=== PATIENT | female | born 1950 | race African-American/Black ===

== ENCOUNTER 2017-01-16 12:34 | Emergency (ER) | payer OTHER, MEDICARE ==
--- NOTE | 2017-01-16 13:08 | ER Document Report ---
ED Cardiac - General Time seen by provider: 12:56 Mode of Arrival: Medic Information source: Patient, Emergency Med Personnel TRAVEL OUTSIDE OF THE [place] IN LAST 30 DAYS: No - HPI Quality of pain: Heaviness, Pressure Chest pain radiation location: Left jaw, Right jaw Associated symptoms: Jaw pain. denies: Dizziness, Weakness Similar symptoms previously: No Recently seen / treated by doctor: No <PASCUAL MCGRATH - Last Filed: 01/16/17 18:06> <IMELDA ENRIQUEZ - Last Filed: 01/16/17 18:16> - General Stated Complaint: CHEST PAIN Notes: Patient is a 66 year old female presenting to the emergency department for chest pain and tachycardia. Patient states her symptoms were onset between 12:30 -13:00 today. Patient was brought in via EMS who states that she was tachycardic at 166 at her house and 150s in the ambulance until she converted from A-fib. Patient has a history of A-fib and takes aspirin daily. Patient states she was having heaviness in her chest and pain in her jaw along with the fast heart rate. Patient denies any shortness of breath, nausea, or dizziness during the episode. Patient states she is seen at a [place] [facility] on [address]. Patient also has a history of CHF and her last exacerbation was in September. Patient is allergic to lisinopril and ibuprofen. Patient has a history of renal failure and had a kidney transplant in 2014; patient was on dialysis until her transplant took place. (PASCUAL MCGRATH) - Related Data Allergies/Adverse Reactions: ibuprofen [From Advil] Allergy (Verified 10/10/16 06:18) lisinopril [Lisinopril] Allergy (Verified 10/10/16 06:18) Past Medical History - General Information source: Patient - Social History Smoking Status: Unknown if Ever Smoked Family History: None - Past Medical History Cardiac Medical History: Reports: Hx Atrial Fibrillation, Hx Congestive Heart Failure, Hx Coronary Artery Disease, Hx Hypercholesterolemia, Hx Hypertension Pulmonary Medical History: Reports: Hx COPD Neurological Medical History: Reports: Hx Cerebrovascular Accident Renal/ Medical History: Reports: Hx End Stage Renal Disease, Hx Hemodialysis - Last dialysis was May 2015 just prior to her kidney transplant., Hx Peritoneal Dialysis - peritonitis, Hx Renal Insufficiency GI Medical History: Reports: Hx Gastroesophageal Reflux Disease Psychiatric Medical History: Reports: Hx Anxiety, Hx Depression Past Surgical History: Reports: Hx Cardiac Catheterization, Hx Cardiac Surgery - stent in 2003, Hx Coronary Stent - 2003, Hx Kidney (Renal Surgery) - Kidney transplant 05/22/2015 placed in right lower quadrant, Hx Tubal Ligation - Immunizations Hx Diphtheria, Pertussis, Tetanus Vaccination: Yes Hx Pneumococcal Vaccination: 10/12/10 <PASCUAL MCGRATH - Last Filed: 01/16/17 18:06> Review of Systems - Review of Systems Constitutional: No symptoms reported EENT: No symptoms reported Cardiovascular: See HPI, Chest pain, Heart racing. denies: Dizziness Respiratory: No symptoms reported. denies: Short of breath Gastrointestinal: No symptoms reported. denies: Nausea Genitourinary: No symptoms reported Female Genitourinary: No symptoms reported Musculoskeletal: No symptoms reported Skin: No symptoms reported Hematologic/Lymphatic: No symptoms reported Neurological/Psychological: No symptoms reported -: Yes All other systems reviewed and negative <PASCUAL MCGRATH - Last Filed: 01/16/17 18:06> Physical Exam <PASCUAL MCGRATH - Last Filed: 01/16/17 18:06> <IMELDA ENRIQUEZ - Last Filed: 01/16/17 18:16> - Vital signs Vitals: Pulse Ox 99 01/16/17 12:36 - Notes Notes: GENERAL: Well-appearing, well-nourished and in no acute distress. HEAD: Atraumatic, normocephalic. EYES: Pupils equal round and reactive to light, extraocular movements intact, sclera anicteric, conjunctiva are normal. ENT: Nares patent. Moist mucous membranes. Patent airway. NECK: Normal range of motion, supple without lymphadenopathy. LUNGS: Breath sounds clear to auscultation bilaterally and equal. No wheezes, rales, or rhonchi. HEART: Regular rate and rhythm without murmurs. ABDOMEN: Soft, non-tender. No guarding, no rebound. No masses appreciated. EXTREMITIES: Normal range of motion, no pitting or edema. NEUROLOGICAL: No focal neurological deficits. Moves all extremities spontaneously and on command. PSYCH: Normal affect. Normal mood. SKIN: Warm, Dry, normal turgor, no rashes or lesions noted. (PASCUAL MCGRATH) Course - Laboratory Result Diagrams: 01/16/17 12:55 04/07/17 14:58 - Consults [facility] Time consulted: 17:14 Dr. Goode Time consulted: 17:38 <PASCUAL MCGRATH - Last Filed: 01/16/17 18:06> - Laboratory Result Diagrams: 01/16/17 12:55 01/16/17 14:58 - Diagnostic Test Radiology reviewed: Image reviewed, Reports reviewed - NAD - EKG Interpretation by Me EKG shows normal: Sinus rhythm Rate: Normal Rhythm: NSR Voltage: Consistant with LVH <IMELDA ENRIQUEZ Ginna - Last Filed: 01/16/17 18:16> - Re-evaluation Re-evalutation: 01/16/17 13:15 Evaluation of the telemetry strip showed SVT with a rate of approximately 150 at the time the patient was placed on the monitor, then she spontaneously converted to a normal sinus rhythm with complete resolution of her symptoms 01/16/17 17:20 Patient has remained without chest discomfort or further tachycardia here. Her creatinine is gone from 1.78 to 3.29 in a 4 month span. GFR is now 17. With concern for rejection and increasing evidence of acute renal failure, we discussed transfer and the patient is agreeable to this. I have contacted Sheela in [facility] as she has an upcoming appointment there with a transplant physician and her original transplant was in [facility] June 2015. 01/16/17 17:[address] Goode regarding the patient. With the concern for cardiac ischemia as basically a failed stress test with her SVT and her service secretary being in [facility], he felt particularly in light of her possible rejection that she should see transplant as well. We will transfer her to this higher level of care. (IMELDA ENRIQUEZ) - Vital Signs Vital signs: Temp Pulse Resp BP Pulse Ox 98.2 F 65 16 106/66 99 01/16/17 12:45 01/16/17 12:45 01/16/17 12:45 01/16/17 12:45 01/16/17 12:45 - Laboratory Laboratory results interpreted by me: 01/16/17 01/16/17 12:55 14:58 RDW 15.5 H Carbon Dioxide 21 L BUN 35 H Creatinine 3.29 H Est GFR ( Amer) 17 L Est GFR (Non-Af Amer) 14 L Total Protein 6.0 L - Diagnostic Test Radiology results interpreted by me: 01/16/17 15:13 Cardiomegaly (IMELDA ENRIQUEZ Ginna) - EKG Interpretation by Me Additional EKG results interpreted by me: 01/16/17 13:15 Trigeminy (COCOIMELDA Chacko) - [facility] Reason for consultation: 01/16/17 17:14 Contacted [facility] for possible patient transfer, they will contact nephrology and call back. 01/16/17 17:40 [facility] called back and I spoke to Dr. Collins who will admit the patient and requests an ED to ED transfer. (PASCUAL MCGRATH) Dr. Goode Reason for consultation: 01/16/17 17:[address] Goode to determine if this patient should be transferred or admitted. He recommends the patient be transferred. (PASCUAL MCGRATH) Discharge - Discharge Admitting Provider: Dr. Collins <PASCUAL MCGRATH - Last Filed: 01/16/17 18:06> <IMELDA ENRIQUEZ - Last Filed: 01/16/17 18:16> - Discharge Clinical Impression: Acute renal failure, Chest pain, Supraventricular tachycardia Condition: Stable Referrals: MOI JUAREZ MD [Primary Care Provider] - Follow up as needed Scribe Documentation - Scribe Written by Scrjordan:: Pascual Mcgrath 01/16/17 13:30 acting as scribe for :: Coco <PASCUAL MCGRATH - Last Filed: 01/16/17 18:06>
[2017-01-16 13:39] LABS: ABSOLUTE LYMPHOCYTES (AUTO) 0.8 10^3/uL (0.5-4.7); ABSOLUTE MONOCYTES (AUTO) 0.3 10^3/uL (0.1-1.4); ABSOLUTE NEUT (AUTO) 3.8 10^3/uL (1.7-8.2); BASOPHILS % (AUTO) 0.5 % (0-2); EOSINOPHILS % (AUTO) 0.3 % (0-6); HEMOGLOBIN 14.6 g/dL (12.0-15.5); HGB HCT DIFFERENCE 0.8; LYMPHOCYTES % (AUTO) 15.4 % (13-45); MEAN CORPUSCULAR HEMOGLOBIN 31.4 pg (27.0-33.4); MEAN CORPUSCULAR VOLUME 92 fl (80-97); MONOCYTES % (AUTO) 6.6 % (3-13); RED BLOOD COUNT 4.65 10^6/uL (3.72-5.28); RED CELL DISTRIBUTION WIDTH 15.5 % (11.5-14.0); SEGMENTED NEUTROPHILS % (AUTO) 77.2 % (42-78); WHITE BLOOD COUNT 4.9 10^3/uL (4.0-10.5)
[2017-01-16 15:52] LABS: ALANINE AMINOTRANSFERASE 34 U/L (9-52); ALBUMIN 3.8 g/dL (3.5-5.0); ALKALINE PHOSPHATASE 114 U/L (38-126); ANION GAP 12 (5-19); ASPARTATE AMINO TRANSFERASE 23 U/L (14-36); BILIRUBIN,DIRECT 0.4 mg/dL (0.0-0.4); BILIRUBIN,TOTAL 0.7 mg/dL (0.2-1.3); BLOOD UREA NITROGEN 35 mg/dL (7-20); CARBON DIOXIDE 21 mmol/L (22-30); CHLORIDE 105 mmol/L (98-107); CREATININE RESULT 3.29 mg/dL (0.52-1.25); GLUCOSE 92 mg/dL (75-110); MAGNESIUM 1.8 mg/dL (1.6-2.3); POTASSIUM 4.8 mmol/L (3.6-5.0); SODIUM 138.2 mmol/L (137-145)
[2017-01-16 19:48] VITALS: BP 123/92
--- NOTE | 2017-01-16 22:27 | EKG REPORT ---
SEVERITY:- ABNORMAL ECG - SINUS RHYTHM VENTRICULAR TRIGEMINY PROBABLE LEFT ATRIAL ABNORMALITY LEFT VENTRICULAR HYPERTROPHY : Confirmed by: Jamilah Gomez MD 16-Jan-2017 22:26:01
== END 2017-01-16 19:43 | disposition short-term general hospital (02) ==
LOC: ER 12:34
DX: I47.1 Supraventricular tachycardia (principal); N17.9 Acute kidney failure, unspecified; I13.2 Hypertensive heart and chronic kidney disease with heart failure and with stage 5 chronic kidney disease, or end stage renal disease; I50.9 Heart failure, unspecified; R07.9 Chest pain, unspecified; R68.84 Jaw pain; I48.91 Unspecified atrial fibrillation; I11.0 Hypertensive heart disease with heart failure; E78.00 Pure hypercholesterolemia, unspecified; J44.9 Chronic obstructive pulmonary disease, unspecified; Z88.6 Allergy status to analgesic agent; Z79.82 Long term (current) use of aspirin; Z99.2 Dependence on renal dialysis; Z86.73 Personal history of transient ischemic attack (TIA), and cerebral infarction without residual deficits; Z94.0 Kidney transplant status
CPT/HCPCS: 36415; 71010; 80053; 83735; 84484; 85025; 93005; 93010; 99285

== ENCOUNTER 2017-03-12 01:24 | Emergency (ER) | payer OTHER, MEDICARE ==
[2017-03-12] MEDS ORDERED: ADENOSINE INJ/PF 6 MG/2 ML SDV IV ONE ×3 (01:32→01:42)
--- NOTE | 2017-03-12 01:51 | ER Document Report ---
ED General - General Stated Complaint: CHEST PAIN Time Seen by Provider: 03/12/17 01:30 Notes: Patient is a 66-year-old female with past medical history of kidney transplant, frequent episodes of SVT who presents with palpitations, nausea, and chest heaviness. States this feels identical to prior episodes of supraventricular tachycardia. She was seen in January 2017 for similar presentation at that time was transferred to [facility] for further assessment. She is not certain of what triggers today's episode. She has tried bearing down for a vagal maneuver without success. She denies any associated shortness of breath but has had nausea without vomiting. TRAVEL OUTSIDE OF THE [place] IN LAST 30 DAYS: No - Related Data Allergies/Adverse Reactions: ibuprofen [From Advil] Allergy (Verified 10/10/16 06:18) lisinopril [Lisinopril] Allergy (Verified 10/10/16 06:18) Past Medical History - General Information source: Patient - Social History Smoking Status: Never Smoker Frequency of alcohol use: None Drug Abuse: None Lives with: Family Family History: Reviewed & Not Pertinent - Past Medical History Cardiac Medical History: Reports: Hx Atrial Fibrillation, Hx Congestive Heart Failure, Hx Coronary Artery Disease, Hx Hypercholesterolemia, Hx Hypertension Denies: Hx Heart Attack, Hx Heart Murmur Pulmonary Medical History: Reports: Hx COPD Denies: Hx Tuberculosis Neurological Medical History: Reports: Hx Cerebrovascular Accident. Denies: Hx Seizures Renal/ Medical History: Reports: Hx End Stage Renal Disease, Hx Hemodialysis - Last dialysis was May 2015 just prior to her kidney transplant., Hx Peritoneal Dialysis - peritonitis, Hx Renal Insufficiency. Denies: Hx Kidney Stones GI Medical History: Reports: Hx Gastroesophageal Reflux Disease. Denies: Hx Hiatal Hernia, Hx Ulcer Psychiatric Medical History: Reports: Hx Anxiety, Hx Depression Denies: Hx Bipolar Disorder, Hx Schizophrenia Past Surgical History: Reports: Hx Cardiac Catheterization, Hx Cardiac Surgery - stent in 2003, Hx Coronary Stent - 2003, Hx Kidney (Renal Surgery) - Kidney transplant 05/22/2015 placed in right lower quadrant, Hx Tubal Ligation. Denies : Hx Appendectomy, Hx Bowel Surgery, Hx Section, Hx Cholecystectomy, Hx Hysterectomy, Hx Mastectomy, Hx Tonsillectomy - Immunizations Hx Diphtheria, Pertussis, Tetanus Vaccination: Yes Hx Pneumococcal Vaccination: 10/12/10 Review of Systems - Review of Systems Notes: Constitutional: Negative for fever. HENT: Negative for sore throat. Eyes: Negative for visual changes. Cardiovascular: Positive for palpitations Respiratory: Negative for shortness of breath. Gastrointestinal: Negative for abdominal pain, vomiting or diarrhea. Genitourinary: Negative for dysuria. Musculoskeletal: Negative for back pain. Skin: Negative for rash. Neurological: Negative for headaches, weakness or numbness. 10 point ROS negative except as marked above and in HPI. Physical Exam - Vital signs Vitals: Pulse 155 H 03/12/17 01:30 Interpretation: Tachycardic Notes: PHYSICAL EXAMINATION: GENERAL: Appears uncomfortable HEAD: Atraumatic, normocephalic. EYES: Pupils equal round and reactive to light, extraocular movements intact, sclera anicteric, conjunctiva are normal. ENT: nares patent, oropharynx clear without exudates. Moderately dry mucous membranes. NECK: Normal range of motion, supple without lymphadenopathy LUNGS: Breath sounds clear to auscultation bilaterally and equal. No wheezes rales or rhonchi. HEART: Regular tachycardia ABDOMEN: Soft, nontender, normoactive bowel sounds. No guarding, no rebound. No masses appreciated. EXTREMITIES: Normal range of motion, no pitting or edema. No cyanosis. NEUROLOGICAL: No focal neurological deficits. Moves all extremities spontaneously and on command. PSYCH: Normal mood, normal affect. SKIN: Warm, Dry, normal turgor, no rashes or lesions noted. Course - Re-evaluation Re-evalutation: 03/12/17 01:40 Patient presents in apparent distress, supraventricular tachycardia with initial rate in the 150s no P waves present. I immediately went to see this patient. She was noted to be diaphoretic, vomiting and uncomfortable. IV access established and adenosine 6 mg and 12 mg are both tried without success from a peripheral IV access point in the wrist. I felt that failure was likely secondary to the distal nature of the IV site. I therefore placed a right external jugular peripheral access. An additional 12 mg dose of adenosine was trial using this point of access with successful conversion of supraventricular tachycardia. Patient immediately had complete resolution of all symptoms. 03/12/17 01:55 Contacted [facility] for information regarding patient's hospitalization in January for similar presentation. Review of records with the staff via telephone indicates the patient had a normal cardiac catheterization without any significant lesions and no interventions. She was also documented to have a normal ejection fraction at that time. This is very reassuring that her presentation today is not likely secondary to an ischemic etiology and this is also supported by the resolution of her symptoms after SVT had terminated. She will be continued to monitor on telemetry. 03/12/17 02:28 Patient's laboratories are unremarkable. Her creatinine is below baseline. She remains asymptomatic. I do not believe that her symptoms are related to an ischemic etiology and therefore serial troponins will not be obtained. At this time will discharge with return precautions and follow-up recommendations. Verbal discharge instructions given a the bedside and opportunity for questions given. Medication warnings reviewed. Patient is in agreement with this plan and has verbalized understanding of return precautions and the need for primary care follow-up in the next 24-72 hours. - Vital Signs Vital signs: Temp Pulse Resp BP Pulse Ox 155 H 03/12/17 01:30 - Laboratory Result Diagrams: 03/12/17 01:37 03/12/17 01:37 Laboratory results interpreted by me: 03/12/17 03/12/17 01:37 01:37 RDW 16.2 H Chloride 110 H Carbon Dioxide 17 L BUN 46 H Creatinine 2.92 H Est GFR ( Amer) 19 L Est GFR (Non-Af Amer) 16 L Calcium 10.9 H Direct Bilirubin 0.5 H - Diagnostic Test Radiology reviewed: Image reviewed, Reports reviewed Radiology results interpreted by me: 03/12/17 02:35 Chest x-ray: No acute infiltrate or pneumothorax - EKG Interpretation by Me Additional EKG results interpreted by me: 03/12/17 02:35 EKG 1: Supraventricular tachycardia. Rate 155. No ST elevations or depressions. EKG 2: Sinus rhythm. Rate 77. No ST elevations or depressions. QTC is 426. Critical Care Note - Critical Care Note Total time excluding time spent on procedures (mins): 35 Comments: Critical care time spent obtaining history from patient or surrogate, discussions with consultants, development of treatment plan with patient or surrogate, evaluation of patient's response to treatment, examination of patient , ordering and performing treatments and interventions, ordering and review of laboratory studies, re-evaluation of patient's condition, ordering and review of radiographic studies and review of old charts Discharge - Discharge Clinical Impression: SVT (supraventricular tachycardia) Condition: Good Disposition: HOME, SELF-CARE Additional Instructions: Please return if you develop chest pain, shortness of breath, persistent vomiting, recurrence of your symptoms, or any other symptoms that are worrisome to you.
[2017-03-12 02:00] LABS: ABSOLUTE LYMPHOCYTES (AUTO) 1.1 10^3/uL (0.5-4.7); ABSOLUTE MONOCYTES (AUTO) 0.6 10^3/uL (0.1-1.4); ABSOLUTE NEUT (AUTO) 3.2 10^3/uL (1.7-8.2); BASOPHILS % (AUTO) 0.9 % (0-2); EOSINOPHILS % (AUTO) 0.6 % (0-6); HEMOGLOBIN 13.5 g/dL (12.0-15.5); HGB HCT DIFFERENCE -0.5; LYMPHOCYTES % (AUTO) 22.4 % (13-45); MEAN CORPUSCULAR HEMOGLOBIN 31.3 pg (27.0-33.4); MEAN CORPUSCULAR HGB CONC 32.9 g/dL (32.0-36.0); MEAN CORPUSCULAR VOLUME 95 fl (80-97); MONOCYTES % (AUTO) 12.4 % (3-13); RED CELL DISTRIBUTION WIDTH 16.2 % (11.5-14.0); SEGMENTED NEUTROPHILS % (AUTO) 63.7 % (42-78)
[2017-03-12 02:03] LABS: ALANINE AMINOTRANSFERASE 21 U/L (9-52); ALBUMIN 4.2 g/dL (3.5-5.0); ALKALINE PHOSPHATASE 110 U/L (38-126); ANION GAP 13 (5-19); ASPARTATE AMINO TRANSFERASE 33 U/L (14-36); BILIRUBIN,DIRECT 0.5 mg/dL (0.0-0.4); BILIRUBIN,TOTAL 0.6 mg/dL (0.2-1.3); BLOOD UREA NITROGEN 46 mg/dL (7-20); CALCIUM 10.9 mg/dL (8.4-10.2); CARBON DIOXIDE 17 mmol/L (22-30); CHLORIDE 110 mmol/L (98-107); CREATINE KINASE 48 U/L (30-135); CREATININE RESULT 2.92 mg/dL (0.52-1.25); GLUCOSE 102 mg/dL (75-110); POTASSIUM 4.4 mmol/L (3.6-5.0); SODIUM 140.4 mmol/L (137-145); TOTAL PROTEIN 7.1 g/dL (6.3-8.2)
[2017-03-12 02:15] LABS: CREATINE KINASE MB 0.56 ng/mL (<4.55); TROPONIN I 0.022 ng/mL
--- NOTE | 2017-03-12 02:28 | RADIOLOGY REPORT (SQ) ---
EXAM DESCRIPTION: CHEST SINGLE VIEW COMPLETED DATE/TIME: 03/12/2017 2:05 am REASON FOR STUDY: palpitations COMPARISON: Chest x-ray 01/16/2017, 05/16/2016. CT chest 05/16/2016 EXAM PARAMETERS: NUMBER OF VIEWS: One view. TECHNIQUE: Single frontal radiographic view of the chest acquired. RADIATION DOSE: NA LIMITATIONS: None. FINDINGS: LUNGS AND PLEURA: No consolidation, pneumothorax or pleural effusion. MEDIASTINUM AND HILAR STRUCTURES: No masses. Contour normal. HEART AND VASCULAR STRUCTURES: The heart is upper normal limit in size. No overt vascular congestion . BONES: No acute findings. HARDWARE: None in the chest. IMPRESSION: No acute radiographic finding in the chest. TECHNICAL DOCUMENTATION: JOB ID: [id number]
[2017-03-12 03:30] VITALS: BP 121/85
--- NOTE | 2017-03-12 09:54 | EKG REPORT ---
SEVERITY:- ABNORMAL ECG - SINUS RHYTHM VENTRICULAR PREMATURE COMPLEX PROBABLE LEFT ATRIAL ABNORMALITY LEFT VENTRICULAR HYPERTROPHY : Confirmed by: Jessi Saha 12-Mar-2017 09:53:46
--- NOTE | 2017-03-12 09:54 | EKG REPORT ---
SEVERITY:- ABNORMAL ECG - SUPRAVENTRICULAR TACHYCARDIA ST DEPRESSION, PROBABLY RATE RELATED : Confirmed by: Jessi Saha 12-Mar-2017 09:53:52
== END 2017-03-12 03:30 | disposition home or self-care (01) ==
LOC: ER 01:24
DX: I47.1 Supraventricular tachycardia (principal); R07.9 Chest pain, unspecified; I13.2 Hypertensive heart and chronic kidney disease with heart failure and with stage 5 chronic kidney disease, or end stage renal disease; I50.9 Heart failure, unspecified; N18.6 End stage renal disease; E78.00 Pure hypercholesterolemia, unspecified; I48.91 Unspecified atrial fibrillation; I25.10 Atherosclerotic heart disease of native coronary artery without angina pectoris; Z99.2 Dependence on renal dialysis; Z94.0 Kidney transplant status; Z86.73 Personal history of transient ischemic attack (TIA), and cerebral infarction without residual deficits; Z88.6 Allergy status to analgesic agent; Z98.51 Tubal ligation status
CPT/HCPCS: 36415; 71010; 80053; 82550; 82553; 84484; 85025; 93005; 93010; 96374; 99291; J0153

== ENCOUNTER 2017-04-01 04:26 | Emergency (ER) | payer OTHER, MEDICARE ==
--- NOTE | 2017-04-01 05:24 | ER Document Report ---
Doctor's Note Notes: 04/01/17 05:22 I did perform a quick triage evaluation of the patient. Patient had what sounds to be SVT. The charge nurse informed of the paramedics think she may have also had some runs of V. tach. We do not have a rhythm strip that shows evidence of that. Patient was able to break out SVT on her own. She says she does have a history of SVT. She currently says she feels great and has no chest pain and feels well. Her EKG does show some T-wave inversion in the lateral precordial leads which is new. I have ordered cardiac enzymes. Her bridge instructor and chest x-ray. Patient continues to say she looks and feels well. Her lung osorio are clear. Her heart signs are normal. She used to be on dialysis in the past but had a renal transplant. She is no longer on dialysis. She does have a previous history of cardiac stenting Dictation of this chart was performed using voice recognition software; therefore, there may be some unintended grammatical errors.
[2017-04-01 05:48] LABS: ABSOLUTE LYMPHOCYTES (AUTO) 0.7 10^3/uL (0.5-4.7); ABSOLUTE MONOCYTES (AUTO) 0.5 10^3/uL (0.1-1.4); ABSOLUTE NEUT (AUTO) 2.2 10^3/uL (1.7-8.2); BASOPHILS % (AUTO) 0.8 % (0-2); EOSINOPHILS % (AUTO) 1.1 % (0-6); HEMATOCRIT 41.8 % (36.0-47.0); HEMOGLOBIN 13.7 g/dL (12.0-15.5); HGB HCT DIFFERENCE -0.7; LYMPHOCYTES % (AUTO) 19.5 % (13-45); MEAN CORPUSCULAR HEMOGLOBIN 31.2 pg (27.0-33.4); MEAN CORPUSCULAR HGB CONC 32.8 g/dL (32.0-36.0); MEAN CORPUSCULAR VOLUME 95 fl (80-97); MONOCYTES % (AUTO) 14.2 % (3-13); RED BLOOD COUNT 4.39 10^6/uL (3.72-5.28); RED CELL DISTRIBUTION WIDTH 15.5 % (11.5-14.0); SEGMENTED NEUTROPHILS % (AUTO) 64.4 % (42-78); WHITE BLOOD COUNT 3.4 10^3/uL (4.0-10.5)
--- NOTE | 2017-04-01 06:02 | RADIOLOGY REPORT (SQ) ---
EXAM DESCRIPTION: CHEST SINGLE VIEW COMPLETED DATE/TIME: 04/01/2017 5:40 am REASON FOR STUDY: arrythmia COMPARISON: 03/12/2017. EXAM PARAMETERS: NUMBER OF VIEWS: One view. TECHNIQUE: Single frontal radiographic view of the chest acquired. RADIATION DOSE: NA LIMITATIONS: None. FINDINGS: LUNGS AND PLEURA: No opacities, masses or pneumothorax. No pleural effusion. Prominent in terstitium. MEDIASTINUM AND HILAR STRUCTURES: No masses. Contour normal. HEART AND VASCULAR STRUCTURES: Heart normal in size. Atherosclerosis. BONES: No acute findings. HARDWARE: None in the chest. OTHER: No other significant finding. IMPRESSION: NO ACUTE RADIOGRAPHIC FINDING IN THE CHEST. TECHNICAL DOCUMENTATION: JOB ID: [id number]
[2017-04-01 06:05] LABS: ALANINE AMINOTRANSFERASE 30 U/L (9-52); ALBUMIN 3.8 g/dL (3.5-5.0); ALKALINE PHOSPHATASE 75 U/L (38-126); ANION GAP 15 (5-19); ASPARTATE AMINO TRANSFERASE 18 U/L (14-36); BILIRUBIN,DIRECT 0.4 mg/dL (0.0-0.4); BILIRUBIN,TOTAL 0.7 mg/dL (0.2-1.3); BLOOD UREA NITROGEN 53 mg/dL (7-20); CALCIUM 10.1 mg/dL (8.4-10.2); CARBON DIOXIDE 18 mmol/L (22-30); CHLORIDE 106 mmol/L (98-107); CREATINE KINASE 45 U/L (30-135); CREATININE RESULT 2.51 mg/dL (0.52-1.25); GLUCOSE 82 mg/dL (75-110); MAGNESIUM 1.8 mg/dL (1.6-2.3); POTASSIUM 3.6 mmol/L (3.6-5.0); SODIUM 139.1 mmol/L (137-145); TOTAL PROTEIN 6.5 g/dL (6.3-8.2)
[2017-04-01 06:16] LABS: CREATINE KINASE MB 0.64 ng/mL (<4.55); TROPONIN I 0.03 ng/mL
[2017-04-01] MEDS ORDERED: NORMAL SALINE 500 ML IV ONE (07:47)
--- NOTE | 2017-04-01 08:40 | EKG REPORT ---
SEVERITY:- ABNORMAL ECG - SINUS RHYTHM VENTRICULAR PREMATURE COMPLEX PROBABLE LEFT ATRIAL ABNORMALITY NONSPECIFIC INTRAVENTRICULAR CONDUCTION DELAY LEFT VENTRICULAR HYPERTROPHY : Confirmed by: Jamilah Gomez MD 01-Apr-2017 08:39:23
[2017-04-01 09:01] LABS: APPEARANCE,URINE CLEAR; BILIRUBIN,URINE NEGATIVE (NEGATIVE); GLUCOSE, URINE NEGATIVE (NEGATIVE); KETONES,URINE NEGATIVE (NEGATIVE); LEUKOCYTE ESTERASE,URINE NEGATIVE (NEGATIVE); NITRITE,URINE NEGATIVE (NEGATIVE); PROTEIN,URINE NEGATIVE (NEGATIVE); URINE SPECIFIC GRAVITY 1.006; UROBILINOGEN,URINE NEGATIVE mg/dL (<2.0)
[2017-04-01 09:21] LABS: URINE BARBITURATES SCREEN NEGATIVE; URINE METHADONE SCREEN NEGATIVE; URINE OPIATES LOW NEGATIVE; URINE PHENCYCLIDINE SCREEN NEGATIVE
--- NOTE | 2017-04-01 10:41 | ER Document Report ---
ED General - General Chief Complaint: Breathing Difficulty Stated Complaint: DIFFICULTY BREATHING Time Seen by Provider: 04/01/17 05:22 TRAVEL OUTSIDE OF THE U.S. IN LAST 30 DAYS: No - HPI Patient complains to provider of: Difficulty breathing chest pain Notes: Patient coming in today states she woke up around 3:00 this patient chest pain shortness of breath. Patient states chest pain rating up to herjaw. Upon EMS arrival patient was found to be in SVT upon transport patient spontaneously converted to normal sinus rhythm. Patient has been asymptomatic during her stay here in the ER. Patient was initially seen by my physician with lab work ordered. Patient does have new T-wave inversions and V5 V6. Otherwise per my evaluation patient sleeping denies any chest pain at this time denies any shortness of breath denies fever chills nausea vomiting - Related Data Allergies/Adverse Reactions: ibuprofen [From Advil] Allergy (Verified 10/10/16 06:18) lisinopril [Lisinopril] Allergy (Verified 10/10/16 06:18) Past Medical History - Social History Smoking Status: Unknown if Ever Smoked Family History: Reviewed & Not Pertinent Patient has suicidal ideation: No Patient has homicidal ideation: No - Past Medical History Cardiac Medical History: Reports: Hx Atrial Fibrillation, Hx Congestive Heart Failure, Hx Coronary Artery Disease, Hx Hypercholesterolemia, Hx Hypertension Denies: Hx Heart Attack, Hx Heart Murmur Pulmonary Medical History: Reports: Hx COPD Denies: Hx Tuberculosis Neurological Medical History: Reports: Hx Cerebrovascular Accident. Denies: Hx Seizures Renal/ Medical History: Reports: Hx End Stage Renal Disease, Hx Hemodialysis - Last dialysis was May 2015 just prior to her kidney transplant., Hx Renal Insufficiency. Denies: Hx Kidney Stones, Hx Peritoneal Dialysis GI Medical History: Reports: Hx Gastroesophageal Reflux Disease. Denies: Hx Hiatal Hernia, Hx Ulcer Psychiatric Medical History: Reports: Hx Anxiety, Hx Depression Denies: Hx Bipolar Disorder, Hx Schizophrenia Past Surgical History: Reports: Hx Cardiac Catheterization, Hx Cardiac Surgery - stent in 2003, Hx Coronary Stent - 2003, Hx Kidney (Renal Surgery) - Kidney transplant 05/22/2015 placed in right lower quadrant, Hx Tubal Ligation. Denies : Hx Appendectomy, Hx Bowel Surgery, Hx Section, Hx Cholecystectomy, Hx Hysterectomy, Hx Mastectomy, Hx Tonsillectomy - Immunizations Hx Diphtheria, Pertussis, Tetanus Vaccination: Yes Hx Pneumococcal Vaccination: 10/12/10 Review of Systems - Review of Systems Constitutional: No symptoms reported EENT: No symptoms reported Cardiovascular: Chest pain Respiratory: No symptoms reported Gastrointestinal: No symptoms reported Genitourinary: No symptoms reported Female Genitourinary: No symptoms reported Musculoskeletal: No symptoms reported Skin: No symptoms reported Hematologic/Lymphatic: No symptoms reported Neurological/Psychological: No symptoms reported -: Yes All other systems reviewed and negative Physical Exam - Vital signs Vitals: Temp Pulse Resp BP Pulse Ox 97.9 F 67 27 H 136/73 H 94 04/01/17 04:30 04/01/17 04:30 04/01/17 04:30 04/01/17 04:30 04/01/17 04:30 Interpretation: Normal - General General appearance: Appears well, Alert - HEENT Head: Normocephalic, Atraumatic Eyes: Normal Pupils: PERRL - Respiratory Respiratory status: No respiratory distress Chest status: Nontender Breath sounds: Normal Chest palpation: Normal - Cardiovascular Rhythm: Regular Heart sounds: Normal auscultation Murmur: No - Abdominal Inspection: Normal Distension: No distension Bowel sounds: Normal Tenderness: Nontender Organomegaly: No organomegaly - Back Back: Normal, Nontender - Extremities General upper extremity: Normal inspection, Nontender, Normal color, Normal ROM , Normal temperature General lower extremity: Normal inspection, Nontender, Normal color, Normal ROM , Normal temperature, Normal weight bearing. No: Bridget's sign - Neurological Neuro grossly intact: Yes Cognition: Normal Orientation: AAOx4 Dong Coma Scale Eye Opening: Spontaneous Dong Coma Scale Verbal: Oriented Dong Coma Scale Motor: Obeys Commands [place] Coma Scale Total: 15 Speech: Normal Motor strength normal: LUE, RUE, LLE, RLE Sensory: Normal - Psychological Associated symptoms: Normal affect, Normal mood - Skin Skin Temperature: Warm Skin Moisture: Dry Skin Color: Normal Course - Re-evaluation Re-evalutation: 04/01/17 10:57 Patient was evaluated for chest pain. Patient had negative troponins 2. EKGs 2 still showed T-wave inversions in V5 V6. Patient recently had a negative catheterization at [facility] in February this was confirmed when I discussed her case with her assembler dry cell and battery Dr. Barnett. Recommend that this time patient can be discharged home follow-up with her closely. Please with this assessment. The patient has atypical chest pain as the patient's chest pain is not suggestive of pulmonary embolus, cardiac ischemia, aortic dissection, or other serious etiology. Given the extremely low risk of these diagnoses further testing and evaluation for these possibilities does not appear to be indicated at this time. The patient has been instructed to return if the symptoms worsen or change in any way. - Vital Signs Vital signs: Temp Pulse Resp BP Pulse Ox 98.6 F 62 22 H 165/75 H 98 04/01/17 06:39 04/01/17 06:39 04/01/17 10:30 04/01/17 10:30 04/01/17 10:30 - Laboratory Result Diagrams: 04/01/17 05:18 04/01/17 05:18 Laboratory results interpreted by me: 04/01/17 04/01/17 05:18 05:18 WBC 3.4 L RDW 15.5 H Monocytes % 14.2 H Carbon Dioxide 18 L BUN 53 H Creatinine 2.51 H Est GFR ( Amer) 23 L Est GFR (Non-Af Amer) 19 L Discharge - Discharge Clinical Impression: Chest pain of uncertain etiology, SVT (supraventricular tachycardia), Renal transplant recipient Condition: Good Disposition: HOME, SELF-CARE Instructions: Chest Wall Pain ([facility]), Chest Pain of Unclear Cause ([facility]) Additional Instructions: I discussed your case with your assembler dry cell and battery at [facility] at this time no further management is required. The assembler dry cell and battery will contact you for possible ablation due to SVT. Please continue her home medications as prescribed. Return to the ER symptoms worsen.
--- NOTE | 2017-04-01 10:49 | ER Document Report ---
ED General - General Chief Complaint: Breathing Difficulty Stated Complaint: DIFFICULTY BREATHING Time Seen by Provider: 04/01/17 05:22 TRAVEL OUTSIDE OF THE U.S. IN LAST 30 DAYS: No - Related Data Allergies/Adverse Reactions: ibuprofen [From Advil] Allergy (Verified 10/10/16 06:18) lisinopril [Lisinopril] Allergy (Verified 10/10/16 06:18) Past Medical History - Social History Family History: Reviewed & Not Pertinent Patient has suicidal ideation: No Patient has homicidal ideation: No - Past Medical History Cardiac Medical History: Reports: Hx Atrial Fibrillation, Hx Congestive Heart Failure, Hx Coronary Artery Disease, Hx Hypercholesterolemia, Hx Hypertension Denies: Hx Heart Attack, Hx Heart Murmur Pulmonary Medical History: Reports: Hx COPD Denies: Hx Tuberculosis Neurological Medical History: Reports: Hx Cerebrovascular Accident. Denies: Hx Seizures Renal/ Medical History: Reports: Hx End Stage Renal Disease, Hx Hemodialysis - Last dialysis was May 2015 just prior to her kidney transplant., Hx Renal Insufficiency. Denies: Hx Kidney Stones, Hx Peritoneal Dialysis GI Medical History: Reports: Hx Gastroesophageal Reflux Disease. Denies: Hx Hiatal Hernia, Hx Ulcer Psychiatric Medical History: Reports: Hx Anxiety, Hx Depression Denies: Hx Bipolar Disorder, Hx Schizophrenia Past Surgical History: Reports: Hx Cardiac Catheterization, Hx Cardiac Surgery - stent in 2003, Hx Coronary Stent - 2003, Hx Kidney (Renal Surgery) - Kidney transplant 05/22/2015 placed in right lower quadrant, Hx Tubal Ligation. Denies : Hx Appendectomy, Hx Bowel Surgery, Hx Section, Hx Cholecystectomy, Hx Hysterectomy, Hx Mastectomy, Hx Tonsillectomy - Immunizations Hx Diphtheria, Pertussis, Tetanus Vaccination: Yes Hx Pneumococcal Vaccination: 10/12/10 Physical Exam - Vital signs Vitals: Temp Pulse Resp BP Pulse Ox 97.9 F 67 27 H 136/73 H 94 04/01/17 04:30 04/01/17 04:30 04/01/17 04:30 04/01/17 04:30 04/01/17 04:30 Course - Vital Signs Vital signs: Temp Pulse Resp BP Pulse Ox 98.6 F 62 24 H 176/68 H 96 04/01/17 06:39 04/01/17 06:39 04/01/17 08:02 04/01/17 08:02 04/01/17 08:02 - Laboratory Result Diagrams: 04/01/17 05:18 04/01/17 05:18 Laboratory results interpreted by me: 04/01/17 04/01/17 05:18 05:18 WBC 3.4 L RDW 15.5 H Monocytes % 14.2 H Carbon Dioxide 18 L BUN 53 H Creatinine 2.51 H Est GFR ( Amer) 23 L Est GFR (Non-Af Amer) 19 L Discharge - Discharge Clinical Impression: Chest pain of uncertain etiology, SVT (supraventricular tachycardia), Renal transplant recipient Condition: Good Disposition: HOME, SELF-CARE Instructions: Chest Pain of Unclear Cause ([facility]), Chest Wall Pain ([facility]) Additional Instructions: I discussed your case with your aircraft inspector at [place] at this time no further management is required. The aircraft inspector will contact you for possible ablation due to SVT. Please continue her home medications as prescribed. Return to the ER symptoms worsen.
[2017-04-01] MEDS ORDERED: ALBUTEROL SULFATE 0.083% NEB 2.5 MG/3 ML AMPUL NEB ONE (12:19)
[2017-04-01 12:43] VITALS: BP 149/70
--- NOTE | 2017-04-01 17:04 | EKG REPORT ---
SEVERITY:- ABNORMAL ECG - SINUS RHYTHM PROBABLE LEFT ATRIAL ABNORMALITY LVH WITH SECONDARY REPOLARIZATION ABNORMALITY : Confirmed by: Jamilah Gomez MD 01-Apr-2017 17:02:55
== END 2017-04-01 12:43 | disposition home or self-care (01) ==
LOC: ER 04:26
DX: R07.9 Chest pain, unspecified (principal); I47.1 Supraventricular tachycardia; Z94.0 Kidney transplant status; R06.00 Dyspnea, unspecified; I48.91 Unspecified atrial fibrillation; I50.9 Heart failure, unspecified; I25.10 Atherosclerotic heart disease of native coronary artery without angina pectoris; E78.00 Pure hypercholesterolemia, unspecified; I11.0 Hypertensive heart disease with heart failure; Z86.73 Personal history of transient ischemic attack (TIA), and cerebral infarction without residual deficits; Z88.6 Allergy status to analgesic agent; Z98.51 Tubal ligation status
CPT/HCPCS: 93005; 94640; 99285; 96360; 36415; 82553; 80307 ×2; 82550; 83735; 85025; 80053; 81001; 84484; 71010; 93010; J7040

== ENCOUNTER 2017-06-16 06:48 | Inpatient (IN) | payer OTHER, MEDICARE ==
--- NOTE | 2017-06-16 07:21 | ER Document Report ---
ED GI/ - General Mode of Arrival: Ambulatory Information source: Patient TRAVEL OUTSIDE OF THE U.[place]. IN LAST 30 DAYS: No - HPI Patient complains to provider of: Abdominal pain Onset: Other - x5 days Timing/Duration: Persistent Quality of pain: Sharp Location: Epigastric <JANEL LOUISE - Last Filed: 06/16/17 07:58> <AARON HAM - Last Filed: 06/16/17 14:03> - General Chief Complaint: Abdominal Pain Stated Complaint: ABDOMINAL PAIN Time Seen by Provider: 06/16/17 07:12 Notes: Patient is a 66-year-old female who presents to the emergency department today with complaints of upper abdominal pain. Patient states the pain is sharp and stabbing and has been present for approximately 5 days. Patient states over the weekend she felt like she was constipated so she took her "poopoo medicine" and she subsequently had a bowel movement which did not really relieve her pain. (JANEL LOUISE) - Related Data Allergies/Adverse Reactions: ibuprofen [From Advil] Allergy (Verified 10/10/16 06:18) lisinopril [Lisinopril] Allergy (Verified 10/10/16 06:18) Home Medications: Current Home Medications Acetaminophen [Tylenol] 650 mg PO Q6HP PRN 06/16/17 [History] Albuterol Sulfate [Proair HFA] 2 puff IN Q6H 06/16/17 [History] Aspirin [Aspirin 81 mg Chewable Tablet] 81 mg PO DAILY 06/16/17 [History] Atorvastatin Calcium [Lipitor 20 mg Tablet] 20 mg PO QHS 06/16/17 [History] Bupropion HCl [Wellbutrin 100 mg Tablet] 100 mg PO Q8 06/16/17 [History] Calcitriol [Rocaltrol] 0.25 mcg PO DAILY 06/16/17 [History] Carvedilol 25 mg PO BID 06/16/17 [History] Docusate Sodium [Colace 100 mg Capsule] 100 mg PO DAILY 06/16/17 [History] Ergocalciferol (Vitamin D2) [Drisdol 50,000 Unit (1.25MG) Capsule] 50,000 unit PO SCHAEFFER@1000 06/16/17 [History] Furosemide [Lasix] 40 mg PO Q12 06/16/17 [History] Megestrol Acetate 400 mg PO DAILY 06/16/17 [History] Nifedipine [Nifedipine ER] 30 mg PO DAILY 06/16/17 [History] Nitroglycerin [Nitrostat 0.4 mg (1/150 Gr) Tabs 25/Bottle] 1 tab SL Q5MP PRN 02/25 [History] Potassium Chloride 20 meq PO DAILY 06/16/17 [History] Prednisone 5 mg PO DAILY 06/16/17 [History] Ranitidine HCl 150 mg PO QHS 06/16/17 [History] Sucralfate [Carafate 1 gm Tablet] 1 gm PO ACHS 06/16/17 [History] Sulfamethoxazole/Trimethoprim [Bactrim 400-80 mg Tablet] 1 each PO MOWEFR@1000 06/16/17 [History] Tacrolimus [Prograf] 2 mg PO QAMPM 06/16/17 [History] Past Medical History - General Information source: Patient - Social History Smoking Status: Current Every Day Smoker Cigarette use (# per day): Yes Frequency of alcohol use: None Drug Abuse: None Lives with: Family Family History: Reviewed & Not Pertinent - Past Medical History Cardiac Medical History: Reports: Hx Atrial Fibrillation, Hx Congestive Heart Failure, Hx Coronary Artery Disease, Hx Hypercholesterolemia, Hx Hypertension Pulmonary Medical History: Reports: Hx COPD Neurological Medical History: Reports: Hx Cerebrovascular Accident Renal/ Medical History: Reports: Hx End Stage Renal Disease, Hx Hemodialysis - Last dialysis was May 2015 just prior to her kidney transplant., Hx Renal Insufficiency GI Medical History: Reports: Hx Gastroesophageal Reflux Disease Psychiatric Medical History: Reports: Hx Anxiety, Hx Depression Past Surgical History: Reports: Hx Cardiac Catheterization, Hx Cardiac Surgery - stent in 2003, Hx Coronary Stent - 2003, Hx Kidney (Renal Surgery) - Kidney transplant 05/22/2015 placed in right lower quadrant, Hx Tubal Ligation - Immunizations Hx Diphtheria, Pertussis, Tetanus Vaccination: Yes Hx Pneumococcal Vaccination: 10/12/10 <JANEL LOUISE - Last Filed: 06/16/17 07:58> Review of Systems - Review of Systems Constitutional: No symptoms reported EENT: No symptoms reported Cardiovascular: No symptoms reported Respiratory: No symptoms reported Gastrointestinal: See HPI, Abdominal pain, Constipation Genitourinary: No symptoms reported Female Genitourinary: No symptoms reported Musculoskeletal: No symptoms reported Skin: No symptoms reported Hematologic/Lymphatic: No symptoms reported Neurological/Psychological: No symptoms reported -: Yes All other systems reviewed and negative <JANEL LOUISE - Last Filed: 06/16/17 07:58> Physical Exam - Vital signs Interpretation: Normal - General General appearance: Appears well, Alert - HEENT Head: Normocephalic, Atraumatic Eyes: Normal Pupils: PERRL - Respiratory Respiratory status: No respiratory distress Breath sounds: Other - coarse breath sounds bilaterally with rhonchi upon forced cough consistent with smoking history Chest palpation: Normal - Cardiovascular Rhythm: Regular Heart sounds: Normal auscultation Murmur: No - Abdominal Inspection: Other - Hyperresonant to percussion Distension: Distended - mildly Tenderness: Tender - mild upper abdominal tendernes worsened in the RUQ Organomegaly: No organomegaly - Back Back: Normal, Nontender - Extremities General upper extremity: Normal inspection, Nontender, Normal ROM. No: Edema General lower extremity: Normal inspection, Nontender, Normal ROM. No: Edema - Neurological Neuro grossly intact: Yes Cognition: Normal Orientation: AAOx4 [place] Coma Scale Eye Opening: Spontaneous [place] Coma Scale Verbal: Oriented Dong Coma Scale Motor: Obeys Commands Dong Coma Scale Total: 15 Speech: Normal - Psychological Associated symptoms: Normal affect, Normal mood - Skin Skin Temperature: Warm Skin Moisture: Dry Skin Color: Normal <JANEL LOUISE - Last Filed: 06/16/17 07:58> - Vital signs Vitals: Temp Pulse Resp BP Pulse Ox 99.0 F 69 20 185/64 H 97 06/16/17 06:56 06/16/17 06:56 06/16/17 06:56 06/16/17 06:56 06/16/17 06:56 Course - Laboratory Result Diagrams: 06/16/17 07:40 06/16/17 07:40 <JANEL LOUISE - Last Filed: 06/16/17 07:58> - Laboratory Result Diagrams: 06/16/17 07:40 06/16/17 07:40 - Diagnostic Test Radiology reviewed: Reports reviewed - Oral contrasted CT scan abdomen pelvis shows the contrast remained in the stomach with inflammatory changes at the gastro-duodenal junction. - Consults Dr. Lees Time consulted: 11:20 Consulted provider: will come to ER Dr. Sandoval Time consulted: 11:25 Consulted provider: will see as inpatient <AARON HAM - Last Filed: 06/16/17 14:03> - Vital Signs Vital signs: Temp Pulse Resp BP Pulse Ox 99.0 F 69 25 H 222/52 H 96 06/16/17 06:56 06/16/17 06:56 06/16/17 12:14 06/16/17 12:14 06/16/17 12:14 - Laboratory Laboratory results interpreted by me: 06/16/17 06/16/17 06/16/17 07:40 07:40 11:00 RDW 15.0 H Lymphocytes % 11.6 L Potassium 3.4 L Chloride 109 H BUN 32 H Creatinine 1.83 H Est GFR ( Amer) 33 L Est GFR (Non-Af Amer) 28 L Calcium 10.5 H Total Protein 6.2 L Urine Protein 30 H Ur Leukocyte Esterase TRACE H Discharge <JANEL LOUISE - Last Filed: 06/16/17 07:58> - Discharge Admitting Provider: Surgicalist Unit Admitted: IMCU <AARON HAM - Last Filed: 06/16/17 14:03> - Discharge Clinical Impression: Gastric outlet obstruction, Ileus, Renal insufficiency, Renal transplant recipient Condition: Stable Disposition: ADMITTED INPATIENT Scribe Attestation: 06/16/17 07:36 I personally performed the services described in the documentation, reviewed and edited the documentation which was dictated to the scribe in my presence, and it accurately records my words and actions. (AARON HAM) Scribe Documentation - Scribe Written by Nahun:: Nahun Lockwood, 06/16/2017 0744 acting as scribe for :: Ray <JANEL LOUISE - Last Filed: 06/16/17 07:58>
[2017-06-16] MEDS ORDERED: ONDANSETRON HCL INJ/PF 4 MG/2 ML SDV IV ONE ×5 (07:24→12:36)
[2017-06-16] MEDS ORDERED: FENTANYL CITRATE INJ/PF 100 MCG/2 ML AMPUL IV ONE ×4 (07:24→11:21)
[2017-06-16 07:53] LABS: ABSOLUTE LYMPHOCYTES (AUTO) 0.7 10^3/uL (0.5-4.7); ABSOLUTE MONOCYTES (AUTO) 0.6 10^3/uL (0.1-1.4); ABSOLUTE NEUT (AUTO) 4.4 10^3/uL (1.7-8.2); BASOPHILS % (AUTO) 0.3 % (0-2); EOSINOPHILS % (AUTO) 0.4 % (0-6); HEMATOCRIT 43.3 % (36.0-47.0); HEMOGLOBIN 14.7 g/dL (12.0-15.5); HGB HCT DIFFERENCE 0.8; LYMPHOCYTES % (AUTO) 11.6 % (13-45); MEAN CORPUSCULAR HEMOGLOBIN 32.6 pg (27.0-33.4); MEAN CORPUSCULAR HGB CONC 33.9 g/dL (32.0-36.0); MEAN CORPUSCULAR VOLUME 96 fl (80-97); MONOCYTES % (AUTO) 10.1 % (3-13); SEGMENTED NEUTROPHILS % (AUTO) 77.6 % (42-78); WHITE BLOOD COUNT 5.7 10^3/uL (4.0-10.5)
[2017-06-16 08:10] LABS: ALANINE AMINOTRANSFERASE 22 U/L (9-52); ALBUMIN 3.6 g/dL (3.5-5.0); ALKALINE PHOSPHATASE 61 U/L (38-126); ANION GAP 10 (5-19); ASPARTATE AMINO TRANSFERASE 15 U/L (14-36); BILIRUBIN,DIRECT 0.4 mg/dL (0.0-0.4); BILIRUBIN,TOTAL 0.9 mg/dL (0.2-1.3); BLOOD UREA NITROGEN 32 mg/dL (7-20); CALCIUM 10.5 mg/dL (8.4-10.2); CARBON DIOXIDE 24 mmol/L (22-30); CHLORIDE 109 mmol/L (98-107); CREATININE RESULT 1.83 mg/dL (0.52-1.25); GLUCOSE 92 mg/dL (75-110); LIPASE 91.4 U/L (23-300); POTASSIUM 3.4 mmol/L (3.6-5.0); SODIUM 143.4 mmol/L (137-145); TOTAL PROTEIN 6.2 g/dL (6.3-8.2)
--- NOTE | 2017-06-16 08:11 | RADIOLOGY REPORT (SQ) ---
EXAM DESCRIPTION: KUB/ABDOMEN (SINGLE VIEW) COMPLETED DATE/TIME: 06/16/2017 7:58 am REASON FOR STUDY: upper abd pain COMPARISON: Abdominal series 09/17/2011. NUMBER OF VIEWS: One view. TECHNIQUE: Supine radiographic image of the abdomen acquired. LIMITATIONS: None. FINDINGS: BOWEL GAS PATTERN: Diffuse gaseous distension of small bowel loops measuring up to 3.4 cm. Stool and gas noted within the colon. CALCIFICATIONS: Vascular calcifications are noted. Coarse calcifications in the pelvis, suggestive o f uterine fibroid. SOFT TISSUES: No gross mass or suggestion of organomegaly. HARDWARE: None in the abdomen. BONES: Degenerative changes in the spine with thoracolumbar scoliosis. IMPRESSION: Gaseous distension of small bowel loops, may represent ileus versus obstruction. Radiog raphic followup recommended. TECHNICAL DOCUMENTATION: JOB ID: [id number] [employer]- All Rights Reserved
[2017-06-16 11:16] LABS: APPEARANCE,URINE SLIGHTLY-CLOUDY; BILIRUBIN,URINE NEGATIVE (NEGATIVE); GLUCOSE, URINE NEGATIVE (NEGATIVE); KETONES,URINE NEGATIVE (NEGATIVE); LEUKOCYTE ESTERASE,URINE TRACE (NEGATIVE); NITRITE,URINE NEGATIVE (NEGATIVE); PROTEIN,URINE 30 mg/dL (NEGATIVE); URINE SPECIFIC GRAVITY 1.011; UROBILINOGEN,URINE NEGATIVE mg/dL (<2.0)
--- NOTE | 2017-06-16 11:26 | RADIOLOGY REPORT (SQ) ---
EXAM DESCRIPTION: CT ABD/PELVIS ORAL ONLY COMPLETED DATE/TIME: 06/16/2017 11:06 am REASON FOR STUDY: ILEUS VS OBSTRUCTION COMPARISON: None. TECHNIQUE: CT scan of the abdomen and pelvis performed without intravenous or oral contrast. Images reviewed with lung, soft tissue, and bone windows. Reconstructed coronal and sagittal MPR images revi ewed. All images stored on PACS. All CT scanners at this facility use dose modulation, iterative reconstruction, and/or weight based d osing when appropriate to reduce radiation dose to as low as reasonably achievable (ALARA). [facility]: Dose Right [facility]: CareDose [facility]: Dose Right [facility]: Teradose 4D [facility]: [employer] RADIATION DOSE: Up-to-date CT equipment and radiation dose reduction techniques were employed. CTDIv ol: 5.1 mGy. DLP: 231 mGy-cm.mGy. LIMITATIONS: None. FINDINGS: LOWER CHEST: No significant findings. No nodules or infiltrates. NON-CONTRASTED LIVER, SPLEEN, ADRENALS: Evaluation limited by lack of IV contrast. No identified sign ificant masses. PANCREAS: No masses. No peripancreatic inflammatory changes. GALLBLADDER: No identified stones by CT criteria. No inflammatory changes to suggest cholecystitis. RIGHT KIDNEY AND URETER: The right knee if kidney is small and atrophic. No significant calcificati ons. No hydronephrosis or hydroureter. LEFT KIDNEY AND URETER: The left robinson kidney is small and atrophic. No significant calcifications . No hydronephrosis or hydroureter. AORTA AND RETROPERITONEUM: No aneurysm. No retroperitoneal masses or adenopathy. BOWEL AND PERITONEAL CAVITY: There is focal inflammatory change in the right upper quadrant. This ap pears to involve the proximal duodenum. There is essentially no contrast in the small bowel or colon . This may be secondary to this focal proximal small bowel process. There is no free air. No focal fluid collection. APPENDIX: Normal. 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 BONES: No significant findings. OTHER: No other significant finding. IMPRESSION: Focal inflammatory process involving the proximal small bowel. No focal abscess or free air. This could represent a site of obstruction due to the inflammatory changes. The remainder of the small bowel demonstrates scattered air-fluid levels. The distal small bowel is decompressed. COMMENT: This report was called to AARON HAM MD at11:20 on 06/16/2017. Quality ID # [id number]: Final reports with documentation of one or more dose reduction techniques (e.g., Au tomated exposure control, adjustment of the mA and/or kV according to patient size, use of iterative reconstruction technique) TECHNICAL DOCUMENTATION: JOB ID: [id number] [employer]- All Rights Reserved
[2017-06-16] MEDS ORDERED: DEXTROSE 5%-LACTATED RINGERS 1,000 ML IV ONE (11:32)
[2017-06-16] MEDS ORDERED: HYDRALAZINE HCL INJ/PF 20 MG/1 ML SDV IV ONE (12:20)
[2017-06-16] MEDS ORDERED: HYDRALAZINE HCL INJ/PF 20 MG/1 ML SDV ONE (12:21)
[2017-06-16] MEDS ORDERED: MORPHINE SULFATE 10 MG/ML INJ IV PRN ×3 (12:24→13:00)
[2017-06-16] MEDS: MORPHINE SULFATE 10 MG/ML INJ IV PRN ×2 (13:40→20:06)
[2017-06-16] MEDS ORDERED: NORMAL SALINE 1000 ML 1,000 ML IV ONE (14:35)
[2017-06-16] MEDS ORDERED: NORMAL SALINE 1000 ML 1,000 ML IV PRN (14:38)
--- NOTE | 2017-06-16 15:33 | HISTORY AND PHYSICAL E ---
History and Physical NAME: DEVANTE PIERSON : 1950 AGE: 66Y ADMITTED: 06/16/2017 ROOM: ED01 CHIEF COMPLAINT: Abdominal pains with nausea. HISTORY OF PRESENT ILLNESS: This is a 66-year-old female complaining of epigastric pain for the past 3 to 4 days. This morning, complained of nausea and then went to the emergency room where a CAT scan of the abdomen showed p.o. contrast unable to beyond the stomach. She also had a KUB which showed dilated small bowel. Patient apparently has not been eating well for the past two months. She has easy satiety after a couple of bites of food but never had any vomiting or nausea until this morning. Her last bowel movement was yesterday morning. She has lost about 10 pounds in the past 2 months. SOCIAL HISTORY: Smokes about 10 to 15 cigarettes a day. Denies recreational drug use. Drinks 2 shots of vodka every Thursday. REVIEW OF SYSTEMS: GASTROINTESTINAL: As in HPI. 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 Denies hearing problem. No sore throat. Denies any neck pains. RESPIRATORY: Admits to occasional shortness of breath. CARDIAC: Denies any definite chest pains. GENITOURINARY: Denies any dysuria. Patient had a kidney transplant in 2014 and has been on tacrolimus anti-rejection medication. She apparently had the transplant in [facility]. Denies any vaginal discharge. NEUROLOGIC: Denies any confusion or seizures. HEMATOLOGIC: Denies easy bruisability. LYMPHATIC: Denies any lymph nodes. The rest of the systems reviewed and unremarkable. PAST HISTORY: History of: 1. Renal transplant 2 years ago at [facility]. 2. History of hypertension. ALLERGIES: 1. LISINOPRIL. 2. DYAZIDE. FAMILY HISTORY: Noncontributory. PHYSICAL EXAMINATION: GENERAL: Well-developed, fairly-nourished, 66-year-old -English female, alert and oriented, complaining of abdominal pains. HEENT: Neck is supple, no thyromegaly, PERRLA. LUNGS: No definite rales or wheezing. HEART: Showed regular sinus rhythm. ABDOMEN: Soft with tenderness at the *------* on the epigastric with mild diffuse tenderness. EXTREMITIES: No edema. LABORATORY DATA: White count of 5.7, hemoglobin of 14.7. Sodium 143, potassium 3.4, chloride 107, with a BUN of 32, creatinine of 1.83, albumin of 3.6, and lipase normal. IMPRESSION: 1. Abdominal pains, possibly due to obstruction at the gastroduodenal area. 2. Hypertension. 3. Post renal transplant. PLANS: 1. Patient will likely have an upper endoscopy by Dr. Sandoval. He will likely also do a biopsy. 2. Will have hospitalist manage her blood pressure and continue anti-rejection medication. 3. Hydrate her. 4. keep her n.p.o. 5. Will monitor her electrolytes and white count. DICTATING PHYSICIAN: KM MEEK M.D. [id number] PHY#: [id number] ID: [id number] JOB#: [id number] ACCT: [id number] cc:Reese SIMON MD [id number]
[2017-06-16] MEDS ORDERED: EPINEPHRINE INJ 1 MG/10 ML DISP.SYRIN ONE (15:58)
[2017-06-16] MEDS ORDERED: GLUCAGON,HUMAN RECOMB 1 MG INJ ONE (15:58)
[2017-06-16] MEDS ORDERED: MIDAZOLAM 2 MG/2 ML INJ ONE (15:58)
[2017-06-16] MEDS ORDERED: FLUMAZENIL INJ 0.5 MG/5 ML VIAL ONE (15:58)
[2017-06-16] MEDS ORDERED: NALOXONE HCL INJ/PF 0.4 MG/1 ML SDV ONE (15:58)
[2017-06-16] MEDS: FENTANYL CITRATE INJ/PF 100 MCG/2 ML AMPUL ONE ×2 (17:40→17:42)
--- NOTE | 2017-06-16 18:05 | PDOC CONSULTATION ---
Consultation Consult Date: 06/16/17 History of Present Illness Admission Date/PCP: 06/16/17 14:21 History of Present Illness: DEVANTE PIERSON is a 66 year old female admitted to the emergency room at length today with epigastric pain for the last 4 days. The pain has been constant with no exacerbation with food. There is some nausea and dry retching but no vomiting. She takes a baby aspirin every day. In the emergency room she had a CAT scan of the abdomen without IV but with po contrast which showed mild focal inflammatory changes involving the the duodenum. There was no contrast noted in the small bowel. There is suspicion for gastric outlet obstruction. I actually saw the patient back in June 2008 when she was admitted to the hospital with nausea and vomiting. She had been evaluated in [facility] at about the same time with a gastric emptying study that showed only 3% emptying. She was started on Reglan at that time. She had an EGD that was unremarkable in June 2008. She had end-stage renal disease at that time was on hemodialysis. She has since received a kidney transplant and she follows up in [place] Past Medical History Cardiac Medical History: Reports: Atrial Fibrillation, Congestive Heart Failure , Coronary Artery Disease, Hyperlipidema, Hypertension Denies: Myocardial Infarction, Heart Murmur Pulmonary Medical History: Reports: Chronic Obstructive Pulmonary Disease (COPD) Denies: Tuberculosis Neurological Medical History: Denies: Seizures Renal/ Medical History: Reports: End Stage Renal Disease GI Medical History: Reports: Gastroesophageal Reflux Disease Denies: Hiatal Hernia GI History Note: Gastroparesis Psychiatric Medical History: Denies: Bipolar Disorder, Depression Hematology: Reports: Anemia Denies: Hemophilia, Sickle Cell Disease Past Surgical History Past Surgical History: Reports: Cardiac Catheterization, Coronary Stent - 2003, Tubal Ligation Denies: Appendectomy, Section, Cholecystectomy, Hysterectomy, Mastectomy, Tonsillectomy Social History Lives with: Family Smoking Status: Current Every Day Smoker Cigarettes Packs Per Day: 1 Number of Years Smokin Last Time Smoked: 0500 Frequency of Alcohol Use: Social Hx Recreational Drug Use: No Drugs: None Hx Prescription Drug Abuse: No - Advance Directive Resuscitation Status: Full Code Family History Family History: Reviewed & Not Pertinent Parental Family History Reviewed: No Children Family History Reviewed: NA Sibling(s) Family History Reviewed.: NA Medication/Allergy Home Medications: Acetaminophen [Tylenol] 650 mg PO Q6HP PRN 06/16/17 Albuterol Sulfate [Proair HFA] 2 puff IN Q6H 06/16/17 Aspirin [Aspirin 81 mg Chewable Tablet] 81 mg PO DAILY 06/16/17 Atorvastatin Calcium [Lipitor 20 mg Tablet] 20 mg PO QHS 06/16/17 Bupropion HCl [Wellbutrin 100 mg Tablet] 100 mg PO Q8 06/16/17 Calcitriol [Rocaltrol] 0.25 mcg PO DAILY 06/16/17 Carvedilol 25 mg PO BID 06/16/17 Docusate Sodium [Colace 100 mg Capsule] 100 mg PO DAILY 06/16/17 Ergocalciferol (Vitamin D2) [Drisdol 50,000 Unit (1.25MG) Capsule] 50,000 unit PO SCHAEFFER@1000 06/16/17 Furosemide [Lasix] 40 mg PO Q12 06/16/17 Megestrol Acetate 400 mg PO DAILY 06/16/17 Nifedipine [Nifedipine ER] 30 mg PO DAILY 06/16/17 Nitroglycerin [Nitrostat 0.4 mg (1/150 Gr) Tabs 25/Bottle] 1 tab SL Q5MP PRN 02/25 Potassium Chloride 20 meq PO DAILY 06/16/17 Prednisone 5 mg PO DAILY 06/16/17 Ranitidine HCl 150 mg PO QHS 06/16/17 Sucralfate [Carafate 1 gm Tablet] 1 gm PO ACHS 06/16/17 Sulfamethoxazole/Trimethoprim [Bactrim 400-80 mg Tablet] 1 each PO MOWEFR@1000 06/16/17 Tacrolimus [Prograf] 2 mg PO QAMPM 06/16/17 Allergies/Adverse Reactions: ibuprofen [From Advil] Allergy (Verified 10/10/16 06:18) lisinopril [Lisinopril] Allergy (Verified 10/10/16 06:18) Review of Systems All systems: reviewed and no additional remarkable complaints except as stated Physical Exam Vital Signs: Temp Pulse Resp BP Pulse Ox 99.0 F 86 21 H 163/111 H 97 06/16/17 06:56 06/16/17 17:25 06/16/17 17:25 06/16/17 17:25 06/16/17 17:25 Intake & Output 06/15/17 06/16/17 06/17/17 06:59 06:59 06:59 Intake Total 200 Balance 200 Exam: General: Patient is alert and looks well. HEENT: There is no pallor or jaundice. PERRLA. Oropharynx normal Respiratory: No chest deformity. No respiratory distress. Chest wall palpitation was unremarkable. Breath sounds were normal Cardiovascular: Heart sounds 1 and 2 normal with no murmurs. Abdominal: Not distended. Soft and nontender. Liver and spleen not palpable. No ascites demonstrated. Bowel sounds active. Rectal examination was deferred. Extremities: No edema Neurological: Alert and oriented x4. Grossly nonfocal. Normal speech Skin: No significant rash Psychological: Normal affect Results Impressions: KUB X-Ray 06/16/17 07:21 IMPRESSION: Gaseous distension of small bowel loops, may represent ileus versus obstruction. Radiographic followup recommended. Abdomen/Pelvis CT 06/16/17 08:25 IMPRESSION: Focal inflammatory process involving the proximal small bowel. No focal abscess or free air. This could represent a site of obstruction due to the inflammatory changes. The remainder of the small bowel demonstrates scattered air-fluid levels. The distal small bowel is decompressed. Assessment & Plan - Diagnosis (1) Epigastric pain Is this a current diagnosis for this admission?: Yes Plan: She has had epigastric pain for about 4 days and differential diagnoses would include peptic ulcer disease, duodenal ulcer, or gastritis. She will undergo an EGD for further evaluation (2) Gastroparesis Is this a current diagnosis for this admission?: Yes Plan: She has significant gastroparesis diagnosed by gastric emptying study in 2007. The current finding on the CAT scan may also be from gastroparesis but pyloric channel obstruction will need to be ruled out. (3) Abnormal CT of the abdomen Is this a current diagnosis for this admission?: Yes (5) Ileus Is this a current diagnosis for this admission?: Yes (6) Renal transplant recipient Is this a current diagnosis for this admission?: Yes
--- NOTE | 2017-06-16 18:08 | Operative Report ---
Operative Report DATE OF SURGERY: 06/16/17 Operative Report: Pre-op diagnosis: Epigastric pain and abnormal CAT scan Post-op diagnosis: 1. Mild antral gastritis 2. Normal pyloric channel 3. Likely gastroparesis. 700 cc of fluid suctioned from the stomach Gramsis Surgery: Esophagogastroduodenoscopy with biopsy Medications: Versed 2mg Fentanyl 100mcg IV push Tissue removed: Antral biopsy for pathology Procedure: After informed consent obtained from patient, the throat was sprayed with Hurricane and conscious sedation was achieved. The upper endoscope was inserted into the esophagus under direct vision and advanced into the stomach. The duodenum was entered and examined to the second part. Endoscope was then slowly pulled out of the patient as the mucosa was examined into details. Patient tolerated procedure well. Findings Esophagus: Normal Z-line at: 40 cm Antrum: Mild erythema Body: Large amount of fluid suctioned from the stomach Fundus: Normal Duodenum first part: Normal Duodenum second part: Normal Plan: Await pathology. Start Prevacid and advised gastroparesis diet. Gastric emptying study should be performed as outpatient off Reglan OPERATION: .
[2017-06-16] MEDS ORDERED: NITROGLYCERIN 0.4 MG/TAB 25 TAB/BOTTLE SL PRN (19:07)
[2017-06-16] MEDS ORDERED: ACETAMINOPHEN 325 MG TABLET PO PRN (19:07)
--- NOTE | 2017-06-16 19:12 | EKG REPORT ---
SEVERITY:- ABNORMAL ECG - SINUS RHYTHM MULTIFORM VENTRICULAR PREMATURE COMPLEXES LEFT ATRIAL ABNORMALITY CONSIDER ANTEROSEPTAL INFARCT NONSPECIFIC T ABNORMALITIES, LATERAL LEADS : Confirmed by: Dayday Delarosa MD 16-Jun-2017 19:11:09
[2017-06-16] MEDS: DEXTROSE 5%-LACTATED RINGERS 1,000 ML IV PRN (20:14)
[2017-06-16] MEDS ORDERED: (PENDING PHARMACY ID) (Ranitidine Hcl [Ranitidine Hcl] 150 MG) PO SCH (22:00)
[2017-06-16] MEDS: ONDANSETRON HCL INJ/PF 4 MG/2 ML SDV IV PRN (23:42)
[2017-06-17] MEDS: MORPHINE SULFATE 10 MG/ML INJ IV PRN (01:25)
[2017-06-17] MEDS: LANSOPRAZOLE 30 MG TAB.RAP.DR PO SCH ×3 (01:26→21:06)
[2017-06-17] MEDS: FAMOTIDINE 20 MG TABLET PO SCH ×2 (01:27→21:07)
[2017-06-17] MEDS: FUROSEMIDE 40 MG TABLET PO SCH ×3 (01:33→21:08)
[2017-06-17] MEDS: BUPROPION HCL 100 MG TABLET PO SCH ×4 (01:33→21:08)
[2017-06-17] MEDS: SUCRALFATE 1 GM TABLET PO SCH ×5 (01:33→21:07)
[2017-06-17] MEDS: CARVEDILOL 12.5 MG TABLET PO SCH ×3 (01:33→21:08)
[2017-06-17] MEDS: ATORVASTATIN CALCIUM 20 MG TABLET PO SCH ×2 (01:33→21:07)
[2017-06-17] MEDS: ALBUTEROL SULFATE HFA (90 MCG/PUFF) 200 PUFF/8.5 GM MDI IH SCH ×4 (01:33→17:20)
[2017-06-17] MEDS: DEXTROSE 5%-LACTATED RINGERS 1,000 ML IV PRN ×2 (07:20→17:30)
[2017-06-17] MEDS ORDERED: LANSOPRAZOLE 30 MG TAB.RAP.DR PO SCH (08:00)
[2017-06-17] MEDS: TACROLIMUS ANHYDROUS 1 MG CAPSULE PO SCH ×2 (08:25→17:19)
[2017-06-17] MEDS ORDERED: SULFAMETHOXAZOLE/TRIMETHOPRIM 800-160 MG TABLET PO SCH (10:00)
[2017-06-17] MEDS: POTASSIUM CHLORIDE 10 MEQ TABLET.SA PO SCH (10:03)
[2017-06-17] MEDS: DOCUSATE SODIUM 100 MG CAPSULE PO SCH (10:05)
[2017-06-17] MEDS: CALCITRIOL 0.25 MCG CAPSULE PO SCH (10:05)
[2017-06-17] MEDS: PREDNISONE 5 MG TABLET PO SCH (10:08)
[2017-06-17] MEDS: NIFEDIPINE 30 MG TAB.ER.24 PO SCH (10:09)
[2017-06-17] MEDS: MEGESTROL ACETATE SUSP 400 MG/10 ML UDCUP PO SCH (10:10)
[2017-06-17] MEDS: ASPIRIN 81 MG TABLET, CHEWABLE PO SCH (10:12)
--- NOTE | 2017-06-17 12:03 | PROGRESS NOTE E ---
Progress Note NAME: DEVANTE PIERSON : 1950 AGE: 66Y DATE: 06/17/2017 ROOM: 329 SUBJECTIVE: I read the report of the upper endoscopy, which showed mild antral gastritis, normal pyloric channel 3, likely gastroparesis since patient's stomach was suctioned out of 700 mL of fluid. This morning, patient is still having nausea and vomiting and abdominal pains. Still not able to tolerate clear liquids. OBJECTIVE: ABDOMEN: Soft, but has some upper abdominal tenderness. VITAL SIGNS: Temperature 98.0 Fahrenheit, heart rate of 77 per minute, blood pressure 159/71, and pulse oxygenation of about 94% on room air. LABORATORY: Her lab showed a white count of 5.7 with a hemoglobin of 14.7 and essentially normal electrolytes with potassium 3.4, BUN of 32, and creatinine of 1.83 with estimated GFR of 33 L. All these numbers were drawn yesterday. Will repeat them in the morning. PLAN: In the meantime, I would like to start her on Reglan and continue the Zofran. Will continue with her hydration. Might need to repeat the abdominal series tomorrow if continues to have abdominal pains and nausea and vomiting. Will also correct the potassium. The Reglan dose is only half because her creatinine clearance is only 33. DICTATING PHYSICIAN: KM MEEK M.D. [id number] PHY#: [id number] ID: [id number] JOB#: [id number] ACCT: [id number] cc: >
[2017-06-17] MEDS: METOCLOPRAMIDE HCL INJ/PF 10 MG/2 ML SDV IV SCH ×2 (15:14→21:09)
[2017-06-18] MEDS: ALBUTEROL SULFATE HFA (90 MCG/PUFF) 200 PUFF/8.5 GM MDI IH SCH ×2 (00:03→05:32)
[2017-06-18] MEDS: ONDANSETRON HCL INJ/PF 4 MG/2 ML SDV IV PRN (03:11)
[2017-06-18] MEDS: DEXTROSE 5%-LACTATED RINGERS 1,000 ML IV PRN (03:30)
[2017-06-18] MEDS: MORPHINE SULFATE 10 MG/ML INJ IV PRN (05:21)
[2017-06-18] MEDS: BUPROPION HCL 100 MG TABLET PO SCH (05:32)
[2017-06-18] MEDS: METOCLOPRAMIDE HCL INJ/PF 10 MG/2 ML SDV IV SCH (05:32)
[2017-06-18] MEDS: TACROLIMUS ANHYDROUS 1 MG CAPSULE PO SCH (07:59)
[2017-06-18] MEDS: SUCRALFATE 1 GM TABLET PO SCH (07:59)
[2017-06-18 08:09] VITALS: BP 159/76
[2017-06-18] MEDS: LANSOPRAZOLE 30 MG TAB.RAP.DR PO SCH (09:20)
[2017-06-18] MEDS: POTASSIUM CHLORIDE 10 MEQ TABLET.SA PO SCH (09:21)
[2017-06-18] MEDS: PREDNISONE 5 MG TABLET PO SCH (09:21)
[2017-06-18] MEDS: CALCITRIOL 0.25 MCG CAPSULE PO SCH (09:21)
[2017-06-18] MEDS: ASPIRIN 81 MG TABLET, CHEWABLE PO SCH (09:21)
[2017-06-18] MEDS: CARVEDILOL 12.5 MG TABLET PO SCH (09:22)
[2017-06-18] MEDS: NIFEDIPINE 30 MG TAB.ER.24 PO SCH (09:22)
[2017-06-18] MEDS: DOCUSATE SODIUM 100 MG CAPSULE PO SCH (09:22)
[2017-06-18] MEDS: FUROSEMIDE 40 MG TABLET PO SCH (09:22)
[2017-06-18] MEDS: MEGESTROL ACETATE SUSP 400 MG/10 ML UDCUP PO SCH (09:23)
[2017-06-18] MEDS ORDERED: BISACODYL 10 MG SUPP.RECT PR ONE (10:00)
--- NOTE | 2017-06-18 10:52 | DISCHARGE SUMMARY E ---
Discharge Summary NAME: DEVANTE PIERSON : 1950 AGE: 66Y ADMITTED: 06/16/2017 DISCHARGED: 06/18/2017 FINAL DIAGNOSES: 1. Gastroparesis. 2. Gastritis. SUMMARY: This is a 66-year-old female being seen in the emergency room. She had a CAT scan of the abdomen in the emergency room which showed contrast stayed in the stomach. Consultation with Dr. Sandoval was done and patient underwent upper endoscopy on the same day, 06/16/2017, which showed mild antral gastritis and likely gastroparesis, since about 700 mL of fluid was suctioned from the stomach. The patient's pain persisted the next day and was able to tolerate some clear liquids. Today on day of discharge, the patient felt a lot better, practically no abdominal pain. The abdomen is soft with minimal tenderness. She was able to tolerate more soft diet, but she has to chew her food well and gets full early. She was started on Prevacid and Reglan. PLAN: 1. For her to have low residue diet and also a bland diet. 2. Continue with Prevacid and Reglan. 3. She will need to have a gastric emptying study but will need to be off the Reglan. This will be arranged as an outpatient procedure. Dr. Sandoval will be asked where the study is going to be done and the specifics. The patient's physicians are in [place] and in [place] and she really does not have a physician in the [place] area. She would like to keep her physician in those cities. She was advised to follow up with one of her physicians, preferably in [place] which is closer. DICTATING PHYSICIAN: KM MEEK M.D. [id number] PHY#: [id number] ID: [id number] JOB#: [id number] ACCT: [id number] cc:KM MEEK M.D., MARSHALL B. M.D. >
[2017-06-21] MEDS ORDERED: ERGOCALCIFEROL (VITAMIN D2) 50000 UNIT (1.25 MG) CAPSULE PO SCH (10:00)
== END 2017-06-18 11:11 | disposition home or self-care (01) | DRG 392 ==
LOC: ER 06:48 → EH 12:10 → UNDOADMIN 14:21 → 3S 15:42 → EH 15:42
PROVIDERS: ADMIT Surgery; ATTEND Surgery
PROC: 0DB68ZX Excision of Stomach, Via Natural or Artificial Opening Endoscopic, Diagnostic (ICD-10-PCS; principal; 2017-06-16 16:00)
DX: K31.84 Gastroparesis (principal); K56.7 Ileus, unspecified; Z94.0 Kidney transplant status; K29.70 Gastritis, unspecified, without bleeding; I48.91 Unspecified atrial fibrillation; I25.10 Atherosclerotic heart disease of native coronary artery without angina pectoris; I11.0 Hypertensive heart disease with heart failure; I50.9 Heart failure, unspecified; J44.9 Chronic obstructive pulmonary disease, unspecified; K21.9 Gastro-esophageal reflux disease without esophagitis; F17.210 Nicotine dependence, cigarettes, uncomplicated; Z95.5 Presence of coronary angioplasty implant and graft; Z88.6 Allergy status to analgesic agent; Z88.8 Allergy status to other drugs, medicaments and biological substances; Z79.82 Long term (current) use of aspirin; Z79.899 Other long term (current) drug therapy
CPT/HCPCS: 36415; 43239; 74000; 74176; 80053; 81001; 83690; 85025; 88305; 88342; 93005; 93010; 96365; 96366; 96375; 96376; 99285; J0171; J0360; J1610; J2250; J2270; J2310; J2405; J2765; J3010; J3490; J7030; J7507; J7512

== ENCOUNTER 2017-06-19 07:24 | Inpatient (IN) | payer OTHER, MEDICARE ==
--- NOTE | 2017-06-19 07:59 | ER Document Report ---
ED GI/ - General Chief Complaint: Abdominal Pain Stated Complaint: BLOOD IN STOOL Time Seen by Provider: 06/19/17 07:56 Mode of Arrival: Ambulatory Information source: Patient Notes: 66 yo female discharged from [facility] yesterday by dr. kong with gastroparesis got worse upper abdominal pain with bilious vomiting last night. Also has red anal bleeding 5 hours after suppository given before leaving the hosptial. No hx bowel obstruction. This all started thursday, admitted on 06-16. PMH: renal transplant 2 years ago, COPD, hypertension, smoker, CAD-stent 2003, opened up coronary vessels february 2017 at [facility] [place]. Denies ches pain, her congested cough is normal for her COPD. No fever. TRAVEL OUTSIDE OF THE [place] IN LAST 30 DAYS: No - Related Data Allergies/Adverse Reactions: ibuprofen [From Advil] Allergy (Verified 06/19/17 07:31) lisinopril [Lisinopril] Allergy (Verified 06/19/17 07:31) Past Medical History - General Information source: Patient - Social History Smoking Status: Current Every Day Smoker Frequency of alcohol use: None Drug Abuse: None Lives with: Alone Family History: Reviewed & Not Pertinent - Past Medical History Cardiac Medical History: Reports: Hx Atrial Fibrillation, Hx Congestive Heart Failure, Hx Coronary Artery Disease, Hx Hypercholesterolemia, Hx Hypertension Pulmonary Medical History: Reports: Hx COPD Neurological Medical History: Reports: Hx Cerebrovascular Accident Renal/ Medical History: Reports: Hx End Stage Renal Disease, Hx Hemodialysis - Last dialysis was May 2015 just prior to her kidney transplant., Hx Renal Insufficiency GI Medical History: Reports: Hx Gastroesophageal Reflux Disease Psychiatric Medical History: Reports: Hx Anxiety Past Surgical History: Reports: Hx Cardiac Catheterization, Hx Cardiac Surgery - stent in 2003, Hx Coronary Stent - 2003, Hx Kidney (Renal Surgery) - Kidney transplant 05/22/2015 placed in right lower quadrant, Hx Tubal Ligation - Immunizations Hx Diphtheria, Pertussis, Tetanus Vaccination: Yes Hx Pneumococcal Vaccination: 10/12/10 Review of Systems - Review of Systems Constitutional: No symptoms reported EENT: No symptoms reported Cardiovascular: No symptoms reported Respiratory: No symptoms reported Gastrointestinal: See HPI Genitourinary: No symptoms reported Female Genitourinary: No symptoms reported Musculoskeletal: No symptoms reported Skin: No symptoms reported Hematologic/Lymphatic: No symptoms reported Neurological/Psychological: No symptoms reported Physical Exam - Vital signs Vitals: Temp Pulse Resp BP Pulse Ox 97.9 F 70 24 H 168/56 H 98 06/19/17 07:30 06/19/17 07:30 06/19/17 07:30 06/19/17 07:30 06/19/17 07:30 Interpretation: Normal - General General appearance: Appears well, Alert - HEENT Head: Normocephalic, Atraumatic Eyes: Normal Pupils: PERRL Mucous membranes: Dry Neck: Supple. No: Lymphadenopathy - Respiratory Respiratory status: No respiratory distress Chest status: Nontender Breath sounds: Normal Chest palpation: Normal - Cardiovascular Rhythm: Regular Heart sounds: Normal auscultation Murmur: No - Abdominal Inspection: Normal Distension: Distended, Tympanitic. No: Distended bladder Bowel sounds: Hyperactive Tenderness: Tender Organomegaly: No organomegaly. No: Hepatomegaly, Splenomegaly, Mass - Rectal Tenderness: No Stool: Heme negative Hemorrhoids: Internal. No: Anal fissure - Genitourinary External exam: Normal - Back Back: Normal, Nontender. No: CVA tenderness - Extremities General upper extremity: Normal inspection, Nontender, Normal color, Normal ROM , Normal temperature General lower extremity: Normal inspection, Nontender, Normal color, Normal ROM , Normal temperature, Normal weight bearing. No: Bridget's sign - Neurological Neuro grossly intact: Yes Cognition: Normal Orientation: AAOx4 [place] Coma Scale Eye Opening: Spontaneous [place] Coma Scale Verbal: Oriented [place] Coma Scale Motor: Obeys Commands [place] Coma Scale Total: 15 Speech: Normal Motor strength normal: LUE, RUE, LLE, RLE Sensory: Normal - Psychological Associated symptoms: Normal affect, Normal mood - Skin Skin Temperature: Warm Skin Moisture: Dry Skin Color: Normal Skin irregularity: negative: Rash Course - Re-evaluation Re-evalutation: 06/19/17 09:[address] Mason because the acute abdomen looks like a small bowel obstruction. He will come see the patient. 06/19/17 09:53 - Vital Signs Vital signs: Temp Pulse Resp BP Pulse Ox 97.9 F 70 24 H 168/56 H 98 06/19/17 07:30 06/19/17 07:30 06/19/17 07:30 06/19/17 07:30 06/19/17 07:30 - Laboratory Result Diagrams: 06/19/17 08:34 06/19/17 08:34 Laboratory results interpreted by me: 06/19/17 06/19/17 06/19/17 08:34 08:34 09:26 MCV 98 H RDW 14.8 H Seg Neutrophils % 78.7 H Lymphocytes % 10.4 L Creatinine 1.88 H Est GFR ( Amer) 32 L Est GFR (Non-Af Amer) 27 L Calcium 11.5 H Direct Bilirubin 0.6 H Urine Blood SMALL H Discharge - Discharge Clinical Impression: Anal hemorrhoid, Small bowel obstruction Condition: Good Disposition: HOME, SELF-CARE Admitting Provider: Surgicalist Unit Admitted: Surgical Floor
[2017-06-19] MEDS ORDERED: NORMAL SALINE 1000 ML 500 ML IV ONE (08:19)
[2017-06-19] MEDS ORDERED: ONDANSETRON 4 MG TAB.RAPDIS PO ONE (08:20)
[2017-06-19] MEDS ORDERED: MORPHINE SULFATE 10 MG/ML INJ IV ONE ×2 (08:24→11:13)
[2017-06-19 08:49] LABS: ABSOLUTE EOSINOPHILS # (AUTO) 0.1 10^3/uL (0.0-0.6); ABSOLUTE LYMPHOCYTES (AUTO) 0.6 10^3/uL (0.5-4.7); ABSOLUTE MONOCYTES (AUTO) 0.6 10^3/uL (0.1-1.4); ABSOLUTE NEUT (AUTO) 4.9 10^3/uL (1.7-8.2); BASOPHILS % (AUTO) 0.4 % (0-2); EOSINOPHILS % (AUTO) 1.1 % (0-6); HEMOGLOBIN 15.3 g/dL (12.0-15.5); HGB HCT DIFFERENCE -0.1; LYMPHOCYTES % (AUTO) 10.4 % (13-45); MEAN CORPUSCULAR HEMOGLOBIN 32.5 pg (27.0-33.4); MEAN CORPUSCULAR HGB CONC 33.2 g/dL (32.0-36.0); MEAN CORPUSCULAR VOLUME 98 fl (80-97); MONOCYTES % (AUTO) 9.4 % (3-13); RED CELL DISTRIBUTION WIDTH 14.8 % (11.5-14.0); SEGMENTED NEUTROPHILS % (AUTO) 78.7 % (42-78); WHITE BLOOD COUNT 6.3 10^3/uL (4.0-10.5)
[2017-06-19 09:08] LABS: ALANINE AMINOTRANSFERASE 28 U/L (9-52); ALBUMIN 3.9 g/dL (3.5-5.0); ALKALINE PHOSPHATASE 61 U/L (38-126); ANION GAP 14 (5-19); ASPARTATE AMINO TRANSFERASE 26 U/L (14-36); BILIRUBIN,DIRECT 0.6 mg/dL (0.0-0.4); BILIRUBIN,TOTAL 1.2 mg/dL (0.2-1.3); BLOOD UREA NITROGEN 15 mg/dL (7-20); CALCIUM 11.5 mg/dL (8.4-10.2); CARBON DIOXIDE 23 mmol/L (22-30); CHLORIDE 103 mmol/L (98-107); CREATININE RESULT 1.88 mg/dL (0.52-1.25); GLUCOSE 106 mg/dL (75-110); POTASSIUM 4.5 mmol/L (3.6-5.0); SODIUM 140.2 mmol/L (137-145); TOTAL PROTEIN 6.5 g/dL (6.3-8.2)
[2017-06-19 09:46] LABS: APPEARANCE,URINE CLEAR; BILIRUBIN,URINE NEGATIVE (NEGATIVE); GLUCOSE, URINE NEGATIVE (NEGATIVE); KETONES,URINE NEGATIVE (NEGATIVE); LEUKOCYTE ESTERASE,URINE NEGATIVE (NEGATIVE); NITRITE,URINE NEGATIVE (NEGATIVE); PROTEIN,URINE NEGATIVE (NEGATIVE); URINE SPECIFIC GRAVITY 1.006; UROBILINOGEN,URINE NEGATIVE mg/dL (<2.0)
[2017-06-19 09:47] LABS: PARTIAL THROMBOPLASTIN TIME 31.2 SEC (23.5-35.8)
--- NOTE | 2017-06-19 09:58 | RADIOLOGY REPORT (SQ) ---
EXAM DESCRIPTION: ACUTE ABDOMEN SERIES COMPLETED DATE/TIME: 06/19/2017 9:48 am REASON FOR STUDY: abd pain COMPARISON: 06/16/2017. NUMBER OF VIEWS: Three views. TECHNIQUE: Frontal chest, supine abdomen and upright/decubitus abdomen radiographic images acquired. LIMITATIONS: None. FINDINGS: CHEST: Linear atelectasis or scar in the left lung. FREE AIR: None. No abnormal gas collections. BOWEL GAS PATTERN: Increasing small bowel dilation. CALCIFICATIONS: No suspicious calcifications. Pelvic calcifications consistent with calcified uterin e fibroid. HARDWARE: None in the abdomen. SOFT TISSUES: No gross mass or suggestion of organomegaly. BONES: No acute fracture. Degenerative changes in the spine. No worrisome bone lesions. OTHER: No other significant finding. IMPRESSION: INCREASING SMALL BOWEL DILATION CONCERNING FOR OBSTRUCTION. TECHNICAL DOCUMENTATION: JOB ID: [id number] [employer]- All Rights Reserved
[2017-06-19] MEDS ORDERED: PHARMACY COMMUNICATION ORDER MC NR (10:30)
[2017-06-19] MEDS ORDERED: PROMETHAZINE HCL INJ 25 MG/1 ML VIAL IV PRN ×3 (11:23→15:35)
[2017-06-19] MEDS ORDERED: DEXTROSE 50%-WATER 25 GM/50 ML DISP.SYRIN IV PRN ×2 (11:23)
[2017-06-19] MEDS ORDERED: GLUCAGON,HUMAN RECOMB 1 MG INJ SUBCUT PRN (11:23)
[2017-06-19] MEDS ORDERED: DEXTROSE 40% GEL 15 GM TUBE PO PRN ×3 (11:23→19:51)
--- NOTE | 2017-06-19 11:23 | PDOC H&P ---
History of Present Illness Admission Date/PCP: 06/19/17 11:04 History of Present Illness: DEVANTE PIERSON is a 66 year old female The patient is seen at the request of Mayte Santamaria, family nurse practitioner. The patient is a 66-year-old Afro-[place] female recently hospitalized at [facility] on the surgical service for abdominal pain nausea and vomiting. She was felt to have gastritis, possible gastric outlet obstruction. She underwent hydration, and upper endoscopy by Dr. Dylon Sandoval 2 days ago. Findings were significant for normal esophagus stomach and first and second portion of the duodenum. Consideration for gastroparesis was made in a workup on an outpatient basis was suggested. The patient was discharged home yesterday , 06/18/2017 after which time she became intolerant of p.o. intake, and had multiple episodes of nausea and vomiting. She was seen back in the emergency department this morning where she was found to have mild abdominal tenderness. Acute abdominal series suggested proximal small bowel obstruction. Surgery was reconsulted. Images from the past week reviewed including CT scan of the abdomen and pelvis, with a reinterpretation CT scan by today's radiologist suggesting possible intussusception small bowel in the right upper quadrant. Patient was admitted to the surgical service for further evaluation and treatment. His last colonoscopy was less than 4 years ago with polypectomy. She has had no previous abdominal surgery. Past Medical History Cardiac Medical History: Reports: Atrial Fibrillation, Congestive Heart Failure , Coronary Artery Disease, Hyperlipidema, Hypertension Denies: Myocardial Infarction, Heart Murmur Pulmonary Medical History: Reports: Chronic Obstructive Pulmonary Disease (COPD) Denies: Tuberculosis Neurological Medical History: Denies: Seizures Renal/ Medical History: Reports: End Stage Renal Disease GI Medical History: Reports: Gastroesophageal Reflux Disease Denies: Hiatal Hernia Psychiatric Medical History: Denies: Bipolar Disorder, Depression Hematology: Reports: Anemia Denies: Hemophilia, Sickle Cell Disease Past Surgical History Past Surgical History: Reports: Cardiac Catheterization, Coronary Stent - 2003, Tubal Ligation, Other - Valvuloplasty [facility] February 2017 multiple upper extremi Denies: Appendectomy, Section, Cholecystectomy, Hysterectomy, Mastectomy, Tonsillectomy Social History Lives with: Alone Smoking Status: Current Every Day Smoker Frequency of Alcohol Use: Social Hx Recreational Drug Use: No Drugs: None Hx Prescription Drug Abuse: No Family History Family History: Reviewed & Not Pertinent Family History: Patient has a family history of GI malignancies. Parental Family History Reviewed: Yes Children Family History Reviewed: Yes Sibling(s) Family History Reviewed.: Yes Medication/Allergy Home Medications: Acetaminophen [Tylenol] 650 mg PO Q6HP PRN 06/16/17 Albuterol Sulfate [Proair HFA] 2 puff IN Q6H 06/16/17 Aspirin [Aspirin 81 mg Chewable Tablet] 81 mg PO DAILY 06/16/17 Atorvastatin Calcium [Lipitor 20 mg Tablet] 20 mg PO QHS 06/16/17 Bupropion HCl [Wellbutrin 100 mg Tablet] 100 mg PO Q8 06/16/17 Calcitriol [Rocaltrol] 0.25 mcg PO DAILY 06/16/17 Docusate Sodium [Colace 100 mg Capsule] 100 mg PO DAILY 06/16/17 Ergocalciferol (Vitamin D2) [Drisdol 50,000 Unit (1.25MG) Capsule] 50,000 unit PO SCHAEFFER@1000 06/16/17 Furosemide [Lasix] 40 mg PO Q12 06/16/17 Megestrol Acetate 400 mg PO DAILY 06/16/17 Nifedipine [Nifedipine ER] 30 mg PO DAILY 06/16/17 Nitroglycerin [Nitrostat 0.4 mg (1/150 Gr) Tabs 25/Bottle] 1 tab SL Q5MP PRN 02/25 Potassium Chloride 20 meq PO DAILY 06/16/17 Sucralfate [Carafate 1 gm Tablet] 1 gm PO ACHS 06/16/17 Sulfamethoxazole/Trimethoprim [Bactrim 400-80 mg Tablet] 1 each PO MOWEFR@1000 06/16/17 Tacrolimus [Prograf] 2 mg PO QAMPM 06/16/17 Carvedilol [Coreg] 25 mg PO Q12 06/19/17 Prednisone [Deltasone 5 mg Tablet] 5 mg PO DAILY 06/19/17 Ranitidine HCl [Zantac] 150 mg PO QHS 06/19/17 Tacrolimus Anhydrous [Prograf 1 Mg Capsule] 1 mg PO QPM 06/19/17 Allergies/Adverse Reactions: ibuprofen [From Advil] Allergy (Verified 06/19/17 07:31) lisinopril [Lisinopril] Allergy (Verified 06/19/17 07:31) Review of Systems Constitutional: PRESENT: as per HPI Eyes: PRESENT: as per HPI Ears: PRESENT: as per HPI Nose, Mouth, and Throat: PRESENT: as per HPI Breasts: PRESENT: as per HPI Respiratory: PRESENT: as per HPI Gastrointestinal: PRESENT: as per HPI Genitourinary: PRESENT: as per HPI Neurological: PRESENT: other - Chronic back pain due to severe sacral spine scoliosis Physical Exam Vital Signs: Temp Pulse Resp BP Pulse Ox 97.9 F 70 24 H 168/56 H 98 06/19/17 07:30 06/19/17 07:30 06/19/17 07:30 06/19/17 07:30 06/19/17 07:30 General appearance: PRESENT: mild distress Head exam: PRESENT: normocephalic Eye exam: PRESENT: EOMI Ear exam: PRESENT: normal external ear exam Mouth exam: PRESENT: dry mucosa Neck exam: PRESENT: full ROM Respiratory exam: PRESENT: rhonchi Cardiovascular exam: PRESENT: RRR Vascular exam: PRESENT: normal capillary refill - Palpable radial, dorsalis pedis pulses bilaterally. GI/Abdominal exam: PRESENT: other - Right paramedian incision consistent with kidney transplant scar. There is a small umbilical scar. The abdomen is tender in the right upper quadrant with mild guarding. Bowel sounds are hypoactive Rectal exam: PRESENT: deferred Musculoskeletal exam: PRESENT: other - Scars multiple upper extremities. Palpable subcutaneous PTFE grafts both arms. There is a palpable AV graft buzzing in her right lower arm. Results Impressions: Acute Abdomen Series 06/19/17 08:17 IMPRESSION: INCREASING SMALL BOWEL DILATION CONCERNING FOR OBSTRUCTION. Assessment & Plan - Diagnosis (1) Small bowel obstruction Is this a current diagnosis for this admission?: Yes Plan: The patient is being readmitted to [facility], surgical service, for persisting upper GI probable proximal small bowel obstruction. Reevaluation of CT scan performed 48 hours ago suggest a possible intussusception. Patient has an evolving abdomen, but she is not in extremis. The plan: 1. Admit, n.p.o., IV fluids. 2. Will obtain a limited CT scan with oral contrast to attempt to delineate the pathoanatomy in the right upper quadrant. Patient understands and believes she will need surgery. I assured her we will perform the procedure if needed and if indicated. 3. Will recruit hospitalist to assist in comanagement of this patient. This will include managing her immunosuppressive medications including prednisone for which she has been on 4 mg p.o. daily, and tacrolimus, 2 mg p.o. twice daily. (2) Renal transplant recipient Is this a current diagnosis for this admission?: Yes Plan: She received kidney 2 years ago to the [facility] in [place]. She sees a transplant machine inker in [place] and [facility]. She has received multiple access procedures by various surgeons throughout the [place] [facility]. Currently her transplant is functioning satisfactorily. We will ensure she continues on her anti-rejection medications, and provide a steroid boost if clinically indicated should she require general anesthesia and surgical intervention. (3) [id number] kidney injury Is this a current diagnosis for this admission?: Yes (4) Smoker Is this a current diagnosis for this admission?: Yes - Time Time Spent: 50 to 70 Minutes Critical Time spent with patient: 15-24 minutes Smoking Cessation Education: 3 to 10 minutes Anticipated discharge: Home - Inpatient Certification Medical Necessity: Need For IV Fluids, Need for Pain Control, Need for IV Antibiotics, Need for Surgery
[2017-06-19] MEDS ORDERED: ONDANSETRON HCL INJ/PF 4 MG/2 ML SDV IV PRN ×2 (11:29→16:04)
--- NOTE | 2017-06-19 12:20 | RADIOLOGY REPORT (SQ) ---
EXAM DESCRIPTION: CT ABD/PELVIS ORAL ONLY COMPLETED DATE/TIME: 06/19/2017 12:00 pm REASON FOR STUDY: sbo, ? intuss, compare to ct on 06-16 COMPARISON: CT abdomen pelvis 06/16/2017 CT chest 05/16/2016 TECHNIQUE: CT scan of the abdomen and pelvis performed without intravenous or oral contrast. Images reviewed with lung, soft tissue, and bone windows. Reconstructed coronal and sagittal MPR images revi ewed. All images stored on PACS. All CT scanners at this facility use dose modulation, iterative reconstruction, and/or weight based d osing when appropriate to reduce radiation dose to as low as reasonably achievable (ALARA). [facility]: Dose Right [facility]: CareDose [facility]: Dose Right [facility]: Teradose 4D [facility]: [employer] RADIATION DOSE: Up-to-date CT equipment and radiation dose reduction techniques were employed. CTDIv ol: 6.9 mGy. DLP: 337 mGy-cm.mGy. LIMITATIONS: Limited oral contrast FINDINGS: There is massive distention of the stomach, duodenum, and proximal small bowel. Distal sm all bowel loops are decompressed. This is worrisome for AA high-grade partial smell bowel obstructio n, as some of the oral contrast given for CT 06/16/2017 is seen in the right colon. On images 29 through 44, a transition point in the right upper quadrant is present between very dilat ed proximal jejunal loops and decompressed distal jejunal loops with swirling of the mesenteries. Th is is either due to adhesions or internal hernia. A small amount of oral contrast CT 06/16/2017 is identified in the ascending colon. Colon is decompres sed. No free intraperitoneal air. No significant ascites. Ventral hernia 1 cm superior to the umbilicus containing fat axial image 41. LOWER CHEST: No significant findings. No nodules or infiltrates. NON-CONTRASTED LIVER, SPLEEN, ADRENALS: Evaluation limited by lack of IV contrast. No identified sign ificant masses. Benign 1 cm cyst right lobe liver PANCREAS: No masses. No peripancreatic inflammatory changes. GALLBLADDER: Contracted, not well seen KIDNEYS AND URETERS: Small [place] kidneys with cortical thinning, arterial vascular calcifications an d multiple cysts. A right lower quadrant transplant kidney is present, 10 cm in length without cysts or masses. No transplant kidney hydronephrosis. Along the lower pole left kidney, and intermediate density cyst or solid mass, 3 x 2 cm is present on axial image 34. At some point, renal ultrasound with particular attention to the left kidney is rec ommended for followup. AORTA AND RETROPERITONEUM: No aneurysm. No retroperitoneal masses or adenopathy. BOWEL AND PERITONEAL CAVITY: As above APPENDIX: Not visualized PELVIS, BLADDER, AND ABDOMINAL WALL:Small fat containing midline hernia 1 cm above the umbilicus. Ut erine fibroids with calcifications. No pelvic masses or adenopathy. Trace free pelvic fluid. BONES: No significant findings. OTHER: Report called to Dr Mason. IMPRESSION: High grade partial small bowel obstruction COMMENT: Quality ID # [id number]: Final reports with documentation of one or more dose reduction techniques (e.g., Automated exposure control, adjustment of the mA and/or kV according to patient size, use of iterative reconstruction technique) TECHNICAL DOCUMENTATION: JOB ID: [id number] [employer]- All Rights Reserved
[2017-06-19] MEDS ORDERED: DEXAMETHASONE SOD PHOSPHATE INJ 4 MG/1 ML VIAL ONE (12:24)
[2017-06-19] MEDS ORDERED: NEOSTIGMINE METHYLSULFATE 10 MG/10 ML VIAL ONE (12:24)
[2017-06-19] MEDS ORDERED: ONDANSETRON HCL INJ/PF 4 MG/2 ML SDV ONE (12:24)
[2017-06-19] MEDS ORDERED: SUCCINYLCHOLINE CHLORIDE INJ 200 MG/10 ML VIAL ONE (12:24)
[2017-06-19] MEDS ORDERED: GLYCOPYRROLATE INJ 0.4 MG/2 ML VIAL ONE (12:24)
[2017-06-19] MEDS ORDERED: ALBUTEROL SULFATE 0.083% NEB 2.5 MG/3 ML AMPUL NEB ONE (13:47)
[2017-06-19] MEDS ORDERED: AMPICILLIN SOD/SULBACTAM 1.5 GM VIAL ONE (14:00)
[2017-06-19] MEDS ORDERED: FENTANYL CITRATE INJ/PF 250 MCG/5 ML AMPULE ONE (14:01)
[2017-06-19] MEDS ORDERED: MIDAZOLAM 2 MG/2 ML INJ ONE (14:01)
[2017-06-19] MEDS ORDERED: PROPOFOL INJ 200 MG/20 ML VIAL IV ONE (14:04)
[2017-06-19] MEDS ORDERED: DEXMEDETOMIDINE INJ 80 MCG/20 ML VIAL IV ONE (14:05)
[2017-06-19] MEDS ORDERED: MORPHINE SULFATE 10 MG/ML INJ ONE (14:06)
[2017-06-19] MEDS ORDERED: BUPIVACAINE INJ/PF LIPOSOME/PF 266 MG/20 ML SDV ONE (14:17)
[2017-06-19] MEDS ORDERED: MORPHINE SULFATE 10 MG/ML INJ IV PRN ×2 (15:35→16:04)
[2017-06-19] MEDS ORDERED: OXYCODONE-ACETAMINOPHEN 5-325 MG TABLET PO PRN ×2 (15:35)
[2017-06-19] MEDS ORDERED: DIPHENHYDRAMINE HCL 50 MG/ML VIAL IV PRN (15:35)
[2017-06-19] MEDS ORDERED: MEPERIDINE HCL/PF INJ 25 MG/1 ML DISP.SYRIN IV PRN (15:35)
[2017-06-19] MEDS ORDERED: FENTANYL CITRATE INJ/PF 100 MCG/2 ML AMPUL IV PRN ×3 (15:35)
[2017-06-19] MEDS ORDERED: AMPICILLIN SOD/SULBACTAM 1.5 GM VIAL IV ONE (16:05)
--- NOTE | 2017-06-19 16:26 | Operative Report ---
Operative Report DATE OF SURGERY: 06/19/17 PREOPERATIVE DIAGNOSIS: Proximal small bowel obstruction POSTOPERATIVE DIAGNOSIS: Same secondary to internal hernia due to acquired pseudo-sac OPERATION: 1. Exploratory laparotomy. 2. Reduction of internal hernia involving a loop of jejunum. 3. Closure of pseudo-sac involving transverse mesocolon. 4. Lysis of adhesions SURGEON: KRISTEN HAYWOOD ANESTHESIA: GA TISSUE REMOVED OR ALTERED: Clot and fibrinous peel COMPLICATIONS: None ESTIMATED BLOOD LOSS: Minimal INTRAOPERATIVE FINDINGS: See below PROCEDURE: The patient was taken to the operating room where general anesthesia was induced. A Molina catheter was inserted arms abducted additional IV access obtained, the abdomen prepped and draped in sterile fashion and instrumentation set up for open exploratory laparotomy. Surgical plan and surgical timeout conducted The abdomen was opened from the subxiphoid area to just below the umbilicus to a standard midline incision using the knife. The peritoneal cavity was sharply entered and multiple adhesions between the greater omentum and the anterior abdominal wall were taken down using a combination of sharp and electrocautery dissection. There was approximately a liter of wrist peritoneal fluid. There was no foul smell, hemorrhage, or pus. The stomach was massively distended as was the proximal small intestine. We massaged the stomach and the proximal small bowel in general, beginning to milk the succus entericus proximally into the previously placed nasogastric tube. We were now able to elevate the transverse colon up and identify the site of obstruction. Acute problem was an incarcerated loop of small bowel, very likely the mid jejunum with the antimesenteric end of the loop stuck into a acquired pseudo-sac involving the right side of the transverse mesocolon. The hernia reduced almost instantaneously. The loop of small bowel was examined carefully and containing some fibrinous peel which was bluntly removed. This was the obvious site of obstruction. Once this was achieved, we began methodically milking all of the succus entericus in a retrograde fashion up through the nasogastric tube which amounted to approximately 1-1/2 L of fluid. Of note the small bowel distally was completely decompressed and normal as we ran it all the way to the ileocecal valve. The liver gallbladder stomach and visible and palpable portions of the colon all appeared normal. We could appreciate the transplanted kidney in the right retroperitoneum just above the pelvic brim and it appeared to be uninvolved in the pathology. Again there was no evidence of perforation tumor peritonitis. Irrigated the peritoneal cavity out multiple times, then gained optimal exposure to the pseudo-sac. It was approximately 6 x 7 cm in diameter and approximately 4 cm deep. Photos were taken. Nicole of the sac were obliterated by closing the sac along a diagonal bias 2-0 Vicryl suture. Once this was accomplished without the operation was complete. Sponge and needle counts are correct. A nasogastric tube was confirmed to be in good position and functioning satisfactorily. The abdomen was closed with 2 double-stranded #1 PDS sutures and skin approximated with rosa. Patient tolerated procedure well, extubated, and taken to the recovery room in stable condition. She remained hemodynamically stable, with no evidence of oxygenation or ventilation problems.
[2017-06-19] MEDS: FENTANYL CITRATE INJ/PF 100 MCG/2 ML AMPUL ONE ×2 (17:08→17:15)
--- NOTE | 2017-06-19 17:55 | PDOC CONSULTATION ---
Consultation Consult Date: 06/19/17 Attending physician:: KRISTEN HAYWOOD Consult reason:: Medical Management History of Present Illness Admission Date/PCP: 06/19/17 11:23 History of Present Illness: DEVANTE PIERSON is a 66 year old female resented to the emergency room with complaint of abdominal pain accompanied by nausea and vomiting. Patient was seen by surgery who took patient to the OR. Patient was found to have an internal hernia causing small bowel obstruction. Patient was seen in postop recovery room where she stated that she was doing better. Patient stated that she was having some abdominal pain however she was given pain medication and she is feeling better. Nursing states that patient has done well and has had no other issues. Past Medical History Cardiac Medical History: Reports: Atrial Fibrillation, Congestive Heart Failure , Coronary Artery Disease, Hyperlipidema, Hypertension Denies: Myocardial Infarction, Heart Murmur Pulmonary Medical History: Reports: Chronic Obstructive Pulmonary Disease (COPD) Denies: Tuberculosis Neurological Medical History: Denies: Seizures Renal/ Medical History: Reports: End Stage Renal Disease GI Medical History: Reports: Gastroesophageal Reflux Disease Denies: Hiatal Hernia Psychiatric Medical History: Denies: Bipolar Disorder, Depression Hematology: Reports: Anemia Denies: Hemophilia, Sickle Cell Disease Past Surgical History Past Surgical History: Reports: Cardiac Catheterization, Coronary Stent - 2003, Tubal Ligation, Other - Valvuloplasty [facility] February 2017 multiple upper extremi Denies: Appendectomy, Section, Cholecystectomy, Hysterectomy, Mastectomy, Tonsillectomy Social History Lives with: Alone Smoking Status: Current Every Day Smoker Cigarettes Packs Per Day: 1 Number of Years Smokin Last Time Smoked: 06/18/17 Frequency of Alcohol Use: Occasional Hx Recreational Drug Use: No Drugs: None Hx Prescription Drug Abuse: No - Advance Directive Resuscitation Status: Full Code Family History Family History: Reviewed & Not Pertinent Parental Family History Reviewed: Yes Children Family History Reviewed: Yes Sibling(s) Family History Reviewed.: Yes Medication/Allergy Home Medications: Acetaminophen [Tylenol] 650 mg PO Q6HP PRN 06/16/17 Albuterol Sulfate [Proair HFA] 2 puff IN Q6 06/16/17 Aspirin [Aspirin 81 mg Chewable Tablet] 81 mg PO DAILY 06/16/17 Atorvastatin Calcium [Lipitor 20 mg Tablet] 20 mg PO QHS 06/16/17 Bupropion HCl [Wellbutrin 100 mg Tablet] 100 mg PO Q8 06/16/17 Calcitriol [Rocaltrol] 0.25 mcg PO DAILY 06/16/17 Docusate Sodium [Colace 100 mg Capsule] 100 mg PO DAILY 06/16/17 Ergocalciferol (Vitamin D2) [Drisdol 50,000 Unit (1.25MG) Capsule] 50,000 unit PO SCHAEFFER@1000 06/16/17 Furosemide [Lasix] 40 mg PO Q12 06/16/17 Megestrol Acetate 400 mg PO DAILY 06/16/17 Nifedipine [Nifedipine ER] 30 mg PO DAILY 06/16/17 Nitroglycerin [Nitrostat 0.4 mg (1/150 Gr) Tabs 25/Bottle] 0.4 mg SL Q5MP PRN Potassium Chloride 20 meq PO DAILY 06/16/17 Sucralfate [Carafate 1 gm Tablet] 1 gm PO ACHS 06/16/17 Sulfamethoxazole/Trimethoprim [Bactrim 400-80 mg Tablet] 1 each PO MOWEFR@1000 06/16/17 Tacrolimus [Prograf] 2 mg PO QAM 06/16/17 Carvedilol [Coreg] 25 mg PO Q12 06/19/17 Prednisone [Deltasone 5 mg Tablet] 5 mg PO DAILY 06/19/17 Ranitidine HCl [Zantac] 150 mg PO QHS 06/19/17 Tacrolimus Anhydrous [Prograf 1 Mg Capsule] 1 mg PO QPM 06/19/17 Allergies/Adverse Reactions: ibuprofen [From Advil] Allergy (Verified 06/19/17 07:31) lisinopril [Lisinopril] Allergy (Verified 06/19/17 07:31) Review of Systems Constitutional: ABSENT: chills, fever(s), headache(s), weight gain, weight loss Eyes: ABSENT: visual disturbances Ears: ABSENT: hearing changes Cardiovascular: ABSENT: chest pain, dyspnea on exertion, edema, orthropnea, palpitations Respiratory: ABSENT: cough, hemoptysis Gastrointestinal: PRESENT: abdominal pain Genitourinary: ABSENT: dysuria, hematuria Musculoskeletal: ABSENT: joint swelling Integumentary: ABSENT: rash, wounds Neurological: ABSENT: abnormal gait, abnormal speech, confusion, dizziness, focal weakness, syncope Psychiatric: ABSENT: anxiety, depression, homidical ideation, suicidal ideation Endocrine: ABSENT: cold intolerance, heat intolerance, polydipsia, polyuria Hematologic/Lymphatic: ABSENT: easy bleeding, easy bruising Physical Exam Vital Signs: Temp Pulse Resp BP Pulse Ox 97.6 F 72 17 144/62 H 100 06/19/17 13:30 06/19/17 13:30 06/19/17 13:30 06/19/17 13:30 06/19/17 13:30 Intake & Output 06/18/17 06/19/17 06/20/17 06:59 06:59 06:59 Intake Total 800 Output Total 800 Balance 0 Weight 58.7 kg General appearance: PRESENT: mild distress, well-developed, well-nourished Head exam: PRESENT: atraumatic, normocephalic Eye exam: PRESENT: conjunctiva pink, EOMI, PERRLA. ABSENT: scleral icterus Ear exam: PRESENT: normal external ear exam Mouth exam: PRESENT: moist, tongue midline Neck exam: ABSENT: carotid bruit, JVD, lymphadenopathy, thyromegaly Respiratory exam: PRESENT: chest wall tenderness Cardiovascular exam: PRESENT: RRR. ABSENT: diastolic murmur, rubs, systolic murmur Pulses: PRESENT: normal dorsalis pedis pul Vascular exam: PRESENT: normal capillary refill GI/Abdominal exam: PRESENT: other - Abdominal binder in place. Patient with NG tube in place. Rectal exam: PRESENT: deferred Extremities exam: PRESENT: full ROM. ABSENT: calf tenderness, clubbing, pedal edema Neurological exam: PRESENT: alert, awake, oriented to person, oriented to place , oriented to time, oriented to situation, CN II-XII grossly intact. ABSENT: motor sensory deficit Psychiatric exam: PRESENT: appropriate affect, normal mood. ABSENT: homicidal ideation, suicidal ideation Skin exam: PRESENT: dry, intact, warm. ABSENT: cyanosis, rash Results Laboratory Results: 06/19/17 13:51 Blood Type O POSITIVE Antibody Screen NEGATIVE Impressions: Acute Abdomen Series 06/19/17 08:17 IMPRESSION: INCREASING SMALL BOWEL DILATION CONCERNING FOR OBSTRUCTION. Abdomen/Pelvis CT 06/19/17 10:42 IMPRESSION: High grade partial small bowel obstruction Assessment & Plan - Diagnosis (1) Small bowel obstruction Is this a current diagnosis for this admission?: Yes Plan: Secondary to internal hernia status post exploratory lap: Patient is doing well we will continue IV fluids. Patient with NG tube in place. (2) Dehydration Is this a current diagnosis for this admission?: Yes Plan: We will continue IV fluids. (3) Renal transplant recipient Is this a current diagnosis for this admission?: Yes Plan: We will continue low dose steroids. Will restart prograf once pt able to take po. (4) DVT (deep venous thrombosis) Is this a current diagnosis for this admission?: Yes Plan: SCDs - Time Time Spent: 30 to 50 Minutes
[2017-06-19] MEDS ORDERED: DEXTROSE 50%-WATER SYRINGE 25 GM/50 ML DOSE IV PRN (19:51)
[2017-06-19] MEDS ORDERED: DEXTROSE 40% GEL 15 GM TUBE X 2 PO PRN (19:51)
[2017-06-19] MEDS ORDERED: DEXTROSE 50%-WATER SYRINGE 12.5 GM/25 ML DOSE IV PRN (19:51)
[2017-06-19] MEDS ORDERED: GLUCAGON,HUMAN RECOMB 1 MG INJ IM PRN (19:51)
[2017-06-19] MEDS: MORPHINE SULFATE 10 MG/ML INJ IV PRN (20:07)
[2017-06-19] MEDS ORDERED: FAMOTIDINE INJ/PF 20 MG/2 ML SDV IV SCH ×2 (22:00)
[2017-06-19] MEDS ORDERED: AMPICILLIN SODIUM/SULBACTAM NA 1.5 GM in NORMAL SALINE 50 ML IV SCH (22:00)
[2017-06-19] MEDS: FAMOTIDINE INJ/PF 20 MG/2 ML SDV IV SCH (22:16)
[2017-06-19] MEDS: AMPICILLIN SODIUM/SULBACTAM NA 1.5 GM in NORMAL SALINE 50 ML IV SCH (22:17)
[2017-06-20] MEDS: MORPHINE SULFATE 10 MG/ML INJ IV PRN ×2 (01:13→05:49)
[2017-06-20] MEDS: AMPICILLIN SODIUM/SULBACTAM NA 1.5 GM in NORMAL SALINE 50 ML IV SCH (05:49)
[2017-06-20] MEDS ORDERED: WATER IV SCH ×4 (10:00)
[2017-06-20] MEDS ORDERED: METHYLPREDNISOLONE SOD SUCC IV SCH ×4 (10:00)
[2017-06-20] MEDS ORDERED: DEXTROSE 5% IV SCH ×4 (10:00)
[2017-06-20] MEDS ORDERED: METHYLPREDNISOLONE INJ 40 MG/1 ML SDV IV SCH ×2 (10:00)
[2017-06-20] MEDS: FAMOTIDINE INJ/PF 20 MG/2 ML SDV IV SCH ×2 (10:44→21:28)
[2017-06-20] MEDS: KETOROLAC TROMETHAMINE INJ/PF 30 MG/1 ML SDV IV PRN (10:44)
--- NOTE | 2017-06-20 12:16 | PDOC PROGRESS REPORT ---
Subjective Progress Note for:: 06/20/17 Subjective:: Pt states that she would like to have NGT removed. Pt states that she has not had a bowel movement or passed gas. Nursing states that pt has had only 300 cc out over the 24 hours and none on her shift. Physical Exam Vital Signs: Temp Pulse Resp BP Pulse Ox 98.4 F 80 16 178/81 H 92 06/20/17 08:00 06/20/17 08:00 06/20/17 08:00 06/20/17 08:00 06/20/17 08:00 Intake & Output 06/19/17 06/20/17 06/21/17 06:59 06:59 06:59 Intake Total 2927 Output Total 3500 Balance -573 Weight 58.7 kg General appearance: PRESENT: no acute distress, well-developed, well-nourished Exam: NGI in place. Head exam: PRESENT: atraumatic, normocephalic Eye exam: PRESENT: conjunctiva pink, EOMI. ABSENT: scleral icterus Ear exam: PRESENT: normal external ear exam Mouth exam: PRESENT: dry mucosa Neck exam: ABSENT: carotid bruit, JVD, lymphadenopathy, thyromegaly Respiratory exam: PRESENT: clear to auscultation kat. ABSENT: rales, rhonchi, wheezes Cardiovascular exam: PRESENT: RRR. ABSENT: diastolic murmur, rubs, systolic murmur Pulses: PRESENT: normal dorsalis pedis pul Vascular exam: PRESENT: normal capillary refill GI/Abdominal exam: PRESENT: other - + bowel sounds, ABD binder in place. Rectal exam: PRESENT: deferred Extremities exam: PRESENT: full ROM. ABSENT: calf tenderness, clubbing, pedal edema Musculoskeletal exam: PRESENT: full ROM Neurological exam: PRESENT: alert, awake, oriented to person, oriented to place , oriented to time, oriented to situation, CN II-XII grossly intact. ABSENT: motor sensory deficit Psychiatric exam: PRESENT: appropriate affect, normal mood. ABSENT: homicidal ideation, suicidal ideation Skin exam: PRESENT: dry, intact, warm. ABSENT: cyanosis, rash Results Laboratory Results: 06/19/17 13:51 Blood Type O POSITIVE Antibody Screen NEGATIVE Impressions: Acute Abdomen Series 06/19/17 08:17 IMPRESSION: INCREASING SMALL BOWEL DILATION CONCERNING FOR OBSTRUCTION. Abdomen/Pelvis CT 06/19/17 10:42 IMPRESSION: High grade partial small bowel obstruction Assessment & Plan - Diagnosis (1) Small bowel obstruction Is this a current diagnosis for this admission?: Yes Plan: Secondary to internal hernia status post exploratory lap: Patient is doing well we will continue IV fluids. Pt to have NGT removed today. (2) Dehydration Is this a current diagnosis for this admission?: Yes Plan: We will continue IV fluids. (3) Renal transplant recipient Is this a current diagnosis for this admission?: Yes Plan: We will continue low dose steroids. Will restart prograf once pt able to take po. (4) DVT (deep venous thrombosis) Is this a current diagnosis for this admission?: Yes Plan: SCDs - Time Time Spent with patient: 15-24 minutes Anticipated discharge: Home
--- NOTE | 2017-06-20 12:47 | PDOC PROGRESS REPORT ---
Subjective Progress Note for:: 06/20/17 Subjective:: Patient is 1 day status post exploratory laparotomy, release of small bowel obstruction, and closure of internal hernia site. She is doing very well tolerated nasogastric tube removal this morning. Also hiked in the halls. Physical Exam Vital Signs: Temp Pulse Resp BP Pulse Ox 98.4 F 82 16 153/94 H 98 06/20/17 12:00 06/20/17 12:00 06/20/17 12:00 06/20/17 12:00 06/20/17 12:00 Intake & Output 06/19/17 06/20/17 06/21/17 06:59 06:59 06:59 Intake Total 2927 Output Total 3500 Balance -573 Weight 58.7 kg General appearance: PRESENT: no acute distress GI/Abdominal exam: PRESENT: other - Abdominal binder on, dressing dry and intact. Results Laboratory Results: 06/19/17 13:51 Blood Type O POSITIVE Antibody Screen NEGATIVE Impressions: Acute Abdomen Series 06/19/17 08:17 IMPRESSION: INCREASING SMALL BOWEL DILATION CONCERNING FOR OBSTRUCTION. Abdomen/Pelvis CT 06/19/17 10:42 IMPRESSION: High grade partial small bowel obstruction Assessment & Plan - Diagnosis (1) Small bowel obstruction Is this a current diagnosis for this admission?: Yes Plan: Patient is 1 day status post exploratory laparotomy, release of small bowel obstruction, doing well no complications tolerating nasogastric tube removal, and ambulating Plan: 1. Will discontinue Molina catheter her graft 2. Start patient on ice chips 3. Will resume her tacrolimus, and p.o. prednisone the next 24 hours. 4. We will monitor her creatinine which remains close to baseline. 5. Anticipate discharge in the next 24-48 hours if she continues to do well. (2) Renal transplant recipient Is this a current diagnosis for this admission?: Yes (3) [id number] kidney injury Is this a current diagnosis for this admission?: Yes (4) Smoker Is this a current diagnosis for this admission?: Yes
[2017-06-20] MEDS ORDERED: NITROGLYCERIN 0.4 MG/TAB 25 TAB/BOTTLE SL PRN ×2 (15:00→15:10)
[2017-06-20] MEDS: SUCRALFATE 1 GM TABLET PO SCH ×2 (16:46→21:41)
[2017-06-20] MEDS: TACROLIMUS ANHYDROUS 1 MG CAPSULE PO SCH (20:20)
[2017-06-20] MEDS: BUPROPION HCL 100 MG TABLET PO SCH (21:40)
[2017-06-20] MEDS: FAMOTIDINE 20 MG TABLET PO SCH (21:41)
[2017-06-20] MEDS: ATORVASTATIN CALCIUM 20 MG TABLET PO SCH (21:41)
[2017-06-20] MEDS: CARVEDILOL 12.5 MG TABLET PO SCH (21:41)
[2017-06-20] MEDS ORDERED: (PENDING PHARMACY ID) (Ranitidine Hcl [Zantac 150 Mg Tablet] 150 MG) PO SCH (22:00)
[2017-06-20] MEDS ORDERED: (PENDING PHARMACY ID) (Carvedilol [Coreg] 25 MG) PO SCH (22:00)
[2017-06-21] MEDS: KETOROLAC TROMETHAMINE INJ/PF 30 MG/1 ML SDV IV PRN (04:02)
[2017-06-21 04:57] LABS: ABSOLUTE EOSINOPHILS # (AUTO) 0.1 10^3/uL (0.0-0.6); ABSOLUTE LYMPHOCYTES (AUTO) 0.4 10^3/uL (0.5-4.7); ABSOLUTE MONOCYTES (AUTO) 0.6 10^3/uL (0.1-1.4); ABSOLUTE NEUT (AUTO) 4.2 10^3/uL (1.7-8.2); BASOPHILS % (AUTO) 0.3 % (0-2); EOSINOPHILS % (AUTO) 1.4 % (0-6); HEMATOCRIT 36.8 % (36.0-47.0); HGB HCT DIFFERENCE -0.2; LYMPHOCYTES % (AUTO) 7.8 % (13-45); MEAN CORPUSCULAR HEMOGLOBIN 32.5 pg (27.0-33.4); MEAN CORPUSCULAR HGB CONC 33.3 g/dL (32.0-36.0); MEAN CORPUSCULAR VOLUME 98 fl (80-97); MONOCYTES % (AUTO) 11.6 % (3-13); RED BLOOD COUNT 3.76 10^6/uL (3.72-5.28); RED CELL DISTRIBUTION WIDTH 14.5 % (11.5-14.0); SEGMENTED NEUTROPHILS % (AUTO) 78.9 % (42-78); WHITE BLOOD COUNT 5.3 10^3/uL (4.0-10.5)
[2017-06-21 05:09] LABS: ANION GAP 7 (5-19); BLOOD UREA NITROGEN 21 mg/dL (7-20); CALCIUM 9.5 mg/dL (8.4-10.2); CARBON DIOXIDE 24 mmol/L (22-30); CHLORIDE 106 mmol/L (98-107); CREATININE RESULT 1.76 mg/dL (0.52-1.25); GLUCOSE 86 mg/dL (75-110); POTASSIUM 3.6 mmol/L (3.6-5.0); SODIUM 137.2 mmol/L (137-145)
[2017-06-21 05:20] LABS: HEMOGLOBIN 12.2 g/dL (12.0-15.5)
[2017-06-21] MEDS: BUPROPION HCL 100 MG TABLET PO SCH ×3 (06:46→21:47)
[2017-06-21] MEDS: SUCRALFATE 1 GM TABLET PO SCH ×4 (08:08→21:47)
[2017-06-21] MEDS: TACROLIMUS ANHYDROUS 1 MG CAPSULE PO SCH ×2 (08:08→16:56)
[2017-06-21] MEDS: CALCITRIOL 0.25 MCG CAPSULE PO SCH (09:20)
[2017-06-21] MEDS: DOCUSATE SODIUM 100 MG CAPSULE PO SCH (09:21)
[2017-06-21] MEDS: ASPIRIN 81 MG TABLET, CHEWABLE PO SCH (09:21)
[2017-06-21] MEDS: PREDNISONE 5 MG TABLET PO SCH (09:21)
[2017-06-21] MEDS: FAMOTIDINE INJ/PF 20 MG/2 ML SDV IV SCH ×2 (09:22→21:49)
[2017-06-21] MEDS: NIFEDIPINE 30 MG TAB.ER.24 PO SCH (09:22)
[2017-06-21] MEDS: CARVEDILOL 12.5 MG TABLET PO SCH ×2 (09:22→21:47)
[2017-06-21] MEDS ORDERED: (PENDING PHARMACY ID) (Nifedipine [Nifedipine Er] 30 MG) PO SCH (10:00)
[2017-06-21] MEDS ORDERED: ERGOCALCIFEROL (VITAMIN D2) 50000 UNIT (1.25 MG) CAPSULE PO SCH (10:00)
[2017-06-21] MEDS: TRAMADOL HCL 50 MG TABLET PO PRN ×3 (10:03→18:54)
--- NOTE | 2017-06-21 10:06 | PDOC PROGRESS REPORT ---
Subjective Progress Note for:: 06/21/17 Subjective:: Pt states that she is having abd pain. Pt states that her pain is a 10/10. Physical Exam Vital Signs: Temp Pulse Resp BP Pulse Ox 98.5 F 77 22 H 113/60 99 06/21/17 07:42 06/21/17 07:42 06/21/17 07:42 06/21/17 07:42 06/21/17 07:42 Intake & Output 06/20/17 06/21/17 06/22/17 06:59 06:59 06:59 Intake Total 2927 2237 Output Total 3500 400 Balance -573 1837 Weight 58.7 kg 63.9 kg General appearance: PRESENT: mild distress, well-developed, well-nourished Head exam: PRESENT: atraumatic, normocephalic Eye exam: PRESENT: conjunctiva pink, EOMI. ABSENT: scleral icterus Ear exam: PRESENT: normal external ear exam Mouth exam: PRESENT: moist, tongue midline Neck exam: ABSENT: carotid bruit, JVD, lymphadenopathy, thyromegaly Respiratory exam: PRESENT: clear to auscultation kat. ABSENT: rales, rhonchi, wheezes Cardiovascular exam: PRESENT: RRR. ABSENT: diastolic murmur, rubs, systolic murmur Pulses: PRESENT: normal dorsalis pedis pul Vascular exam: PRESENT: normal capillary refill GI/Abdominal exam: PRESENT: other - + bowel sounds, + tenderness to palpation Rectal exam: PRESENT: deferred Extremities exam: PRESENT: full ROM. ABSENT: calf tenderness, clubbing, pedal edema Neurological exam: PRESENT: alert, awake, oriented to person, oriented to place , oriented to time, oriented to situation, CN II-XII grossly intact. ABSENT: motor sensory deficit Psychiatric exam: PRESENT: appropriate affect, normal mood. ABSENT: homicidal ideation, suicidal ideation Skin exam: PRESENT: dry, intact, warm. ABSENT: cyanosis, rash Results Laboratory Results: 06/21/17 04:43 06/21/17 04:43 06/21/17 06/21/17 04:43 04:43 WBC 5.3 RBC 3.76 Hgb 12.2 D Hct 36.8 MCV 98 H MCH 32.5 MCHC 33.3 RDW 14.5 H Plt Count 139 L Seg Neutrophils % 78.9 H Lymphocytes % 7.8 L Monocytes % 11.6 Eosinophils % 1.4 Basophils % 0.3 Absolute Neutrophils 4.2 Absolute Lymphocytes 0.4 L Absolute Monocytes 0.6 Absolute Eosinophils 0.1 Absolute Basophils 0.0 Sodium 137.2 Potassium 3.6 Chloride 106 Carbon Dioxide 24 Anion Gap 7 BUN 21 H Creatinine 1.76 H Est GFR ( Amer) 35 L Est GFR (Non-Af Amer) 29 L Glucose 86 Calcium 9.5 Impressions: Acute Abdomen Series 06/19/17 08:17 IMPRESSION: INCREASING SMALL BOWEL DILATION CONCERNING FOR OBSTRUCTION. Abdomen/Pelvis CT 06/19/17 10:42 IMPRESSION: High grade partial small bowel obstruction Assessment & Plan - Diagnosis (1) Small bowel obstruction Is this a current diagnosis for this admission?: Yes Plan: Secondary to internal hernia status post exploratory lap: Pt doing well. Will write for tramadol for pain control. (2) Dehydration Is this a current diagnosis for this admission?: Yes Plan: Pt's diet currently being advanced. (3) Renal transplant recipient Is this a current diagnosis for this admission?: Yes Plan: Prograf and Prednisone (4) DVT (deep venous thrombosis) Is this a current diagnosis for this admission?: Yes Plan: SCDs - Time Time Spent with patient: 15-24 minutes Anticipated discharge: Home
--- NOTE | 2017-06-21 11:54 | PDOC PROGRESS REPORT ---
Subjective Progress Note for:: 06/21/17 Subjective:: Patient is postoperative day 2 status post exploratory laparotomy, reduction of internal hernia, having some pain, tolerating clear liquids, voiding with Molina catheter round and ambulating. Physical Exam Vital Signs: Temp Pulse Resp BP Pulse Ox 98.5 F 77 22 H 113/60 99 06/21/17 07:42 06/21/17 07:42 06/21/17 07:42 06/21/17 07:42 06/21/17 07:42 Intake & Output 06/20/17 06/21/17 06/22/17 06:59 06:59 06:59 Intake Total 2927 2237 Output Total 3500 400 Balance -573 1837 Weight 58.7 kg 63.9 kg General appearance: PRESENT: no acute distress, mild distress GI/Abdominal exam: PRESENT: other - Appropriate postoperative tenderness. Minimal drainage on the dressing Results Laboratory Results: 06/21/17 04:43 06/21/17 04:43 06/21/17 06/21/17 04:43 04:43 WBC 5.3 RBC 3.76 Hgb 12.2 D Hct 36.8 MCV 98 H MCH 32.5 MCHC 33.3 RDW 14.5 H Plt Count 139 L Seg Neutrophils % 78.9 H Lymphocytes % 7.8 L Monocytes % 11.6 Eosinophils % 1.4 Basophils % 0.3 Absolute Neutrophils 4.2 Absolute Lymphocytes 0.4 L Absolute Monocytes 0.6 Absolute Eosinophils 0.1 Absolute Basophils 0.0 Sodium 137.2 Potassium 3.6 Chloride 106 Carbon Dioxide 24 Anion Gap 7 BUN 21 H Creatinine 1.76 H Est GFR ( Amer) 35 L Est GFR (Non-Af Amer) 29 L Glucose 86 Calcium 9.5 Impressions: Acute Abdomen Series 06/19/17 08:17 IMPRESSION: INCREASING SMALL BOWEL DILATION CONCERNING FOR OBSTRUCTION. Abdomen/Pelvis CT 06/19/17 10:42 IMPRESSION: High grade partial small bowel obstruction Assessment & Plan - Diagnosis (1) Small bowel obstruction Is this a current diagnosis for this admission?: Yes Plan: Patient is postoperative day 2 status post exploratory laparotomy, reduction of internal hernia without bowel resection, doing well, making satisfactory progress with diet; renal function stable; pain reasonably well controlled. Of note, patient has severe scoliosis due to sacral spine misalignment which is all chronic. Plan: 1. Advance diet to full liquids 2. Add tramadol to postoperative pain management 3. Increased pulmonary toilet; we will provide incentive spirometer and coughing pillow. (2) Renal transplant recipient Is this a current diagnosis for this admission?: Yes (3) [id number] kidney injury Is this a current diagnosis for this admission?: Yes (4) Smoker Is this a current diagnosis for this admission?: Yes
--- NOTE | 2017-06-21 16:02 | EKG REPORT ---
SEVERITY:- ABNORMAL ECG - SINUS RHYTHM VENTRICULAR TRIGEMINY PROBABLE LEFT ATRIAL ABNORMALITY BORDERLINE T WAVE ABNORMALITIES ANTEROLATERAL LEADS. : Confirmed by: Dayday Delarosa MD 21-Jun-2017 16:01:59
[2017-06-21] MEDS: ONDANSETRON HCL INJ/PF 4 MG/2 ML SDV IV PRN (17:44)
[2017-06-21] MEDS: PROMETHAZINE HCL INJ 25 MG/1 ML VIAL IV PRN (20:12)
[2017-06-21] MEDS: ATORVASTATIN CALCIUM 20 MG TABLET PO SCH (21:47)
[2017-06-21] MEDS: FAMOTIDINE 20 MG TABLET PO SCH (21:47)
[2017-06-22 03:28] LABS: ABSOLUTE EOSINOPHILS # (AUTO) 0.1 10^3/uL (0.0-0.6); ABSOLUTE LYMPHOCYTES (AUTO) 0.5 10^3/uL (0.5-4.7); ABSOLUTE MONOCYTES (AUTO) 0.6 10^3/uL (0.1-1.4); BASOPHILS % (AUTO) 0.3 % (0-2); EOSINOPHILS % (AUTO) 1.5 % (0-6); HEMATOCRIT 38.7 % (36.0-47.0); HEMOGLOBIN 12.7 g/dL (12.0-15.5); HGB HCT DIFFERENCE -0.6; LYMPHOCYTES % (AUTO) 8.9 % (13-45); MEAN CORPUSCULAR HEMOGLOBIN 31.5 pg (27.0-33.4); MEAN CORPUSCULAR HGB CONC 32.8 g/dL (32.0-36.0); MEAN CORPUSCULAR VOLUME 96 fl (80-97); MONOCYTES % (AUTO) 11.3 % (3-13); RED BLOOD COUNT 4.03 10^6/uL (3.72-5.28); RED CELL DISTRIBUTION WIDTH 14.5 % (11.5-14.0); WHITE BLOOD COUNT 5.1 10^3/uL (4.0-10.5)
[2017-06-22 03:32] LABS: ANION GAP 12 (5-19); BLOOD UREA NITROGEN 17 mg/dL (7-20); CALCIUM 10.5 mg/dL (8.4-10.2); CARBON DIOXIDE 21 mmol/L (22-30); CHLORIDE 106 mmol/L (98-107); CREATININE RESULT 1.46 mg/dL (0.52-1.25); GLUCOSE 85 mg/dL (75-110); SODIUM 139.3 mmol/L (137-145)
[2017-06-22] MEDS: PROMETHAZINE HCL INJ 25 MG/1 ML VIAL IV PRN ×2 (04:17→21:58)
[2017-06-22] MEDS: TRAMADOL HCL 50 MG TABLET PO PRN ×2 (06:09→14:18)
[2017-06-22] MEDS: BUPROPION HCL 100 MG TABLET PO SCH ×3 (06:10→21:26)
[2017-06-22] MEDS ORDERED: (PENDING PHARMACY ID) (Sulfamethoxazole/Trimethoprim [Bactrim 400-80 Mg Tablet] 1 EACH) PO SCH (10:00)
--- NOTE | 2017-06-22 10:24 | PDOC PROGRESS REPORT ---
Subjective Progress Note for:: 06/22/17 Subjective:: Patient having some nausea and a little bit of vomiting. She did get up, ambulate, take a shower. She had some flatus but no bowel movement. Physical Exam Vital Signs: Temp Pulse Resp BP Pulse Ox 99.0 F 85 24 H 133/90 H 100 06/22/17 07:31 06/22/17 07:31 06/22/17 07:31 06/22/17 07:31 06/22/17 09:17 Intake & Output 06/21/17 06/22/17 06/23/17 06:59 06:59 06:59 Intake Total 2237 827 Output Total 400 1000 Balance 1837 -173 Weight 63.9 kg 61.4 kg General appearance: PRESENT: mild distress GI/Abdominal exam: PRESENT: other - Soft, incision healing satisfactorily, rosa intact, no peritoneal signs, no rigidity Results Laboratory Results: 06/22/17 03:10 06/22/17 03:10 06/22/17 06/22/17 03:10 03:10 WBC 5.1 RBC 4.03 Hgb 12.7 Hct 38.7 MCV 96 MCH 31.5 MCHC 32.8 RDW 14.5 H Plt Count 179 Seg Neutrophils % 78.0 Lymphocytes % 8.9 L Monocytes % 11.3 Eosinophils % 1.5 Basophils % 0.3 Absolute Neutrophils 4.0 Absolute Lymphocytes 0.5 Absolute Monocytes 0.6 Absolute Eosinophils 0.1 Absolute Basophils 0.0 Sodium 139.3 Potassium 4.0 Chloride 106 Carbon Dioxide 21 L Anion Gap 12 BUN 17 Creatinine 1.46 H Est GFR ( Amer) 43 L Est GFR (Non-Af Amer) 36 L Glucose 85 Calcium 10.5 H 06/21/17 06/21/17 06/22/17 15:17 21:08 03:10 Troponin I 0.013 < 0.012 0.014 Impressions: Acute Abdomen Series 06/19/17 08:17 IMPRESSION: INCREASING SMALL BOWEL DILATION CONCERNING FOR OBSTRUCTION. Abdomen/Pelvis CT 06/19/17 10:42 IMPRESSION: High grade partial small bowel obstruction Assessment & Plan - Diagnosis (1) Small bowel obstruction Is this a current diagnosis for this admission?: Yes Plan: Postoperative day 3 status post exploratory laparotomy, reduction of internal hernia and closure of hernia defect. No postoperative complications. Bowel function slow to recover. We just learned that patient's Helicobacter pylori test on upper endoscopy positive. This may explain patient's upper GI symptoms Plan: 1. We will keep patient on full liquids 2. Will initiate helicobacter pylori therapy 3. Continue to ambulate patient; hopefully discharge home the next 24 hours. (2) Renal transplant recipient Is this a current diagnosis for this admission?: Yes (3) [id number] kidney injury Is this a current diagnosis for this admission?: Yes Plan: Creatinine down to 1. 4 6. Continue to monitor (4) Smoker Is this a current diagnosis for this admission?: Yes
[2017-06-22] MEDS: CALCITRIOL 0.25 MCG CAPSULE PO SCH (10:56)
[2017-06-22] MEDS: SUCRALFATE 1 GM TABLET PO SCH ×4 (10:56→21:26)
[2017-06-22] MEDS: PREDNISONE 5 MG TABLET PO SCH (10:56)
[2017-06-22] MEDS: ASPIRIN 81 MG TABLET, CHEWABLE PO SCH (10:56)
[2017-06-22] MEDS: FAMOTIDINE INJ/PF 20 MG/2 ML SDV IV SCH (10:56)
[2017-06-22] MEDS: NIFEDIPINE 30 MG TAB.ER.24 PO SCH (10:57)
[2017-06-22] MEDS: DOCUSATE SODIUM 100 MG CAPSULE PO SCH (10:57)
[2017-06-22] MEDS: SULFAMETHOXAZOLE/TRIMETHOPRIM 800-160 MG TABLET PO SCH (10:58)
[2017-06-22] MEDS: CARVEDILOL 12.5 MG TABLET PO SCH ×2 (10:58→21:27)
[2017-06-22] MEDS: TACROLIMUS ANHYDROUS 1 MG CAPSULE PO SCH ×2 (10:59→17:45)
[2017-06-22] MEDS ORDERED: NORMAL SALINE 1000 ML 1,000 ML IV PRN (17:28)
--- NOTE | 2017-06-22 18:41 | PDOC PROGRESS REPORT ---
Subjective Progress Note for:: 06/22/17 Subjective:: Pt states that she is doing better. Pt states that she vomited overnight. Pt has not had any vomiting today. Dr. Mason called early this morning reporting that patient tested positive for H. pylori and was requesting treatment for H. pylori. Physical Exam Vital Signs: Temp Pulse Resp BP Pulse Ox 99.0 F 84 24 H 133/90 H 100 06/22/17 07:31 06/22/17 14:00 06/22/17 07:31 06/22/17 07:31 06/22/17 09:17 Intake & Output 06/21/17 06/22/17 06/23/17 06:59 06:59 06:59 Intake Total 2237 827 221 Output Total 400 1000 Balance 1837 -173 221 Weight 63.9 kg 61.4 kg General appearance: PRESENT: no acute distress, well-developed, well-nourished Head exam: PRESENT: atraumatic, normocephalic Eye exam: PRESENT: conjunctiva pink, EOMI, PERRLA. ABSENT: scleral icterus Ear exam: PRESENT: normal external ear exam Mouth exam: PRESENT: moist, tongue midline Neck exam: ABSENT: carotid bruit, JVD, lymphadenopathy, thyromegaly Respiratory exam: PRESENT: clear to auscultation kat. ABSENT: rales, rhonchi, wheezes Cardiovascular exam: PRESENT: RRR. ABSENT: diastolic murmur, rubs, systolic murmur Pulses: PRESENT: normal dorsalis pedis pul Vascular exam: PRESENT: normal capillary refill GI/Abdominal exam: PRESENT: normal bowel sounds, other - Surgical site demonstrating no evidence of infection. Rectal exam: PRESENT: deferred Extremities exam: PRESENT: full ROM. ABSENT: calf tenderness, clubbing, pedal edema Neurological exam: PRESENT: alert, awake, oriented to person, oriented to place , oriented to time, oriented to situation, CN II-XII grossly intact. ABSENT: motor sensory deficit Psychiatric exam: PRESENT: appropriate affect, normal mood. ABSENT: homicidal ideation, suicidal ideation Skin exam: PRESENT: dry, warm Results Laboratory Results: 06/22/17 03:10 06/22/17 03:10 06/22/17 06/22/17 03:10 03:10 WBC 5.1 RBC 4.03 Hgb 12.7 Hct 38.7 MCV 96 MCH 31.5 MCHC 32.8 RDW 14.5 H Plt Count 179 Seg Neutrophils % 78.0 Lymphocytes % 8.9 L Monocytes % 11.3 Eosinophils % 1.5 Basophils % 0.3 Absolute Neutrophils 4.0 Absolute Lymphocytes 0.5 Absolute Monocytes 0.6 Absolute Eosinophils 0.1 Absolute Basophils 0.0 Sodium 139.3 Potassium 4.0 Chloride 106 Carbon Dioxide 21 L Anion Gap 12 BUN 17 Creatinine 1.46 H Est GFR ( Amer) 43 L Est GFR (Non-Af Amer) 36 L Glucose 85 Calcium 10.5 H 06/21/17 06/21/17 06/22/17 15:17 21:08 03:10 Troponin I 0.013 < 0.012 0.014 Impressions: Acute Abdomen Series 06/19/17 08:17 IMPRESSION: INCREASING SMALL BOWEL DILATION CONCERNING FOR OBSTRUCTION. Abdomen/Pelvis CT 06/19/17 10:42 IMPRESSION: High grade partial small bowel obstruction Assessment & Plan - Diagnosis (1) Small bowel obstruction Is this a current diagnosis for this admission?: Yes Plan: Secondary to internal hernia status post exploratory lap: Pt doing well. Tramadol for pain control. (2) H. pylori infection Is this a current diagnosis for this admission?: Yes Plan: Do not feel that this is why patient vomited overnight. Will place patient on PPI and amoxicillin for now. Clarithromycin regimen does not interact well with patient's Prograf therefore the rest of patient's treatment for H. 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 (3) Dehydration Is this a current diagnosis for this admission?: Yes Plan: Resolved (4) Renal transplant recipient Is this a current diagnosis for this admission?: Yes Plan: His renal function has improved since being admitted to the hospital. Will monitor closely. (5) DVT (deep venous thrombosis) Is this a current diagnosis for this admission?: Yes Plan: SCDs - Time Time Spent with patient: 15-24 minutes Anticipated discharge: Home
[2017-06-22] MEDS: AMOXICILLIN TRIHYDRATE 500 MG CAPSULE PO SCH (21:26)
[2017-06-22] MEDS: ATORVASTATIN CALCIUM 20 MG TABLET PO SCH (21:26)
[2017-06-22] MEDS: ONDANSETRON HCL INJ/PF 4 MG/2 ML SDV IV PRN (21:27)
[2017-06-23] MEDS: PROMETHAZINE HCL INJ 25 MG/1 ML VIAL IV PRN ×3 (02:55→15:21)
[2017-06-23] MEDS: TRAMADOL HCL 50 MG TABLET PO PRN ×5 (02:56→20:16)
[2017-06-23] MEDS: LANSOPRAZOLE 30 MG TAB.RAP.DR PO SCH ×2 (05:19→17:16)
[2017-06-23] MEDS: BUPROPION HCL 100 MG TABLET PO SCH ×3 (05:19→22:06)
[2017-06-23 06:56] LABS: ABSOLUTE EOSINOPHILS # (AUTO) 0.1 10^3/uL (0.0-0.6); ABSOLUTE LYMPHOCYTES (AUTO) 0.5 10^3/uL (0.5-4.7); ABSOLUTE MONOCYTES (AUTO) 0.9 10^3/uL (0.1-1.4); ABSOLUTE NEUT (AUTO) 6.6 10^3/uL (1.7-8.2); BASOPHILS % (AUTO) 0.2 % (0-2); EOSINOPHILS % (AUTO) 0.7 % (0-6); HEMATOCRIT 41.5 % (36.0-47.0); HEMOGLOBIN 13.8 g/dL (12.0-15.5); HGB HCT DIFFERENCE -0.1; LYMPHOCYTES % (AUTO) 5.7 % (13-45); MEAN CORPUSCULAR HEMOGLOBIN 32.1 pg (27.0-33.4); MEAN CORPUSCULAR HGB CONC 33.3 g/dL (32.0-36.0); MEAN CORPUSCULAR VOLUME 96 fl (80-97); MONOCYTES % (AUTO) 10.7 % (3-13); RED BLOOD COUNT 4.31 10^6/uL (3.72-5.28); RED CELL DISTRIBUTION WIDTH 14.7 % (11.5-14.0); SEGMENTED NEUTROPHILS % (AUTO) 82.7 % (42-78)
[2017-06-23] MEDS: SUCRALFATE 1 GM TABLET PO SCH ×4 (08:41→22:06)
[2017-06-23] MEDS: TACROLIMUS ANHYDROUS 1 MG CAPSULE PO SCH ×2 (08:41→20:03)
[2017-06-23 09:17] LABS: ANION GAP 16 (5-19); BLOOD UREA NITROGEN 20 mg/dL (7-20); CALCIUM 11.3 mg/dL (8.4-10.2); CARBON DIOXIDE 21 mmol/L (22-30); CHLORIDE 106 mmol/L (98-107); CREATININE RESULT 1.64 mg/dL (0.52-1.25); GLUCOSE 84 mg/dL (75-110); LIPASE 126.7 U/L (23-300); SODIUM 142.9 mmol/L (137-145)
[2017-06-23] MEDS: CALCITRIOL 0.25 MCG CAPSULE PO SCH (09:28)
[2017-06-23] MEDS: ASPIRIN 81 MG TABLET, CHEWABLE PO SCH (09:28)
[2017-06-23] MEDS: NIFEDIPINE 30 MG TAB.ER.24 PO SCH (09:29)
[2017-06-23] MEDS: METOCLOPRAMIDE HCL 10 MG TABLET PO SCH ×2 (09:30→17:16)
[2017-06-23] MEDS: PREDNISONE 5 MG TABLET PO SCH (09:30)
[2017-06-23] MEDS: CARVEDILOL 12.5 MG TABLET PO SCH ×2 (09:31→22:07)
[2017-06-23] MEDS: AMOXICILLIN TRIHYDRATE 500 MG CAPSULE PO SCH ×2 (09:32→22:08)
[2017-06-23] MEDS: DOCUSATE SODIUM 100 MG CAPSULE PO SCH (09:33)
[2017-06-23 15:06] LABS: ABSOLUTE EOSINOPHILS # (AUTO) 0.1 10^3/uL (0.0-0.6); ABSOLUTE LYMPHOCYTES (AUTO) 0.5 10^3/uL (0.5-4.7); ABSOLUTE MONOCYTES (AUTO) 0.9 10^3/uL (0.1-1.4); ABSOLUTE NEUT (AUTO) 5.9 10^3/uL (1.7-8.2); BASOPHILS % (AUTO) 0.3 % (0-2); EOSINOPHILS % (AUTO) 0.8 % (0-6); HEMATOCRIT 42.5 % (36.0-47.0); HEMOGLOBIN 13.6 g/dL (12.0-15.5); HGB HCT DIFFERENCE -1.7; MEAN CORPUSCULAR HEMOGLOBIN 31.2 pg (27.0-33.4); MEAN CORPUSCULAR VOLUME 97 fl (80-97); MONOCYTES % (AUTO) 12.6 % (3-13); RED BLOOD COUNT 4.37 10^6/uL (3.72-5.28); RED CELL DISTRIBUTION WIDTH 14.6 % (11.5-14.0); SEGMENTED NEUTROPHILS % (AUTO) 79.3 % (42-78); WHITE BLOOD COUNT 7.5 10^3/uL (4.0-10.5)
[2017-06-23 15:22] LABS: ANION GAP 14 (5-19); BLOOD UREA NITROGEN 25 mg/dL (7-20); CARBON DIOXIDE 22 mmol/L (22-30); CHLORIDE 106 mmol/L (98-107); CREATININE RESULT 1.64 mg/dL (0.52-1.25); GLUCOSE 84 mg/dL (75-110); POTASSIUM 4.3 mmol/L (3.6-5.0); SODIUM 141.9 mmol/L (137-145)
--- NOTE | 2017-06-23 15:33 | RADIOLOGY REPORT (SQ) ---
EXAM DESCRIPTION: ACUTE ABDOMEN SERIES COMPLETED DATE/TIME: 06/23/2017 2:28 pm REASON FOR STUDY: abdominal pain, ? ileus or sbo COMPARISON: 06/19/2017 NUMBER OF VIEWS: Three views. TECHNIQUE: Frontal chest, supine abdomen and upright/decubitus abdomen radiographic images acquired. LIMITATIONS: None. FINDINGS: Interval laparotomy with midline lower abdominal skin rosa. Abundant gas and fecal mat erial in nondilated colon. No free air. Small left pleural effusion and associated airspace disease. IMPRESSION: No obstruction. Atelectasis or pneumonia left lower lobe. TECHNICAL DOCUMENTATION: JOB ID: [id number] [employer]- All Rights Reserved
--- NOTE | 2017-06-23 18:42 | PDOC PROGRESS REPORT ---
Subjective Progress Note for:: 06/23/17 Subjective:: The patient states that she feels quite horrible today. She just feels lethargic. She has been unable to taken any p.o. intake and has been vomiting her medications. She was found to have H pylori and was started on amoxicillin yesterday. Unfortunately she cannot take clarithromycin with her suppressive medication due to her kidney transplant. Overall she feels weak. She has not had a bowel movement. She really is not passing any gas at this point. She states her abdomen is more sore than it has been. She denies fever chills. No chest pain or heart palpitations. She denies dysuria, frequency or hematuria. Physical Exam Vital Signs: Temp Pulse Resp BP Pulse Ox 97.5 F 89 20 151/79 H 89 L 06/23/17 15:35 06/23/17 15:35 06/23/17 15:35 06/23/17 15:35 06/23/17 15:35 Intake & Output 06/22/17 06/23/17 06/24/17 06:59 06:59 06:59 Intake Total 827 1421 1878 Output Total 1000 1100 Balance -022 201 9629 Weight 61.4 kg General appearance: PRESENT: other - The patient looks as if she feels quite poorly and is somewhat lethargic and drowsy. Head exam: PRESENT: atraumatic, normocephalic Mouth exam: PRESENT: moist, tongue midline Respiratory exam: PRESENT: clear to auscultation kat, other - She has somewhat diminished in the lower bases bilaterally. I am not hearing any crackles.. ABSENT: rales, rhonchi, wheezes Cardiovascular exam: PRESENT: RRR. ABSENT: diastolic murmur, rubs, systolic murmur GI/Abdominal exam: PRESENT: hypoactive bowel sounds - The patient has a midline incision with rosa in place that appears to be healing well. There is no erythema or drainage. The wound looks quite clean, soft, tenderness Rectal exam: PRESENT: deferred Extremities exam: PRESENT: full ROM. ABSENT: calf tenderness, clubbing, pedal edema Neurological exam: PRESENT: alert, awake, oriented to person, oriented to time, oriented to situation, CN II-XII grossly intact - She is somewhat lethargic and drowsy though. Skin exam: PRESENT: dry, warm Results Laboratory Results: 06/23/17 14:34 06/23/17 14:44 06/23/17 06/23/17 06/23/17 05:50 05:50 05:50 WBC 8.0 RBC 4.31 Hgb 13.8 Hct 41.5 MCV 96 MCH 32.1 MCHC 33.3 RDW 14.7 H Plt Count 229 Seg Neutrophils % 82.7 H Lymphocytes % 5.7 L Monocytes % 10.7 Eosinophils % 0.7 Basophils % 0.2 Absolute Neutrophils 6.6 Absolute Lymphocytes 0.5 Absolute Monocytes 0.9 Absolute Eosinophils 0.1 Absolute Basophils 0.0 Sodium Cancelled Potassium Cancelled Chloride Cancelled Carbon Dioxide Cancelled Anion Gap Cancelled BUN Cancelled Creatinine Cancelled Est GFR ( Amer) Cancelled Est GFR (Non-Af Amer) Cancelled Glucose Cancelled Calcium Cancelled Lipase Cancelled 06/23/17 06/23/17 06/23/17 07:35 14:34 14:44 WBC 7.5 RBC 4.37 Hgb 13.6 Hct 42.5 MCV 97 MCH 31.2 MCHC 32.0 RDW 14.6 H Plt Count 210 Seg Neutrophils % 79.3 H Lymphocytes % 7.0 L Monocytes % 12.6 Eosinophils % 0.8 Basophils % 0.3 Absolute Neutrophils 5.9 Absolute Lymphocytes 0.5 Absolute Monocytes 0.9 Absolute Eosinophils 0.1 Absolute Basophils 0.0 Sodium 142.9 141.9 Potassium 4.0 4.3 Chloride 106 106 Carbon Dioxide 21 L 22 Anion Gap 16 14 BUN 20 25 H Creatinine 1.64 H 1.64 H Est GFR ( Amer) 38 L 38 L Est GFR (Non-Af Amer) 31 L 31 L Glucose 84 84 Calcium 11.3 H 11.0 H Lipase 126.7 06/21/17 06/21/17 06/22/17 15:17 21:08 03:10 Troponin I 0.013 < 0.012 0.014 Impressions: Abdomen/Pelvis CT 06/19/17 10:42 IMPRESSION: High grade partial small bowel obstruction Acute Abdomen Series 06/23/17 00:00 IMPRESSION: No obstruction. Atelectasis or pneumonia left lower lobe. Assessment & Plan - Diagnosis (1) Small bowel obstruction Is this a current diagnosis for this admission?: Yes Plan: Status post post laparotomy. She is postoperative day #4. She is having issues with nausea and vomiting. She was started on treatment for H pylori infection yesterday. She will continue anti-emetics. Acute abdominal series did not reveal any evidence of obstruction. We will just continue to watch her quite closely and provide supportive care. She will continue IV fluids for now. (2) H. pylori infection Is this a current diagnosis for this admission?: Yes Plan: She has been started on amoxicillin. Unfortunately she cannot take clarithromycin due to her suppressive medication from her renal transplant. (3) Dehydration Is this a current diagnosis for this admission?: Yes Plan: Resolved (4) Hypercalcemia Plan: I am going to hold her calcitriol tonight. We will get an ionized calcium, PTH and vitamin D level for in the morning. In light of her renal transplant if her calcium level does not go down I may need to get nephrology to take a look at her. (5) Renal transplant recipient Is this a current diagnosis for this admission?: Yes Plan: We will have to keep a close eye on her renal function. Certainly she has hypercalcemia right now. Continue tacrolimus. I have a low threshold for getting nephrology involved. - Time Time Spent with patient: 25-34 minutes Disposition: Inpatient hospitalization remains necessary. The patient is postoperative day # 4 and is unable to tolerate a diet or keep anything down. She cannot tolerate her oral medications. She is requiring parenteral fluids. She has hypercalcemia in the setting of a renal transplant. She is at high risk of decompensation and further hospitalization is necessary.
--- NOTE | 2017-06-23 20:53 | PROGRESS NOTE E ---
Progress Note NAME: DEVANTE PIERSON : 1950 AGE: 66Y DATE: 06/23/2017 ROOM: 426 SUBJECTIVE: This is her fourth postop day post release of internal herniation by Dr. Mason. The biopsy done by Dr. Sandoval last week showed positive for H. pylori. She started to be given antibiotics for this. She has been distended and still nauseated with occasional vomiting. She just had an obstruction series done today which showed no evidence of obstruction. Her symptoms likely are more from the gastritis and gastroparesis. PLAN: Start her on Reglan today and continue with liquid diet. Continue with some hydration. Make sure electrolytes are okay. DICTATING PHYSICIAN: KM MEEK M.D. [id number] PHY#: [id number] ID: [id number] JOB#: [id number] ACCT: [id number] cc: >
[2017-06-23] MEDS: ATORVASTATIN CALCIUM 20 MG TABLET PO SCH (22:08)
[2017-06-24] MEDS: METOCLOPRAMIDE HCL 10 MG TABLET PO SCH ×3 (02:36→17:00)
[2017-06-24] MEDS: TRAMADOL HCL 50 MG TABLET PO PRN ×3 (02:36→15:17)
[2017-06-24] MEDS: BUPROPION HCL 100 MG TABLET PO SCH ×3 (05:46→21:37)
[2017-06-24] MEDS: LANSOPRAZOLE 30 MG TAB.RAP.DR PO SCH ×2 (05:46→17:00)
[2017-06-24 07:07] LABS: ALANINE AMINOTRANSFERASE 25 U/L (9-52); ALBUMIN 3.1 g/dL (3.5-5.0); ALKALINE PHOSPHATASE 47 U/L (38-126); ANION GAP 13 (5-19); ASPARTATE AMINO TRANSFERASE 21 U/L (14-36); BILIRUBIN,DIRECT 0.5 mg/dL (0.0-0.4); BILIRUBIN,TOTAL 0.8 mg/dL (0.2-1.3); BLOOD UREA NITROGEN 24 mg/dL (7-20); CALCIUM 10.2 mg/dL (8.4-10.2); CARBON DIOXIDE 19 mmol/L (22-30); CHLORIDE 111 mmol/L (98-107); CREATININE RESULT 1.72 mg/dL (0.52-1.25); GLUCOSE 70 mg/dL (75-110); LIPASE 77.2 U/L (23-300); POTASSIUM 4.1 mmol/L (3.6-5.0); SODIUM 143.1 mmol/L (137-145); TOTAL PROTEIN 5.5 g/dL (6.3-8.2)
[2017-06-24 07:17] LABS: ABSOLUTE EOSINOPHILS # (AUTO) 0.1 10^3/uL (0.0-0.6); ABSOLUTE LYMPHOCYTES (AUTO) 0.4 10^3/uL (0.5-4.7); ABSOLUTE MONOCYTES (AUTO) 0.7 10^3/uL (0.1-1.4); BASOPHILS % (AUTO) 0.3 % (0-2); EOSINOPHILS % (AUTO) 1.7 % (0-6); HEMATOCRIT 38.1 % (36.0-47.0); HEMOGLOBIN 12.8 g/dL (12.0-15.5); HGB HCT DIFFERENCE 0.3; LYMPHOCYTES % (AUTO) 8.1 % (13-45); MEAN CORPUSCULAR HEMOGLOBIN 32.5 pg (27.0-33.4); MEAN CORPUSCULAR HGB CONC 33.6 g/dL (32.0-36.0); MEAN CORPUSCULAR VOLUME 97 fl (80-97); MONOCYTES % (AUTO) 13.6 % (3-13); RED BLOOD COUNT 3.94 10^6/uL (3.72-5.28); RED CELL DISTRIBUTION WIDTH 14.4 % (11.5-14.0); SEGMENTED NEUTROPHILS % (AUTO) 76.3 % (42-78); WHITE BLOOD COUNT 5.3 10^3/uL (4.0-10.5)
[2017-06-24] MEDS: CARVEDILOL 12.5 MG TABLET PO SCH ×2 (09:41→21:36)
[2017-06-24] MEDS: SULFAMETHOXAZOLE/TRIMETHOPRIM 800-160 MG TABLET PO SCH (09:43)
[2017-06-24] MEDS: SUCRALFATE 1 GM TABLET PO SCH ×4 (09:43→21:35)
[2017-06-24] MEDS: ASPIRIN 81 MG TABLET, CHEWABLE PO SCH (09:43)
[2017-06-24] MEDS: DOCUSATE SODIUM 100 MG CAPSULE PO SCH (09:43)
[2017-06-24] MEDS: NIFEDIPINE 30 MG TAB.ER.24 PO SCH (09:43)
[2017-06-24] MEDS: TACROLIMUS ANHYDROUS 1 MG CAPSULE PO SCH ×2 (09:44→21:36)
[2017-06-24] MEDS: PREDNISONE 5 MG TABLET PO SCH (09:44)
[2017-06-24] MEDS ORDERED: IPRATROPIUM/ALBUTEROL 0.5-2.5 MG/3 ML AMPUL NEB PRN (11:00)
[2017-06-24] MEDS: AMOXICILLIN TRIHYDRATE 500 MG CAPSULE PO SCH ×2 (11:46→21:37)
--- NOTE | 2017-06-24 12:59 | PDOC PROGRESS REPORT ---
Subjective Progress Note for:: 06/24/17 Subjective:: The patient is a 66-year-old -[place] female who presented to the emergency room with complaints of abdominal pain associated with nausea and vomiting. She was found to have evidence of an internal hernia causing small bowel obstruction. She was admitted under the general surgery service and went to the operating room for a laparotomy. [facility] hospitalists were consulted for medical management. Yesterday the patient was vomiting all of her medications and could not tolerate a diet. The general surgery service placed her on Reglan. This morning she is looking much better and actually surgery was thinking about sending her home today. However she is requiring quite a bit of assistance to ambulate and has not yet been seen by physical therapy. Also she had multiple episodes of vomiting yesterday and her oxygen saturations have been on the low side and she has developed some cough and rhonchi today. I did discuss this with the patient and her friend present at the bedside. The patient does live by herself but has a good friend who can spend the night with her and help her when she goes home. However this friend is not going to be there 24 hours a day and she has some obligations that she has to attend to during the day. She would likely be in and out. Nursing staff and aids report that she is requiring quite a bit of assistance and are not sure she is safe to go home. We have agreed for the patient to stay here today and get a physical therapy evaluation. I also am going to obtain a chest x-ray to rule out any sort of early aspiration pneumonia or even volume overload from the IV fluids that she has received. The patient and her friend are agreeable to this. For now I have answered all of their questions. Overall the patient states that she is feeling much better today. She has had no further nausea or vomiting after starting the Reglan. She ate breakfast this morning and was able to keep it down. She has had no fever or chills overnight. She does state that she has developed a coarse cough and feels somewhat short of breath. She has no chest pain or heart palpitations. She states her abdomen is sore from the surgery but feels much better than it did yesterday. She is passing gas but has not yet had a bowel movement. She denies dysuria, frequency or hematuria. T Physical Exam Vital Signs: Temp Pulse Resp BP Pulse Ox 97.5 F 76 16 109/82 92 09/13/17 07:22 06/24/17 07:22 06/24/17 07:22 06/24/17 07:22 06/24/17 07:22 Intake & Output 06/23/17 06/24/17 06/25/17 06:59 06:59 06:59 Intake Total 1421 3198 Output Total 1100 425 Balance 321 2773 Weight 62.5 kg General appearance: PRESENT: no acute distress, well-developed, well-nourished Head exam: PRESENT: atraumatic, normocephalic Mouth exam: PRESENT: moist, tongue midline Respiratory exam: PRESENT: other - She has scattered coarse rhonchi throughout all lung osorio.. ABSENT: accessory muscle use Cardiovascular exam: PRESENT: RRR. ABSENT: diastolic murmur, rubs, systolic murmur GI/Abdominal exam: PRESENT: hypoactive bowel sounds, soft, tenderness, other - She has a midline incision with rosa in place. There is no drainage or erythema. Rectal exam: PRESENT: deferred Extremities exam: PRESENT: full ROM. ABSENT: calf tenderness, clubbing, pedal edema Neurological exam: PRESENT: alert, awake, oriented to person, oriented to place , oriented to time, oriented to situation, CN II-XII grossly intact. ABSENT: motor sensory deficit Psychiatric exam: PRESENT: appropriate affect, normal mood. ABSENT: homicidal ideation, suicidal ideation Skin exam: PRESENT: dry, intact, warm. ABSENT: cyanosis, rash Results Laboratory Results: 06/24/17 06:57 06/24/17 06:35 06/23/17 06/23/17 06/24/17 14:34 14:44 06:35 WBC 7.5 RBC 4.37 Hgb 13.6 Hct 42.5 MCV 97 MCH 31.2 MCHC 32.0 RDW 14.6 H Plt Count 210 Seg Neutrophils % 79.3 H Lymphocytes % 7.0 L Monocytes % 12.6 Eosinophils % 0.8 Basophils % 0.3 Absolute Neutrophils 5.9 Absolute Lymphocytes 0.5 Absolute Monocytes 0.9 Absolute Eosinophils 0.1 Absolute Basophils 0.0 Sodium 141.9 143.1 Potassium 4.3 4.1 Chloride 106 111 H Carbon Dioxide 22 19 L Anion Gap 14 13 BUN 25 H 24 H Creatinine 1.64 H 1.72 H Est GFR ( Amer) 38 L 36 L Est GFR (Non-Af Amer) 31 L 30 L Glucose 84 70 L Calcium 11.0 H 10.2 Ionized Calcium Luis Total Bilirubin 0.8 AST 21 ALT 25 Alkaline Phosphatase 47 Total Protein 5.5 L Albumin 3.1 L Lipase 77.2 06/24/17 06/24/17 06:57 06:57 WBC 5.3 RBC 3.94 Hgb 12.8 Hct 38.1 MCV 97 MCH 32.5 MCHC 33.6 RDW 14.4 H Plt Count 226 Seg Neutrophils % 76.3 Lymphocytes % 8.1 L Monocytes % 13.6 H Eosinophils % 1.7 Basophils % 0.3 Absolute Neutrophils 4.0 Absolute Lymphocytes 0.4 L Absolute Monocytes 0.7 Absolute Eosinophils 0.1 Absolute Basophils 0.0 Sodium Potassium Chloride Carbon Dioxide Anion Gap BUN Creatinine Est GFR ( Amer) Est GFR (Non-Af Amer) Glucose Calcium Ionized Calcium Luis 1.33 H Total Bilirubin AST ALT Alkaline Phosphatase Total Protein Albumin Lipase 06/21/17 06/21/17 06/22/17 15:17 21:08 03:10 Troponin I 0.013 < 0.012 0.014 Impressions: Abdomen/Pelvis CT 06/19/17 10:42 IMPRESSION: High grade partial small bowel obstruction Acute Abdomen Series 06/23/17 00:00 IMPRESSION: No obstruction. Atelectasis or pneumonia left lower lobe. Assessment & Plan - Diagnosis (1) Small bowel obstruction Is this a current diagnosis for this admission?: Yes Plan: Status post post laparotomy. She is postoperative day #5. Her nausea and vomiting have resolved. She was started on treatment for H pylori infection yesterday. She will continue anti-emetics as needed. Continue reglan (2) H. pylori infection Is this a current diagnosis for this admission?: Yes Plan: She has been started on amoxicillin. Unfortunately she cannot take clarithromycin due to her suppressive medication from her renal transplant. (3) Dehydration Is this a current diagnosis for this admission?: Yes Plan: Resolved (4) Hypercalcemia Plan: Her calcitriol has been held. Ionized calcium is somewhat high. Her calcium level is improving today. Her corrected calcium for albumin is 10.92. This is still a little on the high side. We will check a chemistry panel in the morning. (5) Renal transplant recipient Is this a current diagnosis for this admission?: Yes Plan: We will have to keep a close eye on her renal function. She still remains hypercalcemic however her calcium level is improving. Continue tacrolimus. I have a low threshold for getting nephrology involved if she has any issues. (6) Ambulatory dysfunction Plan: The patient has not been seen by physical therapy. We will get them to see her today. She may require subacute rehabilitation prior to going home. - Time Time Spent with patient: 35 or more minutes Disposition: Inpatient hospitalization remains necessary. The patient is not ambulating well and is requiring quite a bit of assistance. She needs physical therapy evaluation and may require subacute rehabilitation prior to transitioning home. She has tolerated one meal and I had like to keep her in the hospital today at least to make sure that she does not begin vomiting today. She has become short of breath and I would like to make sure she is not developing an aspiration pneumonia from her vomiting yesterday. I also want to make sure her calcium level is normalizing as well in light of kidney transplant. We will gather information today make further decisions tomorrow. Hopefully she can be discharged home or to rehab in the next couple of days. - Inpatient Certification Medical Necessity: Need Close Monitoring Due to Risk of Patient Decompensation, Need For IV Fluids, Other - Plan Summary Plan Summary: The patient will remain in the hospital for physical therapy evaluation, chest x -ray and further monitoring of her laboratory studies today.
--- NOTE | 2017-06-24 13:11 | RADIOLOGY REPORT (SQ) ---
EXAM DESCRIPTION: CHEST PA/LAT COMPLETED DATE/TIME: 06/24/2017 1:00 pm REASON FOR STUDY: cough, concerns for aspiration or chf COMPARISON: AP chest 01/16/2017, 10/10/2016, 07/14/2016 CT chest 05/16/2016 EXAM PARAMETERS: NUMBER OF VIEWS: two views TECHNIQUE: Digital Frontal and Lateral radiographic views of the chest acquired. RADIATION DOSE: NA LIMITATIONS: none FINDINGS: LUNGS AND PLEURA: Left basilar airspace disease worrisome for pneumonia. Trace left pleur al fluid. Right lung well expanded and clear. No right pleural effusion. No right or left pneumothorax MEDIASTINUM AND HILAR STRUCTURES: No masses or contour abnormalities. HEART AND VASCULAR STRUCTURES: Moderate cardiomegaly. BONES: No acute findings. HARDWARE: None in the chest. OTHER: No other significant finding. IMPRESSION: Left lower lobe consolidation worrisome for pneumonia. TECHNICAL DOCUMENTATION: JOB ID: [id number] [employer]- All Rights Reserved
[2017-06-24] MEDS: ATORVASTATIN CALCIUM 20 MG TABLET PO SCH (21:36)
[2017-06-25] MEDS: METOCLOPRAMIDE HCL 10 MG TABLET PO SCH ×3 (01:27→18:45)
[2017-06-25] MEDS: BUPROPION HCL 100 MG TABLET PO SCH (05:39)
[2017-06-25] MEDS: LANSOPRAZOLE 30 MG TAB.RAP.DR PO SCH ×2 (05:39→18:45)
[2017-06-25 06:17] LABS: ABSOLUTE EOSINOPHILS # (AUTO) 0.1 10^3/uL (0.0-0.6); ABSOLUTE LYMPHOCYTES (AUTO) 0.6 10^3/uL (0.5-4.7); ABSOLUTE MONOCYTES (AUTO) 0.7 10^3/uL (0.1-1.4); ABSOLUTE NEUT (AUTO) 4.8 10^3/uL (1.7-8.2); BASOPHILS % (AUTO) 0.3 % (0-2); EOSINOPHILS % (AUTO) 2.3 % (0-6); HEMATOCRIT 37.3 % (36.0-47.0); HEMOGLOBIN 12.5 g/dL (12.0-15.5); HGB HCT DIFFERENCE 0.2; LYMPHOCYTES % (AUTO) 9.8 % (13-45); MEAN CORPUSCULAR HEMOGLOBIN 32.1 pg (27.0-33.4); MEAN CORPUSCULAR HGB CONC 33.6 g/dL (32.0-36.0); MEAN CORPUSCULAR VOLUME 96 fl (80-97); MONOCYTES % (AUTO) 10.9 % (3-13); RED CELL DISTRIBUTION WIDTH 14.6 % (11.5-14.0); SEGMENTED NEUTROPHILS % (AUTO) 76.7 % (42-78); WHITE BLOOD COUNT 6.3 10^3/uL (4.0-10.5)
[2017-06-25 07:08] LABS: VITAMIN D 25-HYDROXY 43.9 ng/mL (30.0-100.0)
[2017-06-25 08:20] LABS: ALANINE AMINOTRANSFERASE 23 U/L (9-52); ALBUMIN 3.3 g/dL (3.5-5.0); ALKALINE PHOSPHATASE 51 U/L (38-126); ANION GAP 11 (5-19); ASPARTATE AMINO TRANSFERASE 20 U/L (14-36); BILIRUBIN,DIRECT 0.5 mg/dL (0.0-0.4); BILIRUBIN,TOTAL 0.8 mg/dL (0.2-1.3); BLOOD UREA NITROGEN 24 mg/dL (7-20); CALCIUM 10.3 mg/dL (8.4-10.2); CARBON DIOXIDE 19 mmol/L (22-30); CHLORIDE 112 mmol/L (98-107); CREATININE RESULT 1.62 mg/dL (0.52-1.25); GLUCOSE 78 mg/dL (75-110); POTASSIUM 4.1 mmol/L (3.6-5.0); SODIUM 142.1 mmol/L (137-145); TOTAL PROTEIN 5.7 g/dL (6.3-8.2)
[2017-06-25] MEDS: SUCRALFATE 1 GM TABLET PO SCH ×4 (08:23→21:23)
[2017-06-25] MEDS: TACROLIMUS ANHYDROUS 1 MG CAPSULE PO SCH ×2 (08:23→19:57)
--- NOTE | 2017-06-25 09:13 | PDOC PROGRESS REPORT ---
Subjective Progress Note for:: 06/25/17 Subjective:: Some generalized weakness but otherwise feels okay. Tolerating a diet. With no nausea or vomiting. Having bowel movements. Some shortness of breath. Physical Exam Vital Signs: Temp Pulse Resp BP Pulse Ox 98.1 F 73 16 157/80 H 93 06/25/17 03:50 06/25/17 03:50 06/25/17 03:50 06/25/17 03:50 06/24/17 16:31 Intake & Output 06/24/17 06/25/17 06/26/17 06:59 06:59 06:59 Intake Total 3198 730 Output Total 425 Balance 2773 730 Weight 62.5 kg 61.7 kg General appearance: PRESENT: no acute distress, cooperative Respiratory exam: PRESENT: decreased breath sounds - At the base Cardiovascular exam: PRESENT: RRR GI/Abdominal exam: PRESENT: other - Soft, mildly distended, very mild tenderness to palpation. Wound clean dry and intact with rosa. Results Laboratory Results: 06/25/17 06:05 06/25/17 07:56 06/24/17 06/25/17 06/25/17 06:57 06:05 06:05 WBC 6.3 RBC 3.90 Hgb 12.5 Hct 37.3 MCV 96 MCH 32.1 MCHC 33.6 RDW 14.6 H Plt Count 219 Seg Neutrophils % 76.7 Lymphocytes % 9.8 L Monocytes % 10.9 Eosinophils % 2.3 Basophils % 0.3 Absolute Neutrophils 4.8 Absolute Lymphocytes 0.6 Absolute Monocytes 0.7 Absolute Eosinophils 0.1 Absolute Basophils 0.0 Sodium Cancelled Potassium Cancelled Chloride Cancelled Carbon Dioxide Cancelled Anion Gap Cancelled BUN Cancelled Creatinine Cancelled Est GFR ( Amer) Cancelled Est GFR (Non-Af Amer) Cancelled Glucose Cancelled Calcium Cancelled Magnesium Cancelled Total Bilirubin Cancelled AST Cancelled ALT Cancelled Alkaline Phosphatase Cancelled Ammonia Total Protein Cancelled Albumin Cancelled Vitamin B12 Cancelled PTH Intact 183 H 06/25/17 06/25/17 06:05 07:56 WBC RBC Hgb Hct MCV MCH MCHC RDW Plt Count Seg Neutrophils % Lymphocytes % Monocytes % Eosinophils % Basophils % Absolute Neutrophils Absolute Lymphocytes Absolute Monocytes Absolute Eosinophils Absolute Basophils Sodium 142.1 Potassium 4.1 Chloride 112 H Carbon Dioxide 19 L Anion Gap 11 BUN 24 H Creatinine 1.62 H Est GFR ( Amer) 38 L Est GFR (Non-Af Amer) 32 L Glucose 78 Calcium 10.3 H Magnesium Total Bilirubin 0.8 AST 20 ALT 23 Alkaline Phosphatase 51 Ammonia < 8.7 L Total Protein 5.7 L Albumin 3.3 L Vitamin B12 PTH Intact 06/21/17 06/21/17 06/22/17 15:17 21:08 03:10 Troponin I 0.013 < 0.012 0.014 NT-Pro-B Natriuret Pep 06/24/17 08:18 Troponin I NT-Pro-B Natriuret Pep 2690 H Impressions: Abdomen/Pelvis CT 06/19/17 10:42 IMPRESSION: High grade partial small bowel obstruction Acute Abdomen Series 06/23/17 00:00 IMPRESSION: No obstruction. Atelectasis or pneumonia left lower lobe. Chest X-Ray 06/24/17 00:00 IMPRESSION: Left lower lobe consolidation worrisome for pneumonia. Assessment & Plan - Diagnosis (1) Small bowel obstruction Is this a current diagnosis for this admission?: Yes Plan: Status post lysis of adhesions and reduction of internal hernia. Patient looks good from a surgical standpoint however patient has evidence of pneumonia by chest x-ray. Will defer to hospitalist for management of her pneumonia. In light of her immunocompromise this has to significantly improve prior to discharge home. Encourage ambulation and pulmonary toilet.
[2017-06-25] MEDS: DOCUSATE SODIUM 100 MG CAPSULE PO SCH (09:16)
[2017-06-25] MEDS: ASPIRIN 81 MG TABLET, CHEWABLE PO SCH (09:17)
[2017-06-25] MEDS: NIFEDIPINE 30 MG TAB.ER.24 PO SCH (09:17)
[2017-06-25] MEDS: CARVEDILOL 12.5 MG TABLET PO SCH ×2 (09:17→21:23)
[2017-06-25] MEDS: PREDNISONE 5 MG TABLET PO SCH (09:17)
[2017-06-25 09:22] LABS: MAGNESIUM 1.9 mg/dL (1.6-2.3)
[2017-06-25] MEDS ORDERED: LEVOFLOXACIN 750 MG TABLET PO ONE (11:00)
[2017-06-25] MEDS: AMOXICILLIN TRIHYDRATE 500 MG CAPSULE PO SCH ×2 (11:13→21:23)
--- NOTE | 2017-06-25 15:50 | PDOC PROGRESS REPORT ---
Subjective Progress Note for:: 06/25/17 Subjective:: Denies any complaints. Physical Exam Vital Signs: Temp Pulse Resp BP Pulse Ox 97.6 F 76 20 149/79 H 94 06/25/17 11:55 06/25/17 13:41 06/25/17 11:55 06/25/17 11:55 06/25/17 11:55 Intake & Output 06/24/17 06/25/17 06/26/17 06:59 06:59 06:59 Intake Total 3198 730 Output Total 425 Balance 2773 730 Weight 62.5 kg 61.7 kg General appearance: PRESENT: no acute distress Eye exam: PRESENT: conjunctiva pink. ABSENT: scleral icterus Mouth exam: PRESENT: moist, tongue midline Neck exam: ABSENT: JVD Respiratory exam: PRESENT: rhonchi - Coarse rhonchi bilaterally.. ABSENT: rales , wheezes Cardiovascular exam: PRESENT: RRR. ABSENT: diastolic murmur, rubs, systolic murmur GI/Abdominal exam: PRESENT: normal bowel sounds, soft, other - Midline surgical wound with rosa in place that is clean and dry and intact.. ABSENT: distended, guarding, mass, organolmegaly, rebound, tenderness Extremities exam: ABSENT: calf tenderness, clubbing, pedal edema Neurological exam: PRESENT: alert, awake, oriented to person, oriented to place , oriented to time, oriented to situation, CN II-XII grossly intact. ABSENT: motor sensory deficit Psychiatric exam: PRESENT: appropriate affect Skin exam: PRESENT: dry, intact, warm. ABSENT: cyanosis, rash Results Laboratory Results: 06/25/17 06:05 06/25/17 07:56 06/24/17 06/25/17 06/25/17 06:57 06:05 06:05 WBC 6.3 RBC 3.90 Hgb 12.5 Hct 37.3 MCV 96 MCH 32.1 MCHC 33.6 RDW 14.6 H Plt Count 219 Seg Neutrophils % 76.7 Lymphocytes % 9.8 L Monocytes % 10.9 Eosinophils % 2.3 Basophils % 0.3 Absolute Neutrophils 4.8 Absolute Lymphocytes 0.6 Absolute Monocytes 0.7 Absolute Eosinophils 0.1 Absolute Basophils 0.0 Sodium Cancelled Potassium Cancelled Chloride Cancelled Carbon Dioxide Cancelled Anion Gap Cancelled BUN Cancelled Creatinine Cancelled Est GFR ( Amer) Cancelled Est GFR (Non-Af Amer) Cancelled Glucose Cancelled Calcium Cancelled Magnesium Cancelled Total Bilirubin Cancelled AST Cancelled ALT Cancelled Alkaline Phosphatase Cancelled Ammonia Total Protein Cancelled Albumin Cancelled Vitamin B12 Cancelled PTH Intact 183 H 06/25/17 06/25/17 06:05 07:56 WBC RBC Hgb Hct MCV MCH MCHC RDW Plt Count Seg Neutrophils % Lymphocytes % Monocytes % Eosinophils % Basophils % Absolute Neutrophils Absolute Lymphocytes Absolute Monocytes Absolute Eosinophils Absolute Basophils Sodium 142.1 Potassium 4.1 Chloride 112 H Carbon Dioxide 19 L Anion Gap 11 BUN 24 H Creatinine 1.62 H Est GFR ( Amer) 38 L Est GFR (Non-Af Amer) 32 L Glucose 78 Calcium 10.3 H Magnesium 1.9 Total Bilirubin 0.8 AST 20 ALT 23 Alkaline Phosphatase 51 Ammonia < 8.7 L Total Protein 5.7 L Albumin 3.3 L Vitamin B12 689.0 PTH Intact 06/21/17 06/21/17 06/22/17 15:17 21:08 03:10 Troponin I 0.013 < 0.012 0.014 NT-Pro-B Natriuret Pep 06/24/17 08:18 Troponin I NT-Pro-B Natriuret Pep 2690 H Impressions: Abdomen/Pelvis CT 06/19/17 10:42 IMPRESSION: High grade partial small bowel obstruction Acute Abdomen Series 06/23/17 00:00 IMPRESSION: No obstruction. Atelectasis or pneumonia left lower lobe. Chest X-Ray 06/24/17 00:00 IMPRESSION: Left lower lobe consolidation worrisome for pneumonia. Assessment & Plan - Diagnosis (2) Small bowel obstruction Is this a current diagnosis for this admission?: Yes Plan: Patient has aspiration pneumonia on chest x-ray. Clinically she is doing well with no hypoxia or tachypnea. Recommend start on Levaquin. Will give p.o. If she does well overnight she can be discharged home on a course of oral Levaquin for home. (3) H. pylori infection Is this a current diagnosis for this admission?: Yes Plan: Continue with the amoxicillin. She cannot take clarithromycin because of her renal transplant medications. (4) Hypercalcemia Is this a current diagnosis for this admission?: Yes Plan: Secondary to renal dysfunction. (5) COPD (chronic obstructive pulmonary disease) Qualifiers: COPD type: emphysema Emphysema type: unspecified Qualified Code(s): J43.9 - Emphysema, unspecified Is this a current diagnosis for this admission?: Yes Plan: Stable. (6) Dehydration Is this a current diagnosis for this admission?: Yes Plan: Resolved (7) GERD (gastroesophageal reflux disease) Is this a current diagnosis for this admission?: Yes (8) Hypertension Is this a current diagnosis for this admission?: Yes Plan: Blood pressures are slightly elevated today. (9) Renal transplant recipient Is this a current diagnosis for this admission?: Yes Plan: Continue with the tacrolimus. (10) Ambulatory dysfunction Is this a current diagnosis for this admission?: Yes - Time Time Spent with patient: 25-34 minutes - Inpatient Certification Medical Necessity: Need Close Monitoring Due to Risk of Patient Decompensation - Plan Summary Plan Summary: If she continues to do well she can probably be discharged home tomorrow in spite of the pneumonia to complete a course of antibiotics at home.
[2017-06-25] MEDS: TRAMADOL HCL 50 MG TABLET PO PRN (18:47)
[2017-06-25] MEDS: ATORVASTATIN CALCIUM 20 MG TABLET PO SCH (21:23)
[2017-06-26] MEDS: TRAMADOL HCL 50 MG TABLET PO PRN ×2 (00:03→06:18)
[2017-06-26] MEDS: METOCLOPRAMIDE HCL 10 MG TABLET PO SCH ×3 (01:41→18:51)
[2017-06-26 06:12] LABS: ABSOLUTE EOSINOPHILS # (AUTO) 0.1 10^3/uL (0.0-0.6); ABSOLUTE LYMPHOCYTES (AUTO) 0.7 10^3/uL (0.5-4.7); ABSOLUTE MONOCYTES (AUTO) 0.7 10^3/uL (0.1-1.4); ABSOLUTE NEUT (AUTO) 4.2 10^3/uL (1.7-8.2); BASOPHILS % (AUTO) 0.5 % (0-2); EOSINOPHILS % (AUTO) 2.5 % (0-6); HEMATOCRIT 36.1 % (36.0-47.0); HEMOGLOBIN 12.1 g/dL (12.0-15.5); HGB HCT DIFFERENCE 0.2; LYMPHOCYTES % (AUTO) 12.4 % (13-45); MEAN CORPUSCULAR HEMOGLOBIN 31.8 pg (27.0-33.4); MEAN CORPUSCULAR HGB CONC 33.6 g/dL (32.0-36.0); MEAN CORPUSCULAR VOLUME 95 fl (80-97); MONOCYTES % (AUTO) 11.5 % (3-13); RED BLOOD COUNT 3.81 10^6/uL (3.72-5.28); RED CELL DISTRIBUTION WIDTH 14.7 % (11.5-14.0); SEGMENTED NEUTROPHILS % (AUTO) 73.1 % (42-78); WHITE BLOOD COUNT 5.8 10^3/uL (4.0-10.5)
[2017-06-26] MEDS: LANSOPRAZOLE 30 MG TAB.RAP.DR PO SCH ×2 (06:18→18:51)
[2017-06-26 06:20] LABS: ANION GAP 10 (5-19); BLOOD UREA NITROGEN 19 mg/dL (7-20); CALCIUM 10.4 mg/dL (8.4-10.2); CARBON DIOXIDE 19 mmol/L (22-30); CHLORIDE 111 mmol/L (98-107); CREATININE RESULT 1.41 mg/dL (0.52-1.25); GLUCOSE 76 mg/dL (75-110); POTASSIUM 4.3 mmol/L (3.6-5.0); SODIUM 140.1 mmol/L (137-145)
[2017-06-26] MEDS: CARVEDILOL 12.5 MG TABLET PO SCH ×2 (11:42→21:29)
[2017-06-26] MEDS: NIFEDIPINE 30 MG TAB.ER.24 PO SCH (11:42)
[2017-06-26] MEDS: SUCRALFATE 1 GM TABLET PO SCH ×3 (11:43→21:29)
[2017-06-26] MEDS: PREDNISONE 5 MG TABLET PO SCH (12:26)
[2017-06-26] MEDS: ASPIRIN 81 MG TABLET, CHEWABLE PO SCH (12:26)
[2017-06-26] MEDS: SULFAMETHOXAZOLE/TRIMETHOPRIM 800-160 MG TABLET PO SCH (12:26)
[2017-06-26] MEDS: DOCUSATE SODIUM 100 MG CAPSULE PO SCH (12:27)
[2017-06-26] MEDS: AMOXICILLIN TRIHYDRATE 500 MG CAPSULE PO SCH ×2 (12:28→21:29)
[2017-06-26] MEDS: TACROLIMUS ANHYDROUS 1 MG CAPSULE PO SCH ×2 (12:29→19:57)
--- NOTE | 2017-06-26 13:46 | PDOC PROGRESS REPORT ---
Subjective Progress Note for:: 06/26/17 Subjective:: Denies any complaints. Physical Exam Vital Signs: Temp Pulse Resp BP Pulse Ox 98.3 F 77 32 H 173/81 H 98 06/26/17 11:19 06/26/17 11:19 06/26/17 11:19 06/26/17 11:19 06/26/17 11:19 Intake & Output 06/25/17 06/26/17 06/27/17 06:59 06:59 06:59 Intake Total 730 550 Output Total 300 Balance 730 250 Weight 61.7 kg 60.6 kg General appearance: PRESENT: no acute distress Eye exam: PRESENT: conjunctiva pink. ABSENT: scleral icterus Neck exam: ABSENT: JVD Respiratory exam: PRESENT: wheezes - A few expiratory wheezes.. ABSENT: rales, rhonchi Cardiovascular exam: PRESENT: RRR. ABSENT: diastolic murmur, rubs, systolic murmur GI/Abdominal exam: PRESENT: normal bowel sounds, soft, other - Anders in place in the midline surgical wound.. ABSENT: distended, guarding, mass, organolmegaly, rebound, tenderness Extremities exam: ABSENT: calf tenderness, clubbing, pedal edema Psychiatric exam: PRESENT: appropriate affect Skin exam: PRESENT: dry, intact, warm. ABSENT: cyanosis, rash Results Laboratory Results: 06/26/17 05:25 06/26/17 05:25 06/26/17 06/26/17 05:25 05:25 WBC 5.8 RBC 3.81 Hgb 12.1 Hct 36.1 MCV 95 MCH 31.8 MCHC 33.6 RDW 14.7 H Plt Count 230 Seg Neutrophils % 73.1 Lymphocytes % 12.4 L Monocytes % 11.5 Eosinophils % 2.5 Basophils % 0.5 Absolute Neutrophils 4.2 Absolute Lymphocytes 0.7 Absolute Monocytes 0.7 Absolute Eosinophils 0.1 Absolute Basophils 0.0 Sodium 140.1 Potassium 4.3 Chloride 111 H Carbon Dioxide 19 L Anion Gap 10 BUN 19 Creatinine 1.41 H Est GFR ( Amer) 45 L Est GFR (Non-Af Amer) 37 L Glucose 76 Calcium 10.4 H 06/21/17 06/21/17 06/22/17 15:17 21:08 03:10 Troponin I 0.013 < 0.012 0.014 NT-Pro-B Natriuret Pep 06/24/17 08:18 Troponin I NT-Pro-B Natriuret Pep 2690 H Impressions: Abdomen/Pelvis CT 06/19/17 10:42 IMPRESSION: High grade partial small bowel obstruction Acute Abdomen Series 06/23/17 00:00 IMPRESSION: No obstruction. Atelectasis or pneumonia left lower lobe. Chest X-Ray 06/24/17 00:00 IMPRESSION: Left lower lobe consolidation worrisome for pneumonia. Assessment & Plan - Diagnosis (1) Pneumonia Is this a current diagnosis for this admission?: Yes Plan: Patient is stable for discharge from a medical standpoint. Patient can be given Levaquin 750 mg p.o. daily for a total of 7 days. (2) Small bowel obstruction Is this a current diagnosis for this admission?: Yes Plan: Resolved with surgery (3) H. pylori infection Is this a current diagnosis for this admission?: Yes Plan: Continue with the amoxicillin. She cannot take clarithromycin because of her renal transplant medications. (4) Hypercalcemia Is this a current diagnosis for this admission?: Yes Plan: Secondary to renal dysfunction. (5) COPD (chronic obstructive pulmonary disease) Qualifiers: COPD type: emphysema Emphysema type: unspecified Qualified Code(s): J43.9 - Emphysema, unspecified Is this a current diagnosis for this admission?: Yes Plan: Stable. (6) Dehydration Is this a current diagnosis for this admission?: Yes Plan: Resolved (7) GERD (gastroesophageal reflux disease) Is this a current diagnosis for this admission?: Yes (8) Hypertension Is this a current diagnosis for this admission?: Yes Plan: Blood pressures are slightly elevated today. (9) Renal transplant recipient Is this a current diagnosis for this admission?: Yes Plan: Continue with the tacrolimus. (10) Ambulatory dysfunction Is this a current diagnosis for this admission?: Yes - Time Time Spent with patient: 25-34 minutes
--- NOTE | 2017-06-26 20:23 | PROGRESS NOTE E ---
Progress Note NAME: DEVANTE PIERSON : 1950 AGE: 66Y DATE: 06/26/2017 ROOM: 426 SUBJECTIVE: The patient looks good this morning. She appears to be breathing better. OBJECTIVE: Abdomen is soft, nontender. Tolerating diet well. PLAN: I discussed her case with Hospitalist Dr. Reynoso and he feels that giving her Levaquin should be sufficient to take care of her possibly starting pneumonia. She will be discharged to a rehab facility and continued on Levaquin for the next 5-7 days. She will be followed up in the Surgical Clinic in 2 weeks for removal of rosa. DICTATING PHYSICIAN: KM MEEK M.D. [id number] CARMENY#: [id number] ID: [id number] JOB#: [id number] ACCT: [id number] cc: > MTDD
[2017-06-26] MEDS: ATORVASTATIN CALCIUM 20 MG TABLET PO SCH (21:29)
[2017-06-27] MEDS: METOCLOPRAMIDE HCL 10 MG TABLET PO SCH ×3 (01:38→17:26)
[2017-06-27] MEDS: LANSOPRAZOLE 30 MG TAB.RAP.DR PO SCH ×2 (05:19→17:26)
[2017-06-27] MEDS: SUCRALFATE 1 GM TABLET PO SCH ×4 (09:42→22:23)
[2017-06-27] MEDS: CARVEDILOL 12.5 MG TABLET PO SCH ×2 (09:42→22:22)
[2017-06-27] MEDS: LEVOFLOXACIN 750 MG TABLET PO SCH (09:43)
[2017-06-27] MEDS: ASPIRIN 81 MG TABLET, CHEWABLE PO SCH (09:44)
[2017-06-27] MEDS: DOCUSATE SODIUM 100 MG CAPSULE PO SCH (09:44)
[2017-06-27] MEDS: NIFEDIPINE 30 MG TAB.ER.24 PO SCH (09:44)
[2017-06-27] MEDS: PREDNISONE 5 MG TABLET PO SCH (09:45)
[2017-06-27] MEDS: TACROLIMUS ANHYDROUS 1 MG CAPSULE PO SCH ×2 (09:45→20:49)
--- NOTE | 2017-06-27 09:45 | PDOC PROGRESS REPORT ---
Subjective Progress Note for:: 06/27/17 Subjective:: Complains of a nonproductive cough. Physical Exam Vital Signs: Temp Pulse Resp BP Pulse Ox 97.6 F 74 20 170/77 H 96 06/27/17 07:36 06/27/17 07:36 06/27/17 07:36 06/27/17 07:36 06/27/17 07:36 Intake & Output 06/26/17 06/27/17 06/28/17 06:59 06:59 06:59 Intake Total 550 805 Output Total 300 900 Balance 250 -95 Weight 60.6 kg 61.2 kg General appearance: PRESENT: no acute distress Eye exam: PRESENT: conjunctiva pink. ABSENT: scleral icterus Mouth exam: PRESENT: moist, tongue midline Neck exam: ABSENT: JVD Respiratory exam: PRESENT: wheezes - Few scattered expiratory wheezes.. ABSENT : rales, rhonchi Cardiovascular exam: PRESENT: RRR. ABSENT: diastolic murmur, rubs, systolic murmur GI/Abdominal exam: PRESENT: normal bowel sounds, soft, other - Surgical wound in the midline without drainage. ABSENT: distended, guarding, mass, organolmegaly, rebound, tenderness Extremities exam: ABSENT: calf tenderness, clubbing, pedal edema Neurological exam: PRESENT: alert, awake, oriented to person, oriented to place , oriented to time, oriented to situation, CN II-XII grossly intact. ABSENT: motor sensory deficit Psychiatric exam: PRESENT: appropriate affect Skin exam: PRESENT: dry, intact, warm. ABSENT: cyanosis, rash Results Laboratory Results: 06/26/17 05:25 06/26/17 05:25 06/21/17 06/21/17 06/22/17 15:17 21:08 03:10 Troponin I 0.013 < 0.012 0.014 NT-Pro-B Natriuret Pep 06/24/17 08:18 Troponin I NT-Pro-B Natriuret Pep 2690 H Impressions: Abdomen/Pelvis CT 06/19/17 10:42 IMPRESSION: High grade partial small bowel obstruction Acute Abdomen Series 06/23/17 00:00 IMPRESSION: No obstruction. Atelectasis or pneumonia left lower lobe. Chest X-Ray 06/24/17 00:00 IMPRESSION: Left lower lobe consolidation worrisome for pneumonia. Assessment & Plan - Diagnosis (1) Pneumonia Is this a current diagnosis for this admission?: Yes Plan: Patient is stable for discharge from a medical standpoint. Patient can be given Levaquin 750 mg p.o. daily for a total of 7 days. The patient has some wheezing. Will give oral prednisone and nebulizers. If the patient is discharged today she can be put on a prednisone taper. (2) Small bowel obstruction Is this a current diagnosis for this admission?: Yes Plan: Resolved with surgery (3) H. pylori infection Is this a current diagnosis for this admission?: Yes Plan: Continue with the amoxicillin. She cannot take clarithromycin because of her renal transplant medications. (4) Hypercalcemia Is this a current diagnosis for this admission?: Yes Plan: Secondary to renal dysfunction. (5) COPD (chronic obstructive pulmonary disease) Qualifiers: COPD type: emphysema Emphysema type: unspecified Qualified Code(s): J43.9 - Emphysema, unspecified Is this a current diagnosis for this admission?: Yes Plan: Patient started on prednisone and albuterol nebulizers. (6) Dehydration Is this a current diagnosis for this admission?: Yes Plan: Resolved (7) GERD (gastroesophageal reflux disease) Is this a current diagnosis for this admission?: Yes (8) Hypertension Is this a current diagnosis for this admission?: Yes Plan: Blood pressures have fluctuated. (9) Renal transplant recipient Is this a current diagnosis for this admission?: Yes Plan: Continue with the tacrolimus. (10) Ambulatory dysfunction Is this a current diagnosis for this admission?: Yes - Time Time Spent with patient: 25-34 minutes
[2017-06-27] MEDS: AMOXICILLIN TRIHYDRATE 500 MG CAPSULE PO SCH ×2 (09:46→22:23)
[2017-06-27] MEDS ORDERED: ALBUTEROL SULFATE 0.083% NEB 2.5 MG/3 ML AMPUL NEB ONE (10:30)
[2017-06-27] MEDS: ALBUTEROL SULFATE 0.083% NEB 2.5 MG/3 ML AMPUL NEB SCH ×2 (14:07→20:18)
--- NOTE | 2017-06-27 14:38 | PROGRESS NOTE E ---
Progress Note NAME: DEVANTE PIERSON : 1950 AGE: 66Y DATE: 06/27/2017 ROOM: 426 SUBJECTIVE: She is still complaining of generalized weakness. She feels that she cannot tolerate regular food. She said she can take p.o. liquid food like Ensure. Otherwise, she is stable. OBJECTIVE: Abdomen is soft. Incision clean and dry. PLAN: Still awaiting for placement for rehab. In the meantime we will start her on Ensure with equivalent of 3-4 cans a day and ask dietitian to see her. DICTATING PHYSICIAN: KM MEEK M.D. [id number] PHY#: [id number] ID: [id number] JOB#: [id number] ACCT: [id number] cc: >
[2017-06-27] MEDS: PREDNISONE 20 MG TABLET PO SCH (15:37)
[2017-06-27] MEDS: ATORVASTATIN CALCIUM 20 MG TABLET PO SCH (22:23)
[2017-06-28] MEDS: METOCLOPRAMIDE HCL 10 MG TABLET PO SCH ×3 (01:58→17:11)
[2017-06-28] MEDS: ALBUTEROL SULFATE 0.083% NEB 2.5 MG/3 ML AMPUL NEB SCH ×4 (02:44→21:08)
[2017-06-28] MEDS: LANSOPRAZOLE 30 MG TAB.RAP.DR PO SCH ×2 (05:22→17:11)
--- NOTE | 2017-06-28 08:54 | PDOC PROGRESS REPORT ---
Subjective Progress Note for:: 06/28/17 Subjective:: Denies any complaints. Physical Exam Vital Signs: Temp Pulse Resp BP Pulse Ox 98.3 F 71 20 146/68 H 94 06/28/17 03:55 06/28/17 03:55 06/28/17 03:55 06/28/17 03:55 06/28/17 02:44 Intake & Output 06/27/17 06/28/17 06/29/17 06:59 06:59 06:59 Intake Total 805 480 Output Total 900 100 Balance -95 380 Weight 61.2 kg 61.2 kg General appearance: PRESENT: no acute distress Eye exam: PRESENT: conjunctiva pink. ABSENT: scleral icterus Mouth exam: PRESENT: moist, tongue midline Neck exam: ABSENT: JVD Respiratory exam: PRESENT: clear to auscultation kat. ABSENT: rales, rhonchi, wheezes Cardiovascular exam: PRESENT: RRR. ABSENT: diastolic murmur, rubs, systolic murmur GI/Abdominal exam: PRESENT: normal bowel sounds, soft, other - Midline surgical wound with rosa in place. Dry and intact.. ABSENT: distended, guarding, mass, organolmegaly, rebound, tenderness Extremities exam: ABSENT: calf tenderness, clubbing, pedal edema Neurological exam: PRESENT: alert, awake, oriented to person, oriented to place , oriented to time, oriented to situation, CN II-XII grossly intact. ABSENT: motor sensory deficit Psychiatric exam: PRESENT: appropriate affect Skin exam: PRESENT: dry, intact, warm. ABSENT: cyanosis, rash Results Laboratory Results: 06/26/17 05:25 06/26/17 05:25 06/21/17 06/21/17 06/22/17 15:17 21:08 03:10 Troponin I 0.013 < 0.012 0.014 NT-Pro-B Natriuret Pep 06/24/17 08:18 Troponin I NT-Pro-B Natriuret Pep 2690 H Impressions: Abdomen/Pelvis CT 06/19/17 10:42 IMPRESSION: High grade partial small bowel obstruction Acute Abdomen Series 06/23/17 00:00 IMPRESSION: No obstruction. Atelectasis or pneumonia left lower lobe. Chest X-Ray 06/24/17 00:00 IMPRESSION: Left lower lobe consolidation worrisome for pneumonia. Assessment & Plan - Diagnosis (1) Pneumonia Is this a current diagnosis for this admission?: Yes Plan: Patient is stable for discharge from a medical standpoint. Patient can be given Levaquin 750 mg p.o. daily for a total of 7 days. The patient has some wheezing that has responded to prednisone. Will plan on a taper of steroids. (2) Small bowel obstruction Is this a current diagnosis for this admission?: Yes Plan: Resolved with surgery (3) H. pylori infection Is this a current diagnosis for this admission?: Yes Plan: Continue with the amoxicillin. She cannot take clarithromycin because of her renal transplant medications. (4) Hypercalcemia Is this a current diagnosis for this admission?: Yes Plan: Secondary to renal dysfunction. (5) COPD (chronic obstructive pulmonary disease) Qualifiers: COPD type: emphysema Emphysema type: unspecified Qualified Code(s): J43.9 - Emphysema, unspecified Is this a current diagnosis for this admission?: Yes Plan: Patient started on prednisone and albuterol nebulizers. (6) Dehydration Is this a current diagnosis for this admission?: Yes Plan: Resolved (7) GERD (gastroesophageal reflux disease) Is this a current diagnosis for this admission?: Yes (8) Hypertension Is this a current diagnosis for this admission?: Yes Plan: Blood pressures have fluctuated. (9) Renal transplant recipient Is this a current diagnosis for this admission?: Yes Plan: Continue with the tacrolimus. (10) Ambulatory dysfunction Is this a current diagnosis for this admission?: Yes - Time Time Spent with patient: 25-34 minutes - Plan Summary Plan Summary: Will be discharged to rehab when a bed is available.
[2017-06-28] MEDS: CARVEDILOL 12.5 MG TABLET PO SCH ×2 (09:35→21:51)
[2017-06-28] MEDS: TACROLIMUS ANHYDROUS 1 MG CAPSULE PO SCH ×2 (09:36→20:14)
[2017-06-28] MEDS: ASPIRIN 81 MG TABLET, CHEWABLE PO SCH (09:37)
[2017-06-28] MEDS: DOCUSATE SODIUM 100 MG CAPSULE PO SCH (09:37)
[2017-06-28] MEDS: SUCRALFATE 1 GM TABLET PO SCH ×4 (09:37→21:51)
[2017-06-28] MEDS: AMOXICILLIN TRIHYDRATE 500 MG CAPSULE PO SCH ×2 (09:38→21:52)
[2017-06-28] MEDS: PREDNISONE 20 MG TABLET PO SCH (09:39)
[2017-06-28] MEDS: NIFEDIPINE 30 MG TAB.ER.24 PO SCH (09:39)
--- NOTE | 2017-06-28 15:53 | PROGRESS NOTE E ---
Progress Note NAME: DEVANTE PIERSON : 1950 AGE: 66Y DATE: 06/28/2017 ROOM: 426 SUBJECTIVE: The patient feels a lot better today after drinking Ensure, feels a lot stronger. PLAN: We are still awaiting placement for her in rehab, hopefully by tomorrow. DICTATING PHYSICIAN: KM MEEK M.D. [id number] PHY#: [id number] ID: [id number] JOB#: [id number] ACCT: [id number] cc:KM MEEK M.D. >
[2017-06-28] MEDS: ATORVASTATIN CALCIUM 20 MG TABLET PO SCH (21:52)
[2017-06-29] MEDS: METOCLOPRAMIDE HCL 10 MG TABLET PO SCH ×3 (01:21→17:31)
[2017-06-29] MEDS: ALBUTEROL SULFATE 0.083% NEB 2.5 MG/3 ML AMPUL NEB SCH ×3 (02:38→13:42)
[2017-06-29 05:41] LABS: ABSOLUTE LYMPHOCYTES (AUTO) 0.8 10^3/uL (0.5-4.7); ABSOLUTE MONOCYTES (AUTO) 0.7 10^3/uL (0.1-1.4); ABSOLUTE NEUT (AUTO) 9.3 10^3/uL (1.7-8.2); BASOPHILS % (AUTO) 0.3 % (0-2); EOSINOPHILS % (AUTO) 0.1 % (0-6); HEMATOCRIT 37.4 % (36.0-47.0); HEMOGLOBIN 12.5 g/dL (12.0-15.5); HGB HCT DIFFERENCE 0.1; LYMPHOCYTES % (AUTO) 7.1 % (13-45); MEAN CORPUSCULAR HEMOGLOBIN 31.8 pg (27.0-33.4); MEAN CORPUSCULAR HGB CONC 33.5 g/dL (32.0-36.0); MEAN CORPUSCULAR VOLUME 95 fl (80-97); MONOCYTES % (AUTO) 6.6 % (3-13); RED BLOOD COUNT 3.95 10^6/uL (3.72-5.28); RED CELL DISTRIBUTION WIDTH 14.9 % (11.5-14.0); SEGMENTED NEUTROPHILS % (AUTO) 85.9 % (42-78); WHITE BLOOD COUNT 10.8 10^3/uL (4.0-10.5)
[2017-06-29 06:01] LABS: ANION GAP 9 (5-19); BLOOD UREA NITROGEN 21 mg/dL (7-20); CARBON DIOXIDE 21 mmol/L (22-30); CHLORIDE 109 mmol/L (98-107); CREATININE RESULT 1.39 mg/dL (0.52-1.25); GLUCOSE 94 mg/dL (75-110); POTASSIUM 4.1 mmol/L (3.6-5.0); SODIUM 138.8 mmol/L (137-145)
[2017-06-29] MEDS: LANSOPRAZOLE 30 MG TAB.RAP.DR PO SCH ×2 (06:10→17:33)
[2017-06-29] MEDS: ASPIRIN 81 MG TABLET, CHEWABLE PO SCH (09:09)
[2017-06-29] MEDS: SUCRALFATE 1 GM TABLET PO SCH ×3 (09:09→17:31)
[2017-06-29] MEDS: TACROLIMUS ANHYDROUS 1 MG CAPSULE PO SCH (09:09)
[2017-06-29] MEDS: AMOXICILLIN TRIHYDRATE 500 MG CAPSULE PO SCH (09:09)
[2017-06-29] MEDS: NIFEDIPINE 30 MG TAB.ER.24 PO SCH (09:10)
[2017-06-29] MEDS: PREDNISONE 20 MG TABLET PO SCH (09:10)
[2017-06-29] MEDS: DOCUSATE SODIUM 100 MG CAPSULE PO SCH (09:10)
[2017-06-29] MEDS: CARVEDILOL 12.5 MG TABLET PO SCH (09:10)
[2017-06-29] MEDS: LEVOFLOXACIN 750 MG TABLET PO SCH (09:10)
[2017-06-29] MEDS ORDERED: IPRATROPIUM/ALBUTEROL 0.5-2.5 MG/3 ML AMPUL NEB ONE (10:00)
[2017-06-29] MEDS ORDERED: PREDNISONE 20 MG TABLET PO SCH (11:20)
--- NOTE | 2017-06-29 11:28 | PDOC PROGRESS REPORT ---
Subjective Progress Note for:: 06/29/17 Subjective:: Denies any complaints. Physical Exam Vital Signs: Temp Pulse Resp BP Pulse Ox 98.1 F 51 L 18 142/64 H 97 06/29/17 08:00 06/29/17 08:13 06/29/17 08:13 06/29/17 08:00 06/29/17 08:13 Intake & Output 06/28/17 06/29/17 06/30/17 06:59 06:59 06:59 Intake Total 480 2594 Output Total 100 Balance 380 2594 Weight 61.2 kg 60.7 kg General appearance: PRESENT: no acute distress Eye exam: PRESENT: conjunctiva pink. ABSENT: scleral icterus Mouth exam: PRESENT: moist, tongue midline Neck exam: ABSENT: JVD Respiratory exam: PRESENT: clear to auscultation kat. ABSENT: rales, rhonchi, wheezes Cardiovascular exam: PRESENT: RRR. ABSENT: diastolic murmur, rubs, systolic murmur GI/Abdominal exam: PRESENT: normal bowel sounds, soft. ABSENT: distended, guarding, mass, organolmegaly, rebound, tenderness Extremities exam: ABSENT: calf tenderness, clubbing, pedal edema Neurological exam: PRESENT: alert, awake, oriented to person, oriented to place , oriented to time, oriented to situation, CN II-XII grossly intact. ABSENT: motor sensory deficit Psychiatric exam: PRESENT: appropriate affect Skin exam: PRESENT: dry, intact, warm. ABSENT: cyanosis, rash Results Laboratory Results: 06/29/17 05:16 06/29/17 05:16 06/29/17 06/29/17 05:16 05:16 WBC 10.8 H RBC 3.95 Hgb 12.5 Hct 37.4 MCV 95 MCH 31.8 MCHC 33.5 RDW 14.9 H Plt Count 236 Seg Neutrophils % 85.9 H Lymphocytes % 7.1 L Monocytes % 6.6 Eosinophils % 0.1 Basophils % 0.3 Absolute Neutrophils 9.3 H Absolute Lymphocytes 0.8 Absolute Monocytes 0.7 Absolute Eosinophils 0.0 Absolute Basophils 0.0 Sodium 138.8 Potassium 4.1 Chloride 109 H Carbon Dioxide 21 L Anion Gap 9 BUN 21 H Creatinine 1.39 H Est GFR ( Amer) 46 L Est GFR (Non-Af Amer) 38 L Glucose 94 Calcium 11.0 H 06/21/17 06/21/17 06/22/17 15:17 21:08 03:10 Troponin I 0.013 < 0.012 0.014 NT-Pro-B Natriuret Pep 06/24/17 08:18 Troponin I NT-Pro-B Natriuret Pep 2690 H Impressions: Abdomen/Pelvis CT 06/19/17 10:42 IMPRESSION: High grade partial small bowel obstruction Acute Abdomen Series 06/23/17 00:00 IMPRESSION: No obstruction. Atelectasis or pneumonia left lower lobe. Chest X-Ray 06/24/17 00:00 IMPRESSION: Left lower lobe consolidation worrisome for pneumonia. Assessment & Plan - Diagnosis (1) Pneumonia Is this a current diagnosis for this admission?: Yes Plan: Patient is stable for discharge from a medical standpoint. Patient can be given Levaquin 750 mg p.o. daily for a total of 7 days. The patient has some wheezing that has responded to prednisone. Will taper steroids. (2) Small bowel obstruction Is this a current diagnosis for this admission?: Yes Plan: Resolved with surgery (3) H. pylori infection Is this a current diagnosis for this admission?: Yes Plan: Continue with the amoxicillin. She cannot take clarithromycin because of her renal transplant medications. (4) Hypercalcemia Is this a current diagnosis for this admission?: Yes Plan: Secondary to renal dysfunction. (5) COPD (chronic obstructive pulmonary disease) Qualifiers: COPD type: emphysema Emphysema type: unspecified Qualified Code(s): J43.9 - Emphysema, unspecified Is this a current diagnosis for this admission?: Yes Plan: Patient is on prednisone and albuterol nebulizers. (6) Dehydration Is this a current diagnosis for this admission?: Yes Plan: Resolved (7) GERD (gastroesophageal reflux disease) Is this a current diagnosis for this admission?: Yes (8) Hypertension Is this a current diagnosis for this admission?: Yes Plan: Blood pressures have fluctuated. (9) Renal transplant recipient Is this a current diagnosis for this admission?: Yes Plan: Continue with the tacrolimus. (10) Ambulatory dysfunction Is this a current diagnosis for this admission?: Yes - Time Time Spent with patient: 25-34 minutes - Plan Summary Plan Summary: Ready for discharge whenever a bed is available.
[2017-06-29 18:25] VITALS: BP 154/73
== END 2017-06-29 18:45 | disposition home or self-care (01) | DRG 353 ==
LOC: ER 07:24 → UNDOADMIN 10:31 → EH 10:31 → UNDOADMIN 11:04 → 4S 11:23 → EH 12:26 → 4S 13:45 → UNDODISIN 18:00
PROVIDERS: ATTEND Surgery
PROC: 0WQF0ZZ Repair Abdominal Wall, Open Approach (ICD-10-PCS; principal; 2017-06-19 14:15)
DX: K45.0 Other specified abdominal hernia with obstruction, without gangrene (principal); J18.9 Pneumonia, unspecified organism; N18.6 End stage renal disease; Z94.0 Kidney transplant status; N17.9 Acute kidney failure, unspecified; I13.2 Hypertensive heart and chronic kidney disease with heart failure and with stage 5 chronic kidney disease, or end stage renal disease; B96.81 Helicobacter pylori [H. pylori] as the cause of diseases classified elsewhere; I50.9 Heart failure, unspecified; J43.9 Emphysema, unspecified; E86.0 Dehydration; E83.52 Hypercalcemia; I48.91 Unspecified atrial fibrillation; I25.10 Atherosclerotic heart disease of native coronary artery without angina pectoris; E78.5 Hyperlipidemia, unspecified; K21.9 Gastro-esophageal reflux disease without esophagitis; Z79.82 Long term (current) use of aspirin; Z79.899 Other long term (current) drug therapy; Z86.010 Personal history of colon polyps; Z95.5 Presence of coronary angioplasty implant and graft; Z88.8 Allergy status to other drugs, medicaments and biological substances; F17.210 Nicotine dependence, cigarettes, uncomplicated
CPT/HCPCS: 00790; 36415; 71020; 74022; 74176; 80048; 80053; 80076; 81001; 82140; 82272; 82306; 82330; 82607; 83690; 83735; 83880; 83970; 84484; 85025; 85610; 85730; 86850; 86900; 86901; 87086; 93005; 93010; 94640; 94799; 99285; C9290; G8978-GP; G8979-GP; J0295; J0330; J1100; J1885; J2250; J2270; J2405; J2550; J2704; J3010; J3490; J7030; J7507; J7512; J7620; S0028; S0119

== ENCOUNTER 2017-10-08 16:02 | Inpatient (IN) | payer OTHER, MEDICARE ==
[2017-10-08 17:18] LABS: ABSOLUTE LYMPHOCYTES (AUTO) 0.7 10^3/uL (0.5-4.7); ABSOLUTE MONOCYTES (AUTO) 0.4 10^3/uL (0.1-1.4); ABSOLUTE NEUT (AUTO) 3.9 10^3/uL (1.7-8.2); BASOPHILS % (AUTO) 0.6 % (0-2); EOSINOPHILS % (AUTO) 0.8 % (0-6); HEMATOCRIT 41.6 % (36.0-47.0); HEMOGLOBIN 14.1 g/dL (12.0-15.5); LYMPHOCYTES % (AUTO) 14.7 % (13-45); MEAN CORPUSCULAR HGB CONC 33.9 g/dL (32.0-36.0); MEAN CORPUSCULAR VOLUME 94 fl (80-97); MONOCYTES % (AUTO) 7.7 % (3-13); PLATELET COUNT 222 10^3/uL (150-450); RED BLOOD COUNT 4.42 10^6/uL (3.72-5.28); RED CELL DISTRIBUTION WIDTH 16.1 % (11.5-14.0); SEGMENTED NEUTROPHILS % (AUTO) 76.2 % (42-78); TOTAL CELLS COUNTED % (AUTO) 100 %; WHITE BLOOD COUNT 5.1 10^3/uL (4.0-10.5)
[2017-10-08 17:40] LABS: ALANINE AMINOTRANSFERASE 25 U/L (9-52); ALKALINE PHOSPHATASE 71 U/L (38-126); ANION GAP 9 (5-19); ASPARTATE AMINO TRANSFERASE 33 U/L (14-36); BILIRUBIN,DIRECT 0.4 mg/dL (0.0-0.4); BILIRUBIN,TOTAL 0.6 mg/dL (0.2-1.3); BLOOD UREA NITROGEN 50 mg/dL (7-20); CALCIUM 11.6 mg/dL (8.4-10.2); CARBON DIOXIDE 26 mmol/L (22-30); CHLORIDE 106 mmol/L (98-107); GLUCOSE 105 mg/dL (75-110); LIPASE 201.5 U/L (23-300); POTASSIUM 4.8 mmol/L (3.6-5.0); SODIUM 140.6 mmol/L (137-145); TOTAL PROTEIN 6.8 g/dL (6.3-8.2)
[2017-10-08] MEDS ORDERED: NORMAL SALINE 1000 ML 1,000 ML IV ONE (17:59)
[2017-10-08] MEDS ORDERED: PANTOPRAZOLE SODIUM 40 MG VIAL IV ONE (18:05)
[2017-10-08] MEDS ORDERED: MORPHINE SULFATE 10 MG/ML INJ IV ONE (18:05)
--- NOTE | 2017-10-08 19:38 | ER Document Report ---
ED GI/ - General Chief Complaint: Nausea/Vomiting Stated Complaint: VOMITING Time Seen by Provider: 10/08/17 16:10 Notes: The patient is a 67-year-old female, past medical history prior SBOs that required MATTHEW and reduction of internal hernia 3 months ago, CKD, kidney transplant (on immunosuppression), presents with several hours of upper abdominal pain, nausea and vomiting that started after she ate a big meal. She denies diarrhea, constipation or urinary symptoms, chest pain, shortness of breath, fevers, hematemesis or sick contacts. TRAVEL OUTSIDE OF THE [place] IN LAST 30 DAYS: No - Related Data Allergies/Adverse Reactions: ibuprofen [From Advil] Allergy (Verified 06/19/17 07:31) lisinopril [Lisinopril] Allergy (Verified 06/19/17 07:31) Past Medical History - General Information source: Patient - Social History Smoking Status: Current Every Day Smoker Chew tobacco use (# tins/day): No Frequency of alcohol use: None Drug Abuse: None Family History: Reviewed & Not Pertinent Patient has suicidal ideation: No Patient has homicidal ideation: No - Past Medical History Cardiac Medical History: Reports: Hx Atrial Fibrillation, Hx Congestive Heart Failure, Hx Coronary Artery Disease, Hx Heart Attack, Hx Hypercholesterolemia, Hx Hypertension Denies: Hx Heart Murmur Pulmonary Medical History: Reports: Hx COPD Denies: Hx Tuberculosis Neurological Medical History: Reports: Hx Cerebrovascular Accident. Denies: Hx Seizures Renal/ Medical History: Reports: Hx End Stage Renal Disease, Hx Hemodialysis - Last dialysis was May 2015 just prior to her kidney transplant., Hx Renal Insufficiency. Denies: Hx Kidney Stones, Hx Peritoneal Dialysis Malignancy Medical History: GI Medical History: Reports: Hx Gastroesophageal Reflux Disease. Denies: Hx Hiatal Hernia, Hx Pancreatitis, Hx Ulcer Musculoskeltal Medical History: Psychiatric Medical History: Reports: Hx Anxiety Denies: Hx Bipolar Disorder, Hx Depression, Hx Schizophrenia Infectious Medical History: Past Surgical History: Reports: Hx Cardiac Catheterization, Hx Cardiac Surgery, Hx Coronary Stent - 2003, Hx Kidney (Renal Surgery) - Kidney transplant 2014 placed in right lower quadrant, Hx Tubal Ligation, Other - Valvuloplasty [facility] February 2017 multiple upper extremi. Denies: Hx Appendectomy , Hx Bowel Surgery, Hx Section, Hx Cholecystectomy, Hx Hysterectomy, Hx Mastectomy, Hx Tonsillectomy - Immunizations Hx Diphtheria, Pertussis, Tetanus Vaccination: Yes Hx Pneumococcal Vaccination: 10/12/10 Review of Systems - Review of Systems Notes: REVIEW OF SYSTEMS: CONSTITUTIONAL: -fevers, -chills EENT: -eye pain, -difficulty swallowing, -nasal congestion CARDIOVASCULAR:-chest pain, -syncope. RESPIRATORY: -cough, -SOB GASTROINTESTINAL: +epigastric abdominal pain, +nausea, +vomiting, -diarrhea GENITOURINARY: -dysuria, -hematuria MUSCULOSKELETAL: -back pain, -neck pain SKIN: -rash or skin lesions. HEMATOLOGIC: -easy bruising or bleeding. LYMPHATIC: -swollen, enlarged glands. NEUROLOGICAL: -altered mental status or loss of consciousness, -headache, - neurologic symptoms PSYCHIATRIC: -anxiety, -depression. ALL OTHER SYSTEMS REVIEWED AND NEGATIVE. Physical Exam - Vital signs Vitals: Resp 17 10/08/17 16:46 - Notes Notes: PHYSICAL EXAMINATION: GENERAL: Well-appearing, well-nourished and in no acute distress. HEAD: Atraumatic, normocephalic. EYES: Pupils equal round and reactive to light, extraocular movements intact, sclera anicteric, conjunctiva are normal. ENT: nares patent, oropharynx clear without exudates. Moist mucous membranes. NECK: Normal range of motion, supple without lymphadenopathy LUNGS: Breath sounds clear to auscultation bilaterally and equal. No wheezes rales or rhonchi. HEART: Regular rate and rhythm without murmurs ABDOMEN: Soft, mild upper abdominal tenderness, decreased bowel sounds. No guarding, no rebound. No masses appreciated. EXTREMITIES: Normal range of motion, no pitting or edema. No cyanosis. NEUROLOGICAL: Cranial nerves grossly intact. Normal speech, normal gait. Normal sensory and motor exams. PSYCH: Normal mood, normal affect. SKIN: Warm, Dry, normal turgor, no rashes or lesions noted. Course - Re-evaluation Re-evalutation: Pt with increased upper abdominal pain, nausea and vomiting. She has a history of multiple bowel obstructions from adhesions and an internal hernia that was repaired 3 months ago. Concern for another obstruction with her symptoms and decreased bowel sounds on physical exam. CT abdomen and pelvis with oral contrast shows evidence of a possible early bowel obstruction. Blood work is unremarkable and her creatinine is in line with her prior values. Patient received IV fluids, antiemetics and pain control with relief of her nausea and pain. 10/08/17 21:[address] Ortega and he will be down to see patient. 10/08/17 22:33 Will admit patient as Inpatient for further evaluation and monitoring. - Vital Signs Vital signs: Temp Pulse Resp BP Pulse Ox 99.0 F 17 149/60 H 98 10/08/17 17:00 10/08/17 22:01 10/08/17 22:00 10/08/17 22:01 - Laboratory Result Diagrams: 10/08/17 16:55 10/08/17 16:55 Laboratory results interpreted by me: 10/08/17 10/08/17 16:55 16:55 RDW 16.1 H BUN 50 H Creatinine 2.29 H Est GFR ( Amer) 26 L Est GFR (Non-Af Amer) 21 L Calcium 11.6 H - Diagnostic Test Radiology reviewed: Image reviewed, Reports reviewed Radiology results interpreted by me: CT A/P: Mildly dilated small bowel loops over the mid abdomen with inflammatory changes and trace free fluid, possible recurrent early small bowel obstruction. Discharge - Discharge Clinical Impression: Small bowel obstruction Condition: Stable Disposition: ADMITTED INPATIENT Admitting Provider: Surgicalist - [facility] Unit Admitted: Surgical Floor
--- NOTE | 2017-10-08 21:01 | RADIOLOGY REPORT (SQ) ---
EXAM DESCRIPTION: CT ABD/PELVIS ORAL ONLY COMPLETED DATE/TIME: 10/08/2017 8:23 pm REASON FOR STUDY: upper abdominal pain, N/V, Hx of SBO COMPARISON: 06/19/2017 TECHNIQUE: CT scan of the abdomen and pelvis performed with oral contrast and no intravenous contras t. Images reviewed with lung, soft tissue, and bone windows. Reconstructed coronal and sagittal MPR i mages reviewed. All images stored on PACS. All CT scanners at this facility use dose modulation, iterative reconstruction, and/or weight based d osing when appropriate to reduce radiation dose to as low as reasonably achievable (ALARA). [facility]: Dose Right [facility]: CareDose [facility]: Dose Right [facility]: Teradose 4D [facility]: [employer] RADIATION DOSE: CT Rad equipment meets quality standard of care and radiation dose reduction techniq ues were employed. CTDIvol: 4.8 mGy. DLP: 214 mGy-cm.mGy. LIMITATIONS: None. FINDINGS: LOWER CHEST: No acute findings. NON-CONTRASTED LIVER, SPLEEN, ADRENALS: Evaluation limited by lack of IV contrast. Similar hepatic c ysts. . PANCREAS: No masses. Similar mildly dilated pancreatic duct. GALLBLADDER: No identified stones by CT criteria. No inflammatory changes to suggest cholecystitis. RIGHT KIDNEY AND URETER: Atrophic with multiple cysts. No hydronephrosis or hydroureter. LEFT KIDNEY AND URETER: Atrophic with multiple cysts. No hydronephrosis or hydroureter. AORTA AND RETROPERITONEUM: No aneurysm. No retroperitoneal masses or adenopathy. BOWEL AND PERITONEAL CAVITY: Mildly dilated small bowel loops over the mid abdomen with inflammatory changes and trace free fluid, possible recurrent early small bowel obstruction. APPENDIX: Normal. PELVIS, BLADDER, AND ABDOMINAL WALL: Right pelvic renal transplant. Similar small periumbilical joseph ia. Bladder unremarkable. BONES: No acute findings. OTHER: No other significant finding. IMPRESSION: Mildly dilated small bowel loops over the mid abdomen with inflammatory changes and trac e free fluid, possible recurrent early small bowel obstruction. TECHNICAL DOCUMENTATION: JOB ID: [id number] Quality ID # [id number]: Final reports with documentation of one or more dose reduction techniques (e.g., Au tomated exposure control, adjustment of the mA and/or kV according to patient size, use of iterative reconstruction technique) 2010 [employer]- All Rights Reserved
[2017-10-08 21:23] LABS: APPEARANCE,URINE CLEAR; BILIRUBIN,URINE NEGATIVE (NEGATIVE); COLOR,URINE STRAW; GLUCOSE, URINE NEGATIVE (NEGATIVE); KETONES,URINE NEGATIVE (NEGATIVE); LEUKOCYTE ESTERASE,URINE NEGATIVE (NEGATIVE); NITRITE,URINE NEGATIVE (NEGATIVE); PROTEIN,URINE NEGATIVE (NEGATIVE); URINE SPECIFIC GRAVITY 1.006; UROBILINOGEN,URINE NEGATIVE mg/dL (<2.0)
[2017-10-08] MEDS ORDERED: NORMAL SALINE 1000 ML 1,000 ML IV PRN (22:21)
[2017-10-08] MEDS ORDERED: ALBUTEROL SULFATE HFA (90 MCG/PUFF) 8 GM MDI (1 MDI/ER DISP) IH PRN (22:24)
[2017-10-08] MEDS ORDERED: NITROGLYCERIN 0.4 MG/TAB 25 TAB/BOTTLE SL PRN (22:24)
[2017-10-08] MEDS ORDERED: ONDANSETRON 4 MG TAB.RAPDIS NG PRN (22:40)
[2017-10-08] MEDS ORDERED: PHARMACY COMMUNICATION ORDER MC NR (22:45)
[2017-10-09] MEDS ORDERED: IPRATROPIUM/ALBUTEROL 120 PUFF/4 GM MDI IH SCH
[2017-10-09] MEDS ORDERED: NORMAL SALINE 1000 ML 1,000 ML IV PRN ×2 (01:07→03:36)
[2017-10-09] MEDS ORDERED: TACROLIMUS ANHYDROUS 1 MG CAPSULE PO ONE (02:00)
[2017-10-09] MEDS ORDERED: NICOTINE 14 MG/24 HR PATCH.TD24 TD PRN (03:49)
--- NOTE | 2017-10-09 03:53 | PDOC CONSULTATION ---
Consultation Consult Date: 10/09/17 Attending physician:: TERRI SMITH Consult reason:: Medical management of CKD, COPD, HTN History of Present Illness Admission Date/PCP: 10/08/17 22:25 History of Present Illness: DEVANTE PIERSON is a 67 year old female with a past medical history of end- stage renal disease status post cadaveric kidney transplant in 2014 on chronic immunosuppressive therapy, coronary artery disease, GERD, COPD who presented with a 2 day history of abdominal pain. She reports diffuse overall abdominal pain that radiated around both sides to her back bilaterally. Approximately 3 months ago patient was admitted for bowel obstruction and incarcerated hernia requiring lysis of adhesion and reduction of internal hernia. Patient admits to significant constipation and had an unsatisfying bowel movement without hematochezia or melena approximately 2 days ago. Patient denies hematemesis. Patient was admitted by the surgical service for partial small bowel obstruction and the hospitalist service is consulted for medical management of her comorbid conditions. The current medication list is automatically generated by [employer] and does not reflect an accurate description of her medications. I reviewed patient's medications at bedside and they are as follows: Zantac 150 mg p.o. nightly Nifedipine 30 mg p.o. daily Prednisone 5 mg p.o. daily Coreg 25 mg p.o. BID Lasix 40 mg p.o. BID KCl 20 mEq p.o. daily Carafate 1 g p.o. every 6 hours Prograf 2 mg p.o. BID Vitamin D2 50,000 units p.o. q. weekly Past Medical History Cardiac Medical History: Reports: Atrial Fibrillation, Congestive Heart Failure , Coronary Artery Disease, Myocardial Infarction, Hyperlipidema, Hypertension Denies: Heart Murmur Pulmonary Medical History: Reports: Chronic Obstructive Pulmonary Disease (COPD) Denies: Tuberculosis Neurological Medical History: Denies: Seizures Renal/ Medical History: Reports: Chronic Kidney Disease, End Stage Renal Disease Malignancy Medical History: GI Medical History: Reports: Gastroesophageal Reflux Disease Denies: Hiatal Hernia Psychiatric Medical History: Denies: Bipolar Disorder, Depression Hematology: Reports: Anemia Denies: Hemophilia, Sickle Cell Disease Infectious Medical History: Past Surgical History Past Surgical History: Reports: Cardiac Catheterization, Coronary Stent - 2003, Renal Transplant, Tubal Ligation, Other - Valvuloplasty [facility] February 2017 multiple upper extremi Denies: Appendectomy, Section, Cholecystectomy, Hysterectomy, Mastectomy, Tonsillectomy Social History Smoking Status: Current Every Day Smoker Cigarettes Packs Per Day: 10 Number of Years Smokin Frequency of Alcohol Use: Occasional Amount of Alcoholic Beverages Per Day: 3 shots of vodka once weekly Hx Recreational Drug Use: No Drugs: None Hx Prescription Drug Abuse: No - Advance Directive Resuscitation Status: Full Code Surrogate healthcare decision maker:: Enzo Mccullough, mireya Family History Family History: Hypertension Parental Family History Reviewed: Yes Children Family History Reviewed: Yes Sibling(s) Family History Reviewed.: Yes Medication/Allergy Home Medications: Acetaminophen [Tylenol] 650 mg PO Q6HP PRN 06/16/17 Albuterol Sulfate [Proair HFA] 2 puff IN Q6HP PRN 06/16/17 Aspirin [Aspirin 81 mg Chewable Tablet] 81 mg PO DAILY 06/16/17 Atorvastatin Calcium [Lipitor 20 mg Tablet] 20 mg PO QHS 06/16/17 Docusate Sodium [Colace 100 mg Capsule] 100 mg PO DAILYP PRN 06/16/17 Ergocalciferol (Vitamin D2) [Drisdol 50,000 Unit (1.25MG) Capsule] 50,000 unit PO SCHAEFFER@1000 06/16/17 Nifedipine [Nifedipine ER] 30 mg PO DAILY 06/16/17 Nitroglycerin [Nitrostat 0.4 mg (1/150 Gr) Tabs 25/Bottle] 0.4 mg SL Q5MP PRN Sucralfate [Carafate 1 gm Tablet] 1 gm PO ACHS 06/16/17 Tacrolimus [Prograf] 2 mg PO QAM 06/16/17 Carvedilol [Coreg] 25 mg PO Q12 06/19/17 Prednisone [Deltasone 5 mg Tablet] 5 mg PO DAILY 06/19/17 Ranitidine HCl [Zantac] 150 mg PO QHS 06/19/17 Tacrolimus Anhydrous [Prograf 1 Mg Capsule] 1 mg PO QPM 06/19/17 Furosemide [Lasix 20 mg Tablet] 20 mg PO BID 06/25/17 Ipratropium/Albuterol Sulfate [Combivent Respimat Inhal [place]] 2 puff IH Q6 Allergies/Adverse Reactions: ibuprofen [From Advil] Allergy (Verified 06/19/17 07:31) lisinopril [Lisinopril] Allergy (Verified 06/19/17 07:31) Review of Systems Constitutional: ABSENT: chills, fever(s), headache(s), weight gain, weight loss Eyes: ABSENT: visual disturbances Ears: ABSENT: hearing changes Cardiovascular: ABSENT: chest pain, dyspnea on exertion, edema, orthropnea, palpitations Respiratory: PRESENT: dyspnea. ABSENT: cough, hemoptysis, sputum Gastrointestinal: PRESENT: constipation, nausea, vomiting. ABSENT: abdominal pain, diarrhea, hematemesis, hematochezia, melena Genitourinary: ABSENT: dysuria, hematuria Musculoskeletal: ABSENT: joint swelling Integumentary: ABSENT: rash, wounds Neurological: ABSENT: abnormal gait, abnormal speech, confusion, dizziness, focal weakness, syncope Psychiatric: ABSENT: anxiety, depression, homidical ideation, suicidal ideation Endocrine: ABSENT: cold intolerance, heat intolerance, polydipsia, polyuria Hematologic/Lymphatic: ABSENT: easy bleeding, easy bruising Physical Exam Vital Signs: Temp Pulse Resp BP Pulse Ox 98.3 F 59 L 16 150/56 H 98 10/09/17 00:49 10/09/17 00:49 10/09/17 00:49 10/09/17 00:49 10/09/17 00:49 General appearance: PRESENT: mild distress - Pain, well-developed, well- nourished Head exam: PRESENT: atraumatic, normocephalic Eye exam: PRESENT: conjunctiva pink, EOMI, PERRLA. ABSENT: scleral icterus Ear exam: PRESENT: normal external ear exam Mouth exam: PRESENT: dry mucosa, tongue midline Neck exam: ABSENT: JVD Respiratory exam: PRESENT: clear to auscultation kat, symmetrical, unlabored, wheezes - Left-sided. ABSENT: accessory muscle use, rales, rhonchi, tachypnea Cardiovascular exam: PRESENT: RRR, +S1, +S2. ABSENT: diastolic murmur, gallop, rubs, systolic murmur Pulses: PRESENT: normal dorsalis pedis pul Vascular exam: PRESENT: normal capillary refill GI/Abdominal exam: PRESENT: diminished bowel sounds, distended, guarding, normal bowel sounds, soft, tenderness - Diffuse. ABSENT: firm, mass, Holland's sign, organolmegaly, rebound, rigid Rectal exam: PRESENT: deferred Extremities exam: PRESENT: full ROM. ABSENT: calf tenderness, clubbing, pedal edema Neurological exam: PRESENT: alert, awake, oriented to person, oriented to place , oriented to time, oriented to situation, CN II-XII grossly intact. ABSENT: motor sensory deficit Psychiatric exam: PRESENT: appropriate affect, normal mood. ABSENT: homicidal ideation, suicidal ideation Skin exam: PRESENT: dry, intact, warm. ABSENT: cyanosis, rash Results Laboratory Results: 10/09/17 01:56 Ionized Calcium Luis 1.07 L 10/08/17 10/08/17 10/08/17 16:55 16:55 20:57 WBC 5.1 Hgb 14.1 Hct 41.6 Plt Count 222 Sodium 140.6 Potassium 4.8 Chloride 106 Carbon Dioxide 26 Anion Gap 9 BUN 50 H Creatinine 2.29 H Glucose 105 Calcium 11.6 H Ionized Calcium Luis Total Bilirubin 0.6 Direct Bilirubin 0.4 AST 33 ALT 25 Alkaline Phosphatase 71 Total Protein 6.8 Albumin 4.0 Lipase 201.5 Urine pH 6.0 Ur Specific [place] 1.006 Urine Protein NEGATIVE Urine WBC (Auto) 0 Urine RBC (Auto) 0 U Hyaline Cast (Auto) 1 Squamous Epi Cells Auto 1 Urine Mucus (Auto) RARE 10/09/17 01:56 WBC Hgb Hct Plt Count Sodium Potassium Chloride Carbon Dioxide Anion Gap BUN Creatinine Glucose Calcium Ionized Calcium Luis 1.07 L Total Bilirubin Direct Bilirubin AST ALT Alkaline Phosphatase Total Protein Albumin Lipase Urine pH Ur Specific [place] Urine Protein Urine WBC (Auto) Urine RBC (Auto) U Hyaline Cast (Auto) Squamous Epi Cells Auto Urine Mucus (Auto) Impressions: Abdomen/Pelvis CT 10/08/17 17:58 IMPRESSION: Mildly dilated small bowel loops over the mid abdomen with inflammatory changes and trace free fluid, possible recurrent early small bowel obstruction. Assessment & Plan - Diagnosis (1) Small bowel obstruction Is this a current diagnosis for this admission?: Yes Plan: Defer the diagnosis and treatment of patient's abdominal pain to the primary surgical attending. Deferral matters relating to this to them. (2) [id number] kidney injury Is this a current diagnosis for this admission?: Yes Plan: Patient's baseline creatinine appears to be around 1.4. This is likely secondary to dehydration she reports minimal p.o. intake recently. Agree with gentle hydration 06/26/17 06/29/17 10/08/17 05:25 05:16 16:55 Creatinine 1.41 H 1.39 H 2.29 H (3) COPD (chronic obstructive pulmonary disease) Qualifiers: COPD type: emphysema Emphysema type: unspecified Qualified Code(s): J43.9 - Emphysema, unspecified Is this a current diagnosis for this admission?: Yes Plan: Place patient on Combivent (4) Hypercalcemia Is this a current diagnosis for this admission?: Yes Plan: Will check an ionized calcium. Likely secondary to hyperparathyroidism due to her underlying chronic renal disease (5) Renal transplant recipient Is this a current diagnosis for this admission?: Yes Plan: Continue patient's Prograf 2 mg p.o. twice daily and recommend tacrolimus level in a.m. Patient normally sees Dr. Ferrer for nephrology. If indicated recommend consulting nephrology. Continue patient's prednisone or IV equivalent. (6) GERD (gastroesophageal reflux disease) Qualifiers: Esophagitis presence: esophagitis presence not specified Qualified Code(s) : K21.9 - Gastro-esophageal reflux disease without esophagitis Is this a current diagnosis for this admission?: Yes Plan: Patient was previously prescribed treatment for H. pylori. Continue with Pepcid 10 mg IV every 24. Continue Carafate (7) Smoker Is this a current diagnosis for this admission?: Yes Plan: Patient is advised to stop using tobacco. Counseling lasted longer than 3 minutes. (8) Full code status Is this a current diagnosis for this admission?: Yes
--- NOTE | 2017-10-09 04:06 | RADIOLOGY REPORT (SQ) ---
EXAM DESCRIPTION: KUB/ABDOMEN (SINGLE VIEW) CLINICAL HISTORY: Check Placement of NG Tube COMPARISON: CT abdomen performed 10/08/2017. FINDINGS: Single view of the abdomen. NG tube with tip overlying the stomach. No definite free intraperitoneal air. Lung bases clear. Atherosclerotic calcification of the thoracic aorta. Cardiomegaly. Cardiac stent identified. IMPRESSION: NG tube with tip in the stomach.
[2017-10-09] MEDS ORDERED: ALBUTEROL SULFATE HFA (90 MCG/PUFF) 200 PUFF/8.5 GM MDI IH ONE (04:57)
[2017-10-09] MEDS: IPRATROPIUM/ALBUTEROL 120 PUFF/4 GM MDI IH SCH ×4 (05:14→23:43)
[2017-10-09] MEDS: MORPHINE SULFATE 10 MG/ML INJ IV PRN ×3 (06:22→17:50)
[2017-10-09 07:04] LABS: HEMATOCRIT 36.1 % (36.0-47.0); HEMOGLOBIN 12.3 g/dL (12.0-15.5); MEAN CORPUSCULAR HEMOGLOBIN 32.2 pg (27.0-33.4); MEAN CORPUSCULAR HGB CONC 34.2 g/dL (32.0-36.0); MEAN CORPUSCULAR VOLUME 94 fl (80-97); PLATELET COUNT 192 10^3/uL (150-450); RED BLOOD COUNT 3.84 10^6/uL (3.72-5.28); RED CELL DISTRIBUTION WIDTH 16.1 % (11.5-14.0); WHITE BLOOD COUNT 4.2 10^3/uL (4.0-10.5)
[2017-10-09 07:27] LABS: ANION GAP 8 (5-19); BLOOD UREA NITROGEN 39 mg/dL (7-20); CALCIUM 9.9 mg/dL (8.4-10.2); CARBON DIOXIDE 23 mmol/L (22-30); CHLORIDE 111 mmol/L (98-107); GLUCOSE 71 mg/dL (75-110); POTASSIUM 4.1 mmol/L (3.6-5.0); SODIUM 141.9 mmol/L (137-145)
[2017-10-09] MEDS: ASPIRIN 81 MG TABLET, CHEWABLE NG SCH (09:39)
[2017-10-09] MEDS: METHYLPREDNISOLONE INJ 40 MG/1 ML SDV IV SCH (09:39)
[2017-10-09] MEDS: CARVEDILOL 12.5 MG TABLET NG SCH ×2 (09:39→21:27)
[2017-10-09] MEDS: TACROLIMUS ANHYDROUS 1 MG CAPSULE PO SCH ×2 (09:40→17:50)
[2017-10-09] MEDS: ENOXAPARIN SODIUM INJ 30 MG/0.3 ML DISP.SYRIN SUBCUT SCH (09:43)
[2017-10-09] MEDS ORDERED: (PENDING PHARMACY ID) (Carvedilol [Coreg] 25 MG) PO SCH (10:00)
[2017-10-09] MEDS ORDERED: TACROLIMUS ANHYDROUS 1 MG CAPSULE PO SCH (10:00)
--- NOTE | 2017-10-09 13:04 | PDOC PROGRESS REPORT ---
Subjective Progress Note for:: 10/09/17 Subjective:: abdomen much less painful Reason For Visit: SMALL BOWEL OBSTRUCTION Physical Exam Vital Signs: Temp Pulse Resp BP Pulse Ox 98.5 F 64 18 122/58 L 97 10/09/17 11:52 10/09/17 11:52 10/09/17 11:52 10/09/17 11:52 10/09/17 11:52 Intake & Output 10/08/17 10/09/17 10/10/17 06:59 06:59 06:59 Intake Total 0 Output Total 60 Balance 0 -60 Weight 63.5 kg Exam: Abdomen is soft with minimal tenderness. Results Laboratory Results: 10/09/17 06:10 10/09/17 06:10 10/09/17 10/09/17 10/09/17 01:56 06:10 06:10 WBC 4.2 RBC 3.84 Hgb 12.3 Hct 36.1 MCV 94 MCH 32.2 MCHC 34.2 RDW 16.1 H Plt Count 192 Sodium 141.9 Potassium 4.1 Chloride 111 H Carbon Dioxide 23 Anion Gap 8 BUN 39 H Creatinine 1.97 H Est GFR ( Amer) 31 L Est GFR (Non-Af Amer) 25 L Glucose 71 L Calcium 9.9 Ionized Calcium Luis 1.07 L Impressions: Abdomen/Pelvis CT 10/08/17 17:58 IMPRESSION: Mildly dilated small bowel loops over the mid abdomen with inflammatory changes and trace free fluid, possible recurrent early small bowel obstruction. KUB X-Ray 10/08/17 22:39 IMPRESSION: NG tube with tip in the stomach. Assessment & Plan - Time Time Spent with patient: 15-24 minutes - Inpatient Certification Medical Necessity: Need For IV Fluids, Need for Pain Control - Plan Summary Plan Summary: D/C NGT but keep NPO today. Continue hydration and check BMP. Placed on SL Prograft by Dr Ortega to try to avoid rejection.
[2017-10-10] MEDS: MORPHINE SULFATE 10 MG/ML INJ IV PRN ×3 (00:52→19:57)
[2017-10-10] MEDS: HYDRALAZINE HCL INJ/PF 20 MG/1 ML SDV IV PRN ×2 (01:29→12:46)
[2017-10-10] MEDS ORDERED: CLONIDINE HCL 0.2 MG TABLET PO ONE (03:00)
[2017-10-10] MEDS: IPRATROPIUM/ALBUTEROL 120 PUFF/4 GM MDI IH SCH ×4 (06:00→23:15)
[2017-10-10] MEDS: CARVEDILOL 12.5 MG TABLET NG SCH (09:41)
[2017-10-10] MEDS: ASPIRIN 81 MG TABLET, CHEWABLE NG SCH (09:41)
[2017-10-10] MEDS: ENOXAPARIN SODIUM INJ 30 MG/0.3 ML DISP.SYRIN SUBCUT SCH (09:41)
[2017-10-10] MEDS: METHYLPREDNISOLONE INJ 40 MG/1 ML SDV IV SCH (09:43)
[2017-10-10] MEDS: TACROLIMUS ANHYDROUS 1 MG CAPSULE PO SCH ×2 (09:47→17:13)
--- NOTE | 2017-10-10 12:14 | EKG REPORT ---
SEVERITY:- ABNORMAL ECG - SINUS RHYTHM PROBABLE LEFT ATRIAL ABNORMALITY NONSPECIFIC T ABNORMALITIES, ANT-LAT LEADS : Confirmed by: Jamilah Gomez MD 10-Oct-2017 12:14:01
--- NOTE | 2017-10-10 12:59 | PDOC PROGRESS REPORT ---
Subjective Progress Note for:: 10/10/17 Subjective:: DEVANTE PIERSON is a 67 year old female with a past medical history of end- stage renal disease status post cadaveric kidney transplant in 2015 on chronic immunosuppressive therapy, coronary artery disease, GERD, COPD who presented with a 2 day history of abdominal pain. She reported diffuse overall abdominal pain that radiated around both sides to her back bilaterally. Approximately 3 months ago patient was admitted for bowel obstruction and incarcerated hernia requiring lysis of adhesion and reduction of internal hernia. Patient admited to significant constipation and had an unsatisfying bowel movement without hematochezia or melena approximately 2 days ago. Patient denied hematemesis. Patient was admitted by the surgical service for partial small bowel obstruction and the hospitalist service was consulted for medical management of her comorbid conditions. 10/10/17 Hungry today. Reason For Visit: SMALL BOWEL OBSTRUCTION Physical Exam Vital Signs: Temp Pulse Resp BP Pulse Ox 97.6 F 60 12 182/69 H 99 10/10/17 11:50 10/10/17 11:50 10/10/17 11:50 10/10/17 11:50 10/10/17 11:50 Intake & Output 10/09/17 10/10/17 10/11/17 06:59 06:59 06:59 Intake Total 0 180 210 Output Total 2260 Balance 0 -2080 210 Weight 63.5 kg 54.3 kg General appearance: PRESENT: no acute distress, cooperative Head exam: PRESENT: atraumatic, normocephalic Teeth exam: PRESENT: edentulous Neck exam: ABSENT: carotid bruit, JVD, lymphadenopathy, thyromegaly Respiratory exam: PRESENT: clear to auscultation kat. ABSENT: rales, rhonchi, wheezes Cardiovascular exam: PRESENT: RRR. ABSENT: diastolic murmur, rubs, systolic murmur GI/Abdominal exam: PRESENT: normal bowel sounds, soft. ABSENT: distended, guarding, mass, organolmegaly, rebound, tenderness Neurological exam: PRESENT: alert, awake, oriented to person, oriented to place , oriented to time, oriented to situation, CN II-XII grossly intact. ABSENT: motor sensory deficit Psychiatric exam: PRESENT: appropriate affect, normal mood. ABSENT: homicidal ideation, suicidal ideation Results Laboratory Results: 10/09/17 06:10 10/09/17 06:10 10/10/17 10/10/17 04:34 04:34 Ionized Calcium Luis 1.25 Phosphorus 2.6 Impressions: Abdomen/Pelvis CT 10/08/17 17:58 IMPRESSION: Mildly dilated small bowel loops over the mid abdomen with inflammatory changes and trace free fluid, possible recurrent early small bowel obstruction. KUB X-Ray 10/08/17 22:39 IMPRESSION: NG tube with tip in the stomach. Assessment & Plan - Diagnosis (1) [id number] kidney injury Qualifiers: Chronic kidney disease stage: stage 4 (severe) Is this a current diagnosis for this admission?: Yes Plan: Continue IVFs and monitor. (2) COPD (chronic obstructive pulmonary disease) Qualifiers: COPD type: emphysema Emphysema type: unspecified Qualified Code(s): J43.9 - Emphysema, unspecified Is this a current diagnosis for this admission?: Yes Plan: Stable. continue Nebs. (3) Hypertension Plan: BP have been elevated. Restart nifedipine XL 30 mg daily (home med). (4) Small bowel obstruction Is this a current diagnosis for this admission?: Yes Plan: Per surgery (5) Smoker Is this a current diagnosis for this admission?: Yes Plan: Continue nicotine patch. - Time Time Spent with patient: 15-24 minutes Medications reviewed and adjusted accordingly: Yes Anticipated discharge: Home - Inpatient Certification Medical Necessity: Need Close Monitoring Due to Risk of Patient Decompensation, Need For IV Fluids
--- NOTE | 2017-10-10 13:04 | PDOC PROGRESS REPORT ---
Subjective Progress Note for:: 10/10/17 Subjective:: less abdominal pains. + Flatus Reason For Visit: SMALL BOWEL OBSTRUCTION Physical Exam Vital Signs: Temp Pulse Resp BP Pulse Ox 97.6 F 60 12 182/69 H 99 10/10/17 11:50 10/10/17 11:50 10/10/17 11:50 10/10/17 11:50 10/10/17 11:50 Intake & Output 10/09/17 10/10/17 10/11/17 06:59 06:59 06:59 Intake Total 0 180 210 Output Total 2260 Balance 0 -2080 210 Weight 63.5 kg 54.3 kg Exam: abdomen is soft and nontender Results Laboratory Results: 10/09/17 06:10 10/09/17 06:10 10/10/17 10/10/17 04:34 04:34 Ionized Calcium Luis 1.25 Phosphorus 2.6 Impressions: Abdomen/Pelvis CT 10/08/17 17:58 IMPRESSION: Mildly dilated small bowel loops over the mid abdomen with inflammatory changes and trace free fluid, possible recurrent early small bowel obstruction. KUB X-Ray 10/08/17 22:39 IMPRESSION: NG tube with tip in the stomach. Assessment & Plan - Time Time Spent with patient: 15-24 minutes - Inpatient Certification Medical Necessity: Need For IV Fluids, Risk of Complication if Not Cared For in Hospital - Plan Summary Plan Summary: Gradually increse diet Plan discharge tomorrow if continues to tolerate diet
[2017-10-10] MEDS: NIFEDIPINE 30 MG TAB.ER.24 PO SCH (14:29)
[2017-10-10] MEDS ORDERED: KETOROLAC TROMETHAMINE INJ/PF 30 MG/1 ML SDV IV PRN (22:21)
[2017-10-10] MEDS ORDERED: CARVEDILOL 12.5 MG TABLET PO ONE (23:00)
[2017-10-10] MEDS: HYDROMORPHONE HCL INJ/PF 2 MG/ML AMPULE IV PRN (23:15)
[2017-10-11] MEDS: IPRATROPIUM/ALBUTEROL 120 PUFF/4 GM MDI IH SCH ×4 (05:54→23:19)
[2017-10-11] MEDS: ONDANSETRON 4 MG TAB.RAPDIS PO PRN ×2 (05:58→14:39)
[2017-10-11 06:14] LABS: ANION GAP 9 (5-19); BLOOD UREA NITROGEN 20 mg/dL (7-20); CALCIUM 10.3 mg/dL (8.4-10.2); CARBON DIOXIDE 19 mmol/L (22-30); CHLORIDE 111 mmol/L (98-107); GLUCOSE 94 mg/dL (75-110); POTASSIUM 4.2 mmol/L (3.6-5.0); SODIUM 139.3 mmol/L (137-145)
[2017-10-11] MEDS ORDERED: ONDANSETRON HCL INJ/PF 4 MG/2 ML SDV ONE (09:35)
[2017-10-11] MEDS: MAG HYDROX/AL HYDROX/SIMETH SUSP 30 ML UDCUP PO PRN ×3 (09:53→23:19)
[2017-10-11] MEDS: MORPHINE SULFATE 10 MG/ML INJ IV PRN ×2 (09:55→16:58)
[2017-10-11] MEDS ORDERED: ONDANSETRON HCL INJ/PF 4 MG/2 ML SDV IV ONE ×2 (10:00→11:45)
[2017-10-11] MEDS: ASPIRIN 81 MG TABLET, CHEWABLE PO SCH (11:04)
[2017-10-11] MEDS: METHYLPREDNISOLONE INJ 40 MG/1 ML SDV IV SCH (11:04)
[2017-10-11] MEDS: ENOXAPARIN SODIUM INJ 30 MG/0.3 ML DISP.SYRIN SUBCUT SCH (11:05)
[2017-10-11] MEDS: TACROLIMUS ANHYDROUS 1 MG CAPSULE PO SCH ×2 (11:05→17:34)
[2017-10-11] MEDS: CARVEDILOL 12.5 MG TABLET PO SCH ×2 (12:29→21:35)
[2017-10-11] MEDS: NIFEDIPINE 30 MG TAB.ER.24 PO SCH (13:29)
--- NOTE | 2017-10-11 14:51 | PDOC PROGRESS REPORT ---
Subjective Progress Note for:: 10/11/17 Subjective:: Has abbdominal pains with N/V relieved with zofran and parenteral pain meds. More comfortable when seen this am. + Flatus Reason For Visit: SMALL BOWEL OBSTRUCTION Physical Exam Vital Signs: Temp Pulse Resp BP Pulse Ox 98.6 F 69 22 H 127/60 H 92 10/11/17 11:33 10/11/17 11:33 10/11/17 11:33 10/11/17 11:33 10/11/17 11:33 Intake & Output 10/10/17 10/11/17 10/12/17 06:59 06:59 06:59 Intake Total 180 1551 252 Output Total 2260 2200 Balance -2080 -649 252 Weight 54.3 kg 54.3 kg Exam: Abdomen is soft and essentially nontender. Results Laboratory Results: 10/09/17 06:10 10/11/17 05:20 10/11/17 05:20 Sodium 139.3 Potassium 4.2 Chloride 111 H Carbon Dioxide 19 L Anion Gap 9 BUN 20 Creatinine 1.38 H Est GFR ( Amer) 46 L Est GFR (Non-Af Amer) 38 L Glucose 94 Calcium 10.3 H Impressions: Abdomen/Pelvis CT 10/08/17 17:58 IMPRESSION: Mildly dilated small bowel loops over the mid abdomen with inflammatory changes and trace free fluid, possible recurrent early small bowel obstruction. KUB X-Ray 10/08/17 22:39 IMPRESSION: NG tube with tip in the stomach. Assessment & Plan - Time Time Spent with patient: 15-24 minutes - Inpatient Certification Medical Necessity: Need Close Monitoring Due to Risk of Patient Decompensation, Need For IV Fluids, Need for Pain Control, Risk of Complication if Not Cared For in Hospital - Plan Summary Plan Summary: Start back on liquids. Not ready for discharge especially she lives by herself Eliceo arceo
--- NOTE | 2017-10-11 15:29 | PDOC PROGRESS REPORT ---
Subjective Progress Note for:: 10/11/17 Subjective:: The patient is a 67-year-old female who has a history of end-stage renal disease. She is status post cadaveric renal transplant. She is maintained on prednisone and tacrolimus. She was admitted to the hospital with a small bowel obstruction. Her other comorbid conditions include COPD, gastro-esophageal reflux disease and tobacco abuse. This morning, she ate toast and her abdominal pain is improved. She is passing flatus, but, she has not yet had a bowel movement. Reason For Visit: SMALL BOWEL OBSTRUCTION Physical Exam Vital Signs: Temp Pulse Resp BP Pulse Ox 98.6 F 69 22 H 127/60 H 92 10/11/17 11:33 10/11/17 11:33 10/11/17 11:33 10/11/17 11:33 10/11/17 11:33 Intake & Output 10/10/17 10/11/17 10/12/17 06:59 06:59 06:59 Intake Total 180 1551 252 Output Total 2260 2200 Balance -2080 -649 252 Weight 54.3 kg 54.3 kg Additional comments: The patient appears to be very healthy for her age. She does not appear to be in any distress. Her mentation is appropriate. Her lungs are clear to auscultation bilaterally. Her cardiac exam is regular without murmurs, gallops or rubs. The abdomen is soft and flat. Bowel sounds are present but are hypoactive. She does not have guarding or rebound noted and there are no hernias or masses present. The lower extremities are warm to touch without pitting edema. The skin is warm, dry and intact without lesions or rashes. Results Laboratory Results: 10/09/17 06:10 10/11/17 05:20 10/11/17 05:20 Sodium 139.3 Potassium 4.2 Chloride 111 H Carbon Dioxide 19 L Anion Gap 9 BUN 20 Creatinine 1.38 H Est GFR ( Amer) 46 L Est GFR (Non-Af Amer) 38 L Glucose 94 Calcium 10.3 H Impressions: Abdomen/Pelvis CT 10/08/17 17:58 IMPRESSION: Mildly dilated small bowel loops over the mid abdomen with inflammatory changes and trace free fluid, possible recurrent early small bowel obstruction. KUB X-Ray 10/08/17 22:39 IMPRESSION: NG tube with tip in the stomach. Assessment & Plan - Diagnosis (1) [id number] kidney injury Qualifiers: Chronic kidney disease stage: stage 4 (severe) Is this a current diagnosis for this admission?: Yes Plan: This has improved since admission. Since that she is still not eating well I will continue IV fluids. (2) COPD (chronic obstructive pulmonary disease) Qualifiers: COPD type: emphysema Emphysema type: unspecified Qualified Code(s): J43.9 - Emphysema, unspecified Is this a current diagnosis for this admission?: Yes Plan: Stable. (3) GERD (gastroesophageal reflux disease) Qualifiers: Esophagitis presence: esophagitis presence not specified Qualified Code(s) : K21.9 - Gastro-esophageal reflux disease without esophagitis Is this a current diagnosis for this admission?: Yes (4) Hypercalcemia Is this a current diagnosis for this admission?: Yes Plan: This appears to have improved somewhat with IV fluids. Again, this is likely related to secondary hyperparathyroidism. (5) Renal transplant recipient Is this a current diagnosis for this admission?: Yes Plan: Continue prednisone. Tacrolimus level is pending. (6) Small bowel obstruction Is this a current diagnosis for this admission?: Yes Plan: This is being managed by general surgery. - Time Time Spent with patient: 15-24 minutes - Inpatient Certification Medical Necessity: Significant Comorbidiites Make Outpatient Treatment Too Risky , Need Close Monitoring Due to Risk of Patient Decompensation, Need For IV Fluids, Need for Pain Control, Risk of Complication if Not Cared For in Hospital
[2017-10-11] MEDS: 1/2 NORMAL SALINE 1,000 ML IV PRN (16:24)
[2017-10-11] MEDS: ONDANSETRON HCL INJ/PF 4 MG/2 ML SDV IV PRN (18:53)
[2017-10-11] MEDS: HYDRALAZINE HCL INJ/PF 20 MG/1 ML SDV IV PRN (21:35)
[2017-10-11] MEDS: HYDROMORPHONE HCL INJ/PF 2 MG/ML AMPULE IV PRN (21:35)
[2017-10-12] MEDS: ONDANSETRON HCL INJ/PF 4 MG/2 ML SDV IV PRN ×4 (00:15→14:33)
[2017-10-12] MEDS: HYDROMORPHONE HCL INJ/PF 2 MG/ML AMPULE IV PRN (03:45)
[2017-10-12] MEDS: IPRATROPIUM/ALBUTEROL 120 PUFF/4 GM MDI IH SCH ×3 (05:17→17:23)
[2017-10-12 06:57] LABS: ABSOLUTE LYMPHOCYTES (AUTO) 0.6 10^3/uL (0.5-4.7); ABSOLUTE MONOCYTES (AUTO) 0.8 10^3/uL (0.1-1.4); ABSOLUTE NEUT (AUTO) 4.2 10^3/uL (1.7-8.2); BASOPHILS % (AUTO) 0.1 % (0-2); EOSINOPHILS % (AUTO) 0.2 % (0-6); HEMATOCRIT 44.1 % (36.0-47.0); HEMOGLOBIN 14.9 g/dL (12.0-15.5); LYMPHOCYTES % (AUTO) 11.3 % (13-45); MEAN CORPUSCULAR HEMOGLOBIN 31.7 pg (27.0-33.4); MEAN CORPUSCULAR HGB CONC 33.9 g/dL (32.0-36.0); MEAN CORPUSCULAR VOLUME 94 fl (80-97); MONOCYTES % (AUTO) 14.5 % (3-13); PLATELET COUNT 219 10^3/uL (150-450); RED BLOOD COUNT 4.71 10^6/uL (3.72-5.28); RED CELL DISTRIBUTION WIDTH 16.1 % (11.5-14.0); SEGMENTED NEUTROPHILS % (AUTO) 73.9 % (42-78); TOTAL CELLS COUNTED % (AUTO) 100 %; WHITE BLOOD COUNT 5.6 10^3/uL (4.0-10.5)
[2017-10-12 07:29] LABS: ANION GAP 10 (5-19); BLOOD UREA NITROGEN 21 mg/dL (7-20); CALCIUM 11.6 mg/dL (8.4-10.2); CARBON DIOXIDE 30 mmol/L (22-30); CHLORIDE 103 mmol/L (98-107); GLUCOSE 122 mg/dL (75-110); SODIUM 143.2 mmol/L (137-145)
[2017-10-12] MEDS: 1/2 NORMAL SALINE 1,000 ML IV PRN ×2 (09:12→21:58)
--- NOTE | 2017-10-12 09:20 | PDOC PROGRESS REPORT ---
Subjective Progress Note for:: 10/12/17 Reason For Visit: SMALL BOWEL OBSTRUCTION Patient still complaining of some abdominal pain. She has not had much p.o. intake. Not had a bowel movement. She has not had a shower. Physical Exam Vital Signs: Temp Pulse Resp BP Pulse Ox 98.9 F 68 16 146/58 H 98 10/12/17 00:00 10/12/17 00:00 10/12/17 00:00 10/12/17 00:00 10/11/17 23:42 Intake & Output 10/11/17 10/12/17 10/13/17 06:59 06:59 06:59 Intake Total 1551 3151 Output Total 2200 1400 Balance -649 1751 Weight 54.3 kg 53.2 kg General appearance: PRESENT: no acute distress GI/Abdominal exam: PRESENT: other - Slightly distended , with mild guarding. There are no masses. Results Laboratory Results: 10/12/17 06:12 10/12/17 06:12 10/12/17 10/12/17 06:12 06:12 WBC 5.6 RBC 4.71 Hgb 14.9 Hct 44.1 MCV 94 MCH 31.7 MCHC 33.9 RDW 16.1 H Plt Count 219 Seg Neutrophils % 73.9 Lymphocytes % 11.3 L Monocytes % 14.5 H Eosinophils % 0.2 Basophils % 0.1 Absolute Neutrophils 4.2 Absolute Lymphocytes 0.6 Absolute Monocytes 0.8 Absolute Eosinophils 0.0 Absolute Basophils 0.0 Sodium 143.2 Potassium 4.0 Chloride 103 Carbon Dioxide 30 Anion Gap 10 BUN 21 H Creatinine 1.76 H Est GFR ( Amer) 35 L Est GFR (Non-Af Amer) 29 L Glucose 122 H Calcium 11.6 H Impressions: Abdomen/Pelvis CT 10/08/17 17:58 IMPRESSION: Mildly dilated small bowel loops over the mid abdomen with inflammatory changes and trace free fluid, possible recurrent early small bowel obstruction. KUB X-Ray 10/08/17 22:39 IMPRESSION: NG tube with tip in the stomach. Assessment & Plan - Diagnosis (1) Dehydration Is this a current diagnosis for this admission?: Yes Plan: Patient appears to be clinically improving from dehydration; review of CT scan of abdomen and pelvis without oral and IV contrast to significant amount of stool in her colon. Patient has been immobile and taking narcotics which may be exacerbating her problem. recommendations: 1. Soapsuds enemas 2. Get patient up and ambulating; suggest shower 3. Hold narcotics; the above discussed with nursing staff.
[2017-10-12] MEDS: ENOXAPARIN SODIUM INJ 30 MG/0.3 ML DISP.SYRIN SUBCUT SCH (09:37)
[2017-10-12] MEDS: ASPIRIN 81 MG TABLET, CHEWABLE PO SCH (09:38)
[2017-10-12] MEDS: CARVEDILOL 12.5 MG TABLET PO SCH ×2 (09:38→21:07)
[2017-10-12] MEDS: METHYLPREDNISOLONE INJ 40 MG/1 ML SDV IV SCH (09:39)
[2017-10-12] MEDS: TACROLIMUS ANHYDROUS 1 MG CAPSULE PO SCH ×2 (09:39→17:22)
[2017-10-12] MEDS: NIFEDIPINE 30 MG TAB.ER.24 PO SCH (12:11)
[2017-10-12] MEDS: ONDANSETRON 4 MG TAB.RAPDIS PO PRN (12:11)
[2017-10-12] MEDS: MAG HYDROX/AL HYDROX/SIMETH SUSP 30 ML UDCUP PO PRN (14:33)
--- NOTE | 2017-10-12 14:41 | PDOC PROGRESS REPORT ---
Subjective Progress Note for:: 10/12/17 Subjective:: The patient is a 67-year-old female who has a history of end-stage renal disease. She is status post cadaveric renal transplant. She is maintained on prednisone and tacrolimus. She was admitted to the hospital with a small bowel obstruction. Her other comorbid conditions include COPD, gastro-esophageal reflux disease and tobacco abuse. This morning, the patient was complaining of ongoing abdominal pain. She vomited 5 times overnight. Reason For Visit: SMALL BOWEL OBSTRUCTION Physical Exam Vital Signs: Temp Pulse Resp BP Pulse Ox 98.5 F 77 20 149/68 H 98 10/12/17 11:39 10/12/17 11:39 10/12/17 11:39 10/12/17 11:39 10/12/17 11:39 Intake & Output 10/11/17 10/12/17 10/13/17 06:59 06:59 06:59 Intake Total 1551 3151 341 Output Total 2200 1400 Balance -649 1751 341 Weight 54.3 kg 53.2 kg Additional comments: The patient appears to be her stated age. She did not appear to be in any distress this morning. Her cognition and mentation are appropriate. Her lungs are clear to auscultation bilaterally. Her cardiac exam is regular. She has a grade 1 diastolic murmur at the left lower sternal border. Her abdomen is distended but soft. She has diffuse tenderness without guarding or rebound. The lower extremities are warm to touch without edema. Skin is warm, dry and intact without lesions or rashes. Results Laboratory Results: 10/12/17 06:12 10/12/17 06:12 10/12/17 10/12/17 06:12 06:12 WBC 5.6 RBC 4.71 Hgb 14.9 Hct 44.1 MCV 94 MCH 31.7 MCHC 33.9 RDW 16.1 H Plt Count 219 Seg Neutrophils % 73.9 Lymphocytes % 11.3 L Monocytes % 14.5 H Eosinophils % 0.2 Basophils % 0.1 Absolute Neutrophils 4.2 Absolute Lymphocytes 0.6 Absolute Monocytes 0.8 Absolute Eosinophils 0.0 Absolute Basophils 0.0 Sodium 143.2 Potassium 4.0 Chloride 103 Carbon Dioxide 30 Anion Gap 10 BUN 21 H Creatinine 1.76 H Est GFR ( Amer) 35 L Est GFR (Non-Af Amer) 29 L Glucose 122 H Calcium 11.6 H Impressions: Abdomen/Pelvis CT 10/08/17 17:58 IMPRESSION: Mildly dilated small bowel loops over the mid abdomen with inflammatory changes and trace free fluid, possible recurrent early small bowel obstruction. KUB X-Ray 10/08/17 22:39 IMPRESSION: NG tube with tip in the stomach. Assessment & Plan - Diagnosis (1) Mvlhj-dp-leykmgy kidney injury Qualifiers: Chronic kidney disease stage: stage 4 (severe) Is this a current diagnosis for this admission?: Yes Plan: This has improved since admission. Since that she is still not eating well I will continue IV fluids. (2) COPD (chronic obstructive pulmonary disease) Qualifiers: COPD type: emphysema Emphysema type: unspecified Qualified Code(s): J43.9 - Emphysema, unspecified Is this a current diagnosis for this admission?: Yes Plan: Stable. (3) GERD (gastroesophageal reflux disease) Qualifiers: Esophagitis presence: esophagitis presence not specified Qualified Code(s) : K21.9 - Gastro-esophageal reflux disease without esophagitis Is this a current diagnosis for this admission?: Yes Plan: We will begin IV PPI. (4) Hypercalcemia Is this a current diagnosis for this admission?: Yes Plan: Continue IV fluids. 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 (5) Renal transplant recipient Is this a current diagnosis for this admission?: Yes Plan: Prednisone has been changed to intravenous dosing. tacrolimus level is pending. (6) Small bowel obstruction Is this a current diagnosis for this admission?: Yes Plan: This is being managed by general surgery. - Time Time Spent with patient: 15-24 minutes - Inpatient Certification Medical Necessity: Need Close Monitoring Due to Risk of Patient Decompensation, Need For IV Fluids
[2017-10-12] MEDS ORDERED: PANTOPRAZOLE SODIUM 40 MG VIAL IV ONE (15:30)
--- NOTE | 2017-10-12 17:08 | RADIOLOGY REPORT (SQ) ---
EXAM DESCRIPTION: ABDOMEN 2 VIEWS COMPLETED DATE/TIME: 10/12/2017 4:53 pm REASON FOR STUDY: abdominal pain COMPARISON: 10/09/2017. CT 10/08/2017. NUMBER OF VIEWS: Two views. TECHNIQUE: Supine and erect/decubitus radiographic images of the abdomen acquired. LIMITATIONS: None. FINDINGS: FREE AIR: None. No abnormal gas collections. LUNG BASES: Clear. BOWEL GAS PATTERN: Distended loops of bowel, gas-filled predominantly small bowel in the upper abdome n. Mild contrast in nondistended colon with evidence of diverticulosis. Degree of bowel distention is increased generally when compared to CT from 10/08/2017. CALCIFICATIONS: Calcified uterine fibroids. Vascular calcifications. SOFT TISSUES: No gross mass or suggestion of organomegaly. HARDWARE: None in the abdomen. BONES: Osteopenic. OTHER: No other significant finding. IMPRESSION: Gaseous distension. Degree of small bowel distention in the upper abdomen looks progres sive over the past 2 days. TECHNICAL DOCUMENTATION: JOB ID: [id number] [employer]- All Rights Reserved
--- NOTE | 2017-10-12 18:09 | RADIOLOGY REPORT (SQ) ---
EXAM DESCRIPTION: KUB/ABDOMEN (SINGLE VIEW) COMPLETED DATE/TIME: 10/12/2017 5:59 pm REASON FOR STUDY: Check Placement of NG Tube COMPARISON: Radiographs from earlier. NUMBER OF VIEWS: One view. TECHNIQUE: Supine radiographic image of the abdomen acquired. LIMITATIONS: None. FINDINGS: Distended small bowel loops, as before. Nasogastric tube projects with tip in the left upper quadrant, consistent with intragastric location. IMPRESSION: Appropriate NGT. TECHNICAL DOCUMENTATION: JOB ID: [id number] [employer]- All Rights Reserved
[2017-10-12] MEDS: HYDRALAZINE HCL INJ/PF 20 MG/1 ML SDV IV PRN (20:16)
[2017-10-12] MEDS: BENZOCAINE/MENTHOL SORE THROAT LOZENGE BUCCAL PRN (21:07)
[2017-10-13] MEDS: IPRATROPIUM/ALBUTEROL 120 PUFF/4 GM MDI IH SCH ×5 (01:43→23:39)
[2017-10-13 06:35] LABS: ANION GAP 9 (5-19); BLOOD UREA NITROGEN 25 mg/dL (7-20); CALCIUM 10.3 mg/dL (8.4-10.2); CARBON DIOXIDE 31 mmol/L (22-30); CHLORIDE 101 mmol/L (98-107); GLUCOSE 98 mg/dL (75-110); POTASSIUM 3.4 mmol/L (3.6-5.0); SODIUM 140.6 mmol/L (137-145)
[2017-10-13] MEDS: 1/2 NORMAL SALINE 1,000 ML IV PRN ×2 (08:28→22:27)
[2017-10-13] MEDS ORDERED: POTASSI CL 20 MEQ/50 ML RIDER 20 MEQ/50 ML RTUPB IV ONE (08:30)
[2017-10-13] MEDS ORDERED: MORPHINE SULFATE 10 MG/ML INJ ONE (10:03)
--- NOTE | 2017-10-13 10:15 | PDOC PROGRESS REPORT ---
Subjective Progress Note for:: 10/13/17 Subjective:: mild RUQ pains. Reason For Visit: SMALL BOWEL OBSTRUCTION Physical Exam Vital Signs: Temp Pulse Resp BP Pulse Ox 99.4 F 79 12 147/64 H 90 L 10/13/17 07:23 10/13/17 07:23 10/13/17 07:23 10/13/17 07:23 10/13/17 07:23 Intake & Output 10/12/17 10/13/17 10/14/17 06:59 06:59 06:59 Intake Total 3151 2382 Output Total 1400 3610 Balance 1751 -1228 Weight 53.2 kg 53.2 kg Exam: NGT in place. To have SBFT xrays to make sure no SBO Results Laboratory Results: 10/12/17 06:12 10/13/17 05:09 10/13/17 05:09 Sodium 140.6 Potassium 3.4 L Chloride 101 Carbon Dioxide 31 H Anion Gap 9 BUN 25 H Creatinine 2.11 H Est GFR ( Amer) 28 L Est GFR (Non-Af Amer) 23 L Glucose 98 Calcium 10.3 H Impressions: Abdomen/Pelvis CT 10/08/17 17:58 IMPRESSION: Mildly dilated small bowel loops over the mid abdomen with inflammatory changes and trace free fluid, possible recurrent early small bowel obstruction. Abdomen X-Ray 10/12/17 00:00 IMPRESSION: Gaseous distension. Degree of small bowel distention in the upper abdomen looks progressive over the past 2 days. KUB X-Ray 10/12/17 17:15 IMPRESSION: Appropriate NGT.
[2017-10-13] MEDS ORDERED: ALBUTEROL SULFATE HFA (90 MCG/PUFF) 200 PUFF/8.5 GM MDI IH PRN (10:27)
[2017-10-13] MEDS ORDERED: MORPHINE SULFATE 10 MG/ML INJ IV ONE (11:00)
[2017-10-13] MEDS: ENOXAPARIN SODIUM INJ 30 MG/0.3 ML DISP.SYRIN SUBCUT SCH (12:08)
[2017-10-13] MEDS: CARVEDILOL 12.5 MG TABLET PO SCH ×2 (12:08→21:23)
[2017-10-13] MEDS: TACROLIMUS ANHYDROUS 1 MG CAPSULE PO SCH ×2 (12:08→17:38)
[2017-10-13] MEDS: ASPIRIN 81 MG TABLET, CHEWABLE PO SCH (12:09)
[2017-10-13] MEDS: PANTOPRAZOLE SODIUM 40 MG VIAL IV SCH (12:09)
[2017-10-13] MEDS: METHYLPREDNISOLONE INJ 40 MG/1 ML SDV IV SCH (12:09)
[2017-10-13] MEDS: ONDANSETRON HCL INJ/PF 4 MG/2 ML SDV IV PRN (12:55)
[2017-10-13] MEDS: NIFEDIPINE 30 MG TAB.ER.24 PO SCH (12:58)
--- NOTE | 2017-10-13 14:07 | PDOC PROGRESS REPORT ---
Subjective Progress Note for:: 10/13/17 Subjective:: The patient is a 67-year-old female who has a history of end-stage renal disease. She is status post cadaveric renal transplant. She is maintained on prednisone and tacrolimus. She was admitted to the hospital with a small bowel obstruction. Her other comorbid conditions include COPD, gastro-esophageal reflux disease and tobacco abuse. Yesterday, the patient was given an enema. She had a very small stool. She has continued to have abdominal pain overnight but no vomiting. She is receiving clear liquids. I was able to speak to the patient's nephrology clinic in [facility]. Apparently, her baseline creatinine is 1.9, but, she has not had any recent evidence of hypercalcemia. Please note that her transplant was done in [place] in May 2015. Reason For Visit: SMALL BOWEL OBSTRUCTION Physical Exam Vital Signs: Temp Pulse Resp BP Pulse Ox 98.6 F 86 16 179/93 H 92 10/13/17 11:33 10/13/17 11:33 10/13/17 11:33 10/13/17 11:33 10/13/17 11:33 Intake & Output 10/12/17 10/13/17 10/14/17 06:59 06:59 06:59 Intake Total 3151 2382 Output Total 1400 3610 Balance 1751 -1228 Weight 53.2 kg 53.2 kg Additional comments: The patient was awake, alert and oriented this morning. She did not appear to be in any distress. She does not appear to be toxic. Her lungs are clear to auscultation bilaterally. Her cardiac exam is unremarkable with a regular rate and rhythm. Her abdomen is soft but diffusely tender. I did not appreciate bowel sounds today. The lower extremities are warm without any edema. The skin is warm, dry and intact without lesions or rashes. Results Laboratory Results: 10/12/17 06:12 10/13/17 05:09 10/13/17 05:09 Sodium 140.6 Potassium 3.4 L Chloride 101 Carbon Dioxide 31 H Anion Gap 9 BUN 25 H Creatinine 2.11 H Est GFR ( Amer) 28 L Est GFR (Non-Af Amer) 23 L Glucose 98 Calcium 10.3 H Impressions: Abdomen/Pelvis CT 10/08/17 17:58 IMPRESSION: Mildly dilated small bowel loops over the mid abdomen with inflammatory changes and trace free fluid, possible recurrent early small bowel obstruction. Abdomen X-Ray 10/12/17 00:00 IMPRESSION: Gaseous distension. Degree of small bowel distention in the upper abdomen looks progressive over the past 2 days. KUB X-Ray 10/12/17 17:15 IMPRESSION: Appropriate NGT. Assessment & Plan - Diagnosis (1) Krzck-ft-ytgshes kidney injury Qualifiers: Chronic kidney disease stage: stage 4 (severe) Is this a current diagnosis for this admission?: Yes Plan: Patient appears to be at her baseline which is about 1.9. Please note that these labs were from October 2016 at her outpatient carrot buncher office, Dr. Rodo Ferrer in [place]. I will continue fluids until she is eating well. (2) COPD (chronic obstructive pulmonary disease) Qualifiers: COPD type: emphysema Emphysema type: unspecified Qualified Code(s): J43.9 - Emphysema, unspecified Is this a current diagnosis for this admission?: Yes Plan: Stable. (3) GERD (gastroesophageal reflux disease) Qualifiers: Esophagitis presence: esophagitis presence not specified Qualified Code(s) : K21.9 - Gastro-esophageal reflux disease without esophagitis Is this a current diagnosis for this admission?: Yes Plan: We will begin IV PPI. Is not that she was taking Carafate as an outpatient. This is not recommended in folks with kidney disease. (4) Hypercalcemia Is this a current diagnosis for this admission?: Yes Plan: Continue IV fluids. Recently, the patient has not had mention of hypercalcemia in her outpatient carrot buncher's notes. I have ordered a PTH. Further workup may be required pending this result. Please note that the hypercalcemia could also be aggravating her ileus. (5) Renal transplant recipient Is this a current diagnosis for this admission?: Yes Plan: Prednisone has been changed to intravenous dosing. tacrolimus level is normal. (6) Small bowel obstruction Is this a current diagnosis for this admission?: Yes Plan: This is being managed by general surgery. - Time Time Spent with patient: 25-34 minutes - Inpatient Certification Medical Necessity: Need For IV Fluids, Need for Pain Control - Plan Summary Plan Summary: Additional time was spent tracking down outpatient records which took approximately 15 minutes in addition to the 15 minutes spent at the bedside with the patient discussing lab tests, etc.
[2017-10-13] MEDS ORDERED: ONDANSETRON 4 MG TAB.RAPDIS PO PRN (15:30)
[2017-10-13] MEDS ORDERED: ONDANSETRON HCL INJ/PF 4 MG/2 ML SDV IV PRN (15:30)
--- NOTE | 2017-10-13 16:03 | RADIOLOGY REPORT (SQ) ---
EXAM DESCRIPTION: UPPER GI/SM BOWEL COMPLETED DATE/TIME: 10/13/2017 3:38 pm REASON FOR STUDY: ABDOMINAL PAIN, NAUSEA, VOMITING R/O SBO COMPARISON: CT ABDOMEN PELVIS 10/08/2017, ABDOMINAL RADIOGRAPH 10/12/2017 TECHNIQUE: Under fluoroscopic guidance, water soluble contrast was instilled via of the existing NG catheter. Fluoroscopic spot images and routine radiographic images acquired and stored on PACS. Following evaluation of the stomach, additional barium administered with serial delayed abdominal rad iographs until colonic identification. Fluoroscopic images recorded of the terminal ileum. 12 MM BARIUM TABLET GIVEN: No. FLUOROSCOPY TIME: 2.6 minutes 16 fluoroscopy images saved to PACS. LIMITATIONS: None. FINDINGS: GASTRO-ESOPHAGEAL JUNCTION: Small sliding hiatal hernia identified with moderate gastroeso phageal reflux extending into the mid esophagus. STOMACH: Normal distention. Moderately thickened antral mucosal folds are identified. GASTRIC OUTLET: No significant delay in emptying. Normal pylorus. DUODENAL BULB: Normal distention. No spasm or ulceration. DUODENUM: Mucosa normal. No extrinsic masses or malrotation. Small duodenal diverticulum is noted. PROXIMAL SMALL BOWEL: Moderate dilatation. JEJUNUM: Normal mucosal pattern. Moderate dilatation. No segmentation, strictures or masses. ILEUM: Normal mucosal pattern. Moderate dilatation. No segmentation, strictures or masses. TERMINAL ILEUM AND ILEO-CECAL VALVE: Limited imaging due to delayed passage of contrast. No definite abnormality seen. PROXIMAL COLON: Incompletely imaged. No abnormality. TRANSIT TIME: Delayed small bowel transit. Trace amount of contrast begins to reach the colon at 6 hours. NON-GI TRACT STRUCTURES: No significant finding. OTHER: No other significant finding. IMPRESSION: 1. SMALL SLIDING HIATAL HERNIA. 2. MODERATE ESOPHAGEAL REFLUX. 3. MODERATE ANTRAL GASTRITIS. 4. SMALL DUODENAL DIVERTICULUM. 5. DIFFUSE MODERATELY DILATED BOWEL LOOPS THROUGHOUT THE ENTIRE SMALL BOWEL, WITH DELAYED SMALL HAFSA L TRANSIT. FINDINGS MOST CONSISTENT WITH ILEUS VERSUS SMALL BOWEL OBSTRUCTION. NO DEFINITE TRANSITIO N POINT OR STRICTURE IS IDENTIFIED. COMMENT: Quality ID [id number]: Final reports for procedures using fluoroscopy that document radiation exp osure indices, or exposure time and number of fluorographic images (if radiation exposure indices are not available) TECHNICAL DOCUMENTATION: JOB ID: [id number]- All Rights Reserved
[2017-10-13] MEDS ORDERED: KETOROLAC TROMETHAMINE INJ/PF 30 MG/1 ML SDV IV ONE (16:30)
[2017-10-13] MEDS: LORAZEPAM INJ 2 MG/1 ML VIAL IV PRN (21:24)
[2017-10-13] MEDS: MORPHINE SULFATE 10 MG/ML INJ IV PRN (22:25)
[2017-10-14 05:47] LABS: ABSOLUTE LYMPHOCYTES (AUTO) 0.7 10^3/uL (0.5-4.7); ABSOLUTE MONOCYTES (AUTO) 0.9 10^3/uL (0.1-1.4); ABSOLUTE NEUT (AUTO) 3.4 10^3/uL (1.7-8.2); BASOPHILS % (AUTO) 0.2 % (0-2); EOSINOPHILS % (AUTO) 0.3 % (0-6); HEMATOCRIT 40.6 % (36.0-47.0); HEMOGLOBIN 13.6 g/dL (12.0-15.5); LYMPHOCYTES % (AUTO) 14.5 % (13-45); MEAN CORPUSCULAR HEMOGLOBIN 31.2 pg (27.0-33.4); MEAN CORPUSCULAR HGB CONC 33.5 g/dL (32.0-36.0); MEAN CORPUSCULAR VOLUME 93 fl (80-97); MONOCYTES % (AUTO) 17.2 % (3-13); PLATELET COUNT 190 10^3/uL (150-450); RED BLOOD COUNT 4.36 10^6/uL (3.72-5.28); RED CELL DISTRIBUTION WIDTH 15.9 % (11.5-14.0); SEGMENTED NEUTROPHILS % (AUTO) 67.8 % (42-78); TOTAL CELLS COUNTED % (AUTO) 100 %
[2017-10-14 05:50] LABS: ANION GAP 11 (5-19); BLOOD UREA NITROGEN 33 mg/dL (7-20); CALCIUM 10.3 mg/dL (8.4-10.2); CARBON DIOXIDE 32 mmol/L (22-30); CHLORIDE 98 mmol/L (98-107); GLUCOSE 92 mg/dL (75-110); MAGNESIUM 2.5 mg/dL (1.6-2.3); POTASSIUM 3.4 mmol/L (3.6-5.0); SODIUM 140.8 mmol/L (137-145)
[2017-10-14] MEDS: IPRATROPIUM/ALBUTEROL 120 PUFF/4 GM MDI IH SCH ×4 (06:05→23:48)
[2017-10-14] MEDS: MORPHINE SULFATE 10 MG/ML INJ IV PRN ×3 (07:39→21:45)
[2017-10-14] MEDS: BENZOCAINE/MENTHOL SORE THROAT LOZENGE BUCCAL PRN ×2 (07:58→21:44)
[2017-10-14] MEDS: 1/2 NORMAL SALINE 1,000 ML IV PRN (07:58)
[2017-10-14] MEDS: PANTOPRAZOLE SODIUM 40 MG VIAL IV SCH (09:35)
[2017-10-14] MEDS: ENOXAPARIN SODIUM INJ 30 MG/0.3 ML DISP.SYRIN SUBCUT SCH (09:35)
[2017-10-14] MEDS: METHYLPREDNISOLONE INJ 40 MG/1 ML SDV IV SCH (09:36)
[2017-10-14] MEDS: CARVEDILOL 12.5 MG TABLET PO SCH ×2 (09:36→21:45)
[2017-10-14] MEDS: ASPIRIN 81 MG TABLET, CHEWABLE PO SCH (09:37)
[2017-10-14] MEDS: TACROLIMUS ANHYDROUS 1 MG CAPSULE PO SCH ×2 (09:37→17:56)
[2017-10-14] MEDS: NIFEDIPINE 30 MG TAB.ER.24 PO SCH (09:37)
[2017-10-14] MEDS ORDERED: LIDOCAINE 1% INJ-PF (10 MG/ML) 30 ML SDV ONE (10:40)
[2017-10-14] MEDS ORDERED: DEXTROSE 50%-WATER SYRINGE 12.5 GM/25 ML DOSE IV PRN (12:24)
[2017-10-14] MEDS ORDERED: DEXTROSE 50%-WATER SYRINGE 25 GM/50 ML DOSE IV PRN (12:24)
[2017-10-14] MEDS ORDERED: DEXTROSE 40% GEL 15 GM TUBE X 2 PO PRN (12:24)
[2017-10-14] MEDS ORDERED: DEXTROSE 40% GEL 15 GM TUBE PO PRN (12:24)
[2017-10-14] MEDS ORDERED: INSULIN REG, HUMAN 100 UNIT/ML 3 ML VIAL (PYX) SUBCUT PRN (12:24)
[2017-10-14] MEDS ORDERED: GLUCAGON,HUMAN RECOMB 1 MG INJ IM PRN (12:24)
[2017-10-14] MEDS ORDERED: DEXTROSE 10%-WATER 1,000 ML IV PRN (12:24)
[2017-10-14] MEDS ORDERED: AMINO ACIDS 5%/D25W 1,000 ML IV PRN ×2 (12:24→18:00)
--- NOTE | 2017-10-14 12:30 | RADIOLOGY REPORT (SQ) ---
EXAM DESCRIPTION: CHEST SINGLE VIEW COMPLETED DATE/TIME: 10/14/2017 12:18 pm REASON FOR STUDY: central line placement COMPARISON: June 2017 EXAM PARAMETERS: NUMBER OF VIEWS: One view. TECHNIQUE: Single frontal radiographic view of the chest acquired. RADIATION DOSE: NA LIMITATIONS: None. FINDINGS: LUNGS AND PLEURA: Minimal linear density is identified in the left lung base which could r epresent subsegmental atelectasis or scarring. There is some minimal blunting of the left costophren ic angle which could represent pleural reaction or tiny pleural effusion. Remaining lung osorio are clear. No pneumothorax is seen. MEDIASTINUM AND HILAR STRUCTURES: No masses. Contour normal. HEART AND VASCULAR STRUCTURES: The configuration of the heart and mediastinal structures is unchanged . BONES: No acute findings. HARDWARE: Central line is identified with its tip overlying the medial right lung apex which presumab ly is within the internal jugular vein however clinical correlation is recommended. NG tube is seen in course to the abdomen and is identified in the left upper quadrant. OTHER: No other significant finding. IMPRESSION: Central line with its tip overlying the medial right lung apex as noted above which pres umably is within the internal jugular vein however clinical correlation is recommended. Pneumothorax is seen. Other findings as noted above TECHNICAL DOCUMENTATION: JOB ID: [id number] [employer]- All Rights Reserved
--- NOTE | 2017-10-14 12:58 | OPERATIVE REPORT E ---
Operative Report NAME: DEVANTE PIERSON : 1950 AGE: 67Y DATE OF SURGERY: 10/14/2017 ROOM: 533 PREOPERATIVE DIAGNOSIS: POOR VEINS FOR IV ACCESS AND NEEDED TPN LINE. POSTOPERATIVE DIAGNOSIS: POOR VEINS FOR IV ACCESS AND NEEDED TPN LINE. OPERATION: Placement of right subclavian vein triple-lumen catheter. SURGEON: KM MEEK M.D. ANESTHESIA: Local. INDICATIONS: This is a 67-year-old female with a history of previous bowel obstruction operated on about 3-1/2 months ago. Patient came back about 6 days ago with abdominal pains and evidence of bowel obstruction. A G-tube was placed and patient started to be fed with clear liquids. Unfortunately, patient again complained of nausea and vomiting, and subsequent x-ray showed dilated small bowel loops. A Gastrografin small bowel follow-through was done yesterday, which showed ileus versus small bowel obstruction, but no evidence of stricture or transition site noted. Patient still does not have any flatus and the NG tube is still draining moderate amounts; therefore, patient still needed an NG tube. It has been about 7 days since she has taken any food and therefore needed a TPN. PROCEDURE: The left neck was then prepped and draped in the usual sterile fashion. The left subclavian vein was punctured, after local anesthesia infiltrated. However, the guidewire could only be placed a distance of about 10 cm; it could not be further advanced. Because of this, with the use of the ultrasound, the left internal jugular vein was attempted to be localized. Unfortunately, there was not any good-sized internal jugular vein. Attempt was then to percutaneously place a catheter, but was not successful. Because of this, the right side this time was then prepped and draped in the usual sterile fashion, using a new set of dressings and triple-lumen catheter. With the use of the ultrasound, the right internal jugular vein was also noted to be quite small and able to be definitely identified. Because of this, the right subclavian vein was utilized. Next, local anesthesia infiltrated the right infraclavicular area, and the right subclavian vein punctured. Guidewire passed through the needle to a distance of less than 20 cm. The entry site was then dilated and a triple-lumen catheter inserted through the guidewire to a distance of about 15 cm. Two distal ports could easily be aspirated of blood and easily injected saline solution. However, the most proximal port unable to aspirate blood. Because of this, nurses were informed not to use the proximal port. Next, the catheter was then anchored to the skin with 3-0 silk. A Biopatch was placed at the entry site and a transparent dressing placed over the Biopatch and catheter. A chest x-ray will be obtained for placement. Just a note, the patient did have a history of dialysis and had a kidney transplant 2-1/2 years ago. This may account for the difficulty placing a catheter through the neck and through the subclavian veins. DICTATING PHYSICIAN: KM MEEK M.D. [id number] PHY#: [id number] ID: [id number] JOB#: [id number] ACCT: [id number] cc:KM MEEK M.D. >
--- NOTE | 2017-10-14 14:22 | PDOC PROGRESS REPORT ---
Subjective Progress Note for:: 10/14/17 Subjective:: Patient continues to have abdominal pain No vomiting NG tube is still in place on low intermittent suction She has no fever no chills Reason For Visit: SMALL BOWEL OBSTRUCTION Physical Exam Vital Signs: Temp Pulse Resp BP Pulse Ox 99.0 F 87 18 136/78 H 93 10/14/17 08:46 10/14/17 08:46 10/14/17 08:46 10/14/17 08:46 10/14/17 08:46 Intake & Output 10/13/17 10/14/17 10/15/17 00:59 00:59 00:59 Intake Total 2382 881 1243 Output Total 2700 910 400 Balance -318 -29 843 Weight 53.2 kg 53.2 kg 53.2 kg Patient does not look acutely ill; she is in no respiratory distress She is alert and awake pupils are PERRLA extraocular motor intact Neck supple Heart regular rhythm Lungs are clear Abdomen is diffusely tender without guarding rebound Results Laboratory Results: 10/14/17 04:26 10/14/17 04:26 10/14/17 10/14/17 04:26 04:26 WBC 5.0 RBC 4.36 Hgb 13.6 Hct 40.6 MCV 93 MCH 31.2 MCHC 33.5 RDW 15.9 H Plt Count 190 Seg Neutrophils % 67.8 Lymphocytes % 14.5 Monocytes % 17.2 H Eosinophils % 0.3 Basophils % 0.2 Absolute Neutrophils 3.4 Absolute Lymphocytes 0.7 Absolute Monocytes 0.9 Absolute Eosinophils 0.0 Absolute Basophils 0.0 Sodium 140.8 Potassium 3.4 L Chloride 98 Carbon Dioxide 32 H Anion Gap 11 BUN 33 H Creatinine 2.53 H Est GFR ( Amer) 23 L Est GFR (Non-Af Amer) 19 L Glucose 92 Calcium 10.3 H Magnesium 2.5 H Impressions: Abdomen/Pelvis CT 10/08/17 17:58 IMPRESSION: Mildly dilated small bowel loops over the mid abdomen with inflammatory changes and trace free fluid, possible recurrent early small bowel obstruction. Abdomen X-Ray 10/12/17 00:00 IMPRESSION: Gaseous distension. Degree of small bowel distention in the upper abdomen looks progressive over the past 2 days. KUB X-Ray 10/12/17 17:15 IMPRESSION: Appropriate NGT. Upper GI and Small Bowel X-Ray 10/13/17 00:00 IMPRESSION: 1. SMALL SLIDING HIATAL HERNIA. 2. MODERATE ESOPHAGEAL REFLUX. 3. MODERATE ANTRAL GASTRITIS. 4. SMALL DUODENAL DIVERTICULUM. 5. DIFFUSE MODERATELY DILATED BOWEL LOOPS THROUGHOUT THE ENTIRE SMALL BOWEL, WITH DELAYED SMALL BOWEL TRANSIT. FINDINGS MOST CONSISTENT WITH ILEUS VERSUS SMALL BOWEL OBSTRUCTION. NO DEFINITE TRANSITION POINT OR STRICTURE IS IDENTIFIED. Chest X-Ray 10/14/17 00:00 IMPRESSION: Central line with its tip overlying the medial right lung apex as noted above which presumably is within the internal jugular vein however clinical correlation is recommended. Pneumothorax is seen. Other findings as noted above Assessment & Plan - Diagnosis (1) Small bowel obstruction Is this a current diagnosis for this admission?: Yes (2) Fhtvn-mf-mgxuvva kidney injury Qualifiers: Chronic kidney disease stage: stage 4 (severe) Is this a current diagnosis for this admission?: Yes (3) Renal transplant recipient Is this a current diagnosis for this admission?: Yes (4) Hypercalcemia Is this a current diagnosis for this admission?: Yes (5) COPD (chronic obstructive pulmonary disease) Qualifiers: COPD type: emphysema Emphysema type: unspecified Qualified Code(s): J43.9 - Emphysema, unspecified Is this a current diagnosis for this admission?: Yes (6) Full code status Is this a current diagnosis for this admission?: Yes (7) GERD (gastroesophageal reflux disease) Qualifiers: Esophagitis presence: esophagitis presence not specified Qualified Code(s) : K21.9 - Gastro-esophageal reflux disease without esophagitis Is this a current diagnosis for this admission?: Yes - Time Time Spent with patient: 25-34 minutes - Plan Summary Plan Summary: Continue NG suction Continue IV fluids Follow-up renal function in am; will repeat KUB in a.m. Continue prior management
[2017-10-14] MEDS ORDERED: NORMAL SALINE 1000 ML 1,000 ML IV PRN (14:54)
[2017-10-14] MEDS ORDERED: POTASSI CL 20 MEQ/50 ML RIDER 20 MEQ/50 ML RTUPB IV ONE (15:00)
[2017-10-14] MEDS ORDERED: NORMAL SALINE 1000 ML 1,000 ML with POTASSIUM CHLORIDE 20 MEQ IV PRN ×2 (15:10)
--- NOTE | 2017-10-14 15:16 | PDOC CONSULTATION ---
Consultation Consult Date: 10/14/17 Consult reason:: Acute on chronic kidney disease in the setting of renal transplant. History of Present Illness Admission Date/PCP: 10/08/17 22:25 History of Present Illness: DEVANTE PIERSON is a 67 year old female with a past medical history of end- stage renal disease status post cadaveric kidney transplant in 2014 on chronic immunosuppressive therapy, coronary artery disease, GERD, COPD who presented with a 2 day history of abdominal pain. States the pain began on 05 October and she was here on the . She states her last bowel movement was around the . She reports diffuse overall abdominal pain that radiated around both sides to her back bilaterally. Approximately 3 months ago patient was admitted for bowel obstruction and incarcerated hernia requiring lysis of adhesion and reduction of internal hernia. Patient admits to significant constipation and had an unsatisfying bowel movement without hematochezia or melena approximately 2 days ago. Patient denies hematemesis or hematochezia. She gives a history of claudication affecting her left lower extremity with an effort tolerance of approximately 200 yards. She used to smoke half a pack a day and has been a heavy smoker in the past. Currently she has been on conservative management for apparent small bowel obstruction. She has an NG tube. She says she is not a whole lot better than when she came in. She is not moving any flatus. She is about to be begun on TPN now by the surgeons. Her baseline creatinine has been 1.3-1.5 and it is advanced now to 2.5 as of today. She was on prednisone 5 mg and tacrolimus as immunosuppressive therapy for her transplant. Past Medical History Cardiac Medical History: Reports: Atrial Fibrillation, Coronary Artery Disease, Hyperlipidemia, Hypertension-primary, Myocardial Infarction Denies: Heart Murmur Pulmonary Medical History: Reports: Chronic Obstructive Pulmonary Disease (COPD) Denies: Tuberculosis Neurological Medical History: Denies: Seizures Renal/ Medical History: Reports: Chronic Kidney Disease Stage III, End Stage Renal Disease, Renal Transplant Denies: Benign Prostatic Hyperplasia Malignancy Medical History: GI Medical History: Reports: Gastroesophageal Reflux Disease Denies: Hiatal Hernia Psychiatric Medical History: Denies: Bipolar Disorder, Depression Infectious Medical History: Past Surgical History Past Surgical History: Reports: Cardiac Catheterization, Coronary Stent - 2003, Renal Transplant, Tubal Ligation, Other - Valvuloplasty [facility] February 2017 multiple upper extremi Denies: Appendectomy, Section, Cholecystectomy, Hysterectomy, Mastectomy, Tonsillectomy Social History Smoking Status: Current Every Day Smoker Cigarettes Packs Per Day: 10 Number of Years Smokin Frequency of Alcohol Use: Occasional Hx Recreational Drug Use: No Drugs: None Hx Prescription Drug Abuse: No - Advance Directive Resuscitation Status: Full Code Family History Parental Family History Reviewed: Yes - Negative for ESRD Children Family History Reviewed: No Sibling(s) Family History Reviewed.: No Medication/Allergy Home Medications: Albuterol Sulfate [Ventolin 0.083% Neb 2.5 mg/3 ml Ampul] 1 vial NEB [id number] PRN 10/09/17 Aspirin [Aspirin 81 mg Chewable Tablet] 81 mg PO DAILY 10/09/17 Atorvastatin Calcium [Lipitor 20 mg Tablet] 20 mg PO QHS 10/09/17 Carvedilol [Coreg 12.5 mg Tablet] 25 mg PO Q12 10/09/17 Ergocalciferol (Vitamin D2) [Drisdol 50,000 Unit (1.25MG) Capsule] 50,000 unit PO SCHAEFFER@1000 10/09/17 Furosemide [Lasix 40 mg Tablet] 40 mg PO BID 10/09/17 Nifedipine [Procardia Xl 30 mg Tablet] 30 mg PO DAILY 10/09/17 Nitroglycerin [Nitrostat 0.4 mg (1/150 Gr) Tabs 25/Bottle] 1 tab SL Q5MP PRN Potassium Chloride [Klor-Con 10 Meq Tablet.sa] 20 meq PO DAILY 10/09/17 Prednisone [Deltasone 5 mg Tablet] 5 mg PO DAILY 10/09/17 Ranitidine HCl [Zantac] 150 mg PO QHS 10/09/17 Tacrolimus Anhydrous [Prograf 1 Mg Capsule] 2 mg PO Q12 10/09/17 Allergies/Adverse Reactions: lisinopril [Lisinopril] Allergy (Verified 06/19/17 07:31) ibuprofen [From Advil] Adverse Reaction (Verified 10/13/17 15:04) Review of Systems Constitutional: ABSENT: fever(s), headache(s), night sweats, weakness Nose, Mouth, and Throat: ABSENT: mouth pain, sore throat Cardiovascular: ABSENT: dyspnea on exertion, edema, orthropnea, palpitations Gastrointestinal: PRESENT: abdominal pain, bloating, constipation, nausea, vomiting. ABSENT: diarrhea, dysphagia, heartburn, hematemesis, hematochezia, melena Integumentary: ABSENT: lesions, pruritus Neurological: ABSENT: abnormal gait, abnormal speech, confusion, convulsions, dizziness, focal weakness Hematologic/Lymphatic: ABSENT: easy bruising, lymphadenopathy Physical Exam Vital Signs: Temp Pulse Resp BP Pulse Ox 99.0 F 87 18 136/78 H 93 10/14/17 08:46 10/14/17 08:46 10/14/17 08:46 10/14/17 08:46 10/14/17 08:46 Intake & Output 10/13/17 10/14/17 10/15/17 06:59 06:59 06:59 Intake Total 2382 2124 Output Total 3610 400 Balance -1228 1724 Weight 53.2 kg 53.2 kg General appearance: PRESENT: mild distress Eye exam: PRESENT: conjunctiva pink, EOMI, PERRLA. ABSENT: nystagmus Mouth exam: PRESENT: neck supple. ABSENT: moist Neck exam: ABSENT: lymphadenopathy, meningismus, tenderness, thyromegaly, tracheal deviation Respiratory exam: PRESENT: clear to auscultation kat. ABSENT: crackles Cardiovascular exam: PRESENT: +S1, +S2 GI/Abdominal exam: PRESENT: soft, tenderness. ABSENT: diminished bowel sounds - To being absent, organomegaly, rebound Extremities exam: ABSENT: pedal edema Neurological exam: PRESENT: alert, awake, oriented to person, oriented to place Skin exam: PRESENT: dry. ABSENT: erythema, mottled Results Laboratory Results: 10/14/17 04:26 10/14/17 04:26 10/14/17 10/14/17 04:26 04:26 WBC 5.0 RBC 4.36 Hgb 13.6 Hct 40.6 MCV 93 MCH 31.2 MCHC 33.5 RDW 15.9 H Plt Count 190 Seg Neutrophils % 67.8 Lymphocytes % 14.5 Monocytes % 17.2 H Eosinophils % 0.3 Basophils % 0.2 Absolute Neutrophils 3.4 Absolute Lymphocytes 0.7 Absolute Monocytes 0.9 Absolute Eosinophils 0.0 Absolute Basophils 0.0 Sodium 140.8 Potassium 3.4 L Chloride 98 Carbon Dioxide 32 H Anion Gap 11 BUN 33 H Creatinine 2.53 H Est GFR ( Amer) 23 L Est GFR (Non-Af Amer) 19 L Glucose 92 Calcium 10.3 H Magnesium 2.5 H Impressions: Abdomen/Pelvis CT 10/08/17 17:58 IMPRESSION: Mildly dilated small bowel loops over the mid abdomen with inflammatory changes and trace free fluid, possible recurrent early small bowel obstruction. Abdomen X-Ray 10/12/17 00:00 IMPRESSION: Gaseous distension. Degree of small bowel distention in the upper abdomen looks progressive over the past 2 days. KUB X-Ray 10/12/17 17:15 IMPRESSION: Appropriate NGT. Upper GI and Small Bowel X-Ray 10/13/17 00:00 IMPRESSION: 1. SMALL SLIDING HIATAL HERNIA. 2. MODERATE ESOPHAGEAL REFLUX. 3. MODERATE ANTRAL GASTRITIS. 4. SMALL DUODENAL DIVERTICULUM. 5. DIFFUSE MODERATELY DILATED BOWEL LOOPS THROUGHOUT THE ENTIRE SMALL BOWEL, WITH DELAYED SMALL BOWEL TRANSIT. FINDINGS MOST CONSISTENT WITH ILEUS VERSUS SMALL BOWEL OBSTRUCTION. NO DEFINITE TRANSITION POINT OR STRICTURE IS IDENTIFIED. Chest X-Ray 10/14/17 00:00 IMPRESSION: Central line with its tip overlying the medial right lung apex as noted above which presumably is within the internal jugular vein however clinical correlation is recommended. Pneumothorax is seen. Other findings as noted above Assessment & Plan - Diagnosis (1) [id number] kidney injury Qualifiers: Chronic kidney disease stage: stage 4 (severe) Is this a current diagnosis for this admission?: Yes Plan: Factorial including dehydration, bowel obstruction. Would convert fluids to normal saline with addition of potassium chloride to it and continue on vigorous hydration. The patient is a vasculopath and she has all features suggestive of possible underlying ischemia of the bowels which could be another factor to consider the etiology of her bowel obstruction. Doubt if renal artery on the transplanted kidney is involved but that will had to be entertained as well. (2) Hypokalemia Plan: Suggest adequate replacement. Currently patient is on a potassium rider. However I would add at least 20 mg of potassium to her normal saline is going to be starting now and then at least the same to daily fluid regimen. Besides that adjustments can be done on the potassium in her TPN that is going to be started soon. It is unlikely that hypokalemia is the primary etiology of her bowel obstruction but this could apparently continue to worsen recovery from the obstruction. Therefore it is imperative that the likely disturbances as such is corrected. (3) Small bowel obstruction Is this a current diagnosis for this admission?: Yes Plan: As per surgeons. It is possible that patient has adhesions that was detected recently during her abdominal hernia surgery as as a causative I discussed with her about that possibility. However given her worsening renal function she is not an ideal candidate for any form of angiogram to detect an diagnosis of eccentric ischemia. Factor. However one would also consider the possibility of vascular ischemia given her history of long-standing ESRD on dialysis, renal osteodystrophy, chronic heavy smoker with history of multiple vascular lesions including coronary artery disease and lower extremity disease as explained by her present active claudication, which would lead to possible ESRD and need for dialysis given her present acute on chronic kidney disease status. I am unaware if a CO2 angiogram could be done on patients like this at a tertiary care center. If that is available then that would be an option to be definitely entertained. (4) Hypercalcemia Is this a current diagnosis for this admission?: Yes Plan: Likely from dehydration. Hypercalcemia is been corrected with her current limits. However we will order an intact PTH rather than a PTH RP as has been ordered. (5) Renal transplant recipient Is this a current diagnosis for this admission?: Yes Plan: Continue on prednisone/tacrolimus. We will check a tacrolimus levels on her. (6) Smoker Is this a current diagnosis for this admission?: Yes Plan: Discussed this is active etiology for her vasculopathy. Advised on cessation of smoking. (7) Peripheral artery disease Plan: Is gone lower extremity active claudication of approximately 200 yards. Currently no indications for interventions. She needs to stop smoking. Patient apparently on aspirin.
[2017-10-14] MEDS: POTASSI CL 20 MEQ/NS 1L 1000 ML IV PRN ×2 (15:26→22:32)
[2017-10-14 18:11] LABS: PHOSPHORUS 3.9 mg/dL (2.5-4.5); POTASSIUM 3.6 mmol/L (3.6-5.0); SODIUM 137.3 mmol/L (137-145)
[2017-10-14 18:18] LABS: PREALBUMIN 23.1 mg/dL (17.6-36.0)
[2017-10-14] MEDS: LORAZEPAM INJ 2 MG/1 ML VIAL IV PRN (23:48)
--- NOTE | 2017-10-15 00:03 | PDOC PROGRESS REPORT ---
Subjective Progress Note for:: 10/14/17 Subjective:: no pains. Reason For Visit: SMALL BOWEL OBSTRUCTION Physical Exam Vital Signs: Temp Pulse Resp BP Pulse Ox 98.3 F 77 16 151/63 H 93 10/14/17 15:44 10/14/17 15:44 10/14/17 15:44 10/14/17 15:44 10/14/17 15:44 Intake & Output 10/13/17 10/14/17 10/15/17 06:59 06:59 06:59 Intake Total 2382 2124 1576 Output Total 3610 400 Balance -1228 1724 1576 Weight 53.2 kg 53.2 kg Exam: NGT still with considerable drainage but decreasing. Patient taking ice chips po. Some of the NGT drainage due to dissoled ice chips No Flatus Abdomen remains soft, mildly distended. Started TPN but c/o a lot of pains CVP site. Possible extravasation. TPN stopped and CVP pulled out to hopefully prevent infection. Possible D/C NGT tomorrow . Hopefully bowel function improves. Difficult to place another central line since she claims had dialysis catheters placed on both subclavian veins and internal jugular veins. Results Laboratory Results: 10/14/17 04:26 10/14/17 17:36 10/14/17 10/14/17 10/14/17 04:26 04:26 17:36 WBC 5.0 RBC 4.36 Hgb 13.6 Hct 40.6 MCV 93 MCH 31.2 MCHC 33.5 RDW 15.9 H Plt Count 190 Seg Neutrophils % 67.8 Lymphocytes % 14.5 Monocytes % 17.2 H Eosinophils % 0.3 Basophils % 0.2 Absolute Neutrophils 3.4 Absolute Lymphocytes 0.7 Absolute Monocytes 0.9 Absolute Eosinophils 0.0 Absolute Basophils 0.0 Sodium 140.8 Potassium 3.4 L Chloride 98 Carbon Dioxide 32 H Anion Gap 11 BUN 33 H Creatinine 2.53 H Est GFR ( Amer) 23 L Est GFR (Non-Af Amer) 19 L Glucose 92 Calcium 10.3 H Phosphorus Magnesium 2.5 H Prealbumin Triglycerides PTH Intact 921.9 H 10/14/17 17:36 WBC RBC Hgb Hct MCV MCH MCHC RDW Plt Count Seg Neutrophils % Lymphocytes % Monocytes % Eosinophils % Basophils % Absolute Neutrophils Absolute Lymphocytes Absolute Monocytes Absolute Eosinophils Absolute Basophils Sodium 137.3 Potassium 3.6 Chloride 95 L Carbon Dioxide 33 H Anion Gap 9 BUN Creatinine Est GFR ( Amer) Est GFR (Non-Af Amer) Glucose Calcium Phosphorus 3.9 Magnesium Prealbumin 23.1 Triglycerides 102 PTH Intact Impressions: Abdomen/Pelvis CT 10/08/17 17:58 IMPRESSION: Mildly dilated small bowel loops over the mid abdomen with inflammatory changes and trace free fluid, possible recurrent early small bowel obstruction. Abdomen X-Ray 10/12/17 00:00 IMPRESSION: Gaseous distension. Degree of small bowel distention in the upper abdomen looks progressive over the past 2 days. KUB X-Ray 10/12/17 17:15 IMPRESSION: Appropriate NGT. Upper GI and Small Bowel X-Ray 10/13/17 00:00 IMPRESSION: 1. SMALL SLIDING HIATAL HERNIA. 2. MODERATE ESOPHAGEAL REFLUX. 3. MODERATE ANTRAL GASTRITIS. 4. SMALL DUODENAL DIVERTICULUM. 5. DIFFUSE MODERATELY DILATED BOWEL LOOPS THROUGHOUT THE ENTIRE SMALL BOWEL, WITH DELAYED SMALL BOWEL TRANSIT. FINDINGS MOST CONSISTENT WITH ILEUS VERSUS SMALL BOWEL OBSTRUCTION. NO DEFINITE TRANSITION POINT OR STRICTURE IS IDENTIFIED. Chest X-Ray 10/14/17 00:00 IMPRESSION: Central line with its tip overlying the medial right lung apex as noted above which presumably is within the internal jugular vein however clinical correlation is recommended. Pneumothorax is seen. Other findings as noted above Assessment & Plan - Diagnosis (1) Subclavian vein occlusion, left Is this a current diagnosis for this admission?: Yes (2) Subclavian vein occlusion, right Is this a current diagnosis for this admission?: Yes - Time Time Spent with patient: 15-24 minutes - Inpatient Certification Medical Necessity: Significant Comorbidiites Make Outpatient Treatment Too Risky , Need Close Monitoring Due to Risk of Patient Decompensation, Need For IV Fluids, Risk of Complication if Not Cared For in Hospital - Plan Summary Plan Summary: Check CBC,BMP in am Continue NGT and Fluids D/C TPN. Rt subclavian vein catheter pulled due to occlusion/extravasation Seen by Nephrology and recmendations noted. Unfortunately, unable to place a good central line for TPN. Hopefully, her bowel functions are improving. She did not have much abdominal pains today and NGT drainage has decreased. Some of NGT drainage due to dissolved ice chips.
[2017-10-15 04:23] LABS: ABSOLUTE LYMPHOCYTES (AUTO) 0.6 10^3/uL (0.5-4.7); ABSOLUTE MONOCYTES (AUTO) 0.8 10^3/uL (0.1-1.4); ABSOLUTE NEUT (AUTO) 3.7 10^3/uL (1.7-8.2); BASOPHILS % (AUTO) 0.1 % (0-2); HEMATOCRIT 36.3 % (36.0-47.0); HEMOGLOBIN 12.1 g/dL (12.0-15.5); LYMPHOCYTES % (AUTO) 11.4 % (13-45); MEAN CORPUSCULAR HEMOGLOBIN 31.5 pg (27.0-33.4); MEAN CORPUSCULAR HGB CONC 33.3 g/dL (32.0-36.0); MEAN CORPUSCULAR VOLUME 94 fl (80-97); MONOCYTES % (AUTO) 15.7 % (3-13); PLATELET COUNT 174 10^3/uL (150-450); RED BLOOD COUNT 3.84 10^6/uL (3.72-5.28); SEGMENTED NEUTROPHILS % (AUTO) 72.8 % (42-78); TOTAL CELLS COUNTED % (AUTO) 100 %; WHITE BLOOD COUNT 5.1 10^3/uL (4.0-10.5)
[2017-10-15 04:40] LABS: ANION GAP 9 (5-19); BLOOD UREA NITROGEN 32 mg/dL (7-20); CALCIUM 9.3 mg/dL (8.4-10.2); CARBON DIOXIDE 31 mmol/L (22-30); CHLORIDE 103 mmol/L (98-107); GLUCOSE 86 mg/dL (75-110); POTASSIUM 3.7 mmol/L (3.6-5.0); SODIUM 142.7 mmol/L (137-145)
[2017-10-15] MEDS: IPRATROPIUM/ALBUTEROL 120 PUFF/4 GM MDI IH SCH ×3 (05:55→22:10)
[2017-10-15] MEDS: BENZOCAINE/MENTHOL SORE THROAT LOZENGE BUCCAL PRN ×2 (05:55→10:17)
[2017-10-15] MEDS: POTASSI CL 20 MEQ/NS 1L 1000 ML IV PRN ×3 (05:55→21:10)
[2017-10-15] MEDS: MORPHINE SULFATE 10 MG/ML INJ IV PRN ×2 (07:19→21:23)
--- NOTE | 2017-10-15 08:14 | RADIOLOGY REPORT (SQ) ---
EXAM DESCRIPTION: ABDOMEN 2 VIEWS COMPLETED DATE/TIME: 10/15/2017 7:56 am REASON FOR STUDY: sbo COMPARISON: 10/12/2017 NUMBER OF VIEWS: Two views. TECHNIQUE: Supine and erect/decubitus radiographic images of the abdomen acquired. LIMITATIONS: None. FINDINGS: FREE AIR: None. No abnormal gas collections. LUNG BASES: Clear. BOWEL GAS PATTERN: Small bowel obstruction. No improvement. Contrast seen through the small bowel a nd minimally into the colon. Colon is decompressed. CALCIFICATIONS: No suspicious calcifications. SOFT TISSUES: No gross mass or suggestion of organomegaly. HARDWARE: None in the abdomen. BONES: No acute fracture. No worrisome bone lesions. OTHER: No other significant finding. IMPRESSION: No improvement in the high-grade partial small bowel obstruction. TECHNICAL DOCUMENTATION: JOB ID: [id number] [email or web address]- All Rights Reserved
--- NOTE | 2017-10-15 09:13 | PDOC PROGRESS REPORT ---
Subjective Progress Note for:: 10/15/17 Subjective:: Not passing any gas. Mild abdominal discomfort. Patient states that she has not passed any gas or had a bowel movement in a week Reason For Visit: SMALL BOWEL OBSTRUCTION Physical Exam Vital Signs: Temp Pulse Resp BP Pulse Ox 98.7 F 81 17 123/72 94 10/15/17 08:00 10/15/17 08:00 10/15/17 08:00 10/15/17 08:00 10/15/17 08:00 Intake & Output 10/14/17 10/15/17 10/16/17 06:59 06:59 06:59 Intake Total 2124 3260 Output Total 400 1450 Balance 1724 1810 Weight 53.2 kg 53.2 kg General appearance: PRESENT: no acute distress, cooperative Respiratory exam: PRESENT: clear to auscultation kat Cardiovascular exam: PRESENT: RRR GI/Abdominal exam: PRESENT: other - Moderately distended, soft, nontender to palpation. Intermittent high-pitched bowel sounds heard. Extremities exam: PRESENT: other - No swelling Results Laboratory Results: 10/15/17 04:11 10/15/17 04:11 10/14/17 10/14/17 10/15/17 17:36 17:36 04:11 WBC 5.1 RBC 3.84 Hgb 12.1 Hct 36.3 MCV 94 MCH 31.5 MCHC 33.3 RDW 16.0 H Plt Count 174 Seg Neutrophils % 72.8 Lymphocytes % 11.4 L Monocytes % 15.7 H Eosinophils % 0.0 Basophils % 0.1 Absolute Neutrophils 3.7 Absolute Lymphocytes 0.6 Absolute Monocytes 0.8 Absolute Eosinophils 0.0 Absolute Basophils 0.0 Sodium 137.3 Potassium 3.6 Chloride 95 L Carbon Dioxide 33 H Anion Gap 9 BUN Creatinine Est GFR ( Amer) Est GFR (Non-Af Amer) Glucose Calcium Phosphorus 3.9 Prealbumin 23.1 Triglycerides 102 PTH Intact 921.9 H 10/15/17 04:11 WBC RBC Hgb Hct MCV MCH MCHC RDW Plt Count Seg Neutrophils % Lymphocytes % Monocytes % Eosinophils % Basophils % Absolute Neutrophils Absolute Lymphocytes Absolute Monocytes Absolute Eosinophils Absolute Basophils Sodium 142.7 Potassium 3.7 Chloride 103 Carbon Dioxide 31 H Anion Gap 9 BUN 32 H Creatinine 2.08 H Est GFR ( Amer) 29 L Est GFR (Non-Af Amer) 24 L Glucose 86 Calcium 9.3 Phosphorus Prealbumin Triglycerides PTH Intact Impressions: Abdomen/Pelvis CT 10/08/17 17:58 IMPRESSION: Mildly dilated small bowel loops over the mid abdomen with inflammatory changes and trace free fluid, possible recurrent early small bowel obstruction. KUB X-Ray 10/12/17 17:15 IMPRESSION: Appropriate NGT. Upper GI and Small Bowel X-Ray 10/13/17 00:00 IMPRESSION: 1. SMALL SLIDING HIATAL HERNIA. 2. MODERATE ESOPHAGEAL REFLUX. 3. MODERATE ANTRAL GASTRITIS. 4. SMALL DUODENAL DIVERTICULUM. 5. DIFFUSE MODERATELY DILATED BOWEL LOOPS THROUGHOUT THE ENTIRE SMALL BOWEL, WITH DELAYED SMALL BOWEL TRANSIT. FINDINGS MOST CONSISTENT WITH ILEUS VERSUS SMALL BOWEL OBSTRUCTION. NO DEFINITE TRANSITION POINT OR STRICTURE IS IDENTIFIED. Chest X-Ray 10/14/17 00:00 IMPRESSION: Central line with its tip overlying the medial right lung apex as noted above which presumably is within the internal jugular vein however clinical correlation is recommended. Pneumothorax is seen. Other findings as noted above Abdomen X-Ray 10/15/17 00:00 IMPRESSION: No improvement in the high-grade partial small bowel obstruction. Assessment & Plan - Diagnosis (1) Small bowel obstruction Is this a current diagnosis for this admission?: Yes Plan: Patient still does not have good bowel function and KUB is suggestive of small bowel obstruction still. We have given her sufficient time with conservative management without improvement. We will plan exploratory laparotomy, possible bowel resection. I have discussed with the patient the risk and benefits of the surgery including risk of mistaken diagnosis, infection, bleeding, adjacent organ injury, heart lung risk, poor healing, renal injury. Patient understands and agrees to proceed. Patient has been receiving p.o. Prograf. Her last level several days ago was okay. Most recent level will not be available for several days. I will switch her over to sublingual Prograf 1.5 mg twice daily. Of note chest x-ray final impression appears to be a miss dictation. There does not appear to be evidence of a pneumothorax. (2) COPD (chronic obstructive pulmonary disease) Qualifiers: COPD type: emphysema Emphysema type: unspecified Qualified Code(s): J43.9 - Emphysema, unspecified Is this a current diagnosis for this admission?: Yes
[2017-10-15] MEDS ORDERED: FAT EMULSIONS 250 ML IV SCH (10:00)
[2017-10-15] MEDS ORDERED: POTASSI CL 20 MEQ/50 ML RIDER 20 MEQ/50 ML RTUPB IV SCH (10:00)
--- NOTE | 2017-10-15 10:05 | PDOC PROGRESS REPORT ---
Subjective Progress Note for:: 10/15/17 Subjective:: Patient still has abdominal pain and distention KUB showed persistent small bowel obstruction Patient is now n.p.o. Reason For Visit: SMALL BOWEL OBSTRUCTION Physical Exam Vital Signs: Temp Pulse Resp BP Pulse Ox 98.7 F 81 17 123/72 94 10/15/17 08:00 10/15/17 08:00 10/15/17 08:00 10/15/17 08:00 10/15/17 08:00 Intake & Output 10/14/17 10/15/17 10/16/17 00:59 00:59 00:59 Intake Total 881 2909 1594 Output Total 177 334 2799 Balance -29 2509 144 Weight 53.2 kg 53.2 kg 53.2 kg General appearance: PRESENT: no acute distress Head exam: PRESENT: atraumatic, normocephalic Eye exam: PRESENT: conjunctiva pink, EOMI, PERRLA. ABSENT: scleral icterus Neck exam: ABSENT: carotid bruit, JVD, lymphadenopathy, thyromegaly Respiratory exam: PRESENT: clear to auscultation kat. ABSENT: rales, rhonchi, wheezes Cardiovascular exam: PRESENT: RRR. ABSENT: diastolic murmur, rubs, systolic murmur GI/Abdominal exam: PRESENT: diminished bowel sounds, distended, tenderness. ABSENT: guarding Rectal exam: PRESENT: deferred Extremities exam: PRESENT: full ROM. ABSENT: calf tenderness, clubbing, pedal edema Neurological exam: PRESENT: alert, awake, oriented to person, oriented to place , oriented to time, oriented to situation, CN II-XII grossly intact. ABSENT: motor sensory deficit Results Laboratory Results: 10/15/17 04:11 10/15/17 04:11 10/14/17 10/14/17 10/15/17 17:36 17:36 04:11 WBC 5.1 RBC 3.84 Hgb 12.1 Hct 36.3 MCV 94 MCH 31.5 MCHC 33.3 RDW 16.0 H Plt Count 174 Seg Neutrophils % 72.8 Lymphocytes % 11.4 L Monocytes % 15.7 H Eosinophils % 0.0 Basophils % 0.1 Absolute Neutrophils 3.7 Absolute Lymphocytes 0.6 Absolute Monocytes 0.8 Absolute Eosinophils 0.0 Absolute Basophils 0.0 Sodium 137.3 Potassium 3.6 Chloride 95 L Carbon Dioxide 33 H Anion Gap 9 BUN Creatinine Est GFR ( Amer) Est GFR (Non-Af Amer) Glucose Calcium Phosphorus 3.9 Prealbumin 23.1 Triglycerides 102 PTH Intact 921.9 H 10/15/17 04:11 WBC RBC Hgb Hct MCV MCH MCHC RDW Plt Count Seg Neutrophils % Lymphocytes % Monocytes % Eosinophils % Basophils % Absolute Neutrophils Absolute Lymphocytes Absolute Monocytes Absolute Eosinophils Absolute Basophils Sodium 142.7 Potassium 3.7 Chloride 103 Carbon Dioxide 31 H Anion Gap 9 BUN 32 H Creatinine 2.08 H Est GFR ( Amer) 29 L Est GFR (Non-Af Amer) 24 L Glucose 86 Calcium 9.3 Phosphorus Prealbumin Triglycerides PTH Intact Impressions: Abdomen/Pelvis CT 10/08/17 17:58 IMPRESSION: Mildly dilated small bowel loops over the mid abdomen with inflammatory changes and trace free fluid, possible recurrent early small bowel obstruction. KUB X-Ray 10/12/17 17:15 IMPRESSION: Appropriate NGT. Upper GI and Small Bowel X-Ray 10/13/17 00:00 IMPRESSION: 1. SMALL SLIDING HIATAL HERNIA. 2. MODERATE ESOPHAGEAL REFLUX. 3. MODERATE ANTRAL GASTRITIS. 4. SMALL DUODENAL DIVERTICULUM. 5. DIFFUSE MODERATELY DILATED BOWEL LOOPS THROUGHOUT THE ENTIRE SMALL BOWEL, WITH DELAYED SMALL BOWEL TRANSIT. FINDINGS MOST CONSISTENT WITH ILEUS VERSUS SMALL BOWEL OBSTRUCTION. NO DEFINITE TRANSITION POINT OR STRICTURE IS IDENTIFIED. Chest X-Ray 10/14/17 00:00 IMPRESSION: Central line with its tip overlying the medial right lung apex as noted above which presumably is within the internal jugular vein however clinical correlation is recommended. Pneumothorax is seen. Other findings as noted above Abdomen X-Ray 10/15/17 00:00 IMPRESSION: No improvement in the high-grade partial small bowel obstruction. Assessment & Plan - Diagnosis (1) Small bowel obstruction Is this a current diagnosis for this admission?: Yes Plan: Persistent small bowel obstruction on KUB Patient is n.p.o. Management as per surgery Patient likely is a candidate for laparotomy (2) [id number] kidney injury Qualifiers: Chronic kidney disease stage: stage 4 (severe) Is this a current diagnosis for this admission?: Yes Plan: Has improved Creatinine is 2 Continue IV fluids (3) Renal transplant recipient Is this a current diagnosis for this admission?: Yes (4) Hypercalcemia Is this a current diagnosis for this admission?: Yes (5) COPD (chronic obstructive pulmonary disease) Qualifiers: COPD type: emphysema Emphysema type: unspecified Qualified Code(s): J43.9 - Emphysema, unspecified Is this a current diagnosis for this admission?: Yes (6) Full code status Is this a current diagnosis for this admission?: Yes (7) GERD (gastroesophageal reflux disease) Qualifiers: Esophagitis presence: esophagitis presence not specified Qualified Code(s) : K21.9 - Gastro-esophageal reflux disease without esophagitis Is this a current diagnosis for this admission?: Yes Plan: Continue PPI - Time Time Spent with patient: 15-24 minutes - Plan Summary Plan Summary: N.p.o. IV fluids Management as per surgery We will repeat a BMP and magnesium
[2017-10-15] MEDS ORDERED: ROCURONIUM BROMIDE INJ 50 MG/5 ML VIAL IV ONE (10:09)
[2017-10-15] MEDS ORDERED: LIDOCAINE 2% INJ-PF (20 MG/ML) 2 ML AMPUL ONE (10:09)
[2017-10-15] MEDS ORDERED: NEOSTIGMINE METHYLSULFATE 10 MG/10 ML VIAL ONE (10:09)
[2017-10-15] MEDS ORDERED: GLYCOPYRROLATE INJ 0.4 MG/2 ML VIAL ONE (10:09)
[2017-10-15] MEDS: CARVEDILOL 12.5 MG TABLET PO SCH ×2 (10:14→22:14)
[2017-10-15] MEDS: METHYLPREDNISOLONE INJ 40 MG/1 ML SDV IV SCH (10:15)
[2017-10-15] MEDS: ASPIRIN 81 MG TABLET, CHEWABLE PO SCH (10:15)
[2017-10-15] MEDS: NIFEDIPINE 30 MG TAB.ER.24 PO SCH (10:15)
[2017-10-15] MEDS: TACROLIMUS ANHYDROUS 0.5 MG CAPSULE SL SCH ×2 (10:17→22:11)
[2017-10-15] MEDS: TACROLIMUS ANHYDROUS 1 MG CAPSULE SL SCH ×2 (10:17→22:15)
[2017-10-15] MEDS: ENOXAPARIN SODIUM INJ 30 MG/0.3 ML DISP.SYRIN SUBCUT SCH (10:17)
[2017-10-15] MEDS: LORAZEPAM INJ 2 MG/1 ML VIAL IV PRN (10:34)
--- NOTE | 2017-10-15 13:18 | PDOC PROGRESS REPORT ---
Subjective Progress Note for:: 10/15/17 Reason For Visit: Patient seen today. She is about the same as when I saw her yesterday. Denies any chest pain, shortness of breath. Labs and medications reviewed with patient. Physical Exam Vital Signs: Temp Pulse Resp BP Pulse Ox 98.2 F 69 17 147/64 H 98 10/15/17 12:54 10/15/17 12:54 10/15/17 12:54 10/15/17 12:54 10/15/17 12:54 Intake & Output 10/14/17 10/15/17 10/16/17 06:59 06:59 06:59 Intake Total 2124 3260 Output Total 400 1450 Balance 1724 1810 Weight 53.2 kg 53.2 kg Cardiovascular exam: PRESENT: +S1, +S2 GI/Abdominal exam: PRESENT: soft, tenderness. ABSENT: diminished bowel sounds - To being absent, organomegaly, rebound Results Laboratory Results: 10/15/17 04:11 10/15/17 04:11 10/14/17 10/14/17 10/15/17 17:36 17:36 04:11 WBC 5.1 RBC 3.84 Hgb 12.1 Hct 36.3 MCV 94 MCH 31.5 MCHC 33.3 RDW 16.0 H Plt Count 174 Seg Neutrophils % 72.8 Lymphocytes % 11.4 L Monocytes % 15.7 H Eosinophils % 0.0 Basophils % 0.1 Absolute Neutrophils 3.7 Absolute Lymphocytes 0.6 Absolute Monocytes 0.8 Absolute Eosinophils 0.0 Absolute Basophils 0.0 Sodium 137.3 Potassium 3.6 Chloride 95 L Carbon Dioxide 33 H Anion Gap 9 BUN Creatinine Est GFR ( Amer) Est GFR (Non-Af Amer) Glucose Calcium Phosphorus 3.9 Prealbumin 23.1 Triglycerides 102 PTH Intact 921.9 H 10/15/17 04:11 WBC RBC Hgb Hct MCV MCH MCHC RDW Plt Count Seg Neutrophils % Lymphocytes % Monocytes % Eosinophils % Basophils % Absolute Neutrophils Absolute Lymphocytes Absolute Monocytes Absolute Eosinophils Absolute Basophils Sodium 142.7 Potassium 3.7 Chloride 103 Carbon Dioxide 31 H Anion Gap 9 BUN 32 H Creatinine 2.08 H Est GFR ( Amer) 29 L Est GFR (Non-Af Amer) 24 L Glucose 86 Calcium 9.3 Phosphorus Prealbumin Triglycerides PTH Intact Impressions: Abdomen/Pelvis CT 10/08/17 17:58 IMPRESSION: Mildly dilated small bowel loops over the mid abdomen with inflammatory changes and trace free fluid, possible recurrent early small bowel obstruction. KUB X-Ray 10/12/17 17:15 IMPRESSION: Appropriate NGT. Upper GI and Small Bowel X-Ray 10/13/17 00:00 IMPRESSION: 1. SMALL SLIDING HIATAL HERNIA. 2. MODERATE ESOPHAGEAL REFLUX. 3. MODERATE ANTRAL GASTRITIS. 4. SMALL DUODENAL DIVERTICULUM. 5. DIFFUSE MODERATELY DILATED BOWEL LOOPS THROUGHOUT THE ENTIRE SMALL BOWEL, WITH DELAYED SMALL BOWEL TRANSIT. FINDINGS MOST CONSISTENT WITH ILEUS VERSUS SMALL BOWEL OBSTRUCTION. NO DEFINITE TRANSITION POINT OR STRICTURE IS IDENTIFIED. Chest X-Ray 10/14/17 00:00 IMPRESSION: Central line with its tip overlying the medial right lung apex as noted above which presumably is within the internal jugular vein however clinical correlation is recommended. Pneumothorax is seen. Other findings as noted above Abdomen X-Ray 10/15/17 00:00 IMPRESSION: No improvement in the high-grade partial small bowel obstruction. Assessment & Plan - Diagnosis (1) [id number]-ctqiith kidney injury Qualifiers: Chronic kidney disease stage: stage 4 (severe) Is this a current diagnosis for this admission?: Yes Plan: Nonoliguric. Improving renal numbers. Continue on present lines of management. (2) Hypokalemia Plan: Improved. Continue on present lines of management. (3) Small bowel obstruction Is this a current diagnosis for this admission?: Yes Plan: As per surgeons. (4) Hypercalcemia Is this a current diagnosis for this admission?: Yes Plan: Currently resolved. However she has a very high intact PTH suggestive of renal osteodystrophy. Question primary versus secondary. We will start her on appropriate medications and monitor. (5) Renal transplant recipient Is this a current diagnosis for this admission?: Yes Plan: On appropriate immunosuppressive medications (6) Smoker Is this a current diagnosis for this admission?: Yes (7) Peripheral artery disease Plan: Has lower extremity active claudication of approximately 200 yards. Currently no indications for interventions. She needs to stop smoking. Patient apparently on aspirin.
[2017-10-15] MEDS ORDERED: BUPIVACAINE HCL 0.25 % INJ/PF (2.5 MG/1 ML) 30 ML VIAL ONE (17:05)
[2017-10-15] MEDS ORDERED: HYDROMORPHONE HCL INJ/PF 2 MG/ML AMPULE ONE (17:24)
[2017-10-15] MEDS ORDERED: MIDAZOLAM 2 MG/2 ML INJ ONE (17:24)
[2017-10-15] MEDS ORDERED: FENTANYL CITRATE INJ/PF 100 MCG/2 ML AMPUL ONE (17:24)
[2017-10-15] MEDS ORDERED: PROPOFOL INJ 200 MG/20 ML VIAL IV ONE (17:25)
[2017-10-15] MEDS ORDERED: EPHEDRINE SULFATE INJ 50 MG/1 ML AMPULE ONE (17:25)
[2017-10-15] MEDS ORDERED: CEFAZOLIN INJ 1 GM VIAL ONE (17:42)
[2017-10-15] MEDS ORDERED: METHYLPREDNISOLONE INJ 125 MG/2 ML SDV ONE (18:28)
[2017-10-15] MEDS ORDERED: ONDANSETRON HCL INJ/PF 4 MG/2 ML SDV ONE (18:45)
[2017-10-15] MEDS ORDERED: MEPERIDINE HCL/PF INJ 25 MG/1 ML DISP.SYRIN IV PRN (18:55)
[2017-10-15] MEDS ORDERED: ONDANSETRON HCL INJ/PF 4 MG/2 ML SDV IV PRN ×2 (18:55→19:08)
[2017-10-15] MEDS ORDERED: DIPHENHYDRAMINE HCL 50 MG/ML VIAL IV PRN (18:55)
--- NOTE | 2017-10-15 19:08 | Operative Report ---
Operative Report DATE OF SURGERY: 10/15/17 PREOPERATIVE DIAGNOSIS: Small bowel obstruction POSTOPERATIVE DIAGNOSIS: Small bowel obstruction. Mesenteric cyst. OPERATION: Exploratory laparotomy, lysis of adhesions, excision of mesenteric cyst. SURGEON: TERRI SMITH ANESTHESIA: GA TISSUE REMOVED OR ALTERED: Mesenteric cyst lining. COMPLICATIONS: None ESTIMATED BLOOD LOSS: 200 cc INTRAOPERATIVE FINDINGS: Tight adhesive band with small bowel twisting at this point consistent with high-grade small bowel obstruction with distinct transition point with decompressed distal bowel. No evidence of bowel ischemia. Mesenteric cyst with clear fluid within it at the base of the transverse mesocolon PROCEDURE: Informed consent was obtained. Patient was brought to the operating room and placed on the operating room table in the supine position. After satisfactory induction of general anesthesia patient's abdomen was prepped and draped in usual sterile fashion. A midline abdominal incision was made dissection was carried down and the peritoneal cavity was entered without difficulty. There were some anterior abdominal wall adhesions consisting of omentum and small bowel which were taken down taking great care to avoid injury to the underlying small bowel. There was some serous fluid in the peritoneal cavity which was aspirated. There was evidence of completely decompressed distal small bowel and markedly dilated proximal small bowel. Exploration demonstrated a tight adhesive band around which the small bowel appeared to be twisted with the resultant high-grade small bowel obstruction. However the small bowel did not appear ischemic. The adhesive band was clamped divided and tied thus relieving the obstruction. There were multiple interloop adhesions and abdominal wall adhesions which were also taken down completely freeing the small bowel from the ligament of Treitz down to the ileocecal junction. At the base of the transverse colon mesentery there was a cyst with clear fluid within it the small bowel was adhered to this cyst as well these adhesions were taken down and the cyst was unroofed and the unroofed portion of the cyst was submitted to pathology. During this dissection there was a venous bleeding that was very brisk. It was a small mesenteric vessel which was isolated and clipped-- it had 2 branching points and these branches were clipped resulting in hemostasis. There was some slight oozing at the points of adhesive lysis. But otherwise hemostasis appeared good. The peritoneal cavity was irrigated and irrigant aspirated out. The small bowel was inspected to make sure there were no enterotomies. There was no evidence of small bowel injury during the case. Hemostasis again looked good. The small bowel was returned back into the peritoneal cavity beginning at the ileocecal junction and coming proximally to make sure that there was no twist in the small bowel. There was no discernible omentum to drape over the small bowel. The NG tube position was confirmed by palpation. Sponge needle and instrument counts were all correct. The fascia was closed with running PDS suture. Skin was closed with rosa. Marcaine was injected at the incision. Patient tolerated procedure well with no apparent complications and was taken to the recovery area in stable condition.
[2017-10-16] MEDS: IPRATROPIUM/ALBUTEROL 120 PUFF/4 GM MDI IH SCH ×4 (00:26→18:46)
[2017-10-16] MEDS: MORPHINE SULFATE 10 MG/ML INJ IV PRN ×3 (03:17→19:56)
[2017-10-16] MEDS: POTASSI CL 20 MEQ/NS 1L 1000 ML IV PRN (03:17)
[2017-10-16 05:00] LABS: ALANINE AMINOTRANSFERASE 26 U/L (9-52); ALKALINE PHOSPHATASE 42 U/L (38-126); ANION GAP 10 (5-19); ASPARTATE AMINO TRANSFERASE 22 U/L (14-36); BILIRUBIN,DIRECT 0.3 mg/dL (0.0-0.4); BILIRUBIN,TOTAL 0.3 mg/dL (0.2-1.3); BLOOD UREA NITROGEN 30 mg/dL (7-20); CALCIUM 9.5 mg/dL (8.4-10.2); CARBON DIOXIDE 26 mmol/L (22-30); CHLORIDE 109 mmol/L (98-107); GLUCOSE 130 mg/dL (75-110); PHOSPHORUS 3.5 mg/dL (2.5-4.5); POTASSIUM 4.5 mmol/L (3.6-5.0); SODIUM 145.4 mmol/L (137-145)
[2017-10-16] MEDS: HYDRALAZINE HCL INJ/PF 20 MG/1 ML SDV IV PRN (06:03)
[2017-10-16] MEDS: LORAZEPAM INJ 2 MG/1 ML VIAL IV PRN ×2 (06:04→22:38)
[2017-10-16 07:38] LABS: HEMATOCRIT 38.8 % (36.0-47.0); HEMOGLOBIN 12.9 g/dL (12.0-15.5); MEAN CORPUSCULAR HEMOGLOBIN 31.4 pg (27.0-33.4); MEAN CORPUSCULAR HGB CONC 33.1 g/dL (32.0-36.0); MEAN CORPUSCULAR VOLUME 95 fl (80-97); PLATELET COUNT 184 10^3/uL (150-450); RED BLOOD COUNT 4.09 10^6/uL (3.72-5.28); RED CELL DISTRIBUTION WIDTH 15.8 % (11.5-14.0)
[2017-10-16 07:52] LABS: WHITE BLOOD COUNT 11.8 10^3/uL (4.0-10.5)
--- NOTE | 2017-10-16 07:59 | PDOC PROGRESS REPORT ---
Subjective Progress Note for:: 10/16/17 Subjective:: Patient underwent surgery yesterday with Dr. Ortega-exploratory laparotomy lysis of adhesions- She was evaluated this morning in the intensive care unit She appears extremely stable already sitting up in a chair; NG tube still in place Patient is complaining of very minimal pain Reason For Visit: SMALL BOWEL OBSTRUCTION Physical Exam Vital Signs: Temp Pulse Resp BP Pulse Ox 99.0 F 69 17 147/64 H 93 10/16/17 05:07 10/15/17 12:54 10/15/17 12:54 10/15/17 12:54 10/15/17 16:42 Intake & Output 10/15/17 10/16/17 10/17/17 00:59 00:59 00:59 Intake Total 2909 5789 1376 Output Total 400 3625 260 Balance 2509 2164 1116 Weight 53.2 kg 53.2 kg 54.8 kg General appearance: PRESENT: no acute distress Head exam: PRESENT: atraumatic Eye exam: PRESENT: conjunctiva pink, EOMI, PERRLA. ABSENT: scleral icterus Neck exam: ABSENT: carotid bruit, JVD, lymphadenopathy, thyromegaly Respiratory exam: PRESENT: clear to auscultation kat. ABSENT: rales, rhonchi, wheezes GI/Abdominal exam: PRESENT: diminished bowel sounds, tenderness - Mild. ABSENT : guarding, rebound Extremities exam: PRESENT: full ROM. ABSENT: calf tenderness, clubbing, pedal edema Results Laboratory Results: 10/16/17 03:59 10/16/17 10/16/17 03:59 03:59 Seg Neutrophils % Not Reportable Lymphocytes % Not Reportable Monocytes % Not Reportable Eosinophils % Not Reportable Basophils % Not Reportable Absolute Neutrophils Not Reportable Absolute Lymphocytes Not Reportable Absolute Monocytes Not Reportable Absolute Eosinophils Not Reportable Absolute Basophils Not Reportable Sodium 145.4 H Potassium 4.5 Chloride 109 H Carbon Dioxide 26 Anion Gap 10 BUN 30 H Creatinine 1.44 H Est GFR ( Amer) 44 L Est GFR (Non-Af Amer) 36 L Glucose 130 H Calcium 9.5 Phosphorus 3.5 Total Bilirubin 0.3 AST 22 ALT 26 Alkaline Phosphatase 42 Total Protein 5.0 L Albumin 3.0 L Impressions: Abdomen/Pelvis CT 10/08/17 17:58 IMPRESSION: Mildly dilated small bowel loops over the mid abdomen with inflammatory changes and trace free fluid, possible recurrent early small bowel obstruction. KUB X-Ray 10/12/17 17:15 IMPRESSION: Appropriate NGT. Upper GI and Small Bowel X-Ray 10/13/17 00:00 IMPRESSION: 1. SMALL SLIDING HIATAL HERNIA. 2. MODERATE ESOPHAGEAL REFLUX. 3. MODERATE ANTRAL GASTRITIS. 4. SMALL DUODENAL DIVERTICULUM. 5. DIFFUSE MODERATELY DILATED BOWEL LOOPS THROUGHOUT THE ENTIRE SMALL BOWEL, WITH DELAYED SMALL BOWEL TRANSIT. FINDINGS MOST CONSISTENT WITH ILEUS VERSUS SMALL BOWEL OBSTRUCTION. NO DEFINITE TRANSITION POINT OR STRICTURE IS IDENTIFIED. Chest X-Ray 10/14/17 00:00 IMPRESSION: Central line with its tip overlying the medial right lung apex as noted above which presumably is within the internal jugular vein however clinical correlation is recommended. Pneumothorax is seen. Other findings as noted above Abdomen X-Ray 10/15/17 00:00 IMPRESSION: No improvement in the high-grade partial small bowel obstruction. Assessment & Plan - Diagnosis (1) Small bowel obstruction Is this a current diagnosis for this admission?: Yes Plan: Status post laparotomy and lysis of adhesions Patient is extremely stable at this point Continue management as per surgery Patient may be transferred to surgical unit (2) Ejqfa-ik-ikozwmu kidney injury Qualifiers: Chronic kidney disease stage: stage 4 (severe) Is this a current diagnosis for this admission?: Yes Plan: Improvement of creatinine to 1.4 Continue IV hydration (3) Renal transplant recipient Is this a current diagnosis for this admission?: Yes (4) Hypercalcemia Is this a current diagnosis for this admission?: Yes Plan: Has resolved ; was likely secondary to dehydration (5) COPD (chronic obstructive pulmonary disease) Qualifiers: COPD type: emphysema Emphysema type: unspecified Qualified Code(s): J43.9 - Emphysema, unspecified Is this a current diagnosis for this admission?: Yes (6) Full code status Is this a current diagnosis for this admission?: Yes (7) GERD (gastroesophageal reflux disease) Qualifiers: Esophagitis presence: esophagitis presence not specified Qualified Code(s) : K21.9 - Gastro-esophageal reflux disease without esophagitis Is this a current diagnosis for this admission?: Yes Plan: Continue PPI - Time Time Spent with patient: 15-24 minutes - Plan Summary Plan Summary: Transfer patient to surgical unit
--- NOTE | 2017-10-16 08:00 | PDOC PROGRESS REPORT ---
Subjective Progress Note for:: 10/16/17 Subjective:: Incisional pains Reason For Visit: SMALL BOWEL OBSTRUCTION Physical Exam Vital Signs: Temp Pulse Resp BP Pulse Ox 99.0 F 69 17 147/64 H 93 10/16/17 05:07 10/15/17 12:54 10/15/17 12:54 10/15/17 12:54 10/15/17 16:42 Intake & Output 10/15/17 10/16/17 10/17/17 06:59 06:59 06:59 Intake Total 3260 5571 Output Total 1450 2435 Balance 1810 3136 Weight 53.2 kg 54.8 kg Exam: NGT 200 ccs since post op.Post op Day #1 Pt comfortable mild incisional pains. Asking when she can go home. Good spirits. OK to downgrade. Possible D/C NGT in am. Results Laboratory Results: 10/16/17 03:59 10/16/17 10/16/17 03:59 03:59 Seg Neutrophils % Not Reportable Lymphocytes % Not Reportable Monocytes % Not Reportable Eosinophils % Not Reportable Basophils % Not Reportable Absolute Neutrophils Not Reportable Absolute Lymphocytes Not Reportable Absolute Monocytes Not Reportable Absolute Eosinophils Not Reportable Absolute Basophils Not Reportable Sodium 145.4 H Potassium 4.5 Chloride 109 H Carbon Dioxide 26 Anion Gap 10 BUN 30 H Creatinine 1.44 H Est GFR ( Amer) 44 L Est GFR (Non-Af Amer) 36 L Glucose 130 H Calcium 9.5 Phosphorus 3.5 Total Bilirubin 0.3 AST 22 ALT 26 Alkaline Phosphatase 42 Total Protein 5.0 L Albumin 3.0 L Impressions: Abdomen/Pelvis CT 10/08/17 17:58 IMPRESSION: Mildly dilated small bowel loops over the mid abdomen with inflammatory changes and trace free fluid, possible recurrent early small bowel obstruction. KUB X-Ray 10/12/17 17:15 IMPRESSION: Appropriate NGT. Upper GI and Small Bowel X-Ray 10/13/17 00:00 IMPRESSION: 1. SMALL SLIDING HIATAL HERNIA. 2. MODERATE ESOPHAGEAL REFLUX. 3. MODERATE ANTRAL GASTRITIS. 4. SMALL DUODENAL DIVERTICULUM. 5. DIFFUSE MODERATELY DILATED BOWEL LOOPS THROUGHOUT THE ENTIRE SMALL BOWEL, WITH DELAYED SMALL BOWEL TRANSIT. FINDINGS MOST CONSISTENT WITH ILEUS VERSUS SMALL BOWEL OBSTRUCTION. NO DEFINITE TRANSITION POINT OR STRICTURE IS IDENTIFIED. Chest X-Ray 10/14/17 00:00 IMPRESSION: Central line with its tip overlying the medial right lung apex as noted above which presumably is within the internal jugular vein however clinical correlation is recommended. Pneumothorax is seen. Other findings as noted above Abdomen X-Ray 10/15/17 00:00 IMPRESSION: No improvement in the high-grade partial small bowel obstruction. Assessment & Plan - Diagnosis (1) Subclavian vein occlusion, left Is this a current diagnosis for this admission?: Yes (2) Subclavian vein occlusion, right Is this a current diagnosis for this admission?: Yes
[2017-10-16 08:01] LABS: ABSOLUTE LYMPHOCYTES# (MANUAL) 0.1 10^3/uL (0.5-4.7); ABSOLUTE MONOCYTES # (MANUAL) 0.5 10^3/uL (0.1-1.4); ABSOLUTE NEUTROPHILS# (MANUAL) 11.2 10^3/uL (1.7-8.2); BASOPHILS % (MANUAL) 0 % (0-2); EOSINOPHILS % (MANUAL) 0 % (0-6); LYMPHOCYTES % (MANUAL) 1 % (13-45); MONOCYTES % (MANUAL) 4 % (3-13); SEGMENTED NEUTROPHILS % (MAN) 79 % (42-78); TOTAL CELLS COUNTED 100
[2017-10-16 08:04] LABS: ANISOCYTOSIS SLIGHT; BURR CELLS 1+; OVALOCYTES 1+; TOXIC GRANULATION SLIGHT; TOXIC VACUOLATION PRESENT
[2017-10-16 08:05] LABS: PLATELET COMMENT ADEQUATE; PLATELET GIANT PRESENT; PLATELET LARGE PRESENT
[2017-10-16 08:06] LABS: BAND NEUTROPHILS % (MANUAL) 16 % (3-5)
[2017-10-16] MEDS: DEXTROSE 5%-1/2 NORMAL SALINE 1,000 ML IV PRN (08:16)
[2017-10-16] MEDS: ENOXAPARIN SODIUM INJ 30 MG/0.3 ML DISP.SYRIN SUBCUT SCH (10:26)
[2017-10-16] MEDS: CALCITRIOL 0.25 MCG CAPSULE PO SCH (10:27)
[2017-10-16] MEDS: NIFEDIPINE 30 MG TAB.ER.24 PO SCH (10:27)
[2017-10-16] MEDS: CARVEDILOL 12.5 MG TABLET PO SCH ×2 (10:28→22:34)
[2017-10-16] MEDS: METHYLPREDNISOLONE INJ 40 MG/1 ML SDV IV SCH ×2 (10:28→22:34)
[2017-10-16] MEDS: ASPIRIN 81 MG TABLET, CHEWABLE PO SCH (10:28)
[2017-10-16] MEDS: TACROLIMUS ANHYDROUS 1 MG CAPSULE SL SCH ×2 (10:29→22:34)
[2017-10-16] MEDS: PANTOPRAZOLE SODIUM 40 MG VIAL IV SCH (10:29)
[2017-10-16] MEDS: TACROLIMUS ANHYDROUS 0.5 MG CAPSULE SL SCH ×2 (10:32→22:34)
[2017-10-16 11:10] LABS: PATH REVIEW PATHOLOGIST REVIEWED
--- NOTE | 2017-10-16 15:31 | PDOC PROGRESS REPORT ---
Subjective Progress Note for:: 10/16/17 Reason For Visit: Patient is postop day 1 of the she had a laparotomy yesterday and that revealed that she had small bowel obstruction from adhesions and which was lysed. His got some pain issues postoperative. Otherwise doing fair. She is quite a bit of NGT output. No flatus yet vital signs are stable. Labs reviewed shows an improving renal numbers. Physical Exam Vital Signs: Temp Pulse Resp BP Pulse Ox 97.8 F 83 21 H 166/81 H 94 10/16/17 13:35 10/16/17 13:35 10/16/17 13:35 10/16/17 13:35 10/16/17 13:35 Intake & Output 10/15/17 10/16/17 10/17/17 06:59 06:59 06:59 Intake Total 3260 5571 Output Total 1450 2435 Balance 1810 3136 Weight 53.2 kg 54.8 kg General appearance: PRESENT: no acute distress Respiratory exam: PRESENT: clear to auscultation kat. ABSENT: crackles, rhonchi Cardiovascular exam: PRESENT: +S1, +S2 GI/Abdominal exam: PRESENT: soft, tenderness. ABSENT: diminished bowel sounds - To being absent, organomegaly, rebound Extremities exam: ABSENT: pedal edema Neurological exam: PRESENT: alert, awake, oriented to person, oriented to place Results Laboratory Results: 10/16/17 03:59 10/16/17 03:59 10/16/17 10/16/17 03:59 03:59 WBC 11.8 H D RBC 4.09 Hgb 12.9 Hct 38.8 MCV 95 MCH 31.4 MCHC 33.1 RDW 15.8 H Plt Count 184 Seg Neutrophils % Not Reportable Lymphocytes % Not Reportable Monocytes % Not Reportable Eosinophils % Not Reportable Basophils % Not Reportable Absolute Neutrophils Not Reportable Absolute Lymphocytes Not Reportable Absolute Monocytes Not Reportable Absolute Eosinophils Not Reportable Absolute Basophils Not Reportable Sodium 145.4 H Potassium 4.5 Chloride 109 H Carbon Dioxide 26 Anion Gap 10 BUN 30 H Creatinine 1.44 H Est GFR ( Amer) 44 L Est GFR (Non-Af Amer) 36 L Glucose 130 H Calcium 9.5 Phosphorus 3.5 Total Bilirubin 0.3 AST 22 ALT 26 Alkaline Phosphatase 42 Total Protein 5.0 L Albumin 3.0 L Impressions: Abdomen/Pelvis CT 10/08/17 17:58 IMPRESSION: Mildly dilated small bowel loops over the mid abdomen with inflammatory changes and trace free fluid, possible recurrent early small bowel obstruction. KUB X-Ray 10/12/17 17:15 IMPRESSION: Appropriate NGT. Upper GI and Small Bowel X-Ray 10/13/17 00:00 IMPRESSION: 1. SMALL SLIDING HIATAL HERNIA. 2. MODERATE ESOPHAGEAL REFLUX. 3. MODERATE ANTRAL GASTRITIS. 4. SMALL DUODENAL DIVERTICULUM. 5. DIFFUSE MODERATELY DILATED BOWEL LOOPS THROUGHOUT THE ENTIRE SMALL BOWEL, WITH DELAYED SMALL BOWEL TRANSIT. FINDINGS MOST CONSISTENT WITH ILEUS VERSUS SMALL BOWEL OBSTRUCTION. NO DEFINITE TRANSITION POINT OR STRICTURE IS IDENTIFIED. Chest X-Ray 10/14/17 00:00 IMPRESSION: Central line with its tip overlying the medial right lung apex as noted above which presumably is within the internal jugular vein however clinical correlation is recommended. Pneumothorax is seen. Other findings as noted above Abdomen X-Ray 10/15/17 00:00 IMPRESSION: No improvement in the high-grade partial small bowel obstruction. Assessment & Plan - Diagnosis (1) Pwtjt-bb-wbnkzea kidney injury Qualifiers: Chronic kidney disease stage: stage 4 (severe) Is this a current diagnosis for this admission?: Yes Plan: Nonoliguric. Improving renal numbers. Electrolytes are stable. Continue on current medications and fluid regimen. (2) Hypokalemia Plan: Resolved. (3) Small bowel obstruction Is this a current diagnosis for this admission?: Yes Plan: Status post expiratory laparotomy and lysis of adhesions. Presently postop day 1. (4) Hypercalcemia Is this a current diagnosis for this admission?: Yes Plan: Resolved. However has hyperparathyroidism and is being monitored and treated. (5) Renal transplant recipient Is this a current diagnosis for this admission?: Yes Plan: On appropriate immunosuppressive agents. (6) Smoker Is this a current diagnosis for this admission?: Yes
[2017-10-16] MEDS: BENZOCAINE/MENTHOL SORE THROAT LOZENGE BUCCAL PRN (18:05)
[2017-10-17] MEDS: IPRATROPIUM/ALBUTEROL 120 PUFF/4 GM MDI IH SCH ×5 (03:19→23:52)
[2017-10-17] MEDS: HYDRALAZINE HCL INJ/PF 20 MG/1 ML SDV IV PRN (04:33)
[2017-10-17 06:21] LABS: ANION GAP 6 (5-19); BLOOD UREA NITROGEN 21 mg/dL (7-20); CALCIUM 9.8 mg/dL (8.4-10.2); CARBON DIOXIDE 25 mmol/L (22-30); CHLORIDE 110 mmol/L (98-107); GLUCOSE 127 mg/dL (75-110); POTASSIUM 4.2 mmol/L (3.6-5.0); SODIUM 141.2 mmol/L (137-145)
[2017-10-17 06:23] LABS: HEMATOCRIT 34.5 % (36.0-47.0); HEMOGLOBIN 11.4 g/dL (12.0-15.5); MEAN CORPUSCULAR HEMOGLOBIN 31.1 pg (27.0-33.4); MEAN CORPUSCULAR VOLUME 94 fl (80-97); RED BLOOD COUNT 3.66 10^6/uL (3.72-5.28); RED CELL DISTRIBUTION WIDTH 16.1 % (11.5-14.0); WHITE BLOOD COUNT 12.6 10^3/uL (4.0-10.5)
[2017-10-17 06:43] LABS: ABSOLUTE LYMPHOCYTES# (MANUAL) 0.9 10^3/uL (0.5-4.7); ABSOLUTE MONOCYTES # (MANUAL) 0.3 10^3/uL (0.1-1.4); ABSOLUTE NEUTROPHILS# (MANUAL) 11.5 10^3/uL (1.7-8.2); BAND NEUTROPHILS % (MANUAL) 1 % (3-5); BASOPHILS % (MANUAL) 0 % (0-2); EOSINOPHILS % (MANUAL) 0 % (0-6); LYMPHOCYTES % (MANUAL) 6 % (13-45); MONOCYTES % (MANUAL) 2 % (3-13); SEGMENTED NEUTROPHILS % (MAN) 90 % (42-78); TOTAL CELLS COUNTED 100; TOXIC GRANULATION 1+; TOXIC VACUOLATION PRESENT
[2017-10-17 06:44] LABS: ACANTHOCYTES 1+; ANISOCYTOSIS 1+; BURR CELLS 1+; OVALOCYTES 1+; PLATELET CLUMPS PRESENT; PLATELET COMMENT ADEQUATE; PLATELET COUNT 172 10^3/uL (150-450); POIKILOCYTOSIS 2+; TEAR DROP CELLS SLIGHT
[2017-10-17] MEDS: MORPHINE SULFATE 10 MG/ML INJ IV PRN (08:03)
[2017-10-17] MEDS: ENOXAPARIN SODIUM INJ 30 MG/0.3 ML DISP.SYRIN SUBCUT SCH (09:43)
[2017-10-17] MEDS: METHYLPREDNISOLONE INJ 40 MG/1 ML SDV IV SCH (09:44)
[2017-10-17] MEDS: CALCITRIOL 0.25 MCG CAPSULE PO SCH (09:44)
[2017-10-17] MEDS: ASPIRIN 81 MG TABLET, CHEWABLE PO SCH (09:45)
[2017-10-17] MEDS: NIFEDIPINE 30 MG TAB.ER.24 PO SCH (09:45)
[2017-10-17] MEDS: CARVEDILOL 12.5 MG TABLET PO SCH ×2 (09:46→21:51)
[2017-10-17] MEDS: TACROLIMUS ANHYDROUS 1 MG CAPSULE SL SCH ×2 (09:48→21:50)
[2017-10-17] MEDS: TACROLIMUS ANHYDROUS 0.5 MG CAPSULE SL SCH ×2 (09:50→21:51)
[2017-10-17] MEDS: PANTOPRAZOLE SODIUM 40 MG VIAL IV SCH ×2 (10:38→17:33)
[2017-10-17] MEDS: HYDROMORPHONE HCL INJ/PF 2 MG/ML AMPULE IV PRN ×2 (10:41→21:52)
[2017-10-17] MEDS: OXYCODONE-ACETAMINOPHEN 5-325 MG TABLET PO PRN (13:56)
--- NOTE | 2017-10-17 13:57 | RADIOLOGY REPORT (SQ) ---
EXAM DESCRIPTION: U/S ABDOMEN LIMITED W/O DOP COMPLETED DATE/TIME: 10/17/2017 1:39 pm REASON FOR STUDY: RUQ pain COMPARISON: 09/17/2011 TECHNIQUE: Dynamic and static grayscale images acquired of the abdomen and recorded on PACS. Sepideho cici selected color Doppler and spectral images recorded. LIMITATIONS: None. FINDINGS: PANCREAS: No masses. Visualized pancreatic duct normal caliber. LIVER: No masses. Echotexture normal. LIVER VASCULATURE: Normal directional flow of the main portal vein and hepatic veins. GALLBLADDER: Mild sludge. Normal wall thickness. No pericholecystic fluid. ULTRASOUND-DETECTED MCKEON'S SIGN: Negative. INTRAHEPATIC DUCTS AND COMMON DUCT: CBD and intrahepatic ducts normal caliber. No filling defects. INFERIOR VENA CAVA: Normal flow. AORTA: No aneurysm. RIGHT KIDNEY: Right kidney is atrophic. Normal transplant kidney right lower quadrant. PERITONEAL AND RIGHT PLEURAL SPACE: No ascites or effusions. OTHER: No other significant findings. IMPRESSION: SLUDGE WITHIN THE GALLBLADDER. NO SONOGRAPHIC EVIDENCE OF CHOLECYSTITIS. TECHNICAL DOCUMENTATION: JOB ID: [id number] [employer]- All Rights Reserved
--- NOTE | 2017-10-17 16:15 | PDOC PROGRESS REPORT ---
Subjective Progress Note for:: 10/17/17 Subjective:: Patient with small bowel obstruction status post exploratory laparotomy with lysis of adhesions and excision of mesenteric cyst. Reason For Visit: SMALL BOWEL OBSTRUCTION Physical Exam Vital Signs: Temp Pulse Resp BP Pulse Ox 98.1 F 68 16 153/65 H 95 10/17/17 15:14 10/17/17 15:14 10/17/17 15:14 10/17/17 15:14 10/17/17 15:14 Intake & Output 10/16/17 10/17/17 10/18/17 06:59 06:59 06:59 Intake Total 5571 1736 0 Output Total 2435 3300 300 Balance 3136 -4354 -300 Weight 54.8 kg 55.2 kg General appearance: PRESENT: no acute distress, well-developed, well-nourished Head exam: PRESENT: normocephalic Eye exam: PRESENT: EOMI. ABSENT: scleral icterus Ear exam: PRESENT: normal external ear exam Mouth exam: PRESENT: moist Neck exam: ABSENT: carotid bruit, JVD, lymphadenopathy, thyromegaly Respiratory exam: PRESENT: clear to auscultation kat. ABSENT: rales, rhonchi, wheezes Cardiovascular exam: PRESENT: RRR. ABSENT: diastolic murmur, rubs, systolic murmur Pulses: PRESENT: normal dorsalis pedis pul Vascular exam: PRESENT: normal capillary refill GI/Abdominal exam: PRESENT: normal bowel sounds, soft, tenderness - right upper tenderness, other - midline abdominal excession with rosa and dressing. ABSENT: distended, guarding, mass, organolmegaly, rebound Rectal exam: PRESENT: deferred Extremities exam: PRESENT: full ROM. ABSENT: calf tenderness, clubbing, pedal edema Neurological exam: PRESENT: alert, awake, oriented to person, oriented to place , oriented to time, oriented to situation, CN II-XII grossly intact. ABSENT: motor sensory deficit Psychiatric exam: PRESENT: appropriate affect, normal mood. ABSENT: homicidal ideation, suicidal ideation Skin exam: PRESENT: dry, intact, warm. ABSENT: cyanosis, rash Results Laboratory Results: 10/17/17 05:30 10/17/17 05:30 10/17/17 10/17/17 05:30 05:30 WBC 12.6 H RBC 3.66 L Hgb 11.4 L Hct 34.5 L MCV 94 MCH 31.1 MCHC 33.0 RDW 16.1 H Plt Count 172 Seg Neutrophils % Not Reportable Lymphocytes % Not Reportable Monocytes % Not Reportable Eosinophils % Not Reportable Basophils % Not Reportable Absolute Neutrophils Not Reportable Absolute Lymphocytes Not Reportable Absolute Monocytes Not Reportable Absolute Eosinophils Not Reportable Absolute Basophils Not Reportable Sodium 141.2 Potassium 4.2 Chloride 110 H Carbon Dioxide 25 Anion Gap 6 BUN 21 H Creatinine 1.25 Est GFR ( Amer) 52 L Est GFR (Non-Af Amer) 43 L Glucose 127 H Calcium 9.8 Impressions: Abdomen/Pelvis CT 10/08/17 17:58 IMPRESSION: Mildly dilated small bowel loops over the mid abdomen with inflammatory changes and trace free fluid, possible recurrent early small bowel obstruction. KUB X-Ray 10/12/17 17:15 IMPRESSION: Appropriate NGT. Upper GI and Small Bowel X-Ray 10/13/17 00:00 IMPRESSION: 1. SMALL SLIDING HIATAL HERNIA. 2. MODERATE ESOPHAGEAL REFLUX. 3. MODERATE ANTRAL GASTRITIS. 4. SMALL DUODENAL DIVERTICULUM. 5. DIFFUSE MODERATELY DILATED BOWEL LOOPS THROUGHOUT THE ENTIRE SMALL BOWEL, WITH DELAYED SMALL BOWEL TRANSIT. FINDINGS MOST CONSISTENT WITH ILEUS VERSUS SMALL BOWEL OBSTRUCTION. NO DEFINITE TRANSITION POINT OR STRICTURE IS IDENTIFIED. Chest X-Ray 10/14/17 00:00 IMPRESSION: Central line with its tip overlying the medial right lung apex as noted above which presumably is within the internal jugular vein however clinical correlation is recommended. Pneumothorax is seen. Other findings as noted above Abdomen X-Ray 10/15/17 00:00 IMPRESSION: No improvement in the high-grade partial small bowel obstruction. Abdomen Ultrasound 10/17/17 00:00 IMPRESSION: SLUDGE WITHIN THE GALLBLADDER. NO SONOGRAPHIC EVIDENCE OF CHOLECYSTITIS. Assessment & Plan - Diagnosis (1) Small bowel obstruction Is this a current diagnosis for this admission?: Yes Plan: Patient is status post laparotomy and lysis adhesions and cyst. Patient still NPO with NG tube in place. Patient with bowel sounds but still no flatus or bowel movement. (2) [id number] kidney injury Qualifiers: Chronic kidney disease stage: stage 4 (severe) Is this a current diagnosis for this admission?: Yes Plan: Patient creatinine down from 2.53 to 1.29. This may have been due to dehydration. (3) COPD (chronic obstructive pulmonary disease) Qualifiers: COPD type: emphysema Emphysema type: unspecified Qualified Code(s): J43.9 - Emphysema, unspecified Is this a current diagnosis for this admission?: Yes Plan: Stable with no signs of exacerbation. Continue PRN nebs along with schedule inhailers. (4) Full code status Is this a current diagnosis for this admission?: Yes (5) GERD (gastroesophageal reflux disease) Qualifiers: Esophagitis presence: esophagitis presence not specified Qualified Code(s) : K21.9 - Gastro-esophageal reflux disease without esophagitis Is this a current diagnosis for this admission?: Yes Plan: Patient with severe reflux. Protonix increased to bid. (6) Hypercalcemia Is this a current diagnosis for this admission?: Yes (7) Renal transplant recipient Is this a current diagnosis for this admission?: Yes Plan: Patient renal function is better. Continue steroids and tacrolimus. Nephrology following. (8) Abdominal pain Qualifiers: Abdominal location: right upper quadrant Qualified Code(s): R10.11 - Right upper quadrant pain Is this a current diagnosis for this admission?: Yes Plan: Patient especially tender in RUQ. US with gallbladder shows billiary sludge. Will discontinue morphine as this can affect gallbladder emptying. Will start percocet and dilaudid. - Time Time Spent with patient: 15-24 minutes Anticipated discharge: Home, Home with Homehealth Within: within 72 hours - Inpatient Certification Medical Necessity: Significant Comorbidiites Make Outpatient Treatment Too Risky - Patient still not tolerating po, Need Close Monitoring Due to Risk of Patient Decompensation, Need for Pain Control, Need for Surgery
--- NOTE | 2017-10-17 16:29 | PDOC PROGRESS REPORT ---
Subjective Progress Note for:: 10/17/17 Subjective:: POD #2 NGT drainage 400 ccs last night and 300 ccs today. No flatus yet but less pains Reason For Visit: SMALL BOWEL OBSTRUCTION Physical Exam Vital Signs: Temp Pulse Resp BP Pulse Ox 98.1 F 68 16 153/65 H 95 10/17/17 15:14 10/17/17 15:14 10/17/17 15:14 10/17/17 15:14 10/17/17 15:14 Intake & Output 10/16/17 10/17/17 10/18/17 06:59 06:59 06:59 Intake Total 5571 1736 0 Output Total 2435 3300 300 Balance 3136 -1564 -300 Weight 54.8 kg 55.2 kg Exam: Abd is soft and almost flat. She has been coughing and will likely benefit without NGT but keep NPO except ice chips Will also D/C devries and start ambulating. Results Laboratory Results: 10/17/17 05:30 10/17/17 05:30 10/17/17 10/17/17 05:30 05:30 WBC 12.6 H RBC 3.66 L Hgb 11.4 L Hct 34.5 L MCV 94 MCH 31.1 MCHC 33.0 RDW 16.1 H Plt Count 172 Seg Neutrophils % Not Reportable Lymphocytes % Not Reportable Monocytes % Not Reportable Eosinophils % Not Reportable Basophils % Not Reportable Absolute Neutrophils Not Reportable Absolute Lymphocytes Not Reportable Absolute Monocytes Not Reportable Absolute Eosinophils Not Reportable Absolute Basophils Not Reportable Sodium 141.2 Potassium 4.2 Chloride 110 H Carbon Dioxide 25 Anion Gap 6 BUN 21 H Creatinine 1.25 Est GFR ( Amer) 52 L Est GFR (Non-Af Amer) 43 L Glucose 127 H Calcium 9.8 Impressions: Abdomen/Pelvis CT 10/08/17 17:58 IMPRESSION: Mildly dilated small bowel loops over the mid abdomen with inflammatory changes and trace free fluid, possible recurrent early small bowel obstruction. KUB X-Ray 10/12/17 17:15 IMPRESSION: Appropriate NGT. Upper GI and Small Bowel X-Ray 10/13/17 00:00 IMPRESSION: 1. SMALL SLIDING HIATAL HERNIA. 2. MODERATE ESOPHAGEAL REFLUX. 3. MODERATE ANTRAL GASTRITIS. 4. SMALL DUODENAL DIVERTICULUM. 5. DIFFUSE MODERATELY DILATED BOWEL LOOPS THROUGHOUT THE ENTIRE SMALL BOWEL, WITH DELAYED SMALL BOWEL TRANSIT. FINDINGS MOST CONSISTENT WITH ILEUS VERSUS SMALL BOWEL OBSTRUCTION. NO DEFINITE TRANSITION POINT OR STRICTURE IS IDENTIFIED. Chest X-Ray 10/14/17 00:00 IMPRESSION: Central line with its tip overlying the medial right lung apex as noted above which presumably is within the internal jugular vein however clinical correlation is recommended. Pneumothorax is seen. Other findings as noted above Abdomen X-Ray 10/15/17 00:00 IMPRESSION: No improvement in the high-grade partial small bowel obstruction. Abdomen Ultrasound 10/17/17 00:00 IMPRESSION: SLUDGE WITHIN THE GALLBLADDER. NO SONOGRAPHIC EVIDENCE OF CHOLECYSTITIS. Assessment & Plan - Diagnosis (1) Subclavian vein occlusion, left Is this a current diagnosis for this admission?: Yes (2) Subclavian vein occlusion, right Is this a current diagnosis for this admission?: Yes (3) Small bowel obstruction Is this a current diagnosis for this admission?: Yes - Time Time Spent with patient: 15-24 minutes - Inpatient Certification Medical Necessity: Need Close Monitoring Due to Risk of Patient Decompensation, Need For IV Fluids, Risk of Complication if Not Cared For in Hospital - Plan Summary Plan Summary: D/C NGT but keep npo except Ice chips D/C devries and start ambulation. Continue IVF Recheck labs,kidney function
[2017-10-18] MEDS: DEXTROSE 5%-1/2 NORMAL SALINE 1,000 ML IV PRN ×4 (03:55→23:48)
[2017-10-18] MEDS: HYDROMORPHONE HCL INJ/PF 2 MG/ML AMPULE IV PRN ×2 (03:55→19:55)
[2017-10-18] MEDS: IPRATROPIUM/ALBUTEROL 120 PUFF/4 GM MDI IH SCH ×4 (06:46→23:48)
--- NOTE | 2017-10-18 10:02 | PDOC PROGRESS REPORT ---
Subjective Progress Note for:: 10/18/17 Subjective:: LLQ pains. + Flatus Reason For Visit: SMALL BOWEL OBSTRUCTION Physical Exam Vital Signs: Temp Pulse Resp BP Pulse Ox 98.4 F 66 18 121/70 95 10/18/17 03:35 10/18/17 07:00 10/18/17 03:35 10/18/17 03:35 10/18/17 03:35 Intake & Output 10/17/17 10/18/17 10/19/17 06:59 06:59 06:59 Intake Total 1736 2000 Output Total 3300 500 Balance -1564 1500 Weight 55.2 kg 53 kg Exam: Abdomen is soft with minimal distention. Incision dressing is clean and dry. Mild LLQ tenderness. Claims back (Chronic) back pains persists and worse than abdominal pains. Start Clears and continue ambulation and IV fluids for now Recheck Kidney function in am Continue pain meds Results Laboratory Results: 10/17/17 05:30 10/17/17 05:30 Impressions: Abdomen/Pelvis CT 10/08/17 17:58 IMPRESSION: Mildly dilated small bowel loops over the mid abdomen with inflammatory changes and trace free fluid, possible recurrent early small bowel obstruction. KUB X-Ray 10/12/17 17:15 IMPRESSION: Appropriate NGT. Upper GI and Small Bowel X-Ray 10/13/17 00:00 IMPRESSION: 1. SMALL SLIDING HIATAL HERNIA. 2. MODERATE ESOPHAGEAL REFLUX. 3. MODERATE ANTRAL GASTRITIS. 4. SMALL DUODENAL DIVERTICULUM. 5. DIFFUSE MODERATELY DILATED BOWEL LOOPS THROUGHOUT THE ENTIRE SMALL BOWEL, WITH DELAYED SMALL BOWEL TRANSIT. FINDINGS MOST CONSISTENT WITH ILEUS VERSUS SMALL BOWEL OBSTRUCTION. NO DEFINITE TRANSITION POINT OR STRICTURE IS IDENTIFIED. Chest X-Ray 10/14/17 00:00 IMPRESSION: Central line with its tip overlying the medial right lung apex as noted above which presumably is within the internal jugular vein however clinical correlation is recommended. Pneumothorax is seen. Other findings as noted above Abdomen X-Ray 10/15/17 00:00 IMPRESSION: No improvement in the high-grade partial small bowel obstruction. Abdomen Ultrasound 10/17/17 00:00 IMPRESSION: SLUDGE WITHIN THE GALLBLADDER. NO SONOGRAPHIC EVIDENCE OF CHOLECYSTITIS. Assessment & Plan - Diagnosis (1) Subclavian vein occlusion, left Is this a current diagnosis for this admission?: Yes (2) Subclavian vein occlusion, right Is this a current diagnosis for this admission?: Yes (3) Small bowel obstruction Is this a current diagnosis for this admission?: Yes
[2017-10-18] MEDS: CARVEDILOL 12.5 MG TABLET PO SCH ×2 (11:47→21:58)
[2017-10-18] MEDS: ENOXAPARIN SODIUM INJ 30 MG/0.3 ML DISP.SYRIN SUBCUT SCH (11:51)
[2017-10-18] MEDS: ASPIRIN 81 MG TABLET, CHEWABLE PO SCH (12:10)
[2017-10-18] MEDS: NIFEDIPINE 30 MG TAB.ER.24 PO SCH (12:10)
[2017-10-18] MEDS: METHYLPREDNISOLONE INJ 40 MG/1 ML SDV IV SCH (12:11)
[2017-10-18] MEDS: CALCITRIOL 0.25 MCG CAPSULE PO SCH (12:11)
[2017-10-18] MEDS: PANTOPRAZOLE SODIUM 40 MG VIAL IV SCH ×2 (12:12→18:52)
[2017-10-18] MEDS: TACROLIMUS ANHYDROUS 1 MG CAPSULE SL SCH ×2 (12:12→21:57)
[2017-10-18] MEDS: TACROLIMUS ANHYDROUS 0.5 MG CAPSULE SL SCH ×2 (12:12→21:57)
[2017-10-18] MEDS: OXYCODONE-ACETAMINOPHEN 5-325 MG TABLET PO PRN (16:24)
[2017-10-19] MEDS: OXYCODONE-ACETAMINOPHEN 5-325 MG TABLET PO PRN (00:46)
[2017-10-19] MEDS: HYDROMORPHONE HCL INJ/PF 2 MG/ML AMPULE IV PRN ×2 (02:51→09:25)
[2017-10-19] MEDS: IPRATROPIUM/ALBUTEROL 120 PUFF/4 GM MDI IH SCH ×3 (06:25→18:23)
[2017-10-19 07:49] LABS: ABSOLUTE LYMPHOCYTES (AUTO) 0.5 10^3/uL (0.5-4.7); ABSOLUTE MONOCYTES (AUTO) 0.5 10^3/uL (0.1-1.4); ABSOLUTE NEUT (AUTO) 6.2 10^3/uL (1.7-8.2); BASOPHILS % (AUTO) 0.1 % (0-2); EOSINOPHILS % (AUTO) 0.1 % (0-6); HEMATOCRIT 29.3 % (36.0-47.0); HEMOGLOBIN 9.8 g/dL (12.0-15.5); LYMPHOCYTES % (AUTO) 6.4 % (13-45); MEAN CORPUSCULAR HEMOGLOBIN 31.7 pg (27.0-33.4); MEAN CORPUSCULAR HGB CONC 33.4 g/dL (32.0-36.0); MEAN CORPUSCULAR VOLUME 95 fl (80-97); MONOCYTES % (AUTO) 7.1 % (3-13); PLATELET COUNT 145 10^3/uL (150-450); RED BLOOD COUNT 3.09 10^6/uL (3.72-5.28); RED CELL DISTRIBUTION WIDTH 15.9 % (11.5-14.0); SEGMENTED NEUTROPHILS % (AUTO) 86.3 % (42-78); TOTAL CELLS COUNTED % (AUTO) 100 %; WHITE BLOOD COUNT 7.2 10^3/uL (4.0-10.5)
[2017-10-19] MEDS: ASPIRIN 81 MG TABLET, CHEWABLE PO SCH (09:31)
[2017-10-19] MEDS: CARVEDILOL 12.5 MG TABLET PO SCH ×2 (09:31→21:24)
[2017-10-19] MEDS: CALCITRIOL 0.25 MCG CAPSULE PO SCH (09:32)
[2017-10-19] MEDS: NIFEDIPINE 30 MG TAB.ER.24 PO SCH (09:34)
[2017-10-19] MEDS: METHYLPREDNISOLONE INJ 40 MG/1 ML SDV IV SCH (09:34)
[2017-10-19] MEDS: PANTOPRAZOLE SODIUM 40 MG VIAL IV SCH ×2 (09:35→18:23)
[2017-10-19] MEDS: TACROLIMUS ANHYDROUS 1 MG CAPSULE SL SCH ×2 (09:35→21:24)
[2017-10-19] MEDS: TACROLIMUS ANHYDROUS 0.5 MG CAPSULE SL SCH ×2 (09:36→21:23)
[2017-10-19] MEDS: ENOXAPARIN SODIUM INJ 30 MG/0.3 ML DISP.SYRIN SUBCUT SCH (09:37)
[2017-10-19] MEDS ORDERED: DEXTROSE 5%-1/2 NORMAL SALINE 1,000 ML IV PRN (11:42)
--- NOTE | 2017-10-19 14:46 | PDOC PROGRESS REPORT ---
Subjective Progress Note for:: 10/19/17 Reason For Visit: SMALL BOWEL OBSTRUCTION Postoperative day 4, doing well, no complaints. No nausea or vomiting. Physical Exam Vital Signs: Temp Pulse Resp BP Pulse Ox 98.3 F 69 21 H 145/73 H 97 10/19/17 04:54 10/19/17 04:54 10/19/17 04:54 10/19/17 04:54 10/19/17 04:54 Intake & Output 10/18/17 10/19/17 10/20/17 06:59 06:59 06:59 Intake Total 2000 1577 Output Total 500 Balance 1500 1577 Weight 53 kg 54.8 kg General appearance: PRESENT: no acute distress GI/Abdominal exam: PRESENT: other - Soft, nontender. Original operative dressing still on. Results Laboratory Results: 10/19/17 07:12 10/17/17 05:30 10/19/17 07:12 WBC 7.2 RBC 3.09 L Hgb 9.8 L Hct 29.3 L MCV 95 MCH 31.7 MCHC 33.4 RDW 15.9 H Plt Count 145 L Seg Neutrophils % 86.3 H Lymphocytes % 6.4 L Monocytes % 7.1 Eosinophils % 0.1 Basophils % 0.1 Absolute Neutrophils 6.2 Absolute Lymphocytes 0.5 Absolute Monocytes 0.5 Absolute Eosinophils 0.0 Absolute Basophils 0.0 10/19/17 07:12 NT-Pro-B Natriuret Pep 3170 H Impressions: Abdomen/Pelvis CT 10/08/17 17:58 IMPRESSION: Mildly dilated small bowel loops over the mid abdomen with inflammatory changes and trace free fluid, possible recurrent early small bowel obstruction. KUB X-Ray 10/12/17 17:15 IMPRESSION: Appropriate NGT. Upper GI and Small Bowel X-Ray 10/13/17 00:00 IMPRESSION: 1. SMALL SLIDING HIATAL HERNIA. 2. MODERATE ESOPHAGEAL REFLUX. 3. MODERATE ANTRAL GASTRITIS. 4. SMALL DUODENAL DIVERTICULUM. 5. DIFFUSE MODERATELY DILATED BOWEL LOOPS THROUGHOUT THE ENTIRE SMALL BOWEL, WITH DELAYED SMALL BOWEL TRANSIT. FINDINGS MOST CONSISTENT WITH ILEUS VERSUS SMALL BOWEL OBSTRUCTION. NO DEFINITE TRANSITION POINT OR STRICTURE IS IDENTIFIED. Chest X-Ray 10/14/17 00:00 IMPRESSION: Central line with its tip overlying the medial right lung apex as noted above which presumably is within the internal jugular vein however clinical correlation is recommended. Pneumothorax is seen. Other findings as noted above Abdomen X-Ray 10/15/17 00:00 IMPRESSION: No improvement in the high-grade partial small bowel obstruction. Abdomen Ultrasound 10/17/17 00:00 IMPRESSION: SLUDGE WITHIN THE GALLBLADDER. NO SONOGRAPHIC EVIDENCE OF CHOLECYSTITIS. Assessment & Plan - Diagnosis (1) Dehydration Is this a current diagnosis for this admission?: Yes (2) Small bowel obstruction Is this a current diagnosis for this admission?: Yes Plan: Now 4 days status post exploratory laparotomy, lysis of adhesions , with reliable return of bowel function. Recommendations: 1. Increase diet 2. Shower 3. Discontinue dressing 4. Anticipate discharge home the next 24 hours
[2017-10-20] MEDS: IPRATROPIUM/ALBUTEROL 120 PUFF/4 GM MDI IH SCH ×2 (00:31→06:22)
[2017-10-20] MEDS: OXYCODONE-ACETAMINOPHEN 5-325 MG TABLET PO PRN (02:36)
[2017-10-20] MEDS: ENOXAPARIN SODIUM INJ 30 MG/0.3 ML DISP.SYRIN SUBCUT SCH (09:12)
[2017-10-20] MEDS: CARVEDILOL 12.5 MG TABLET PO SCH (09:13)
[2017-10-20] MEDS: NIFEDIPINE 30 MG TAB.ER.24 PO SCH (09:14)
[2017-10-20] MEDS: CALCITRIOL 0.25 MCG CAPSULE PO SCH (09:15)
[2017-10-20] MEDS: ASPIRIN 81 MG TABLET, CHEWABLE PO SCH (09:15)
[2017-10-20] MEDS: METHYLPREDNISOLONE INJ 40 MG/1 ML SDV IV SCH (09:15)
[2017-10-20] MEDS: TACROLIMUS ANHYDROUS 1 MG CAPSULE SL SCH (09:17)
[2017-10-20] MEDS: TACROLIMUS ANHYDROUS 0.5 MG CAPSULE SL SCH (09:17)
[2017-10-20] MEDS: PANTOPRAZOLE SODIUM 40 MG VIAL IV SCH (09:18)
[2017-10-20 11:09] VITALS: BP 133/68
--- NOTE | 2017-10-20 16:55 | PDOC DISCHARGE SUMMARY ---
Discharge Summary (SDC) - Discharge Final Diagnosis: Small bowel obstruction due to adhesive band Date of Surgery: 10/15/17 Condition: Stable Forms: Discharge POC-Adult Referrals: [facility] [Provider Group] - 10/28/17 9:45 am Respiratory Treatments at Home: Deep Breathing/Coughing Discharge Activity: Activity As Tolerated, Balance Activity w/Rest, No Lifting Over 10 Pounds, Slowly Increase Activity Home Care Assistance: None Needed Report the Following to Your Physician Immediately: Shortness of Breath, Increase in Pain, Fever over 101 Degrees, Drainage-Yellow, Drainage-Green, Drainage-Foul Smelling
--- NOTE | 2017-10-20 19:46 | PDOC PROGRESS REPORT ---
Subjective Progress Note for:: 10/18/17 Subjective:: Patient with small bowel obstruction status post exploratory laparotomy with lysis of adhesions and excision of mesenteric cyst. Patient doing better after being started on dilaudid. Reason For Visit: SMALL BOWEL OBSTRUCTION Physical Exam Vital Signs: Selected Entries 10/18/17 11:27 Temperature 98.3 F Temperature Oral Source Pulse Rate 68 Respiratory 16 Rate Blood Pressure 174/77 H Blood Pressure 109 Mean BP Location Left Arm BP Position Supine O2 Sat by Pulse 97 Oximetry Oxygen Delivery Room Air Method General appearance: PRESENT: no acute distress, well-developed, well-nourished Head exam: PRESENT: normocephalic Eye exam: ABSENT: scleral icterus Ear exam: PRESENT: normal external ear exam Mouth exam: PRESENT: moist Teeth exam: PRESENT: edentulous Neck exam: ABSENT: carotid bruit, JVD, lymphadenopathy, thyromegaly Respiratory exam: PRESENT: clear to auscultation kat. ABSENT: rales, rhonchi, wheezes Cardiovascular exam: PRESENT: RRR. ABSENT: diastolic murmur, rubs, systolic murmur Pulses: PRESENT: normal dorsalis pedis pul Vascular exam: PRESENT: normal capillary refill GI/Abdominal exam: PRESENT: normal bowel sounds, soft, other - midline surgical dressing. ABSENT: distended, guarding, mass, organolmegaly, rebound, tenderness Rectal exam: PRESENT: deferred Extremities exam: PRESENT: full ROM. ABSENT: calf tenderness, clubbing, pedal edema Neurological exam: PRESENT: alert, awake, oriented to person, oriented to place , oriented to time, oriented to situation, CN II-XII grossly intact. ABSENT: motor sensory deficit Psychiatric exam: PRESENT: appropriate affect, normal mood. ABSENT: homicidal ideation, suicidal ideation Skin exam: PRESENT: dry, intact, warm. ABSENT: cyanosis, rash Results Laboratory Results: 10/19/17 07:12 10/17/17 05:30 10/19/17 07:12 NT-Pro-B Natriuret Pep 3170 H Impressions: Abdomen/Pelvis CT 10/08/17 17:58 IMPRESSION: Mildly dilated small bowel loops over the mid abdomen with inflammatory changes and trace free fluid, possible recurrent early small bowel obstruction. KUB X-Ray 10/12/17 17:15 IMPRESSION: Appropriate NGT. Upper GI and Small Bowel X-Ray 10/13/17 00:00 IMPRESSION: 1. SMALL SLIDING HIATAL HERNIA. 2. MODERATE ESOPHAGEAL REFLUX. 3. MODERATE ANTRAL GASTRITIS. 4. SMALL DUODENAL DIVERTICULUM. 5. DIFFUSE MODERATELY DILATED BOWEL LOOPS THROUGHOUT THE ENTIRE SMALL BOWEL, WITH DELAYED SMALL BOWEL TRANSIT. FINDINGS MOST CONSISTENT WITH ILEUS VERSUS SMALL BOWEL OBSTRUCTION. NO DEFINITE TRANSITION POINT OR STRICTURE IS IDENTIFIED. Chest X-Ray 10/14/17 00:00 IMPRESSION: Central line with its tip overlying the medial right lung apex as noted above which presumably is within the internal jugular vein however clinical correlation is recommended. Pneumothorax is seen. Other findings as noted above Abdomen X-Ray 10/15/17 00:00 IMPRESSION: No improvement in the high-grade partial small bowel obstruction. Abdomen Ultrasound 10/17/17 00:00 IMPRESSION: SLUDGE WITHIN THE GALLBLADDER. NO SONOGRAPHIC EVIDENCE OF CHOLECYSTITIS. Assessment & Plan - Diagnosis (1) Small bowel obstruction Is this a current diagnosis for this admission?: Yes Plan: Patient is status post laparotomy and lysis adhesions and cyst. NG tube removed. Patient now on liquid diet. (2) [id number] kidney injury Qualifiers: Chronic kidney disease stage: stage 4 (severe) Is this a current diagnosis for this admission?: Yes Plan: Resolved. Patient creatinine down from 2.53 to 1.29. This may have been due to dehydration. (3) COPD (chronic obstructive pulmonary disease) Qualifiers: COPD type: emphysema Emphysema type: unspecified Qualified Code(s): J43.9 - Emphysema, unspecified Is this a current diagnosis for this admission?: Yes Plan: Stable with no signs of exacerbation. Continue PRN nebs along with schedule inhailers. (4) Full code status Is this a current diagnosis for this admission?: Yes (5) GERD (gastroesophageal reflux disease) Qualifiers: Esophagitis presence: esophagitis presence not specified Qualified Code(s) : K21.9 - Gastro-esophageal reflux disease without esophagitis Is this a current diagnosis for this admission?: Yes Plan: Patient with severe reflux. Protonix increased to bid. (6) Hypercalcemia Is this a current diagnosis for this admission?: Yes (7) Renal transplant recipient Is this a current diagnosis for this admission?: Yes Plan: Patient renal function is better. Continue steroids and tacrolimus. Nephrology following. (8) Abdominal pain Qualifiers: Abdominal location: right upper quadrant Qualified Code(s): R10.11 - Right upper quadrant pain Is this a current diagnosis for this admission?: Yes Plan: Patient especially tender in RUQ. US with gallbladder shows billiary sludge. Patient doing better on Dilaudid and percocet - Time Time Spent with patient: Less than 15 minutes - This is a surgical patient. Will continue to follow while admitted.
--- NOTE | 2017-10-20 19:52 | PDOC PROGRESS REPORT ---
Subjective Progress Note for:: 10/19/17 Subjective:: Patient with small bowel obstruction status post exploratory laparotomy with lysis of adhesions and excision of mesenteric cyst. Patient resting and diet has been advanced. Reason For Visit: SMALL BOWEL OBSTRUCTION Physical Exam Vital Signs: Selected Entries 10/19/17 00:39 Temperature 98.2 F Temperature Oral Source Pulse Rate 70 Respiratory 21 H Rate Blood Pressure 134/66 H Blood Pressure 88 Mean BP Location Left Arm BP Position Supine O2 Sat by Pulse 98 Oximetry Oxygen Delivery Room Air Method General appearance: PRESENT: no acute distress, well-developed, well-nourished Head exam: PRESENT: normocephalic Eye exam: PRESENT: EOMI. ABSENT: scleral icterus Ear exam: PRESENT: normal external ear exam Mouth exam: PRESENT: moist Neck exam: ABSENT: carotid bruit, JVD, lymphadenopathy, thyromegaly Respiratory exam: PRESENT: clear to auscultation kat. ABSENT: rales, rhonchi, wheezes Cardiovascular exam: PRESENT: RRR. ABSENT: diastolic murmur, rubs, systolic murmur GI/Abdominal exam: PRESENT: normal bowel sounds, soft, tenderness, other - midline dressing in place. ABSENT: distended, guarding, mass, organolmegaly, rebound Rectal exam: PRESENT: deferred Extremities exam: PRESENT: full ROM. ABSENT: calf tenderness, clubbing, pedal edema Neurological exam: PRESENT: alert, awake, oriented to person, oriented to place , oriented to time, oriented to situation, CN II-XII grossly intact. ABSENT: motor sensory deficit Psychiatric exam: PRESENT: appropriate affect, normal mood. ABSENT: homicidal ideation, suicidal ideation Skin exam: PRESENT: dry, intact, warm. ABSENT: cyanosis, rash Results Laboratory Results: 10/19/17 07:12 10/17/17 05:30 10/19/17 07:12 NT-Pro-B Natriuret Pep 3170 H Impressions: Abdomen/Pelvis CT 10/08/17 17:58 IMPRESSION: Mildly dilated small bowel loops over the mid abdomen with inflammatory changes and trace free fluid, possible recurrent early small bowel obstruction. KUB X-Ray 10/12/17 17:15 IMPRESSION: Appropriate NGT. Upper GI and Small Bowel X-Ray 10/13/17 00:00 IMPRESSION: 1. SMALL SLIDING HIATAL HERNIA. 2. MODERATE ESOPHAGEAL REFLUX. 3. MODERATE ANTRAL GASTRITIS. 4. SMALL DUODENAL DIVERTICULUM. 5. DIFFUSE MODERATELY DILATED BOWEL LOOPS THROUGHOUT THE ENTIRE SMALL BOWEL, WITH DELAYED SMALL BOWEL TRANSIT. FINDINGS MOST CONSISTENT WITH ILEUS VERSUS SMALL BOWEL OBSTRUCTION. NO DEFINITE TRANSITION POINT OR STRICTURE IS IDENTIFIED. Chest X-Ray 10/14/17 00:00 IMPRESSION: Central line with its tip overlying the medial right lung apex as noted above which presumably is within the internal jugular vein however clinical correlation is recommended. Pneumothorax is seen. Other findings as noted above Abdomen X-Ray 10/15/17 00:00 IMPRESSION: No improvement in the high-grade partial small bowel obstruction. Abdomen Ultrasound 10/17/17 00:00 IMPRESSION: SLUDGE WITHIN THE GALLBLADDER. NO SONOGRAPHIC EVIDENCE OF CHOLECYSTITIS. Assessment & Plan - Diagnosis (1) Small bowel obstruction Is this a current diagnosis for this admission?: Yes Plan: Patient is status post laparotomy and lysis adhesions and cyst. NG tube removed. Patient diet being advanced. (2) Dxbtw-aq-nsybout kidney injury Qualifiers: Chronic kidney disease stage: stage 4 (severe) Is this a current diagnosis for this admission?: Yes Plan: Resolved. Patient creatinine down from 2.53 to 1.29. This may have been due to dehydration. (3) COPD (chronic obstructive pulmonary disease) Qualifiers: COPD type: emphysema Emphysema type: unspecified Qualified Code(s): J43.9 - Emphysema, unspecified Is this a current diagnosis for this admission?: Yes Plan: Stable with no signs of exacerbation. Continue PRN nebs along with schedule inhailers. (4) Full code status Is this a current diagnosis for this admission?: Yes (5) GERD (gastroesophageal reflux disease) Qualifiers: Esophagitis presence: esophagitis presence not specified Qualified Code(s) : K21.9 - Gastro-esophageal reflux disease without esophagitis Is this a current diagnosis for this admission?: Yes Plan: Patient with severe reflux. Protonix increased to bid. (6) Hypercalcemia Is this a current diagnosis for this admission?: Yes Plan: Resolved. Likely due to dehydration. (7) Renal transplant recipient Is this a current diagnosis for this admission?: Yes Plan: Patient renal function is better. Continue steroids and tacrolimus. Nephrology following. (8) Abdominal pain Qualifiers: Abdominal location: right upper quadrant Qualified Code(s): R10.11 - Right upper quadrant pain Is this a current diagnosis for this admission?: Yes Plan: Improving. RUQ tenderness improving. US with gallbladder shows billiary sludge. Patient doing better on Dilaudid and percocet - Time Time Spent with patient: Less than 15 minutes Anticipated discharge: Home Within: within 24 hours - Surgery anticipating discharge in the morning.
--- NOTE | 2017-10-20 19:54 | Progress Note ---
Provider Note Provider Note: Please not that document dated 10/20 is for 10/19 thank you. Patient was not seen on 10/20, she was already discharged.
[2017-10-28] MEDS ORDERED: DEXTROSE 5%-1/2 NORMAL SALINE 1,000 ML IV PRN (17:14)
[2017-10-28] MEDS ORDERED: ONDANSETRON HCL INJ/PF 4 MG/2 ML SDV IV PRN (17:14)
[2017-10-28] MEDS ORDERED: ALBUTEROL SULFATE 0.083% NEB 2.5 MG/3 ML AMPUL NEB PRN (17:19)
[2017-10-28] MEDS ORDERED: NITROGLYCERIN 0.4 MG/TAB 25 TAB/BOTTLE SL PRN (17:19)
[2017-10-28] MEDS ORDERED: PREDNISONE 20 MG TABLET PO SCH (18:00)
[2017-10-28] MEDS ORDERED: ATORVASTATIN CALCIUM 20 MG TABLET PO SCH (22:00)
[2017-10-28] MEDS ORDERED: FAMOTIDINE 20 MG TABLET PO SCH (22:00)
[2017-10-28] MEDS ORDERED: CARVEDILOL 12.5 MG TABLET PO SCH (22:00)
[2017-10-28] MEDS ORDERED: TACROLIMUS ANHYDROUS 1 MG CAPSULE PO SCH (22:00)
[2017-10-29] MEDS ORDERED: ASPIRIN 81 MG TABLET, CHEWABLE PO SCH (10:00)
[2017-10-29] MEDS ORDERED: NIFEDIPINE 30 MG TAB.ER.24 PO SCH (10:00)
[2017-10-29] MEDS ORDERED: ENOXAPARIN SODIUM INJ 30 MG/0.3 ML DISP.SYRIN SUBCUT SCH (10:00)
[2017-11-01] MEDS ORDERED: ERGOCALCIFEROL (VITAMIN D2) 50000 UNIT (1.25 MG) CAPSULE PO SCH (10:00)
--- NOTE | 2017-11-19 07:53 | DISCHARGE SUMMARY E ---
Discharge Summary NAME: DEVANTE PIERSON : 1950 AGE: 67Y ADMITTED: 10/08/2017 DISCHARGED: 10/20/2017 REASON FOR ADMISSION: Abdominal pain. SUMMARY OF HOSPITALIZATION: The patient is a 67-year-old -[place] female several months status post exploratory laparotomy, lysis of adhesions, who presented to the Emergency Department with complaints of abdominal pain, nausea and vomiting. She was evaluated by CT scan of the abdomen and found to have findings consistent with a partial small bowel obstruction. She was admitted to the Surgicalist Service for further care. The patient was kept n.p.o. on IV fluids and nasogastric decompression. She continued to have persisting abdominal pain and nasogastric tube drainage out of proportion to physical exam findings. On 10/13/2017, she underwent upper GI small bowel follow-through which revealed findings consistent with delayed transit on the contrast study. Patient had a central line and TPN started. Because of failure to improve, she was taken to the operating room by Dr. Rachid Ortega on 10/15/2017, where she underwent exploratory laparotomy, lysis of adhesive bands, and excision of mesenteric cyst. Postoperatively, she did well, had no complications, eventually had resumption of her diet. By the fifth postoperative day, she was felt to be ready for discharge home. FINAL DIAGNOSIS: RECURRENT SMALL BOWEL OBSTRUCTION SECONDARY TO MESENTERIC CYST STATUS POST EXPLORATORY LAPAROTOMY, LYSIS OF ADHESIONS, AND EXCISION OF MESENTERIC CYST. DISPOSITION: Patient will be discharged home in care of her family, follow up with [facility] in approximately 1 week, resume preoperative medications, diet and activity. She will also follow up with her regular medical team as per preop. DICTATING PHYSICIAN: KRISTEN HAYWOOD M.D. [id number] PHY#: [id number] ID: [id number] JOB#: [id number] ACCT: [id number] cc:Chapin ROBERT M.D. >
--- NOTE | 2017-11-19 09:36 | PDOC H&P ---
History of Present Illness Admission Date/PCP: 10/28/2017 History of Present Illness: 67 yo renal transplant pt s/p xlap and donovan 2 wks ago for sbo, now presenting with generalized weakness. no emesis and having good bowel function but having poor appetite and generalized weakness. no syncope. no signs of gi bleed. no abdominal pain. Seen in office and sent for lab studies-- remarkable for elevated BUN and creatinine above baseline and hyperkalemia. Past Medical History Cardiac Medical History: Reports: Atrial Fibrillation, Congestive Heart Failure , Coronary Artery Disease, Myocardial Infarction, Hyperlipidema, Hypertension Denies: Heart Murmur Pulmonary Medical History: Reports: Chronic Obstructive Pulmonary Disease (COPD) Denies: Tuberculosis Neurological Medical History: Denies: Seizures Renal/ Medical History: Reports: Chronic Kidney Disease, End Stage Renal Disease Malignancy Medical History: GI Medical History: Reports: Gastroesophageal Reflux Disease Denies: Hiatal Hernia Psychiatric Medical History: Denies: Bipolar Disorder, Depression Hematology: Reports: Anemia Denies: Hemophilia, Sickle Cell Disease Infectious Medical History: Past Surgical History Past Surgical History: Reports: Cardiac Catheterization, Coronary Stent - 2003, Renal Transplant, Tubal Ligation, Other - s/p donovan twice this year, last couple weeks ago Denies: Appendectomy, Section, Cholecystectomy, Hysterectomy, Mastectomy, Tonsillectomy Social History Smoking Status: Current Every Day Smoker Cigarettes Packs Per Day: 10 Number of Years Smokin Frequency of Alcohol Use: Occasional Hx Recreational Drug Use: No Drugs: None Hx Prescription Drug Abuse: No - Advance Directive Resuscitation Status: Full Code Family History Family History: Hypertension Parental Family History Reviewed: No Children Family History Reviewed: No Sibling(s) Family History Reviewed.: No Medication/Allergy Home Medications: Albuterol Sulfate [Ventolin 0.083% Neb 2.5 mg/3 ml Ampul] 1 vial NEB RTQ4HP PRN 10/09/17 Aspirin [Aspirin 81 mg Chewable Tablet] 81 mg PO DAILY 10/09/17 Atorvastatin Calcium [Lipitor 20 mg Tablet] 20 mg PO QHS 10/09/17 Carvedilol [Coreg 12.5 mg Tablet] 25 mg PO Q12 10/09/17 Ergocalciferol (Vitamin D2) [Drisdol 50,000 Unit (1.25MG) Capsule] 50,000 unit PO SCHAEFFER@1000 10/09/17 Furosemide [Lasix 40 mg Tablet] 40 mg PO BID 10/09/17 Nifedipine [Procardia Xl 30 mg Tablet] 30 mg PO DAILY 10/09/17 Nitroglycerin [Nitrostat 0.4 mg (1/150 Gr) Tabs 25/Bottle] 1 tab SL Q5MP PRN Potassium Chloride [Klor-Con 10 Meq Tablet.sa] 20 meq PO DAILY 10/09/17 Prednisone [Deltasone 5 mg Tablet] 5 mg PO DAILY 10/09/17 Ranitidine HCl [Zantac] 150 mg PO QHS 10/09/17 Tacrolimus Anhydrous [Prograf 1 Mg Capsule] 2 mg PO Q12 10/09/17 Allergies/Adverse Reactions: lisinopril [Lisinopril] Allergy (Verified 06/19/17 07:31) ibuprofen [From Advil] Adverse Reaction (Verified 10/13/17 15:04) Physical Exam Vital Signs: General appearance: PRESENT: no acute distress, cooperative Eye exam: PRESENT: conjunctiva pink Neck exam: PRESENT: other - supple, ntp Respiratory exam: PRESENT: clear to auscultation kat Cardiovascular exam: PRESENT: RRR GI/Abdominal exam: PRESENT: other - soft, non distended, non tender. wound c/d/ i. Neurological exam: PRESENT: alert, awake Psychiatric exam: PRESENT: appropriate affect Skin exam: PRESENT: warm Results Laboratory Results: Impressions: Assessment & Plan - Diagnosis (1) Small bowel obstruction Is this a current diagnosis for this admission?: Yes (2) COPD (chronic obstructive pulmonary disease) Qualifiers: COPD type: emphysema Emphysema type: unspecified Qualified Code(s): J43.9 - Emphysema, unspecified Is this a current diagnosis for this admission?: Yes (3) Dehydration Is this a current diagnosis for this admission?: Yes Plan: failure to thrive after DONOVAN. admit for iv fluids. stress steroids.
--- NOTE | 2017-11-19 09:36 | PDOC H&P ---
History of Present Illness Patient complains of: Abdominal pain and nausea and vomiting History of Present Illness: DEVANTE PIERSON is a 67 year old female with a history of internal hernia status post exploratory laparotomy 3 months ago now presenting with 1 day history of crampy diffuse abdominal pain along with nausea and vomiting of bilious material. She denies any fever. She denies any hematemesis. She had a hard bowel movement last night. She has been passing gas today. No blood per rectum. Since receiving pain medication her abdominal pain has subsided. Patient has a history of kidney transplant 2 years ago. Past Medical History Cardiac Medical History: Reports: Atrial Fibrillation, Congestive Heart Failure , Coronary Artery Disease, Myocardial Infarction, Hyperlipidema, Hypertension Denies: Heart Murmur Pulmonary Medical History: Reports: Chronic Obstructive Pulmonary Disease (COPD) Denies: Tuberculosis Neurological Medical History: Denies: Seizures Renal/ Medical History: Reports: End Stage Renal Disease Malignancy Medical History: GI Medical History: Reports: Gastroesophageal Reflux Disease Denies: Hiatal Hernia Psychiatric Medical History: Denies: Bipolar Disorder, Depression Hematology: Reports: Anemia Denies: Hemophilia, Sickle Cell Disease Infectious Medical History: Past Surgical History Past Surgical History: Reports: Cardiac Catheterization, Coronary Stent - 2003, Tubal Ligation, Other - Valvuloplasty [facility] February 2017 multiple upper extremi Denies: Appendectomy, Section, Cholecystectomy, Hysterectomy, Mastectomy, Tonsillectomy Social History Smoking Status: Current Every Day Smoker Frequency of Alcohol Use: Occasional Hx Recreational Drug Use: No Drugs: None Hx Prescription Drug Abuse: No Family History Family History: Reviewed & Not Pertinent Parental Family History Reviewed: No Children Family History Reviewed: No Sibling(s) Family History Reviewed.: No Medication/Allergy Home Medications: Acetaminophen [Tylenol] 650 mg PO Q6HP PRN 06/16/17 Albuterol Sulfate [Proair HFA] 2 puff IN Q6HP PRN 06/16/17 Aspirin [Aspirin 81 mg Chewable Tablet] 81 mg PO DAILY 06/16/17 Atorvastatin Calcium [Lipitor 20 mg Tablet] 20 mg PO QHS 06/16/17 Docusate Sodium [Colace 100 mg Capsule] 100 mg PO DAILYP PRN 06/16/17 Ergocalciferol (Vitamin D2) [Drisdol 50,000 Unit (1.25MG) Capsule] 50,000 unit PO SCHAEFFER@1000 06/16/17 Nifedipine [Nifedipine ER] 30 mg PO DAILY 06/16/17 Nitroglycerin [Nitrostat 0.4 mg (1/150 Gr) Tabs 25/Bottle] 0.4 mg SL Q5MP PRN Sucralfate [Carafate 1 gm Tablet] 1 gm PO ACHS 06/16/17 Tacrolimus [Prograf] 2 mg PO QAM 06/16/17 Carvedilol [Coreg] 25 mg PO Q12 06/19/17 Prednisone [Deltasone 5 mg Tablet] 5 mg PO DAILY 06/19/17 Ranitidine HCl [Zantac] 150 mg PO QHS 06/19/17 Tacrolimus Anhydrous [Prograf 1 Mg Capsule] 1 mg PO QPM 06/19/17 Furosemide [Lasix 20 mg Tablet] 20 mg PO BID 06/25/17 Ipratropium/Albuterol Sulfate [Combivent Respimat Inhal [place]] 2 puff IH Q6 Allergies/Adverse Reactions: ibuprofen [From Advil] Allergy (Verified 06/19/17 07:31) lisinopril [Lisinopril] Allergy (Verified 06/19/17 07:31) Physical Exam Vital Signs: Temp Pulse Resp BP Pulse Ox 99.0 F 22 H 175/63 H 100 10/08/17 17:00 10/08/17 19:01 10/08/17 19:00 10/08/17 19:01 Intake & Output 10/07/17 10/08/17 10/09/17 06:59 06:59 06:59 Weight 63.503 kg General appearance: PRESENT: no acute distress, cooperative Eye exam: PRESENT: conjunctiva pink Neck exam: PRESENT: other - Supple with no palpable abnormal masses Respiratory exam: PRESENT: wheezes Cardiovascular exam: PRESENT: RRR GI/Abdominal exam: PRESENT: other - Soft, mildly distended, mild diffuse abdominal tenderness to palpation with no peritoneal signs. Extremities exam: PRESENT: other - No edema. No splinter hemorrhages. Neurological exam: PRESENT: alert, awake Psychiatric exam: PRESENT: appropriate affect Skin exam: PRESENT: warm Results Laboratory Results: 10/08/17 16:55 10/08/17 16:55 10/08/17 10/08/17 10/08/17 16:55 16:55 20:57 WBC 5.1 RBC 4.42 Hgb 14.1 Hct 41.6 MCV 94 MCH 32.0 MCHC 33.9 RDW 16.1 H Plt Count 222 Seg Neutrophils % 76.2 Lymphocytes % 14.7 Monocytes % 7.7 Eosinophils % 0.8 Basophils % 0.6 Absolute Neutrophils 3.9 Absolute Lymphocytes 0.7 Absolute Monocytes 0.4 Absolute Eosinophils 0.0 Absolute Basophils 0.0 Sodium 140.6 Potassium 4.8 Chloride 106 Carbon Dioxide 26 Anion Gap 9 BUN 50 H Creatinine 2.29 H Est GFR ( Amer) 26 L Est GFR (Non-Af Amer) 21 L Glucose 105 Calcium 11.6 H Total Bilirubin 0.6 AST 33 ALT 25 Alkaline Phosphatase 71 Total Protein 6.8 Albumin 4.0 Lipase 201.5 Urine Color STRAW Urine Appearance CLEAR Urine pH 6.0 Ur Specific Damar 1.006 Urine Protein NEGATIVE Urine Glucose (UA) NEGATIVE Urine Ketones NEGATIVE Urine Blood NEGATIVE Urine Nitrite NEGATIVE Ur Leukocyte Esterase NEGATIVE Urine WBC (Auto) 0 Urine RBC (Auto) 0 Impressions: Abdomen/Pelvis CT 10/08/17 17:58 IMPRESSION: Mildly dilated small bowel loops over the mid abdomen with inflammatory changes and trace free fluid, possible recurrent early small bowel obstruction. Assessment & Plan - Diagnosis (1) Small bowel obstruction Plan: Patient with abdominal pain and nausea and vomiting with possible early small bowel obstruction. Will admit the patient, IV fluids, NG tube decompression. I have discussed her case with transplant surgeon at [facility] and will follow their recommendation for her immunosuppression: Convert prednisone to iv Solu-Medrol, change Prograf to 1 mg sublingual twice a day. Her creatinine is increased from her baseline. We will see trend after hydration. Will consult the hospitalist to assist in management of this patient with multiple medical problems. (2) COPD (chronic obstructive pulmonary disease) Qualifiers: COPD type: emphysema Emphysema type: unspecified Qualified Code(s): J43.9 - Emphysema, unspecified Plan: With active wheezing at this time. Will place on albuterol.
== END 2017-10-20 11:56 | disposition home or self-care (01) | DRG 336 ==
LOC: ER 16:02 → OBSVTOIN 22:25 → EH 22:25 → INTOOBSV 22:25 → 5 10-09 00:12 → ICU 10-15 19:14 → 4S 10-16 14:51
PROVIDERS: ADMIT Surgery; ATTEND Surgery
PROC: HZ31ZZZ Individual Counseling for Substance Abuse Treatment, Behavioral (ICD-10-PCS; 2017-10-09)
PROC: 05HM33Z Insertion of Infusion Device into Right Internal Jugular Vein, Percutaneous Approach (ICD-10-PCS; 2017-10-14)
PROC: B543ZZA Ultrasonography of Right Jugular Veins, Guidance (ICD-10-PCS; 2017-10-14)
PROC: 3E0436Z Introduction of Nutritional Substance into Central Vein, Percutaneous Approach (ICD-10-PCS; 2017-10-14)
PROC: 0DBV0ZZ Excision of Mesentery, Open Approach (ICD-10-PCS; 2017-10-15)
PROC: 05PYX3Z Removal of Infusion Device from Upper Vein, External Approach (ICD-10-PCS; 2017-10-15)
PROC: 0DN80ZZ Release Small Intestine, Open Approach (ICD-10-PCS; principal; 2017-10-15 17:15)
DX: K56.52 Intestinal adhesions [bands] with complete obstruction (principal); Z94.0 Kidney transplant status; N17.9 Acute kidney failure, unspecified; N18.4 Chronic kidney disease, stage 4 (severe); I82.B13 Acute embolism and thrombosis of subclavian vein, bilateral; I38 Endocarditis, valve unspecified; I13.10 Hypertensive heart and chronic kidney disease without heart failure, with stage 1 through stage 4 chronic kidney disease, or unspecified chronic kidney disease; I50.9 Heart failure, unspecified; J43.9 Emphysema, unspecified; I73.9 Peripheral vascular disease, unspecified; E83.52 Hypercalcemia; K21.9 Gastro-esophageal reflux disease without esophagitis; E87.6 Hypokalemia; E86.0 Dehydration; F17.210 Nicotine dependence, cigarettes, uncomplicated; I48.91 Unspecified atrial fibrillation; I25.10 Atherosclerotic heart disease of native coronary artery without angina pectoris; E78.5 Hyperlipidemia, unspecified; T80.89XA Other complications following infusion, transfusion and therapeutic injection, initial encounter; Y84.8 Other medical procedures as the cause of abnormal reaction of the patient, or of later complication, without mention of misadventure at the time of the procedure; Y92.239 Unspecified place in hospital as the place of occurrence of the external cause; R10.11 Right upper quadrant pain; K83.8 Other specified diseases of biliary tract; G89.29 Other chronic pain; M54.9 Dorsalgia, unspecified; M60.28 Foreign body granuloma of soft tissue, not elsewhere classified, other site; N25.0 Renal osteodystrophy; Z95.5 Presence of coronary angioplasty implant and graft; Z88.8 Allergy status to other drugs, medicaments and biological substances; Z82.49 Family history of ischemic heart disease and other diseases of the circulatory system; Z79.899 Other long term (current) drug therapy; Z79.82 Long term (current) use of aspirin; Z86.010 Personal history of colon polyps; Z88.6 Allergy status to analgesic agent; Z98.51 Tubal ligation status; Z98.890 Other specified postprocedural states
CPT/HCPCS: 36415; 71045; 74000; 74018; 74019; 74176; 74249; 76705; 790; 80048; 80051; 80053; 80197; 81001; 82330; 82397; 83690; 83735; 83880; 83970; 84100; 84134; 84478; 85025; 85027; 88304; 93005; 93010; 96361; 96374; 96375; 99285; C1751; J0360; J0690; J1170; J1650; J1885; J2060; J2250; J2270; J2405; J2704; J2920; J2930; J3010; J3480; J3490; J7030; J7507; S0119; S0164

== ENCOUNTER 2017-10-28 17:19 | Observation (INO) | payer OTHER, MEDICARE ==
[2017-10-28] MEDS ORDERED: DEXTROSE 5%-1/2 NORMAL SALINE 1,000 ML IV PRN (17:22)
[2017-10-28] MEDS ORDERED: ONDANSETRON HCL INJ/PF 4 MG/2 ML SDV IV PRN (17:22)
[2017-10-28] MEDS ORDERED: ALBUTEROL SULFATE 0.083% NEB 2.5 MG/3 ML AMPUL NEB PRN (17:26)
[2017-10-28] MEDS ORDERED: NITROGLYCERIN 0.4 MG/TAB 25 TAB/BOTTLE SL PRN (17:26)
--- NOTE | 2017-10-28 17:38 | PDOC H&P ---
History of Present Illness Admission Date/PCP: 10/28/17 17:19 ALVINA SMITH MD Patient complains of: genralized weakness History of Present Illness: DEVANTE PIERSON is a 67 year old female s/p MATTHEW of [facility] couple weeks ago. presented to office with generalized weakness. no emesis. good bowel function. no abdominal pain. no fever. weak but no syncope. sent for lab studies and noted with elevated K, BUN and creatinine. Pt is s/p renal transplant. Past Medical History Cardiac Medical History: Reports: Atrial Fibrillation, Congestive Heart Failure , Coronary Artery Disease, Myocardial Infarction, Hyperlipidema, Hypertension Denies: Heart Murmur Pulmonary Medical History: Reports: Chronic Obstructive Pulmonary Disease (COPD) Denies: Tuberculosis Neurological Medical History: Denies: Seizures Renal/ Medical History: Reports: End Stage Renal Disease Malignancy Medical History: GI Medical History: Reports: Gastroesophageal Reflux Disease Denies: Hiatal Hernia Psychiatric Medical History: Denies: Bipolar Disorder, Depression Hematology: Reports: Anemia Denies: Hemophilia, Sickle Cell Disease Infectious Medical History: Past Surgical History Past Surgical History: Reports: Cardiac Catheterization, Coronary Stent - 2003, Tubal Ligation, Other - Valvuloplasty [facility] February 2017 multiple upper extremi Denies: Appendectomy, Section, Cholecystectomy, Hysterectomy, Mastectomy, Tonsillectomy Social History Smoking Status: Unknown if Ever Smoked Frequency of Alcohol Use: Occasional Hx Recreational Drug Use: No Drugs: None Hx Prescription Drug Abuse: No Family History Family History: Hypertension Parental Family History Reviewed: No Children Family History Reviewed: No Sibling(s) Family History Reviewed.: No Medication/Allergy Home Medications: Albuterol Sulfate [Ventolin 0.083% Neb 2.5 mg/3 ml Ampul] 1 vial NEB RTQ4HP PRN 10/09/17 Aspirin [Aspirin 81 mg Chewable Tablet] 81 mg PO DAILY 10/09/17 Atorvastatin Calcium [Lipitor 20 mg Tablet] 20 mg PO QHS 10/09/17 Carvedilol [Coreg 12.5 mg Tablet] 25 mg PO Q12 10/09/17 Ergocalciferol (Vitamin D2) [Drisdol 50,000 Unit (1.25MG) Capsule] 50,000 unit PO SCHAEFFER@1000 10/09/17 Furosemide [Lasix 40 mg Tablet] 40 mg PO BID 10/09/17 Nifedipine [Procardia Xl 30 mg Tablet] 30 mg PO DAILY 10/09/17 Nitroglycerin [Nitrostat 0.4 mg (1/150 Gr) Tabs 25/Bottle] 1 tab SL Q5MP PRN Potassium Chloride [Klor-Con 10 Meq Tablet.sa] 20 meq PO DAILY 10/09/17 Prednisone [Deltasone 5 mg Tablet] 5 mg PO DAILY 10/09/17 Ranitidine HCl [Zantac] 150 mg PO QHS 10/09/17 Tacrolimus Anhydrous [Prograf 1 Mg Capsule] 2 mg PO Q12 10/09/17 Allergies/Adverse Reactions: lisinopril [Lisinopril] Allergy (Verified 06/19/17 07:31) ibuprofen [From Advil] Adverse Reaction (Verified 10/13/17 15:04) Physical Exam General appearance: PRESENT: no acute distress, cooperative Respiratory exam: PRESENT: clear to auscultation kat Cardiovascular exam: PRESENT: RRR GI/Abdominal exam: PRESENT: other - soft, non distended, non tender, wound clean , dry and intact Neurological exam: PRESENT: alert, awake Psychiatric exam: PRESENT: appropriate affect Skin exam: PRESENT: warm Assessment & Plan - Diagnosis (1) Dehydration Is this a current diagnosis for this admission?: Yes Plan: along with elevated creatinine above baseline and hyperkalemia. no evidence of obstruction. will admit for ivf's, stress steroids.
[2017-10-28] MEDS ORDERED: (PENDING PHARMACY ID) (Ranitidine Hcl [Zantac 150 Mg Tablet] 150 MG) PO SCH (22:00)
[2017-10-28] MEDS: CARVEDILOL 12.5 MG TABLET PO SCH (22:10)
[2017-10-28] MEDS: FAMOTIDINE 20 MG TABLET PO SCH (22:10)
[2017-10-28] MEDS: ATORVASTATIN CALCIUM 20 MG TABLET PO SCH (22:10)
[2017-10-28] MEDS: TACROLIMUS ANHYDROUS 1 MG CAPSULE PO SCH (22:10)
[2017-10-28] MEDS: PREDNISONE 20 MG TABLET PO SCH (22:10)
[2017-10-29 06:51] LABS: HEMATOCRIT 33.1 % (36.0-47.0); HEMOGLOBIN 11.3 g/dL (12.0-15.5); MEAN CORPUSCULAR HEMOGLOBIN 31.6 pg (27.0-33.4); MEAN CORPUSCULAR VOLUME 93 fl (80-97); PLATELET COUNT 253 10^3/uL (150-450); RED BLOOD COUNT 3.56 10^6/uL (3.72-5.28); RED CELL DISTRIBUTION WIDTH 15.9 % (11.5-14.0); WHITE BLOOD COUNT 7.8 10^3/uL (4.0-10.5)
[2017-10-29 07:04] LABS: ALANINE AMINOTRANSFERASE 45 U/L (9-52); ALBUMIN 3.6 g/dL (3.5-5.0); ALKALINE PHOSPHATASE 69 U/L (38-126); ANION GAP 10 (5-19); ASPARTATE AMINO TRANSFERASE 27 U/L (14-36); BILIRUBIN,DIRECT 0.2 mg/dL (0.0-0.4); BILIRUBIN,TOTAL 0.4 mg/dL (0.2-1.3); BLOOD UREA NITROGEN 38 mg/dL (7-20); CALCIUM 10.9 mg/dL (8.4-10.2); CARBON DIOXIDE 20 mmol/L (22-30); CHLORIDE 108 mmol/L (98-107); GLUCOSE 111 mg/dL (75-110); POTASSIUM 5.1 mmol/L (3.6-5.0); SODIUM 137.6 mmol/L (137-145); TOTAL PROTEIN 5.7 g/dL (6.3-8.2)
--- NOTE | 2017-10-29 08:39 | PDOC PROGRESS REPORT ---
Subjective Progress Note for:: 10/29/17 Subjective:: Patient feels much much better. Reason For Visit: DEHYDRATION Physical Exam Vital Signs: Temp Pulse Resp BP Pulse Ox 98.3 F 68 18 129/61 H 100 10/29/17 04:31 10/29/17 04:31 10/29/17 04:31 10/29/17 04:31 10/29/17 04:31 Intake & Output 10/28/17 10/29/17 10/30/17 06:59 06:59 06:59 Intake Total 207 Output Total 100 Balance 1970 Weight 49.2 kg General appearance: PRESENT: no acute distress, cooperative Respiratory exam: PRESENT: clear to auscultation kat Cardiovascular exam: PRESENT: RRR GI/Abdominal exam: PRESENT: other - Soft, nondistended, nontender to palpation. Results Laboratory Results: 10/29/17 06:15 10/29/17 06:15 10/29/17 10/29/17 06:15 06:15 WBC 7.8 RBC 3.56 L Hgb 11.3 L Hct 33.1 L MCV 93 MCH 31.6 MCHC 34.0 RDW 15.9 H Plt Count 253 Sodium 137.6 Potassium 5.1 H Chloride 108 H Carbon Dioxide 20 L Anion Gap 10 BUN 38 H Creatinine 2.17 H Est GFR ( Amer) 27 L Est GFR (Non-Af Amer) 23 L Glucose 111 H Calcium 10.9 H Total Bilirubin 0.4 AST 27 ALT 45 Alkaline Phosphatase 69 Total Protein 5.7 L Albumin 3.6 Assessment & Plan - Diagnosis (1) Dehydration Is this a current diagnosis for this admission?: Yes Plan: Much improved after hydration. Hyperkalemia has markedly improved as well. Will have the patient continue to hold her Lasix and potassium. We will see how she does with her p.o. intake. Suspect all of her symptoms was related with dehydration. I think boosting her prednisone dose will also help with her appetite and overall energy level. Will likely discharge patient home later today off of her Lasix and potassium if nephrology agrees.
[2017-10-29] MEDS: NIFEDIPINE 30 MG TAB.ER.24 PO SCH (10:32)
[2017-10-29] MEDS: TACROLIMUS ANHYDROUS 1 MG CAPSULE PO SCH ×2 (10:33→21:48)
[2017-10-29] MEDS: ASPIRIN 81 MG TABLET, CHEWABLE PO SCH (10:33)
[2017-10-29] MEDS: CARVEDILOL 12.5 MG TABLET PO SCH ×2 (10:34→21:46)
[2017-10-29] MEDS: FAMOTIDINE 20 MG TABLET PO SCH ×2 (10:34→21:46)
[2017-10-29] MEDS: PREDNISONE 20 MG TABLET PO SCH ×2 (10:34→21:45)
[2017-10-29] MEDS: NORMAL SALINE 1000 ML 1,000 ML IV PRN (16:57)
--- NOTE | 2017-10-29 18:39 | PDOC CONSULTATION ---
Consultation Consult Date: 10/29/17 Consult reason:: ROOSEVELT History of Present Illness Admission Date/PCP: 10/28/17 17:19 ALVINA SMITH MD History of Present Illness: DEVANTE PIERSON is a 67 year old female who has a history of CKD and a kidney transplant. She was seen in the hospital a couple weeks ago in the hospital for a bowel obstruction with an ROOSEVELT due to dehydration. She presented to her surgeons office with generalized weakness. No emesis she is having normal bowel function with no abdominal pain. When she was sent for lab studies and it was noted that she had an elevated K, BUN and creatinine. She admits to drinking less than 32oz of water a day. No complaints of chest pain or SOB. Past Medical History Cardiac Medical History: Reports: Atrial Fibrillation, Coronary Artery Disease, Hyperlipidemia, Hypertension-primary, Myocardial Infarction Denies: Heart Murmur Pulmonary Medical History: Reports: Chronic Obstructive Pulmonary Disease (COPD) Denies: Tuberculosis Neurological Medical History: Denies: Seizures Renal/ Medical History: Reports: Chronic Kidney Disease Stage III, End Stage Renal Disease Denies: Benign Prostatic Hyperplasia Malignancy Medical History: GI Medical History: Reports: Gastroesophageal Reflux Disease Denies: Hiatal Hernia Psychiatric Medical History: Denies: Bipolar Disorder, Depression Infectious Medical History: Past Surgical History Past Surgical History: Reports: Cardiac Catheterization, Coronary Stent - 2003, Tubal Ligation, Other - Valvuloplasty [facility] February 2017 multiple upper extremi Denies: Appendectomy, Section, Cholecystectomy, Hysterectomy, Mastectomy, Tonsillectomy Social History Smoking Status: Current Every Day Smoker Cigarettes Packs Per Day: 1 Number of Years Smokin Frequency of Alcohol Use: Occasional Hx Recreational Drug Use: No Drugs: None Hx Prescription Drug Abuse: No Family History Parental Family History Reviewed: No Children Family History Reviewed: NA Sibling(s) Family History Reviewed.: NA Medication/Allergy Home Medications: Albuterol Sulfate [Ventolin 0.083% Neb 2.5 mg/3 ml Ampul] 1 vial NEB RTQ4HP PRN 10/09/17 Aspirin [Aspirin 81 mg Chewable Tablet] 81 mg PO DAILY 10/09/17 Atorvastatin Calcium [Lipitor 20 mg Tablet] 20 mg PO QHS 10/09/17 Carvedilol [Coreg 12.5 mg Tablet] 25 mg PO Q12 10/09/17 Ergocalciferol (Vitamin D2) [Drisdol 50,000 Unit (1.25MG) Capsule] 50,000 unit PO SCHAEFFER@1000 10/09/17 Furosemide [Lasix 40 mg Tablet] 40 mg PO BID 10/09/17 Nifedipine [Procardia Xl 30 mg Tablet] 30 mg PO DAILY 10/09/17 Nitroglycerin [Nitrostat 0.4 mg (1/150 Gr) Tabs 25/Bottle] 1 tab SL Q5MP PRN Potassium Chloride [Klor-Con 10 Meq Tablet.sa] 20 meq PO DAILY 10/09/17 Prednisone [Deltasone 5 mg Tablet] 5 mg PO DAILY 10/09/17 Ranitidine HCl [Zantac] 150 mg PO QHS 10/09/17 Tacrolimus Anhydrous [Prograf 1 Mg Capsule] 2 mg PO Q12 10/09/17 Allergies/Adverse Reactions: lisinopril [Lisinopril] Allergy (Verified 06/19/17 07:31) ibuprofen [From Advil] Adverse Reaction (Verified 10/13/17 15:04) Review of Systems Constitutional: PRESENT: fatigue, weakness. ABSENT: anorexia, chills, fever(s) Nose, Mouth, and Throat: ABSENT: headache(s) Cardiovascular: ABSENT: chest pain, dyspnea on exertion, edema Respiratory: ABSENT: cough, dyspnea, sputum Gastrointestinal: ABSENT: abdominal pain, constipation, diarrhea, nausea, vomiting Genitourinary: ABSENT: dysuria Musculoskeletal: PRESENT: muscle weakness. ABSENT: back pain Neurological: PRESENT: weakness. ABSENT: confusion, dizziness Physical Exam Vital Signs: Temp Pulse Resp BP Pulse Ox 98.1 F 58 L 22 H 154/52 H 100 10/29/17 17:02 10/29/17 17:02 10/29/17 17:02 10/29/17 17:02 10/29/17 17:02 Intake & Output 10/28/17 10/29/17 10/30/17 06:59 06:59 06:59 Intake Total 2070 1027 Output Total 100 900 Balance 1970 127 Weight 49.2 kg General appearance: PRESENT: no acute distress, well-developed, well-nourished Mouth exam: PRESENT: dry mucosa, tongue midline Neck exam: PRESENT: full ROM. ABSENT: JVD Respiratory exam: PRESENT: clear to auscultation kat. ABSENT: accessory muscle use, chest wall tenderness, crackles, rales, rhonchi, wheezes Cardiovascular exam: PRESENT: RRR, +S1, +S2 GI/Abdominal exam: PRESENT: soft. ABSENT: distended, tenderness Extremities exam: ABSENT: pedal edema, tenderness Musculoskeletal exam: PRESENT: normal inspection. ABSENT: tenderness Neurological exam: PRESENT: alert, awake, oriented to person, oriented to place , oriented to time, oriented to situation Results Laboratory Results: 10/29/17 06:15 10/29/17 06:15 10/29/17 10/29/17 06:15 06:15 WBC 7.8 RBC 3.56 L Hgb 11.3 L Hct 33.1 L MCV 93 MCH 31.6 MCHC 34.0 RDW 15.9 H Plt Count 253 Sodium 137.6 Potassium 5.1 H Chloride 108 H Carbon Dioxide 20 L Anion Gap 10 BUN 38 H Creatinine 2.17 H Est GFR ( Amer) 27 L Est GFR (Non-Af Amer) 23 L Glucose 111 H Calcium 10.9 H Total Bilirubin 0.4 AST 27 ALT 45 Alkaline Phosphatase 69 Total Protein 5.7 L Albumin 3.6 Assessment & Plan - Diagnosis (1) Jxyhb-qg-hpoallb kidney injury Qualifiers: Chronic kidney disease stage: stage 4 (severe) Plan: Creatinine is currently elevated but trending down, urine output is also decreased to only 400mL in the past 12 to 18 hours, looks to be elevated due to dehydration. Will switch 1/2 normal saline to NS at a rate of 100mL an hour. Recommend more time in the hospital until urine output increases (2) Dehydration Is this a current diagnosis for this admission?: Yes Plan: will rehydrate with normal saline at a rate of 100mL an hour. Discussed proper hydration with the patient. (3) Hypercalcemia Plan: elevated most likely due to dehydration (4) Hypertension Plan: varying (5) Hyperkalemia Plan: currently elevated at 5.1, most likely elevated due to dehydration, will revaluate after some fluid
[2017-10-29] MEDS: ATORVASTATIN CALCIUM 20 MG TABLET PO SCH (21:46)
[2017-10-30] MEDS: NORMAL SALINE 1000 ML 1,000 ML IV PRN ×2 (01:09→10:42)
[2017-10-30 09:18] LABS: ANION GAP 8 (5-19); BLOOD UREA NITROGEN 26 mg/dL (7-20); CARBON DIOXIDE 18 mmol/L (22-30); CHLORIDE 112 mmol/L (98-107); GLUCOSE 115 mg/dL (75-110); POTASSIUM 4.3 mmol/L (3.6-5.0)
--- NOTE | 2017-10-30 10:22 | PDOC PROGRESS REPORT ---
Subjective Progress Note for:: 10/30/17 Subjective:: Patient was laying comfortably in her bed. Urine out put has gone up since yesterday. She urinated out about 1500mL last night. She denies SOB or increased swelling in her legs. Reason For Visit: DEHYDRATION Physical Exam Vital Signs: Temp Pulse Resp BP Pulse Ox 98.5 F 68 20 155/71 H 100 10/30/17 08:03 10/30/17 08:03 10/30/17 08:03 10/30/17 08:03 10/30/17 08:03 Intake & Output 10/29/17 10/30/17 10/31/17 06:59 06:59 06:59 Intake Total 2070 2467 Output Total 1000 2800 Balance 1070 -333 Weight 49.2 kg 50.5 kg Cardiovascular exam: PRESENT: RRR, +S1, +S2 GI/Abdominal exam: PRESENT: soft. ABSENT: distended, tenderness Results Laboratory Results: 10/29/17 06:15 10/30/17 08:50 10/30/17 10/30/17 06:23 08:50 Sodium Cancelled 138.0 Potassium Cancelled 4.3 Chloride Cancelled 112 H Carbon Dioxide Cancelled 18 L Anion Gap Cancelled 8 BUN Cancelled 26 H Creatinine Cancelled 1.55 H Est GFR ( Amer) Cancelled 40 L Est GFR (Non-Af Amer) Cancelled 33 L Glucose Cancelled 115 H Calcium Cancelled 10.0 Assessment & Plan - Diagnosis (1) Pkmwx-zd-wyqlulh kidney injury Qualifiers: Chronic kidney disease stage: stage 4 (severe) Plan: Kidney looks to be improving. Creatinine is down to 1.5 and urine out put has increased. Discussed with the patient about decreasing her Lasix to once a day. Also discussed with her about following up with her slitter creaser slotter helper when she gets out. Patient is currently stable. From nephrology stand point she is safe for discharge. Recommend discharging her on her current lasix dosage, just decreased to once daily. (2) Dehydration Is this a current diagnosis for this admission?: Yes Plan: improved (3) Hypercalcemia Plan: improved (4) Hypertension Plan: varying, recommend outpatient management (5) Hyperkalemia Plan: improved (6) Metabolic acidosis Plan: will improve now that the kidney is functioning better. If does not improve she will need to be started on sodium bicarb qd
[2017-10-30] MEDS: PREDNISONE 20 MG TABLET PO SCH (10:33)
[2017-10-30] MEDS: ASPIRIN 81 MG TABLET, CHEWABLE PO SCH (10:34)
[2017-10-30] MEDS: FAMOTIDINE 20 MG TABLET PO SCH (10:34)
[2017-10-30] MEDS: TACROLIMUS ANHYDROUS 1 MG CAPSULE PO SCH (10:35)
[2017-10-30] MEDS: CARVEDILOL 12.5 MG TABLET PO SCH (10:36)
[2017-10-30] MEDS: NIFEDIPINE 30 MG TAB.ER.24 PO SCH (10:42)
--- NOTE | 2017-10-30 17:12 | PDOC PROGRESS REPORT ---
Subjective Progress Note for:: 10/30/17 Subjective:: comfortable, tolerating po well (semiliquid diet), flatus and bowel movement present Reason For Visit: DEHYDRATION Physical Exam Vital Signs: Temp Pulse Resp BP Pulse Ox 98.4 F 65 18 127/61 H 100 10/30/17 15:07 10/30/17 15:07 10/30/17 15:07 10/30/17 15:07 10/30/17 15:07 Intake & Output 10/29/17 10/30/17 10/31/17 06:59 06:59 06:59 Intake Total 2070 2467 750 Output Total 1000 2800 300 Balance 1070 -333 450 Weight 49.2 kg 50.5 kg General appearance: PRESENT: no acute distress Respiratory exam: PRESENT: chest wall tenderness Cardiovascular exam: PRESENT: other - NSR GI/Abdominal exam: PRESENT: normal bowel sounds, soft, other - wound C/D/I Results Laboratory Results: 10/29/17 06:15 10/30/17 08:50 10/30/17 10/30/17 06:23 08:50 Sodium Cancelled 138.0 Potassium Cancelled 4.3 Chloride Cancelled 112 H Carbon Dioxide Cancelled 18 L Anion Gap Cancelled 8 BUN Cancelled 26 H Creatinine Cancelled 1.55 H Est GFR ( Amer) Cancelled 40 L Est GFR (Non-Af Amer) Cancelled 33 L Glucose Cancelled 115 H Calcium Cancelled 10.0 Assessment & Plan - Diagnosis (1) Dehydration Is this a current diagnosis for this admission?: Yes - Plan Summary Plan Summary: Home today Semiliquid diet continue home meds F/U with Dr. Ortega next week F/u with Nabil Garcia (Treater Helper) next week
[2017-10-30 17:44] VITALS: BP 138/58
--- NOTE | 2017-10-30 19:24 | DISCHARGE SUMMARY E ---
Discharge Summary NAME: DEVANTE PIERSON : 1950 AGE: 67Y ADMITTED: 10/28/2017 DISCHARGED: 10/30/2017 FINAL DIAGNOSES: 1. Dehydration. 2. Status post laparotomy for lysis of adhesion. 3. History of a small bowel mechanical obstruction. PROCEDURE: None. HOSPITAL COURSE: This is a 67-year-old female status post kidney transplant on multiple medications including steroids, immunosuppressants, who presented to the hospital on 10/28, complaining of weakness. Found to be severely dehydrated with elevated potassium. She was therefore admitted, kept n.p.o., rehydrated. During the initial process her general conditions improved. Her potassium went down to 5.1 and her oral intake improved as well. On the day of discharge the patient had no complaints. She was able to have a bowel movement and she had some flatus as well. She tolerated p.o. well, including cream of wheat, toast, and crackers. She also has poor appetite which she reports being chronic. On physical exam her abdomen was soft with the incision clean, dry, intact. DISCHARGE ORDERS: The patient was discharged on 10/30/2017. She was given a follow up appointment with Dr. Ortega within a week. Follow up appointment with Dr. Ferrer, her information services vice president within a week. She was encouraged to resume her home medications until she sees Dr. Ferrer in the office. She was encouraged to follow a semiliquid diet and to push oral fluid intake. DICTATING PHYSICIAN: TYSHAWN SANTO M.D. [id number] PHY#: [id number] ID: [id number] JOB#: [id number] ACCT: [id number] cc:Chapin KONG M.D. > MTDD
[2017-11-01] MEDS ORDERED: ERGOCALCIFEROL (VITAMIN D2) 50000 UNIT (1.25 MG) CAPSULE PO SCH (10:00)
== END 2017-10-30 18:18 | disposition home or self-care (01) ==
LOC: 2N 17:19 → INTOOBSV 17:19
PROVIDERS: ADMIT Surgery; ATTEND Surgery
DX: E86.0 Dehydration (principal); Z98.890 Other specified postprocedural states; Z87.19 Personal history of other diseases of the digestive system; I12.9 Hypertensive chronic kidney disease with stage 1 through stage 4 chronic kidney disease, or unspecified chronic kidney disease; N18.4 Chronic kidney disease, stage 4 (severe); N17.9 Acute kidney failure, unspecified; Z94.0 Kidney transplant status; E87.5 Hyperkalemia; E83.52 Hypercalcemia; R14.3 Flatulence; I25.10 Atherosclerotic heart disease of native coronary artery without angina pectoris; F17.210 Nicotine dependence, cigarettes, uncomplicated; E87.2 Acidosis; E78.5 Hyperlipidemia, unspecified; I48.91 Unspecified atrial fibrillation; K21.9 Gastro-esophageal reflux disease without esophagitis; Z95.5 Presence of coronary angioplasty implant and graft; Z98.51 Tubal ligation status; Z79.82 Long term (current) use of aspirin; Z79.899 Other long term (current) drug therapy; Z82.49 Family history of ischemic heart disease and other diseases of the circulatory system
CPT/HCPCS: 36415 ×2; 85027; 80048; 80053; J7512 ×2; J7507 ×2; J7030 ×2

== ENCOUNTER → 2017-10-28 | Outpatient (CLI) | payer OTHER, MEDICARE ==
[2017-10-28 12:18] LABS: ABSOLUTE BASOPHILS # (AUTO) 0.1 10^3/uL (0.0-0.2); ABSOLUTE EOSINOPHILS # (AUTO) 0.1 10^3/uL (0.0-0.6); ABSOLUTE LYMPHOCYTES (AUTO) 0.6 10^3/uL (0.5-4.7); ABSOLUTE MONOCYTES (AUTO) 0.3 10^3/uL (0.1-1.4); ABSOLUTE NEUT (AUTO) 6.8 10^3/uL (1.7-8.2); BASOPHILS % (AUTO) 0.9 % (0-2); HEMATOCRIT 35.1 % (36.0-47.0); HEMOGLOBIN 11.9 g/dL (12.0-15.5); LYMPHOCYTES % (AUTO) 7.9 % (13-45); MEAN CORPUSCULAR HEMOGLOBIN 31.4 pg (27.0-33.4); MEAN CORPUSCULAR HGB CONC 33.8 g/dL (32.0-36.0); MEAN CORPUSCULAR VOLUME 93 fl (80-97); PLATELET COUNT 280 10^3/uL (150-450); RED BLOOD COUNT 3.77 10^6/uL (3.72-5.28); RED CELL DISTRIBUTION WIDTH 15.9 % (11.5-14.0); SEGMENTED NEUTROPHILS % (AUTO) 86.2 % (42-78); TOTAL CELLS COUNTED % (AUTO) 100 %; WHITE BLOOD COUNT 7.8 10^3/uL (4.0-10.5)
[2017-10-28 12:43] LABS: ANION GAP 11 (5-19); BLOOD UREA NITROGEN 39 mg/dL (7-20); CALCIUM 11.5 mg/dL (8.4-10.2); CARBON DIOXIDE 20 mmol/L (22-30); CHLORIDE 106 mmol/L (98-107); GLUCOSE 106 mg/dL (75-110); POTASSIUM 5.7 mmol/L (3.6-5.0); SODIUM 136.5 mmol/L (137-145)
== END ==
LOC: OD 11:10
PROVIDERS: ATTEND Surgery
DX: R53.1 Weakness (principal); R53.83 Other fatigue; Z98.890 Other specified postprocedural states
CPT/HCPCS: 36415; 80048; 85025

== ENCOUNTER 2017-11-25 20:46 | Emergency (ER) | payer OTHER, MEDICARE ==
--- NOTE | 2017-11-25 21:09 | RADIOLOGY REPORT (SQ) ---
EXAM DESCRIPTION: CT HEAD WITHOUT COMPLETED DATE/TIME: 11/25/2017 8:56 pm REASON FOR STUDY: STROKE/FALL COMPARISON: 08/07/2008 TECHNIQUE: Axial images acquired through the brain without intravenous contrast. Images reviewed wi th bone, brain and subdural windows. Images stored on PACS. All CT scanners at this facility use dose modulation, iterative reconstruction, and/or weight based d osing when appropriate to reduce radiation dose to as low as reasonably achievable (ALARA). [facility]: Dose Right [facility]: CareDose [facility]: Dose Right [facility]: Teradose 4D [facility]: InfoBasis RADIATION DOSE: mGy. LIMITATIONS: None. FINDINGS: VENTRICLES: Normal size and contour. CEREBRUM: No masses. No hemorrhage. No midline shift. No evidence for acute infarction. Normal gra y/white matter differentiation. No areas of low density in the white matter. CEREBELLUM: No masses. No hemorrhage. No alteration of density. No evidence for acute infarction. EXTRAAXIAL SPACES: No fluid collections. No masses. ORBITS AND GLOBE: No intra- or extraconal masses. Normal contour of globe without masses. CALVARIUM: No fracture. PARANASAL SINUSES: No fluid or mucosal thickening. SOFT TISSUES: Mild right frontal swelling. OTHER: No other significant finding. IMPRESSION: No acute intracranial findings. EVIDENCE OF ACUTE STROKE: NO. COMMENT: Quality ID # [id number]: Final reports with documentation of one or more dose reduction techniques (e.g., Automated exposure control, adjustment of the mA and/or kV according to patient size, use of iterative reconstruction technique) TECHNICAL DOCUMENTATION: JOB ID: [id number] [place]-72 2010 [employer]- All Rights Reserved
[2017-11-25] MEDS ORDERED: NORMAL SALINE 1000 ML 1,000 ML IV ONE (21:13)
--- NOTE | 2017-11-25 21:13 | RADIOLOGY REPORT (SQ) ---
EXAM DESCRIPTION: CT CERVICAL SPINE WITHOUT COMPLETED DATE/TIME: 11/25/2017 8:56 pm REASON FOR STUDY: STROKE/FALL COMPARISON: 08/08/2008 TECHNIQUE: Axial images acquired through the cervical spine without intravenous contrast. Images re viewed with lung, soft tissue and bone windows. Reconstructed coronal and sagittal MPR images review ed. Images stored on PACS. All CT scanners at this facility use dose modulation, iterative reconstruction, and/or weight based d osing when appropriate to reduce radiation dose to as low as reasonably achievable (ALARA). [facility]: Dose Right [facility]: CareDose [facility]: Dose Right [facility]: Teradose 4D [facility]: [employer] RADIATION DOSE: mGy. LIMITATIONS: None. FINDINGS: ALIGNMENT: Slightly increased scoliotic curvature. MINERALIZATION: Normal. VERTEBRAL BODIES: No fractures or dislocation. DISCS: Multilevel disc space narrowing with osteophytes. FACETS, LATERAL MASSES, POSTERIOR ELEMENTS: Facet arthropathy. No fractures. No dislocation. No ac evelin findings. HARDWARE: None in the spine. VISUALIZED RIBS: No fractures. LUNG APICES AND SOFT TISSUES: No significant or acute findings. OTHER: No other significant finding. IMPRESSION: CHRONIC DEGENERATIVE CHANGES. No fracture identified. TECHNICAL DOCUMENTATION: JOB ID: [id number] [place]-72 Quality ID # [id number]: Final reports with documentation of one or more dose reduction techniques (e.g., Au tomated exposure control, adjustment of the mA and/or kV according to patient size, use of iterative reconstruction technique) 2010 [employer]- All Rights Reserved
[2017-11-25] MEDS ORDERED: ONDANSETRON HCL INJ/PF 4 MG/2 ML SDV IV ONE (21:14)
--- NOTE | 2017-11-25 21:15 | RADIOLOGY REPORT (SQ) ---
EXAM DESCRIPTION: CHEST SINGLE VIEW COMPLETED DATE/TIME: 11/25/2017 9:00 pm REASON FOR STUDY: STROKE/FALL COMPARISON: 10/14/2017 EXAM PARAMETERS: NUMBER OF VIEWS: One view. TECHNIQUE: Single frontal radiographic view of the chest acquired. RADIATION DOSE: NA LIMITATIONS: None. FINDINGS: LUNGS AND PLEURA: No acute opacities, masses or pneumothorax. No pleural effusion. MEDIASTINUM AND HILAR STRUCTURES: Stable. HEART AND VASCULAR STRUCTURES: Stable. BONES: No acute findings. HARDWARE: None in the chest. OTHER: No other significant finding. IMPRESSION: NO ACUTE RADIOGRAPHIC FINDING IN THE CHEST. TECHNICAL DOCUMENTATION: JOB ID: [id number] [place]-72 2010 [employer]- All Rights Reserved
--- NOTE | 2017-11-25 21:16 | ER Document Report ---
ED General - General Chief Complaint: Weakness Stated Complaint: WEAKNESS Time Seen by Provider: 11/25/17 20:59 Cannot obtain history due to: Intoxicated Notes: Patient is a 67-year-old woman who presents by EMS after apparently falling while walking at an air show. The patient is unable to provide meaningful history secondary to being acutely intoxicated. EMS reports that friends or family on scene was concerned about her staggering gait while walking as well as her slurring of speech as they reported she only had 2 beers. Patient has no known prior history of stroke. On assessment, patient only complains of a mild pain to her left upper lip which is a dull, constant, throbbing pain. Nothing improves or worsens that pain. He denies any focal weakness or numbness. History is otherwise limited. TRAVEL OUTSIDE OF THE [place] IN LAST 30 DAYS: No - Related Data Allergies/Adverse Reactions: lisinopril [Lisinopril] Allergy (Verified 06/19/17 07:31) ibuprofen [From Advil] Adverse Reaction (Verified 10/13/17 15:04) Past Medical History - General Information source: Patient, Emergency Med Personnel Cannot obtain history due to: Intoxicated - Social History Smoking Status: Current Every Day Smoker Frequency of alcohol use: Heavy Drug Abuse: None Family History: Hypertension - Past Medical History Cardiac Medical History: Reports: Hx Atrial Fibrillation, Hx Congestive Heart Failure, Hx Coronary Artery Disease, Hx Heart Attack, Hx Hypercholesterolemia, Hx Hypertension Denies: Hx Heart Murmur Pulmonary Medical History: Reports: Hx COPD Denies: Hx Tuberculosis Neurological Medical History: Reports: Hx Cerebrovascular Accident. Denies: Hx Seizures Renal/ Medical History: Reports: Hx End Stage Renal Disease, Hx Hemodialysis - Last dialysis was May 2015 just prior to her kidney transplant., Hx Renal Insufficiency. Denies: Hx Kidney Stones, Hx Peritoneal Dialysis Malignancy Medical History: GI Medical History: Reports: Hx Gastroesophageal Reflux Disease. Denies: Hx Hiatal Hernia, Hx Pancreatitis, Hx Ulcer Musculoskeltal Medical History: Psychiatric Medical History: Reports: Hx Anxiety Denies: Hx Bipolar Disorder, Hx Depression, Hx Schizophrenia Infectious Medical History: Past Surgical History: Reports: Hx Cardiac Catheterization, Hx Cardiac Surgery, Hx Coronary Stent - 2003, Hx Kidney (Renal Surgery) - Kidney transplant 2014 placed in right lower quadrant, Hx Tubal Ligation, Other - Valvuloplasty [facility] February 2017 multiple upper extremi. Denies: Hx Appendectomy , Hx Bowel Surgery, Hx Section, Hx Cholecystectomy, Hx Hysterectomy, Hx Mastectomy, Hx Tonsillectomy - Immunizations Hx Diphtheria, Pertussis, Tetanus Vaccination: Yes Hx Pneumococcal Vaccination: 10/12/10 Review of Systems - Review of Systems Notes: Constitutional: Negative for fever. Eyes: Negative for visual changes. ENT: Negative for facial injury Cardiovascular: Negative for chest injury. Respiratory: Negative for shortness of breath. Gastrointestinal: Negative for abdominal injury. Genitourinary: Negative for genital injury Musculoskeletal: Negative for back injury. Skin: Positive for laceration/abrasions. Neurological: Positive for head injury. Physical Exam - Vital signs Vitals: Temp Pulse Resp BP Pulse Ox 97.8 F 76 18 187/79 H 100 11/25/17 20:47 11/25/17 20:47 11/25/17 20:47 11/25/17 20:47 11/25/17 20:47 Interpretation: Hypertensive Notes: PHYSICAL EXAMINATION: GENERAL: Intoxicated but in no acute distress HEAD: Atraumatic, normocephalic. EYES: Pupils equal round and reactive to light, extraocular movements intact, sclera anicteric, conjunctiva are normal. ENT: nares patent, there is swelling and a superficial laceration, skin avulsion to the inner left upper lip. No hemotympanum, no Hernandez's sign, no raccoon eyes. NECK: No midline cervical spine tenderness. Patient able to move their head to 45 bilaterally without any discomfort. LUNGS: Breath sounds clear to auscultation bilaterally and equal. No wheezes rales or rhonchi. HEART: Regular rate and rhythm without murmurs. CHEST WALL: No ecchymosis over the chest wall. ABDOMEN: Soft, nontender, normoactive bowel sounds. No guarding, no rebound. No abdominal bruising EXTREMITIES: Normal range of motion, no pitting or edema. No long bone deformities. BACK: No midline spinal tenderness, step-offs, or deformities. NEUROLOGICAL: Face symmetric. Tongue protrudes midline. Extraocular motions intact. Pupils are 2 mm and equally reactive. Slurred speech. 5 out of 5 strength in both the distal and proximal upper and lower extremities bilaterally. Sensation is grossly intact throughout. PSYCH: Heavily intoxicated SKIN: Warm, Dry, normal turgor, no rashes or lesions noted. Course - Re-evaluation Re-evalutation: 11/25/17 21:15 Patient presents after having a fall, likely in the setting of acute alcohol intoxication. Patient was called initially as a code stroke but has no neurologic deficits on examination, and a stroke scale of 0. She does smell very strongly of alcohol and I suspect that her gait instability resulting in a fall was likely secondary to acute alcohol intoxication. She does have trauma to her left upper lip with an internal lip laceration although nothing warranting suture repair. She denies any complaints to any other area of her body. No evidence of significant head trauma. No long bone deformities. No abdominal chest wall trauma. Will obtain basic labs, provide IV fluids and reassess the patient. 11/25/17 22:38 Patient remains neurologically intact. EtOH level is markedly elevated at 274 which explains patient's clinical symptoms. She will be monitored until she is clinically sober, ambulated and then discharged with recommendations to discontinue troublesome drinking particularly in the setting of a known kidney transplant. Will discharge with return precautions and follow-up recommendations. Verbal discharge instructions given a the bedside and opportunity for questions given. Medication warnings reviewed. Patient is in agreement with this plan and has verbalized understanding of return precautions and the need for primary care follow-up in the next 24-72 hours. - Vital Signs Vital signs: Temp Pulse Resp BP Pulse Ox 97.8 F 76 19 137/71 H 99 11/25/17 20:47 11/25/17 20:51 11/25/17 23:00 11/25/17 23:00 11/25/17 23:00 - Laboratory Result Diagrams: 11/25/17 21:20 11/25/17 21:20 Laboratory results interpreted by me: 11/25/17 11/25/17 21:20 21:20 RDW 15.6 H Sodium 136.8 L Chloride 108 H Carbon Dioxide 17 L Creatinine 1.30 H Est GFR ( Amer) 49 L Est GFR (Non-Af Amer) 41 L Calcium 10.7 H - Diagnostic Test Radiology reviewed: Image reviewed, Reports reviewed Radiology results interpreted by me: 11/25/17 22:38 CT head: No acute intracranial bleed Chest x-ray: No acute infiltrate or pneumothorax - EKG Interpretation by Me Additional EKG results interpreted by me: 11/26/17 03:03 Sinus rhythm. Rate 70. No ST elevations or depressions. QTC is 480. Discharge - Discharge Clinical Impression: Acute alcohol intoxication Qualifiers: Complication of substance-induced condition: uncomplicated Qualified Code(s): F10.929 - Alcohol use, unspecified with intoxication, unspecified Head trauma Qualifiers: Encounter type: initial encounter Qualified Code(s): S09.90XA - Unspecified injury of head, initial encounter Fall Qualifiers: Encounter type: initial encounter Qualified Code(s): W19.XXXA - Unspecified fall, initial encounter Lip laceration Qualifiers: Encounter type: initial encounter Qualified Code(s): S01.511A - Laceration without foreign body of lip, initial encounter Condition: Stable Disposition: HOME, SELF-CARE Additional Instructions: You were seen in the emergency department today for being drunk. Being seen in the emergency department after drinking alcohol is a serious indicator that you have a problem with alcohol. You should seek help with the attached resources for your problem drinking. Please return to the emergency room immediately if you experience any concerning symptoms including high fevers, severe headache, chest pain, difficulty breathing, abdominal pain, slurred speech, numbness or weakness in your arms or legs, or any other symptom that concerns you. You are also seen for a fall related to your alcohol use today. The CT scans of your head and neck are normal. Your labs are otherwise without concerning findings. You will be stiff and sore over the next several days. Take Tylenol 1000 mg every 6 hours as needed for pain and discomfort. Referrals: RIGOBERTO SCHAEFER MD [Primary Care Provider] - Follow up as needed
[2017-11-25 21:38] LABS: ABSOLUTE LYMPHOCYTES (AUTO) 1.9 10^3/uL (0.5-4.7); ABSOLUTE MONOCYTES (AUTO) 0.6 10^3/uL (0.1-1.4); ABSOLUTE NEUT (AUTO) 3.5 10^3/uL (1.7-8.2); BASOPHILS % (AUTO) 0.7 % (0-2); EOSINOPHILS % (AUTO) 0.4 % (0-6); HEMATOCRIT 37.3 % (36.0-47.0); HEMOGLOBIN 12.4 g/dL (12.0-15.5); LYMPHOCYTES % (AUTO) 31.7 % (13-45); MEAN CORPUSCULAR HGB CONC 33.4 g/dL (32.0-36.0); MEAN CORPUSCULAR VOLUME 96 fl (80-97); MONOCYTES % (AUTO) 9.4 % (3-13); PLATELET COUNT 240 10^3/uL (150-450); RED BLOOD COUNT 3.89 10^6/uL (3.72-5.28); RED CELL DISTRIBUTION WIDTH 15.6 % (11.5-14.0); SEGMENTED NEUTROPHILS % (AUTO) 57.8 % (42-78); TOTAL CELLS COUNTED % (AUTO) 100 %
[2017-11-25 21:41] LABS: INTERNATIONAL RATION (INR) 0.91; PARTIAL THROMBOPLASTIN TIME 26.9 SEC (23.5-35.8); PROTHROMBIN TIME 12.9 SEC (11.4-15.4)
[2017-11-25 22:00] LABS: ALANINE AMINOTRANSFERASE 23 U/L (9-52); ALCOHOL 274 mg/dL (NONE DETECTED); ALKALINE PHOSPHATASE 73 U/L (38-126); ANION GAP 12 (5-19); ASPARTATE AMINO TRANSFERASE 23 U/L (14-36); BILIRUBIN,DIRECT 0.3 mg/dL (0.0-0.4); BILIRUBIN,TOTAL 0.3 mg/dL (0.2-1.3); BLOOD UREA NITROGEN 17 mg/dL (7-20); CALCIUM 10.7 mg/dL (8.4-10.2); CARBON DIOXIDE 17 mmol/L (22-30); CHLORIDE 108 mmol/L (98-107); GLUCOSE 96 mg/dL (75-110); POTASSIUM 3.8 mmol/L (3.6-5.0); SODIUM 136.8 mmol/L (137-145); TOTAL PROTEIN 6.4 g/dL (6.3-8.2)
[2017-11-25 23:32] VITALS: BP 137/71
--- NOTE | 2017-11-26 08:52 | EKG REPORT ---
SEVERITY:- ABNORMAL ECG - SINUS RHYTHM PROBABLE LEFT ATRIAL ABNORMALITY NONSPECIFIC INTRAVENTRICULAR CONDUCTION DELAY LEFT VENTRICULAR HYPERTROPHY NONSPECIFIC T CHANGES : Confirmed by: Jessi Saha 26-Nov-2017 08:51:56
== END 2017-11-25 23:28 | disposition home or self-care (01) ==
LOC: ER 20:46
DX: F10.929 Alcohol use, unspecified with intoxication, unspecified (principal); S09.90XA Unspecified injury of head, initial encounter; S01.511A Laceration without foreign body of lip, initial encounter; R53.1 Weakness; W19.XXXA Unspecified fall, initial encounter; F17.200 Nicotine dependence, unspecified, uncomplicated; I48.91 Unspecified atrial fibrillation; I50.9 Heart failure, unspecified; E78.00 Pure hypercholesterolemia, unspecified; I11.0 Hypertensive heart disease with heart failure; I13.2 Hypertensive heart and chronic kidney disease with heart failure and with stage 5 chronic kidney disease, or end stage renal disease; N18.6 End stage renal disease; Z99.2 Dependence on renal dialysis; I25.2 Old myocardial infarction; Z86.73 Personal history of transient ischemic attack (TIA), and cerebral infarction without residual deficits; Z88.6 Allergy status to analgesic agent
CPT/HCPCS: 93005; 99285; 96361; 96374; 36415; 80307; 85025; 85610; 85730; 80053; 84484; 71045; 70450; 72125; 93010; J2405; J7030

== ENCOUNTER → 2018-04-19 | Outpatient (CLI) | payer MEDICARE, OTHER ==
--- NOTE | 2018-04-19 12:56 | WOMENS IMAGING REPORT ---
EXAM DESCRIPTION: U/S BREAST UNILATERAL, COMPL COMPLETED DATE/TIME: 04/19/2018 11:22 am REASON FOR STUDY: LEFT ULTRASOUND LIMITED/ N64.59 N64.59 OTHER SIGNS AND SYMPTOMS IN BREAST COMPARISON: Report only, left breast ultrasound 12/16/2017 Report only, bilateral breast tomosynthesis 12/16/2017 TECHNIQUE: Real-time and static grayscale imaging performed of the left breast targeted to the area of clinical concern. Selected color Doppler images recorded. LIMITATIONS: None. FINDINGS: Left breast ultrasound was performed today. Entire left breast was imaged. There is diff use abnormal left breast skin thickening. Subcutaneous edema in the breast fat is present. No ultra sound evidence of discrete nodule, or cyst. Ultrasound of the left axilla was unremarkable. IMPRESSION: Diffuse abnormal skin thickening and subcutaneous edema left breast. Outside prior repo rts demonstrates skin thickening and edema in the left breast. Although this could be related to hea rt failure, skin thickening could be seen in inflammatory breast cancer. Consider skin biopsy. BIRAD: 4 Suspicious. Biopsy should be considered. Consider skin biopsy. RECOMMENDATION: RECOMMENDED FOLLOW-UP: Surgical consultation, Consider skin biopsy. COMMENT: The [employer] (ACR) has developed recommendations for screening MRI of the breasts in certain patient populations, to be used in conjunction with mammography. Breast MRI s urveillance may be appropriate for women with more than 20% lifetime risk of developing breast cancer as determined by genetic testing, significant family history of the disease, or history of mantle r adiation for Hodgkins Disease. ACR Practice Guidelines 2008. TECHNICAL DOCUMENTATION: JOB ID: [id number] [employer] ([employer])- All Rights Reserved Reading location - IP/workstation name: [facility]
== END ==
LOC: WI 10:26
PROVIDERS: ATTEND Internal Medicine Nephrology
DX: N64.59 Other signs and symptoms in breast (principal)
CPT/HCPCS: 76641

== ENCOUNTER 2018-04-27 21:45 | Inpatient (IN) | payer OTHER, MEDICARE ==
[2018-04-27 22:15] LABS: ABSOLUTE MONOCYTES (AUTO) 0.5 10^3/uL (0.1-1.4); ABSOLUTE NEUT (AUTO) 5.1 10^3/uL (1.7-8.2); BASOPHILS % (AUTO) 0.7 % (0-2); EOSINOPHILS % (AUTO) 0.7 % (0-6); HEMOGLOBIN 14.2 g/dL (12.0-15.5); LYMPHOCYTES % (AUTO) 15.1 % (13-45); MEAN CORPUSCULAR HEMOGLOBIN 32.4 pg (27.0-33.4); MEAN CORPUSCULAR HGB CONC 34.7 g/dL (32.0-36.0); MEAN CORPUSCULAR VOLUME 93 fl (80-97); MONOCYTES % (AUTO) 7.6 % (3-13); PLATELET COUNT 233 10^3/uL (150-450); SEGMENTED NEUTROPHILS % (AUTO) 75.9 % (42-78); TOTAL CELLS COUNTED % (AUTO) 100 %; WHITE BLOOD COUNT 6.7 10^3/uL (4.0-10.5)
[2018-04-27 22:24] LABS: APPEARANCE,URINE SLIGHTLY-CLOUDY; BILIRUBIN,URINE NEGATIVE (NEGATIVE); COLOR,URINE YELLOW; GLUCOSE, URINE NEGATIVE (NEGATIVE); KETONES,URINE NEGATIVE (NEGATIVE); LEUKOCYTE ESTERASE,URINE NEGATIVE (NEGATIVE); NITRITE,URINE NEGATIVE (NEGATIVE); PROTEIN,URINE NEGATIVE (NEGATIVE); UROBILINOGEN,URINE NEGATIVE mg/dL (<2.0)
[2018-04-27 22:28] LABS: ALANINE AMINOTRANSFERASE 26 U/L (9-52); ALBUMIN 4.6 g/dL (3.5-5.0); ALKALINE PHOSPHATASE 110 U/L (38-126); ANION GAP 14 (5-19); ASPARTATE AMINO TRANSFERASE 26 U/L (14-36); BILIRUBIN,DIRECT 0.4 mg/dL (0.0-0.4); BILIRUBIN,TOTAL 0.8 mg/dL (0.2-1.3); BLOOD UREA NITROGEN 28 mg/dL (7-20); CALCIUM 11.9 mg/dL (8.4-10.2); CARBON DIOXIDE 19 mmol/L (22-30); CHLORIDE 97 mmol/L (98-107); GLUCOSE 121 mg/dL (75-110); LIPASE 236.3 U/L (23-300); POTASSIUM 4.7 mmol/L (3.6-5.0); SODIUM 130.4 mmol/L (137-145); TOTAL PROTEIN 7.3 g/dL (6.3-8.2)
[2018-04-27] MEDS ORDERED: NORMAL SALINE 1000 ML 1,000 ML IV ONE (23:16)
[2018-04-27] MEDS ORDERED: MORPHINE SULFATE 10 MG/ML INJ IV ONE ×2 (23:16→23:18)
[2018-04-27] MEDS ORDERED: METOCLOPRAMIDE HCL INJ/PF 10 MG/2 ML SDV IV ONE (23:16)
--- NOTE | 2018-04-27 23:16 | ER Document Report ---
ED GI/ - General Chief Complaint: Abdominal Pain Stated Complaint: ABDOMINAL PAIN, NAUSEA, DIZZY Time Seen by Provider: 04/27/18 23:08 Notes: Patient is a 67-year-old female comes emergency department for chief complaint of generalized abdominal pain that started this evening, she has vomited multiple times, she states she feels very nauseated. Last bowel movement was yesterday, this was hard, she states she has not passed any gas today that she knows of as well. She does have a history of bowel obstruction in the past. She also has a history of renal transplant, CAD with stents, hypertension. TRAVEL OUTSIDE OF THE [place] IN LAST 30 DAYS: No - Related Data Allergies/Adverse Reactions: lisinopril [Lisinopril] Allergy (Verified 04/28/18 01:31) ibuprofen [From Advil] Adverse Reaction (Verified 04/28/18 01:31) Past Medical History - General Information source: Patient - Social History Smoking Status: Never Smoker Frequency of alcohol use: None Drug Abuse: None Lives with: Family Family History: Hypertension - Past Medical History Cardiac Medical History: Reports: Hx Atrial Fibrillation, Hx Congestive Heart Failure, Hx Coronary Artery Disease, Hx Heart Attack, Hx Hypercholesterolemia, Hx Hypertension Denies: Hx Heart Murmur Pulmonary Medical History: Reports: Hx COPD Denies: Hx Tuberculosis Neurological Medical History: Reports: Hx Cerebrovascular Accident. Denies: Hx Seizures Renal/ Medical History: Reports: Hx End Stage Renal Disease, Hx Hemodialysis - Last dialysis was May 2015 just prior to her kidney transplant., Hx Renal Insufficiency. Denies: Hx Kidney Stones, Hx Peritoneal Dialysis Malignancy Medical History: GI Medical History: Reports: Hx Gastroesophageal Reflux Disease. Denies: Hx Hiatal Hernia, Hx Pancreatitis, Hx Ulcer Musculoskeletal Medical History: Psychiatric Medical History: Reports: Hx Anxiety Denies: Hx Bipolar Disorder, Hx Depression, Hx Schizophrenia Infectious Medical History: Past Surgical History: Reports: Hx Cardiac Catheterization, Hx Cardiac Surgery, Hx Coronary Stent - 2003, Hx Kidney (Renal Surgery) - Kidney transplant 2014 placed in right lower quadrant, Hx Tubal Ligation, Other - Valvuloplasty [facility] February 2017 multiple upper extremi. Denies: Hx Appendectomy , Hx Bowel Surgery, Hx Section, Hx Cholecystectomy, Hx Hysterectomy, Hx Mastectomy, Hx Tonsillectomy - Immunizations Hx Diphtheria, Pertussis, Tetanus Vaccination: Yes Hx Pneumococcal Vaccination: 10/12/10 Review of Systems - Review of Systems Constitutional: No symptoms reported EENT: No symptoms reported Cardiovascular: No symptoms reported Respiratory: No symptoms reported Gastrointestinal: See HPI Genitourinary: No symptoms reported Female Genitourinary: No symptoms reported Musculoskeletal: No symptoms reported Skin: No symptoms reported Hematologic/Lymphatic: No symptoms reported Neurological/Psychological: No symptoms reported Physical Exam - Vital signs Vitals: BP 226/82 H 04/27/18 22:40 - Notes Notes: GENERAL: Alert. Appears to be in pain and nauseated. HEAD: Normocephalic, atraumatic. EYES: Pupils equal, round, and reactive to light. Extraocular movements intact. ENT: Oral mucosa moist, tongue midline. NECK: Full range of motion. Supple. Trachea midline. LUNGS: Clear to auscultation bilaterally, no wheezes, rales, or rhonchi. No respiratory distress. HEART: Regular rate and rhythm. No murmur ABDOMEN: Some abdominal distention, noted tenderness but tenderness is still generalized, no specific area of guarding, no rigidity. EXTREMITIES: Moves all 4 extremities spontaneously. No edema, normal radial and dorsalis pedis pulses bilaterally. No cyanosis. BACK: no cervical, thoracic, lumbar midline tenderness. No saddle anesthesia, normal distal neurovascular exam. NEUROLOGICAL: Alert and oriented x3. Normal speech. [cranial nerves II through XII grossly intact]. SKIN: Warm, dry, normal turgor. No rashes or lesions noted. Course - Re-evaluation Re-evalutation: Patient appears to be in a lot of pain and nauseated, abdominal pain is very generalized, there is some distention. No recent bowel movement, not passing gas, she is very hypertensive but it seems more likely that this is a bowel obstruction as opposed to dissection or ischemic bowel based on patient's description in HPI. Acute abdominal series was performed first to help guide the CAT scan image picked, this does show bowel obstruction. CBC, chemistry, lactic acid, urinalysis are actually generally unremarkable. Attempted to give oral contrast for CT but patient is not tolerating this. 04/28/18 02:[address] Lees, general surgeon, recommendation is for patient to have NG tube placed, aspirate/suction, afterwards to give 100-200 cc of contrast to perform oral contrast CT. Giving nebulized lidocaine first. Patient is much more comfortable after NG tube was placed, she had a large amount of suction fluid, almost immediately 800 cc. 04/28/18 06:10 CAT scan showing small bowel obstruction, transition point in the left lower quadrant, possible volvulus of the mesentery. Called and updated Dr. Lees, he will come see the patient. 04/28/18 07:[address] Lees again, he asks that a consult be placed with nephrology and patient to be admitted to the surgical floor. Patient states agreement with plan. - Vital Signs Vital signs: Temp Pulse Resp BP Pulse Ox 98.1 F 69 20 173/93 H 96 04/28/18 06:00 04/27/18 22:46 04/28/18 06:46 04/28/18 05:50 04/28/18 06:46 - Laboratory Result Diagrams: 04/27/18 21:55 04/27/18 21:55 Laboratory results interpreted by me: 04/27/18 04/27/18 21:55 21:55 RDW 16.0 H Sodium 130.4 L Chloride 97 L Carbon Dioxide 19 L BUN 28 H Creatinine 1.88 H Est GFR ( Amer) 32 L Est GFR (Non-Af Amer) 27 L Glucose 121 H Calcium 11.9 H Discharge - Discharge Clinical Impression: Small bowel obstruction, Acute renal insufficiency Vomiting Qualifiers: Vomiting type: unspecified Vomiting Intractability: intractable Nausea presence : with nausea Qualified Code(s): R11.2 - Nausea with vomiting, unspecified Abdominal pain Qualifiers: Abdominal location: generalized Qualified Code(s): R10.84 - Generalized abdominal pain Condition: Fair Disposition: ADMITTED INPATIENT Admitting Provider: Surgicalist Unit Admitted: Surgical Floor Referrals: LESLEY EMANUEL MD [NO LOCAL MD] - Follow up as needed
--- NOTE | 2018-04-28 01:15 | RADIOLOGY REPORT (SQ) ---
EXAM DESCRIPTION: US ABDOMEN ANEURYSM SCREENING COMPLETED DATE/TME: 04/27/2018 23:18 CLINICAL HISTORY: 67 years, Female, vomiting, hx bowel obstruction COMPARISON: None. TECHNIQUE: AP view the chest with supine and upright images of the abdomen LIMITATIONS: None. FINDINGS: The lungs are clear. The heart is normal in size. There is no pneumothorax or pleural effusion. The bones are demineralized. Surgical clips are noted within the abdomen. There are dilated loops of small bowel which measure up to 5.5 cm in diameter with an air-fluid levels. There is no intraperitoneal free air. There are calcifications of the abdominal aorta and iliac branches. Calcified uterine fibroids are noted. IMPRESSION: Small bowel obstruction 2010 [employer]- All Rights Reserved
[2018-04-28] MEDS ORDERED: NORMAL SALINE 1000 ML 1,000 ML IV ONE ×2 (02:10→08:35)
[2018-04-28] MEDS ORDERED: LIDOCAINE 1% INJ-PF (10 MG/ML) 30 ML SDV NEB ONE (02:12)
[2018-04-28] MEDS ORDERED: PHARMACY COMMUNICATION ORDER MC NR (02:15)
[2018-04-28] MEDS ORDERED: FENTANYL CITRATE INJ/PF 100 MCG/2 ML AMPUL IV ONE (02:45)
[2018-04-28] MEDS ORDERED: MIDAZOLAM 2 MG/2 ML INJ IV ONE (02:47)
--- NOTE | 2018-04-28 03:43 | RADIOLOGY REPORT (SQ) ---
Chest single view on 04/28/2018 at 2:59 AM CLINICAL INDICATION: NG tube placement COMPARISON: 11/25/2017 FINDINGS: Two images were obtained proximally 10 minutes apart. The initial image shows the NG tube extending into the patient's right lower lung. The later image shows this has been removed with the NG tube extending into the upper stomach. No pneumothorax is noted. There is mild basilar atelectasis. Vascular calcification is noted in the aorta. Heart is upper limits normal for size. IMPRESSION: Final image shows NG tube extending into the upper stomach.
[2018-04-28] MEDS ORDERED: METOCLOPRAMIDE HCL INJ/PF 10 MG/2 ML SDV IV ONE (04:09)
--- NOTE | 2018-04-28 06:01 | RADIOLOGY REPORT (SQ) ---
CT abdomen and pelvis without contrast on 04/28/2018 at 5:43 AM CLINICAL INDICATION: Generalized abdominal pain, vomiting TECHNIQUE: Multiple axial images are obtained throughout the abdomen and pelvis without the administration of IV contrast, oral contrast was administered. This exam was performed according to our departmental dose-optimization program, which includes automated exposure control, adjustment of the mA and/or kV according to patient size and/or use of iterative reconstruction technique. Total DLP is 182.69 mGy*cm. COMPARISON: 10/08/2017 FINDINGS: Abdomen: There is slight elevation of the left hemidiaphragm. There is minimal bibasilar atelectasis. Vascular calcifications are noted. NG tube extends into the stomach. The gallbladder is significantly distended with short axis diameter measuring 5.2 cm consistent with gallbladder hydrops. Severe bilateral renal atrophy with end-stage bilateral lower sioux kidneys are noted with multiple bilateral renal cysts. A few small hepatic cysts are again noted. The unenhanced solid abdominal organs are otherwise unremarkable. There is no abdominal adenopathy. There is no free fluid or free air within the abdomen. There is a dilated fluid-filled loop of small bowel in the left upper quadrant extending to the midabdomen with decompressed distal small bowel consistent with a small bowel obstruction. Transition point is noted in the left abdomen around axial image 42. Seen best on cine imaging of the coronal imaging in this region between images 29 and 39 is a mild swirling of the mesentery at the transition point consistent with small mesenteric volvulus causing this obstruction. Recommend surgical consultation. Pelvis: Calcified uterine fibroids are again noted. A right lower quadrant renal transplant is noted. There is diverticulosis. The pelvic portion of the GI tract including the appendix is otherwise unremarkable. There is no pelvic adenopathy. Degenerative changes and levoscoliosis are noted in the spine. 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 IMPRESSION: 1. Findings consistent with a small bowel obstruction with transition point in the left abdomen with a swirling of the mesentery in this region suggesting volvulus as a cause of the obstruction. Recommend surgical consultation. 2. Gallbladder hydrops. 3. Diverticulosis. 4. Calcified uterine fibroids.
[2018-04-28] MEDS ORDERED: DEXTROSE 50%-WATER 25 GM/50 ML DISP.SYRIN IV PRN ×2 (08:35)
[2018-04-28] MEDS ORDERED: DEXTROSE 40% GEL 15 GM TUBE PO PRN ×2 (08:35)
[2018-04-28] MEDS ORDERED: GLUCAGON,HUMAN RECOMB 1 MG INJ SUBCUT PRN (08:35)
[2018-04-28] MEDS ORDERED: MORPHINE SULFATE 10 MG/ML INJ IV PRN (08:35)
--- NOTE | 2018-04-28 08:54 | PDOC H&P ---
History of Present Illness Admission Date/PCP: 04/28/18 07:41 Patient complains of: abdominal pains History of Present Illness: DEVANTE PIERSON is a 67 year old female who suddenly c/o abdominal pains associated with N/V. She has history of kidney transplant about 4 years ago, hypertension and ex lap and release of internal herniation 06/19/[address] Mason. Past Medical History Cardiac Medical History: Reports: Atrial Fibrillation, Congestive Heart Failure , Coronary Artery Disease, Myocardial Infarction, Hyperlipidema, Hypertension Denies: Heart Murmur Pulmonary Medical History: Reports: Chronic Obstructive Pulmonary Disease (COPD) Denies: Tuberculosis Neurological Medical History: Denies: Seizures Renal/ Medical History: Reports: End Stage Renal Disease Malignancy Medical History: GI Medical History: Reports: Gastroesophageal Reflux Disease Denies: Hiatal Hernia Psychiatric Medical History: Denies: Bipolar Disorder, Depression Hematology: Reports: Anemia Denies: Hemophilia, Sickle Cell Disease Infectious Medical History: Past Surgical History Past Surgical History: Reports: Cardiac Catheterization, Coronary Stent - 2003, Tubal Ligation, Other - Valvuloplasty [facility] February 2017 multiple upper extremi Ex lap Denies: Appendectomy, Section, Cholecystectomy, Hysterectomy, Mastectomy, Tonsillectomy Social History Lives with: Family Smoking Status: Current Every Day Smoker Cigarettes Packs Per Day: 0.5 Frequency of Alcohol Use: Occasional Hx Recreational Drug Use: No Drugs: None Hx Prescription Drug Abuse: No Family History Family History: Hypertension Parental Family History Reviewed: Yes - father of CVA Children Family History Reviewed: No Sibling(s) Family History Reviewed.: No Medication/Allergy Home Medications: Albuterol Sulfate [Ventolin 0.083% Neb 2.5 mg/3 mL Ampul] 1 vial NEB RTQ4HP PRN 10/09/17 Aspirin [Aspirin 81 mg Chewable Tablet] 81 mg PO DAILY 10/09/17 Atorvastatin Calcium [Lipitor 20 mg Tablet] 20 mg PO QHS 10/09/17 Carvedilol [Coreg 12.5 mg Tablet] 25 mg PO Q12 10/09/17 Ergocalciferol (Vitamin D2) [Drisdol 50,000 unit (1.25MG) Capsule] 50,000 unit PO SCHAEFFER@1000 10/09/17 Nifedipine [Procardia XL 30 mg Tablet] 30 mg PO DAILY 10/09/17 Nitroglycerin [Nitrostat 0.4 mg (1/150 Gr) Tabs 25/Bottle] 1 tab SL Q5MP PRN Prednisone [Deltasone 5 mg Tablet] 5 mg PO DAILY 10/09/17 Ranitidine HCl [Zantac 150 mg Tablet] 150 mg PO QHS 10/09/17 Tacrolimus Anhydrous [Prograf 1 mg Capsule] 2 mg PO Q12 10/09/17 Allergies/Adverse Reactions: lisinopril [Lisinopril] Allergy (Verified 04/28/18 01:31) ibuprofen [From Advil] Adverse Reaction (Verified 04/28/18 01:31) Review of Systems Constitutional: PRESENT: other - no fever/chills Eyes: PRESENT: other - no visual/hearing changes Respiratory: PRESENT: cough Gastrointestinal: PRESENT: abdominal pain, nausea, vomiting Genitourinary: PRESENT: other - no dysuria Physical Exam Vital Signs: Temp Pulse Resp BP Pulse Ox 98.1 F 69 20 173/93 H 96 04/28/18 06:00 04/27/18 22:46 04/28/18 06:46 04/28/18 05:50 04/28/18 06:46 General appearance: PRESENT: severe distress Head exam: PRESENT: atraumatic Eye exam: PRESENT: conjunctiva pink Mouth exam: PRESENT: dry mucosa Neck exam: PRESENT: full ROM Respiratory exam: PRESENT: clear to auscultation kat Cardiovascular exam: PRESENT: RRR Pulses: PRESENT: normal radial pulses GI/Abdominal exam: PRESENT: soft, tenderness - diffuse Rectal exam: PRESENT: deferred Extremities exam: PRESENT: full ROM Musculoskeletal exam: PRESENT: full ROM Neurological exam: PRESENT: alert, oriented to person, oriented to place, oriented to time, oriented to situation Psychiatric exam: PRESENT: appropriate affect Skin exam: PRESENT: normal color, warm Results Impressions: Acute Abdomen Series 04/27/18 23:18 IMPRESSION: Small bowel obstruction 2010 [employer]- All Rights Reserved Abdomen/Pelvis CT 04/28/18 01:08 IMPRESSION: 1. Findings consistent with a small bowel obstruction with transition point in the left abdomen with a swirling of the mesentery in this region suggesting volvulus as a cause of the obstruction. Recommend surgical consultation. 2. Gallbladder hydrops. 3. Diverticulosis. 4. Calcified uterine fibroids. Chest X-Ray 04/28/18 02:50 IMPRESSION: Final image shows NG tube extending into the upper stomach. Assessment & Plan - Time Time Spent: 30 to 50 Minutes - Inpatient Certification Medical Necessity: Need For IV Fluids, Need for Pain Control, Need for Surgery - Plan Summary Plan Summary: NGT Hydrate and correct lytes Renal consult for elevated BUN,creat with hx of renal transplant May need ex lap
[2018-04-28] MEDS: PANTOPRAZOLE SODIUM 40 MG VIAL IV SCH ×2 (09:05→22:30)
--- NOTE | 2018-04-28 15:44 | PDOC CONSULTATION ---
Consultation Consult Date: 04/28/18 Consult reason:: acute on chronic kidney disease History of Present Illness Admission Date/PCP: 04/28/18 07:41 History of Present Illness: DEVANTE PIERSON is a 67 year old female with history of previous small bowel obstruction requiring surgery in 06/28. She also has history of having a kidney transplant 4 years ago. She came into the ER c/o abdominal pains associated with N/V. She says that she suddenly started to have nausea and vomiting last night. She vomited four times yesterday. She has not been able to eat or drink anything since it started. In the ER an abdominal CT. The abdominal CT showed small bowel obstruction with concern of volvulus. An NG tube was placed. Labs drawn showed a bun of 28 and a creatinine of 1.8. Upon examining her in the ER she was still having nausea. She had not had a bowel movement in a few days. She denied fever or chills. She also denied chest pain, SOB or difficulty urinating. Past Medical History Cardiac Medical History: Reports: Atrial Fibrillation, Coronary Artery Disease, Hyperlipidemia, Hypertension-primary, Myocardial Infarction Denies: Heart Murmur Pulmonary Medical History: Reports: Chronic Obstructive Pulmonary Disease (COPD) Denies: Tuberculosis Neurological Medical History: Denies: Seizures Renal/ Medical History: Reports: Chronic Kidney Disease Stage III, End Stage Renal Disease Denies: Benign Prostatic Hyperplasia Malignancy Medical History: GI Medical History: Reports: Gastroesophageal Reflux Disease Denies: Hiatal Hernia Psychiatric Medical History: Denies: Bipolar Disorder, Depression Infectious Medical History: Past Surgical History Past Surgical History: Reports: Cardiac Catheterization, Coronary Stent - 2003, Tubal Ligation, Other - Valvuloplasty [facility] February 2017 multiple upper extremi Ex lap Denies: Appendectomy, Section, Cholecystectomy, Hysterectomy, Mastectomy, Tonsillectomy Social History Lives with: Family Smoking Status: Current Every Day Smoker Cigarettes Packs Per Day: 1 Number of Years Smokin Frequency of Alcohol Use: Occasional Hx Recreational Drug Use: No Drugs: None Hx Prescription Drug Abuse: No - Advance Directive Resuscitation Status: Full Code Family History Parental Family History Reviewed: No Children Family History Reviewed: NA Sibling(s) Family History Reviewed.: NA Medication/Allergy Home Medications: Aspirin [Aspirin 81 mg Chewable Tablet] 81 mg PO DAILY 10/09/17 Atorvastatin Calcium [Lipitor 20 mg Tablet] 20 mg PO QHS 10/09/17 Carvedilol [Coreg 12.5 mg Tablet] 25 mg PO Q12 10/09/17 Ergocalciferol (Vitamin D2) [Drisdol 50,000 unit (1.25MG) Capsule] 50,000 unit PO SCHAEFFER@1000 10/09/17 Nifedipine [Procardia XL 30 mg Tablet] 30 mg PO DAILY 10/09/17 Ranitidine HCl [Zantac 150 mg Tablet] 150 mg PO QHS 10/09/17 Tacrolimus Anhydrous [Prograf 1 mg Capsule] 2 mg PO Q12 10/09/17 Acetaminophen [Tylenol 325 mg Tablet] 650 mg PO Q6HP PRN 04/28/18 Albuterol Sulfate [Proair Hfa] 2 puff IH QID PRN 04/28/18 Furosemide [Lasix 40 mg Tablet] 40 mg PO BID 04/28/18 Allergies/Adverse Reactions: lisinopril [Lisinopril] Allergy (Verified 04/28/18 01:31) ibuprofen [From Advil] Adverse Reaction (Verified 04/28/18 01:31) Review of Systems Constitutional: PRESENT: anorexia, weakness. ABSENT: chills, fever(s) Eyes: ABSENT: visual disturbances Nose, Mouth, and Throat: ABSENT: headache(s) Cardiovascular: ABSENT: chest pain, dyspnea on exertion, edema, orthropnea, palpitations Respiratory: PRESENT: cough. ABSENT: dyspnea, sputum Gastrointestinal: PRESENT: abdominal pain, constipation, nausea, vomiting. ABSENT: diarrhea, hematemesis, hematochezia Genitourinary: ABSENT: difficulty urinating, dysuria, nocturia Musculoskeletal: ABSENT: joint swelling, muscle weakness Integumentary: ABSENT: erythema Neurological: PRESENT: weakness. ABSENT: confusion, dizziness, focal weakness, numbness Physical Exam Vital Signs: Temp Pulse Resp BP Pulse Ox 98.2 F 69 19 159/66 H 94 04/28/18 13:16 04/27/18 22:46 04/28/18 12:01 04/28/18 12:00 04/28/18 12:01 General appearance: PRESENT: mild distress, well-developed, well-nourished Mouth exam: PRESENT: dry mucosa, neck supple, tongue midline. ABSENT: moist Neck exam: PRESENT: full ROM. ABSENT: JVD, tracheal deviation Respiratory exam: PRESENT: clear to auscultation kat. ABSENT: accessory muscle use, crackles, rales, rhonchi, wheezes Cardiovascular exam: PRESENT: RRR, +S1, +S2 GI/Abdominal exam: PRESENT: diminished bowel sounds, guarding, rigid, tenderness. ABSENT: ascites, soft Extremities exam: ABSENT: pedal edema, +1 edema, +2 edema Musculoskeletal exam: PRESENT: normal inspection. ABSENT: tenderness Neurological exam: PRESENT: alert, awake, oriented to person, oriented to place , oriented to time, oriented to situation Skin exam: PRESENT: dry, intact, warm. ABSENT: cyanosis, rash Results Impressions: Acute Abdomen Series 04/27/18 23:18 IMPRESSION: Small bowel obstruction 2010 [employer]- All Rights Reserved Abdomen/Pelvis CT 04/28/18 01:08 IMPRESSION: 1. Findings consistent with a small bowel obstruction with transition point in the left abdomen with a swirling of the mesentery in this region suggesting volvulus as a cause of the obstruction. Recommend surgical consultation. 2. Gallbladder hydrops. 3. Diverticulosis. 4. Calcified uterine fibroids. Chest X-Ray 04/28/18 02:50 IMPRESSION: Final image shows NG tube extending into the upper stomach. Assessment & Plan - Diagnosis (1) [id number] kidney injury Qualifiers: Chronic kidney disease stage: stage 4 (severe) Plan: Elevated from baseline of 1.3, nonoliguric, due dehydration from vomiting and not drinking any fluids. Continue on normal saline at current rate. All medications should dosed for a GFR of less than 25. Adding home prograft to medications. (2) Abdominal pain Qualifiers: Abdominal location: generalized Qualified Code(s): R10.84 - Generalized abdominal pain Plan: currently being managed by surgery (3) Small bowel obstruction Plan: being managed by surgery (4) Acute hyponatremia Plan: due to vomiting, continue normal saline at current rate, re-evaluate tomorrow (5) Dehydration Plan: continue on normal saline at current rate. (6) Vomiting Qualifiers: Vomiting type: unspecified Vomiting Intractability: intractable Nausea presence: with nausea Qualified Code(s): R11.2 - Nausea with vomiting, unspecified Plan: currently controlled but does have some nausea - Notes Notes: case was discussed with Dr. Marina.
[2018-04-28] MEDS: TACROLIMUS ANHYDROUS 1 MG CAPSULE PO SCH (22:30)
[2018-04-29 05:45] LABS: ABSOLUTE LYMPHOCYTES (AUTO) 0.7 10^3/uL (0.5-4.7); ABSOLUTE MONOCYTES (AUTO) 0.5 10^3/uL (0.1-1.4); ABSOLUTE NEUT (AUTO) 2.8 10^3/uL (1.7-8.2); EOSINOPHILS % (AUTO) 1.1 % (0-6); HEMATOCRIT 37.9 % (36.0-47.0); HEMOGLOBIN 12.9 g/dL (12.0-15.5); INTERNATIONAL RATION (INR) 0.97; LYMPHOCYTES % (AUTO) 16.8 % (13-45); MEAN CORPUSCULAR HEMOGLOBIN 31.7 pg (27.0-33.4); MEAN CORPUSCULAR VOLUME 93 fl (80-97); MONOCYTES % (AUTO) 12.1 % (3-13); PLATELET COUNT 196 10^3/uL (150-450); PROTHROMBIN TIME 13.4 SEC (11.4-15.4); RED BLOOD COUNT 4.07 10^6/uL (3.72-5.28); TOTAL CELLS COUNTED % (AUTO) 100 %
[2018-04-29 05:48] LABS: ANION GAP 11 (5-19)
[2018-04-29 06:01] LABS: ALANINE AMINOTRANSFERASE 24 U/L (9-52); ALBUMIN 3.7 g/dL (3.5-5.0); ALKALINE PHOSPHATASE 88 U/L (38-126); ASPARTATE AMINO TRANSFERASE 29 U/L (14-36); BILIRUBIN,DIRECT 0.4 mg/dL (0.0-0.4); BILIRUBIN,TOTAL 1.1 mg/dL (0.2-1.3); BLOOD UREA NITROGEN 23 mg/dL (7-20); CALCIUM 10.7 mg/dL (8.4-10.2); CARBON DIOXIDE 20 mmol/L (22-30); CHLORIDE 109 mmol/L (98-107); GLUCOSE 69 mg/dL (75-110); LIPASE 122.9 U/L (23-300); POTASSIUM 4.2 mmol/L (3.6-5.0); SODIUM 140.2 mmol/L (137-145); TOTAL PROTEIN 6.3 g/dL (6.3-8.2)
[2018-04-29] MEDS ORDERED: HYDRALAZINE HCL INJ/PF 20 MG/1 ML SDV IV PRN (06:48)
--- NOTE | 2018-04-29 09:24 | PDOC PROGRESS REPORT ---
Subjective Progress Note for:: 04/29/18 Reason For Visit: SMALL BOWEL OBSTRUCTION,DEHYDRATION WITH ELEVATED Patient states she passed a little gas and feels a little better; minimal drainage from nasogastric tube. Physical Exam Vital Signs: Temp Pulse Resp BP Pulse Ox 98.3 F 79 18 150/75 H 98 04/29/18 08:26 04/29/18 08:26 04/29/18 08:26 04/29/18 08:26 04/29/18 08:26 Intake & Output 04/28/18 04/29/18 04/30/18 06:59 06:59 06:59 Intake Total 1102 Output Total 0 Balance 1102 Weight 46 kg General appearance: PRESENT: no acute distress GI/Abdominal exam: PRESENT: other - Abdomen minimally distended; no peritoneal signs no rigidity Results Laboratory Results: 04/29/18 05:10 04/29/18 05:10 04/29/18 04/29/18 05:10 05:10 WBC 4.0 RBC 4.07 Hgb 12.9 Hct 37.9 MCV 93 MCH 31.7 MCHC 34.0 RDW 16.0 H Plt Count 196 Seg Neutrophils % 69.0 Lymphocytes % 16.8 Monocytes % 12.1 Eosinophils % 1.1 Basophils % 1.0 Absolute Neutrophils 2.8 Absolute Lymphocytes 0.7 Absolute Monocytes 0.5 Absolute Eosinophils 0.0 Absolute Basophils 0.0 Sodium 140.2 Potassium 4.2 Chloride 109 H Carbon Dioxide 20 L Anion Gap 11 BUN 23 H Creatinine 1.58 H Est GFR ( Amer) 39 L Est GFR (Non-Af Amer) 33 L Glucose 69 L Calcium 10.7 H Total Bilirubin 1.1 AST 29 ALT 24 Alkaline Phosphatase 88 Total Protein 6.3 Albumin 3.7 Lipase 122.9 Impressions: Acute Abdomen Series 04/27/18 23:18 IMPRESSION: Small bowel obstruction 2010 [employer]- All Rights Reserved Abdomen/Pelvis CT 04/28/18 01:08 IMPRESSION: 1. Findings consistent with a small bowel obstruction with transition point in the left abdomen with a swirling of the mesentery in this region suggesting volvulus as a cause of the obstruction. Recommend surgical consultation. 2. Gallbladder hydrops. 3. Diverticulosis. 4. Calcified uterine fibroids. Chest X-Ray 04/28/18 02:50 IMPRESSION: Final image shows NG tube extending into the upper stomach. Assessment & Plan - Diagnosis (1) Small bowel obstruction Is this a current diagnosis for this admission?: Yes Plan: Impression perhaps incremental clinical improvement. Plan: 1. Await results of small bowel follow-through. 2. Hopefully can discontinue nasogastric tube 3. Laboratory studies without need of correction
[2018-04-29] MEDS: PANTOPRAZOLE SODIUM 40 MG VIAL IV SCH ×2 (09:45→22:06)
[2018-04-29] MEDS: TACROLIMUS ANHYDROUS 1 MG CAPSULE PO SCH ×2 (09:45→22:06)
[2018-04-29] MEDS: 1/2 NORMAL SALINE 1,000 ML IV PRN (09:45)
--- NOTE | 2018-04-29 13:31 | PDOC PROGRESS REPORT ---
Subjective Progress Note for:: 04/29/18 Subjective:: Patient stated today that she was feeling a little better than yesterday. She still has not had a bowel movement but has passed some gas. She denies any chest pain, SOB, fevers or chills. She is still having some nausea. Reason For Visit: SMALL BOWEL OBSTRUCTION,DEHYDRATION WITH ELEVATED Physical Exam Vital Signs: Temp Pulse Resp BP Pulse Ox 98.3 F 79 18 150/75 H 98 04/29/18 08:26 04/29/18 08:26 04/29/18 08:26 04/29/18 08:26 04/29/18 08:26 Intake & Output 04/28/18 04/29/18 04/30/18 06:59 06:59 06:59 Intake Total 1102 Output Total 0 Balance 1102 Weight 46 kg General appearance: PRESENT: no acute distress, well-developed, well-nourished Mouth exam: PRESENT: dry mucosa, neck supple Respiratory exam: PRESENT: clear to auscultation kat. ABSENT: accessory muscle use, crackles, rales, rhonchi, wheezes Cardiovascular exam: PRESENT: RRR, +S1, +S2 GI/Abdominal exam: PRESENT: guarding, rigid, tenderness. ABSENT: soft Extremities exam: ABSENT: pedal edema, tenderness, +1 edema, +2 edema Musculoskeletal exam: PRESENT: normal inspection. ABSENT: tenderness Neurological exam: PRESENT: alert, awake, oriented to person, oriented to place , oriented to time, oriented to situation Skin exam: PRESENT: dry, intact, warm Results Laboratory Results: 04/29/18 05:10 04/29/18 05:10 04/29/18 04/29/18 05:10 05:10 WBC 4.0 RBC 4.07 Hgb 12.9 Hct 37.9 MCV 93 MCH 31.7 MCHC 34.0 RDW 16.0 H Plt Count 196 Seg Neutrophils % 69.0 Lymphocytes % 16.8 Monocytes % 12.1 Eosinophils % 1.1 Basophils % 1.0 Absolute Neutrophils 2.8 Absolute Lymphocytes 0.7 Absolute Monocytes 0.5 Absolute Eosinophils 0.0 Absolute Basophils 0.0 Sodium 140.2 Potassium 4.2 Chloride 109 H Carbon Dioxide 20 L Anion Gap 11 BUN 23 H Creatinine 1.58 H Est GFR ( Amer) 39 L Est GFR (Non-Af Amer) 33 L Glucose 69 L Calcium 10.7 H Total Bilirubin 1.1 AST 29 ALT 24 Alkaline Phosphatase 88 Total Protein 6.3 Albumin 3.7 Lipase 122.9 Impressions: Acute Abdomen Series 04/27/18 23:18 IMPRESSION: Small bowel obstruction 2010 [facility] All Rights Reserved Abdomen/Pelvis CT 04/28/18 01:08 IMPRESSION: 1. Findings consistent with a small bowel obstruction with transition point in the left abdomen with a swirling of the mesentery in this region suggesting volvulus as a cause of the obstruction. Recommend surgical consultation. 2. Gallbladder hydrops. 3. Diverticulosis. 4. Calcified uterine fibroids. Chest X-Ray 04/28/18 02:50 IMPRESSION: Final image shows NG tube extending into the upper stomach. Assessment & Plan - Diagnosis (1) Tybsl-po-gbsbldj kidney injury Qualifiers: Chronic kidney disease stage: stage 4 (severe) Plan: slightly improved, continue with normal saline, need closer monitoring of urine output. (2) Abdominal pain Qualifiers: Abdominal location: generalized Qualified Code(s): R10.84 - Generalized abdominal pain Plan: currently being handled by surgery (3) Small bowel obstruction Is this a current diagnosis for this admission?: Yes Plan: currently being handled by surgery (4) Acute hyponatremia Plan: improved to baseline (5) Dehydration Plan: continue normal saline (6) Vomiting Qualifiers: Vomiting type: unspecified Vomiting Intractability: intractable Nausea presence: with nausea Qualified Code(s): R11.2 - Nausea with vomiting, unspecified
--- NOTE | 2018-04-29 13:46 | RADIOLOGY REPORT (SQ) ---
EXAM DESCRIPTION: SMALL BOWEL SERIES COMPLETED DATE/TIME: 04/29/2018 1:20 pm REASON FOR STUDY: To id site of obstruction and possible resolution COMPARISON: CT abdomen pelvis 04/28/2018 Three-way abdomen 04/28/2018 Abdominal ultrasound 10/17/2017 FLUOROSCOPY TIME: 1.4 minutes 19 digital radiographic images saved to PACS. LIMITATIONS: None. PROCEDURE: Initial plastic panel installer image of abdomen acquired, followed by administration of Gastrografin oral contrast through the patient's nasogastric tube. Serial radiographic images acquired. Fluoroscopic images recorded of the terminal ileum and other indicated areas. All images stored on PACS. 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 Small amount of oral contrast from CT 018 is seen in the ascending colon in a nonobstructive pattern. Calcified uterine fibroid in the pel vis. Atherosclerotic aortic iliac calcifications. Clips right lower quadrant for right lower quadra nt renal transplant. STOMACH: No significant reflux. Normal distention without abnormality. DUODENUM: Normal mucosal pattern with adequate distention. No displacement or obstruction. JEJUNUM: Normal mucosal pattern. No dilatation, segmentation, strictures or masses. ILEUM: Normal mucosal pattern. No dilatation, segmentation, strictures or masses. TERMINAL ILEUM AND ILEO-CECAL VALVE: Normal mucosal pattern without "cobble-stoning" or stricture. N ormal compression. PROXIMAL COLON: Incompletely imaged. No abnormality. OTHER: No other significant finding. IMPRESSION: No evidence of small bowel obstruction. No dilated small bowel loops. COMMENT: Quality ID [id number]: Final reports for procedures using fluoroscopy that document radiation exp osure indices, or exposure time and number of fluorographic images (if radiation exposure indices are not available) TECHNICAL DOCUMENTATION: JOB ID: [id number] [employer]- All Rights Reserved Reading location - IP/workstation name: [email or web address]
[2018-04-29] MEDS ORDERED: ALBUTEROL SULFATE HFA (90 MCG/PUFF) 8 GM MDI (1 MDI/ER DISP) IH PRN (14:33)
--- NOTE | 2018-04-29 14:33 | PDOC CONSULTATION ---
Consultation Consult Date: 04/29/18 Attending physician:: KM MEEK Consult reason:: Medical management. History of Present Illness Admission Date/PCP: 04/28/18 07:41 Patient complains of: Abdominal pain, nausea and vomiting. History of Present Illness: DEVANTE PIERSON is a 67 year old female who presented with a history of abdominal pain, nausea, and vomiting. Past Medical History Cardiac Medical History: Reports: Atrial Fibrillation, Congestive Heart Failure , Coronary Artery Disease, Myocardial Infarction, Hyperlipidema, Hypertension Denies: Heart Murmur Pulmonary Medical History: Reports: Chronic Obstructive Pulmonary Disease (COPD) Denies: Tuberculosis Neurological Medical History: Denies: Seizures Renal/ Medical History: Reports: End Stage Renal Disease Malignancy Medical History: GI Medical History: Reports: Gastroesophageal Reflux Disease Denies: Hiatal Hernia Psychiatric Medical History: Denies: Bipolar Disorder, Depression Hematology: Reports: Anemia Denies: Hemophilia, Sickle Cell Disease Infectious Medical History: Past Surgical History Past Surgical History: Reports: Cardiac Catheterization, Coronary Stent - 2003, Tubal Ligation, Other - Valvuloplasty [facility] February 2017 multiple upper extremi Ex lap Denies: Appendectomy, Section, Cholecystectomy, Hysterectomy, Mastectomy, Tonsillectomy Social History Lives with: Family Smoking Status: Current Every Day Smoker Cigarettes Packs Per Day: 1 Number of Years Smokin Frequency of Alcohol Use: Occasional Hx Recreational Drug Use: No Drugs: None Hx Prescription Drug Abuse: No - Advance Directive Resuscitation Status: Full Code Family History Family History: Hypertension Parental Family History Reviewed: Yes Children Family History Reviewed: Yes Sibling(s) Family History Reviewed.: Yes Medication/Allergy Home Medications: Aspirin [Aspirin 81 mg Chewable Tablet] 81 mg PO DAILY 10/09/17 Atorvastatin Calcium [Lipitor 20 mg Tablet] 20 mg PO QHS 10/09/17 Carvedilol [Coreg 12.5 mg Tablet] 25 mg PO Q12 10/09/17 Ergocalciferol (Vitamin D2) [Drisdol 50,000 unit (1.25MG) Capsule] 50,000 unit PO SCHAEFFER@1000 10/09/17 Nifedipine [Procardia XL 30 mg Tablet] 30 mg PO DAILY 10/09/17 Ranitidine HCl [Zantac 150 mg Tablet] 150 mg PO QHS 10/09/17 Tacrolimus Anhydrous [Prograf 1 mg Capsule] 2 mg PO Q12 10/09/17 Acetaminophen [Tylenol 325 mg Tablet] 650 mg PO Q6HP PRN 04/28/18 Albuterol Sulfate [Proair Hfa] 2 puff IH QID PRN 04/28/18 Furosemide [Lasix 40 mg Tablet] 40 mg PO BID 04/28/18 Allergies/Adverse Reactions: lisinopril [Lisinopril] Allergy (Verified 04/28/18 01:31) ibuprofen [From Advil] Adverse Reaction (Verified 04/28/18 01:31) Review of Systems Constitutional: PRESENT: anorexia. ABSENT: chills, fever(s), weight gain, weight loss Eyes: ABSENT: visual disturbances Ears: ABSENT: hearing changes Nose, Mouth, and Throat: ABSENT: headache(s), sore throat, vertigo Cardiovascular: ABSENT: chest pain, orthropnea, palpitations Respiratory: ABSENT: cough, dyspnea, sputum Gastrointestinal: PRESENT: abdominal pain, bloating, constipation, nausea, vomiting. ABSENT: diarrhea, hematemesis, hematochezia, melena Musculoskeletal: ABSENT: deformity, muscle weakness Integumentary: ABSENT: lesions, wounds Neurological: ABSENT: abnormal speech, confusion, syncope, weakness Psychiatric: ABSENT: anxiety, depression Endocrine: ABSENT: cold intolerance, heat intolerance, polydipsia, polyphagia Hematologic/Lymphatic: ABSENT: easy bleeding, easy bruising Physical Exam Vital Signs: Temp Pulse Resp BP Pulse Ox 98.3 F 79 18 150/75 H 98 04/29/18 08:26 04/29/18 08:26 04/29/18 08:26 04/29/18 08:26 04/29/18 08:26 Intake & Output 04/28/18 04/29/18 04/30/18 06:59 06:59 06:59 Intake Total 1102 Output Total 0 Balance 1102 Weight 46 kg General appearance: PRESENT: no acute distress, well-developed, well-nourished Head exam: PRESENT: atraumatic, normocephalic Eye exam: PRESENT: EOMI, PERRLA, other - No scleral injection. ABSENT: scleral icterus Ear exam: PRESENT: normal external ear exam Mouth exam: PRESENT: moist, neck supple Neck exam: ABSENT: JVD, lymphadenopathy, meningismus, tenderness Respiratory exam: PRESENT: other - No increased work of breathing.. ABSENT: rales, rhonchi, wheezes Cardiovascular exam: PRESENT: RRR, other - No lateral PMI. No thrills.. ABSENT : gallop, rubs, systolic murmur Pulses: PRESENT: other - Diminished distal pulses. GI/Abdominal exam: PRESENT: hypoactive bowel sounds, soft, tenderness. ABSENT: hernia, organolmegaly Extremities exam: ABSENT: full ROM, tenderness, +1 edema Neurological exam: PRESENT: alert, awake, oriented to person, oriented to place , oriented to time, oriented to situation, CN II-XII grossly intact. ABSENT: motor sensory deficit Psychiatric exam: PRESENT: appropriate affect, normal mood Skin exam: PRESENT: dry, intact, warm Results Laboratory Results: 04/29/18 05:10 04/29/18 05:10 04/29/18 04/29/18 05:10 05:10 WBC 4.0 RBC 4.07 Hgb 12.9 Hct 37.9 MCV 93 MCH 31.7 MCHC 34.0 RDW 16.0 H Plt Count 196 Seg Neutrophils % 69.0 Lymphocytes % 16.8 Monocytes % 12.1 Eosinophils % 1.1 Basophils % 1.0 Absolute Neutrophils 2.8 Absolute Lymphocytes 0.7 Absolute Monocytes 0.5 Absolute Eosinophils 0.0 Absolute Basophils 0.0 Sodium 140.2 Potassium 4.2 Chloride 109 H Carbon Dioxide 20 L Anion Gap 11 BUN 23 H Creatinine 1.58 H Est GFR ( Amer) 39 L Est GFR (Non-Af Amer) 33 L Glucose 69 L Calcium 10.7 H Total Bilirubin 1.1 AST 29 ALT 24 Alkaline Phosphatase 88 Total Protein 6.3 Albumin 3.7 Lipase 122.9 Impressions: Acute Abdomen Series 04/27/18 23:18 IMPRESSION: Small bowel obstruction 2010 [employer]- All Rights Reserved Abdomen/Pelvis CT 04/28/18 01:08 IMPRESSION: 1. Findings consistent with a small bowel obstruction with transition point in the left abdomen with a swirling of the mesentery in this region suggesting volvulus as a cause of the obstruction. Recommend surgical consultation. 2. Gallbladder hydrops. 3. Diverticulosis. 4. Calcified uterine fibroids. Chest X-Ray 04/28/18 02:50 IMPRESSION: Final image shows NG tube extending into the upper stomach. Small Bowel X-Ray 04/29/18 00:00 IMPRESSION: No evidence of small bowel obstruction. No dilated small bowel loops. Assessment & Plan - Diagnosis (1) Coronary artery disease Qualifiers: Coronary Disease-Associated Artery/Lesion type: [place] artery [place] vs. transplanted heart: [place] heart Associated angina: without angina Qualified Code(s): I25.10 - Atherosclerotic heart disease of [place] coronary artery without angina pectoris Is this a current diagnosis for this admission?: Yes Plan: Continue home medications. (2) Abdominal pain Qualifiers: Abdominal location: generalized Qualified Code(s): R10.84 - Generalized abdominal pain Is this a current diagnosis for this admission?: Yes Plan: As per primary service. (3) Small bowel obstruction Is this a current diagnosis for this admission?: Yes (5) Rwnpx-ov-cuinpeg kidney injury Qualifiers: Chronic kidney disease stage: stage 4 (severe) Is this a current diagnosis for this admission?: Yes Plan: History of renal tranplant 3 years ago. Continue antirejection medications and avoid nephrotoxic medications. (6) Aortic atherosclerosis Is this a current diagnosis for this admission?: No (7) COPD (chronic obstructive pulmonary disease) Qualifiers: COPD type: emphysema Emphysema type: unspecified Qualified Code(s): J43.9 - Emphysema, unspecified Is this a current diagnosis for this admission?: Yes Plan: Stable. Continue home medications and as needed nebulizer treatments. (8) DVT (deep venous thrombosis) Is this a current diagnosis for this admission?: No Plan: History of DVT. Anticoagulation. (9) Hypertension Qualifiers: Hypertension type: essential hypertension Qualified Code(s): I10 - Essential (primary) hypertension Is this a current diagnosis for this admission?: Yes Plan: Continue home medications as possible. (10) Renal transplant recipient Is this a current diagnosis for this admission?: Yes Plan: Continue antirejection medications. Avoid nephrotoxic medications. (11) Small bowel obstruction Is this a current diagnosis for this admission?: Yes Plan: NGT in place. As per primary service. (12) Smoker Is this a current diagnosis for this admission?: Yes Plan: Tobacco cessation counseling. - Time Time Spent: 50 to 70 Minutes Medications reviewed and adjusted accordingly: Yes
[2018-04-29] MEDS ORDERED: ONDANSETRON 4 MG TAB.RAPDIS PO PRN (15:11)
[2018-04-29] MEDS ORDERED: ALBUTEROL SULFATE HFA (90 MCG/PUFF) 200 PUFF/8.5 GM MDI IH PRN (15:23)
[2018-04-29] MEDS: CARVEDILOL 12.5 MG TABLET PO SCH (22:06)
[2018-04-30] MEDS: 1/2 NORMAL SALINE 1,000 ML IV PRN (01:13)
[2018-04-30 06:22] LABS: ABSOLUTE EOSINOPHILS # (AUTO) 0.1 10^3/uL (0.0-0.6); ABSOLUTE LYMPHOCYTES (AUTO) 0.8 10^3/uL (0.5-4.7); ABSOLUTE MONOCYTES (AUTO) 0.6 10^3/uL (0.1-1.4); ABSOLUTE NEUT (AUTO) 2.2 10^3/uL (1.7-8.2); BASOPHILS % (AUTO) 0.5 % (0-2); EOSINOPHILS % (AUTO) 1.8 % (0-6); HEMATOCRIT 32.5 % (36.0-47.0); HEMOGLOBIN 11.3 g/dL (12.0-15.5); MEAN CORPUSCULAR HEMOGLOBIN 32.4 pg (27.0-33.4); MEAN CORPUSCULAR HGB CONC 34.7 g/dL (32.0-36.0); MEAN CORPUSCULAR VOLUME 94 fl (80-97); MONOCYTES % (AUTO) 17.3 % (3-13); PLATELET COUNT 176 10^3/uL (150-450); RED BLOOD COUNT 3.48 10^6/uL (3.72-5.28); RED CELL DISTRIBUTION WIDTH 15.6 % (11.5-14.0); SEGMENTED NEUTROPHILS % (AUTO) 58.4 % (42-78); TOTAL CELLS COUNTED % (AUTO) 100 %; WHITE BLOOD COUNT 3.7 10^3/uL (4.0-10.5)
[2018-04-30 06:25] LABS: INTERNATIONAL RATION (INR) 1.09; PROTHROMBIN TIME 14.7 SEC (11.4-15.4)
[2018-04-30 06:37] LABS: ANION GAP 11 (5-19); BLOOD UREA NITROGEN 24 mg/dL (7-20); CALCIUM 10.3 mg/dL (8.4-10.2); CARBON DIOXIDE 20 mmol/L (22-30); CHLORIDE 112 mmol/L (98-107); GLUCOSE 73 mg/dL (75-110); POTASSIUM 3.8 mmol/L (3.6-5.0)
[2018-04-30] MEDS ORDERED: NORMAL SALINE 1000 ML 1,000 ML IV PRN (09:13)
[2018-04-30] MEDS: CARVEDILOL 12.5 MG TABLET PO SCH (09:41)
[2018-04-30] MEDS: TACROLIMUS ANHYDROUS 1 MG CAPSULE PO SCH (09:42)
[2018-04-30] MEDS: PANTOPRAZOLE SODIUM 40 MG VIAL IV SCH (09:43)
--- NOTE | 2018-04-30 17:12 | PDOC PROGRESS REPORT ---
Subjective Progress Note for:: 04/30/18 Subjective:: The patient is resting quietly. Her NGT is out and her diet has been advanced. Reason For Visit: SMALL BOWEL OBSTRUCTION,DEHYDRATION WITH ELEVATED Physical Exam Vital Signs: Temp Pulse Resp BP Pulse Ox 98.3 F 57 L 16 177/55 H 98 04/30/18 15:24 04/30/18 15:24 04/30/18 15:24 04/30/18 15:24 04/30/18 15:24 Intake & Output 04/29/18 04/30/18 05/01/18 06:59 06:59 06:59 Intake Total 1102 1335 340 Output Total 0 Balance 1102 1335 340 Weight 46 kg 46 kg General appearance: PRESENT: no acute distress, thin Respiratory exam: PRESENT: other - No increased work of breathing.. ABSENT: rales, rhonchi, wheezes Cardiovascular exam: PRESENT: RRR, other - No lateral PMI. No thrills.. ABSENT : gallop, rubs, systolic murmur Pulses: PRESENT: other - Diminished distal pulses. GI/Abdominal exam: PRESENT: hypoactive bowel sounds, soft. ABSENT: hernia, mass , organolmegaly, tenderness Extremities exam: ABSENT: calf tenderness, clubbing, +1 edema Neurological exam: PRESENT: alert, awake, oriented to person, oriented to place , oriented to time, CN II-XII grossly intact. ABSENT: motor sensory deficit Psychiatric exam: PRESENT: appropriate affect, normal mood Skin exam: PRESENT: dry, intact, warm Results Laboratory Results: 04/30/18 05:38 04/30/18 05:38 04/30/18 04/30/18 05:38 05:38 WBC 3.7 L RBC 3.48 L Hgb 11.3 L Hct 32.5 L MCV 94 MCH 32.4 MCHC 34.7 RDW 15.6 H Plt Count 176 Seg Neutrophils % 58.4 Lymphocytes % 22.0 Monocytes % 17.3 H Eosinophils % 1.8 Basophils % 0.5 Absolute Neutrophils 2.2 Absolute Lymphocytes 0.8 Absolute Monocytes 0.6 Absolute Eosinophils 0.1 Absolute Basophils 0.0 Sodium 143.0 Potassium 3.8 Chloride 112 H Carbon Dioxide 20 L Anion Gap 11 BUN 24 H Creatinine 2.04 H Est GFR ( Amer) 29 L Est GFR (Non-Af Amer) 24 L Glucose 73 L Calcium 10.3 H Magnesium 1.9 Impressions: Acute Abdomen Series 04/27/18 23:18 IMPRESSION: Small bowel obstruction 2010 [facility]- All Rights Reserved Abdomen/Pelvis CT 04/28/18 01:08 IMPRESSION: 1. Findings consistent with a small bowel obstruction with transition point in the left abdomen with a swirling of the mesentery in this region suggesting volvulus as a cause of the obstruction. Recommend surgical consultation. 2. Gallbladder hydrops. 3. Diverticulosis. 4. Calcified uterine fibroids. Chest X-Ray 04/28/18 02:50 IMPRESSION: Final image shows NG tube extending into the upper stomach. Small Bowel X-Ray 04/29/18 00:00 IMPRESSION: No evidence of small bowel obstruction. No dilated small bowel loops. Assessment & Plan - Diagnosis (1) Coronary artery disease Qualifiers: Coronary Disease-Associated Artery/Lesion type: [place] artery [place] vs. transplanted heart: [place] heart Associated angina: without angina Qualified Code(s): I25.10 - Atherosclerotic heart disease of [place] coronary artery without angina pectoris Is this a current diagnosis for this admission?: Yes Plan: Continue home medications. (2) Abdominal pain Qualifiers: Abdominal location: generalized Qualified Code(s): R10.84 - Generalized abdominal pain Is this a current diagnosis for this admission?: Yes Plan: Resolved. (3) Small bowel obstruction Is this a current diagnosis for this admission?: Yes Plan: NGT out and patient is taking clear liquids. Resolving. (4) Acute hyponatremia Is this a current diagnosis for this admission?: Yes Plan: Resolved. (5) Fkvac-xu-psjyaiz kidney injury Qualifiers: Chronic kidney disease stage: stage 4 (severe) Is this a current diagnosis for this admission?: Yes Plan: History of renal tranplant 3 years ago. Continue antirejection medications and avoid nephrotoxic medications. (6) Aortic atherosclerosis Is this a current diagnosis for this admission?: No (7) COPD (chronic obstructive pulmonary disease) Qualifiers: COPD type: emphysema Emphysema type: unspecified Qualified Code(s): J43.9 - Emphysema, unspecified Is this a current diagnosis for this admission?: Yes Plan: Stable. Continue home medications and as needed nebulizer treatments. (8) DVT (deep venous thrombosis) Qualifiers: DVT location: lower extremity Is this a current diagnosis for this admission?: No Plan: History of DVT. Anticoagulation. (9) Hypertension Qualifiers: Hypertension type: essential hypertension Qualified Code(s): I10 - Essential (primary) hypertension Is this a current diagnosis for this admission?: Yes Plan: Continue home medications as possible. (10) Renal transplant recipient Is this a current diagnosis for this admission?: Yes Plan: Continue antirejection medications. Avoid nephrotoxic medications. (11) Small bowel obstruction Is this a current diagnosis for this admission?: Yes Plan: Resolved. (12) Smoker Is this a current diagnosis for this admission?: Yes Plan: Tobacco cessation counseling. - Time Time Spent with patient: 25-34 minutes Medications reviewed and adjusted accordingly: Yes Anticipated discharge: Home Within: within 24 hours
[2018-04-30 17:37] VITALS: BP 147/87
--- NOTE | 2018-05-17 13:51 | DISCHARGE SUMMARY E ---
Discharge Summary NAME: DEVANTE PIERSON : 1950 AGE: 67Y ADMITTED: 04/28/2018 DISCHARGED: 04/30/2018 FINAL DIAGNOSES: 1. SMALL BOWEL OBSTRUCTION. 2. POST EXPLORATORY LAPAROTOMY WITH REDUCE OF INTERNAL HERNIATION 04/27/[address] GAVIRIA. 3. HISTORY OF RENAL TRANSPLANT WITH MILD RENAL INSUFFICIENCY. 4. CHRONIC OBSTRUCTIVE PULMONARY DISEAES. HOSPITAL COURSE: This is a 67-year-old female who came in with abdominal pains with nausea. She had a CAT scan of the abdomen on admission, 04/28/2018, which showed small bowel obstruction. The next day, 04/29/2018 she underwent small bowel follow through x-rays of the abdomen and showed that the small bowel resection has been resolved. The NG tube was discontinued and gradually put on a diet. She was seen by Nephrology on 04/29/2018 for BUN and creatinine slightly elevated. Refuge Worker suggested maintaining hydration. Patient can be discharged when kidney functions are back to baseline. She was also seen by the hospitalist for kidney dysfunction and COPD. On 04/30/2018 patient able to tolerate soft diet and pain has been resolved. She was then discharged on 04/30/2018 with the final diagnosis of: 1. SMALL BOWEL OBSTRUCTION, RESOLVED. 2. CHRONIC OBSTRUCTIVE PULMONARY DISEASE. 3. POST KIDNEY TRANSPLANT WITH RENAL INSUFFICIENCY. PLAN: Patient to be followed by Nephrology on an outpatient basis. Patient to continue her *------* medications. DICTATING PHYSICIAN: KM MEEK M.D. [id number] PHY#: [id number] ID: [id number] JOB#: [id number] ACCT: [id number] cc:KM MEEK M.D. >
== END 2018-04-30 18:07 | disposition home or self-care (01) | DRG 389 ==
LOC: ER 21:45 → EH 04-28 07:41 → 3W 04-28 14:49
PROVIDERS: ADMIT Surgery; ATTEND Surgery
PROC: 0D9670Z Drainage of Stomach with Drainage Device, Via Natural or Artificial Opening (ICD-10-PCS; principal; 2018-04-28)
DX: K56.2 Volvulus (principal); Z94.0 Kidney transplant status; Z68.1 Body mass index [BMI] 19.9 or less, adult; K82.1 Hydrops of gallbladder; N17.9 Acute kidney failure, unspecified; E87.1 Hypo-osmolality and hyponatremia; N18.4 Chronic kidney disease, stage 4 (severe); I12.9 Hypertensive chronic kidney disease with stage 1 through stage 4 chronic kidney disease, or unspecified chronic kidney disease; E86.0 Dehydration; I48.91 Unspecified atrial fibrillation; I25.10 Atherosclerotic heart disease of native coronary artery without angina pectoris; E78.00 Pure hypercholesterolemia, unspecified; K21.9 Gastro-esophageal reflux disease without esophagitis; D63.1 Anemia in chronic kidney disease; F17.210 Nicotine dependence, cigarettes, uncomplicated; R63.0 Anorexia; K57.30 Diverticulosis of large intestine without perforation or abscess without bleeding; D25.9 Leiomyoma of uterus, unspecified; I70.0 Atherosclerosis of aorta; J43.9 Emphysema, unspecified; F41.9 Anxiety disorder, unspecified; I25.2 Old myocardial infarction; Z95.5 Presence of coronary angioplasty implant and graft; Z79.899 Other long term (current) drug therapy; Z88.6 Allergy status to analgesic agent; Z88.8 Allergy status to other drugs, medicaments and biological substances; Z86.718 Personal history of other venous thrombosis and embolism; Z79.82 Long term (current) use of aspirin; Z79.01 Long term (current) use of anticoagulants; Z86.73 Personal history of transient ischemic attack (TIA), and cerebral infarction without residual deficits; Z82.49 Family history of ischemic heart disease and other diseases of the circulatory system; Z82.3 Family history of stroke
CPT/HCPCS: 36415; 71045; 74022; 74176; 74250; 80048; 80053; 81001; 82962; 83605; 83690; 83735; 85025; 85610; 96361; 96374; 96375; 96376; 99285; J0360; J2250; J2270; J2765; J3490; J7030; J7507; S0164

== ENCOUNTER 2019-12-29 04:33 | Emergency (ER) | payer OTHER, MEDICARE ==
[2019-12-29] MEDS ORDERED: IPRATROPIUM/ALBUTEROL 0.5-2.5 MG/3 ML AMPUL NEB ONE (05:25)
[2019-12-29] MEDS ORDERED: ACETAMINOPHEN 325 MG TABLET PO ONE (05:27)
[2019-12-29] MEDS ORDERED: LIDOCAINE 5% (700 MG) TRANSDERMAL ADH..PATCH TP ONE (05:27)
--- NOTE | 2019-12-29 05:30 | ER Document Report ---
ED General <LINDA WALSH - Last Filed: 12/29/19 09:27> - General Mode of Arrival: Medic Information source: Patient TRAVEL OUTSIDE OF THE [place] IN LAST 30 DAYS: No - HPI Onset: This morning Onset/Duration: Gradual Quality of pain: Achy Pain Level: 5 Associated symptoms: Nonproductive cough, Diarrhea, Nausea, Vomiting. denies: Chest pain, Fever, Sore throat Exacerbated by: Denies Relieved by: Denies Similar symptoms previously: Yes Recently seen / treated by doctor: Yes <MALATHI PATEL - Last Filed: 12/29/19 20:22> - General Chief Complaint: Nausea/Vomiting/Diarrhea Stated Complaint: WEAKNESS Time Seen by Provider: 12/29/19 05:09 Primary Care Provider: IFEANYI IQBAL DO [Primary Care Provider] - Follow up in 3-5 days Notes: Patient presents complaining of vomiting that started 5 hours prior to arrival. Patient states that she recently had an upper endoscopy procedure and was treated for a stomach bacterial infection with some antibiotics. Patient states that the procedure was last week but that she just started the antibiotics 4 d ays ago. Patient states that she was given some nausea medicine by EMS and her nausea has since resolved. Patient states she has had diarrhea for the past several days as well. Patient denies any fever. Patient states she has a chronic cough due to emphysema but does not feel like her cough has worsened recently. Patient also reports chronic low back pain for which she is prescribed medication. Patient denies any new injury. (MALATHI PATEL) - Related Data Allergies/Adverse Reactions: lisinopril [Lisinopril] Allergy (Verified 04/28/18 01:31) ibuprofen [From Advil] Adverse Reaction (Verified 04/28/18 01:31) Past Medical History - General Information source: Patient - Social History Smoking Status: Current Every Day Smoker Chew tobacco use (# tins/day): No Frequency of alcohol use: None Drug Abuse: None Family History: Hypertension Patient has suicidal ideation: No Patient has homicidal ideation: No - Past Medical History Cardiac Medical History: Reports: Hx Atrial Fibrillation, Hx Congestive Heart Failure, Hx Coronary Artery Disease, Hx Heart Attack, Hx Hypercholesterolemia, Hx Hypertension Denies: Hx Heart Murmur Pulmonary Medical History: Reports: Hx COPD Denies: Hx Tuberculosis Neurological Medical History: Reports: Hx Cerebrovascular Accident. Denies: Hx Seizures, Hx Parkinson's Disease Renal/ Medical History: Reports: Hx End Stage Renal Disease, Hx Hemodialysis - Last dialysis was May 2015 just prior to her kidney transplant., Hx Renal Insufficiency. Denies: Hx Kidney Stones, Hx Peritoneal Dialysis Malignancy Medical History: GI Medical History: Reports: Hx Gastroesophageal Reflux Disease Musculoskeletal Medical History: Psychiatric Medical History: Reports: Hx Anxiety Infectious Medical History: Past Surgical History: Reports: Hx Cardiac Catheterization, Hx Cardiac Surgery, Hx Coronary Stent - 2003, Hx Kidney (Renal Surgery) - Kidney transplant 05/22/2015 placed in right lower quadrant, Hx Tubal Ligation, Other - Valvuloplasty [facility] February 2017 multiple upper extremi Ex lap - Immunizations Hx Diphtheria, Pertussis, Tetanus Vaccination: Yes Hx Pneumococcal Vaccination: 10/12/10 <MALATHI PATEL - Last Filed: 12/29/19 20:22> Review of Systems - Review of Systems Constitutional: No symptoms reported. denies: Fever EENT: No symptoms reported Cardiovascular: No symptoms reported. denies: Chest pain Respiratory: Cough. denies: Short of breath Gastrointestinal: Abdominal pain, Diarrhea, Nausea, Vomiting Genitourinary: No symptoms reported. denies: Dysuria, Flank pain Female Genitourinary: No symptoms reported Musculoskeletal: Back pain - chronic Skin: No symptoms reported Hematologic/Lymphatic: No symptoms reported Neurological/Psychological: No symptoms reported <MALATHI PATEL - Last Filed: 12/29/19 20:22> Physical Exam - General General appearance: Appears well, Alert In distress: None - HEENT Head: Normocephalic, Atraumatic Eyes: Normal Conjunctiva: Normal Nasal: Normal Mouth/Lips: Normal Mucous membranes: Normal Neck: Normal, Supple. No: Lymphadenopathy - Respiratory Respiratory status: No respiratory distress Chest status: Nontender Breath sounds: Normal. No: Rales, Rhonchi, Stridor, Wheezing Chest palpation: Normal - Cardiovascular Rhythm: Regular Heart sounds: S1 appreciated, S2 appreciated - Abdominal Inspection: Other - Umbilical hernia Distension: No distension Bowel sounds: Normal Tenderness: Tender - Generalized abdomen Organomegaly: No organomegaly - Back Back: Tender - Lumbar paraspinal tenderness - Extremities General upper extremity: Normal inspection, Normal ROM General lower extremity: Normal inspection, Normal ROM - Neurological Neuro grossly intact: Yes Cognition: Normal [place] Coma Scale Eye Opening: Spontaneous [place] Coma Scale Verbal: Oriented [place] Coma Scale Motor: Obeys Commands [place] Coma Scale Total: 15 - Psychological Associated symptoms: Normal affect, Normal mood - Skin Skin Temperature: Warm Skin Moisture: Dry Skin Color: Normal <MALATHI PATEL - Last Filed: 12/29/19 20:22> - Vital signs Vitals: Resp BP Pulse Ox 16 113/69 97 12/29/19 04:43 12/29/19 04:43 12/29/19 04:43 Course - Laboratory Result Diagrams: 12/29/19 04:53 12/29/19 04:53 <LINDA WALSH - Last Filed: 12/29/19 09:27> - Laboratory Result Diagrams: 12/29/19 04:53 12/29/19 04:53 <MALATHI PATEL - Last Filed: 12/29/19 20:22> - Re-evaluation Re-evalutation: 12/29/19 09:[address] of the abdomen pelvis showed diverticulosis. Patient also has an umbilical hernia with no strangulation. No appendicitis noted. If patient is unable to have a bowel movement here, she can have her stool tested on an outpatient basis. Follow-up precautions were given. Verbal discharge instructions were given to the patient. They verbalized understanding. They are stable for discharge. (LINDA WALSH) 12/29/19 07:28 Patient states that nausea is improved at this time and stomach pain seems to be better. Patient states that she still does have the pain when she coughs. On repeat abdominal exam, patient does continue to guard with palpation of the lower abdomen. 12/29/19 08:13 Bedside report and handoff given to Linda walsh [employer] (MALATHI PATEL) - Vital Signs Vital signs: Temp Pulse Resp BP Pulse Ox 98.5 F 80 20 102/75 97 12/29/19 10:35 12/29/19 04:45 12/29/19 10:28 12/29/19 10:28 12/29/19 10:28 - Laboratory Laboratory results interpreted by me: 12/29/19 12/29/19 04:53 04:53 Lymph % (Auto) 12.2 L Green % (Auto) 2.8 L Seg Neutrophils % 84.8 H Sodium 130.6 L Chloride 97 L BUN 43 H Creatinine 2.10 H Est GFR ( Amer) 28 L Est GFR (MDRD) Non-Af 23 L Glucose 113 H Direct Bilirubin 0.5 H Total Protein 6.2 L Discharge <ILNDA WALSH - Last Filed: 12/29/19 09:27> <MALATHI PATEL - Last Filed: 12/29/19 20:22> - Discharge Clinical Impression: Diverticulosis Diarrhea Qualifiers: Diarrhea type: unspecified type Qualified Code(s): R19.7 - Diarrhea, unspecif ied Vomiting Qualifiers: Vomiting type: unspecified Vomiting Intractability: unspecified Nausea presence: unspecified Qualified Code(s): R11.10 - Vomiting, unspecified Abdominal pain Qualifiers: Abdominal location: right lower quadrant Qualified Code(s): R10.31 - Right lower quadrant pain Abdominal hernia Qualifiers: Hernia type: unspecified Obstruction and gangrene presence: without obstruction or gangrene Recurrence: recurrent Qualified Code(s): K45.8 - Other specified abdominal hernia without obstruction or gangrene Chronic back pain Qualifiers: Back pain location: low back pain Back pain laterality: unspecified Sciatica presence: unspecified whether sciatica present Qualified Code(s): M54.5 - Low back pain; G89.29 - Other chronic pain Pneumonia Qualifiers: Pneumonia type: due to unspecified organism Laterality: unspecified laterality Lung location: unspecified part of lung Qualified Code(s): J18.9 - Pneumonia, unspecified organism Condition: Good Disposition: HOME, SELF-CARE Additional Instructions: You were seen today in the emergency department for abdominal pain, nausea, vomiting, and diarrhea. You have diverticulosis. This is not a surgical emergency. You also have a hernia which is stable. Please follow-up with your primary care provider. You can take Bentyl and Zofran as needed for abdominal pain and nausea. If you did not have a bowel movement here in the emergency department, please provide a stool sample at home and bring it into the outpatient lab. Prescriptions: Dicyclomine HCl [Bentyl 20 mg Tablet] 20 mg PO QID PRN #20 tablet PRN Reason: Ondansetron [Zofran Odt 4 mg Tablet] 1 - 2 tab PO Q4H PRN #30 tab.rapdis PRN Reason: For Nausea/Vomiting Forms: Follow-Up Laboratory Testing Referrals: IFEANYI IQBAL DO [Primary Care Provider] - Follow up in 3-5 days
[2019-12-29 05:44] LABS: ALBUMIN 3.6 g/dL (3.5-5.0); ALKALINE PHOSPHATASE 116 U/L (38-126); ANION GAP 12 (5-19); ASPARTATE AMINO TRANSFERASE 27 U/L (14-36); BILIRUBIN,DIRECT 0.5 mg/dL (0.0-0.4); BILIRUBIN,TOTAL 0.9 mg/dL (0.2-1.3); BLOOD UREA NITROGEN 43 mg/dL (7-20); CALCIUM 9.9 mg/dL (8.4-10.2); CARBON DIOXIDE 22 mmol/L (22-30); CHLORIDE 97 mmol/L (98-107); GLUCOSE 113 mg/dL (75-110); POTASSIUM 4.2 mmol/L (3.6-5.0); TOTAL PROTEIN 6.2 g/dL (6.3-8.2)
[2019-12-29 06:22] LABS: ABSOLUTE LYMPHOCYTES (AUTO) 0.6 10^3/uL (0.5-4.7); ABSOLUTE MONOCYTES (AUTO) 0.1 10^3/uL (0.1-1.4); ABSOLUTE NEUT (AUTO) 3.9 10^3/uL (1.7-8.2); BASOPHILS % (AUTO) 0.2 % (0-2); HEMATOCRIT 37.6 % (36.0-47.0); HEMOGLOBIN 13.1 g/dL (12.0-15.5); LYMPHOCYTES % (AUTO) 12.2 % (13-45); MEAN CORPUSCULAR HEMOGLOBIN 33.4 pg (27.0-33.4); MEAN CORPUSCULAR HGB CONC 34.9 g/dL (32.0-36.0); MEAN CORPUSCULAR VOLUME 96 fl (80-97); MONOCYTES % (AUTO) 2.8 % (3-13); PLATELET COUNT 174 10^3/uL (150-450); RED BLOOD COUNT 3.94 10^6/uL (3.72-5.28); RED CELL DISTRIBUTION WIDTH 12.6 % (11.5-14.0); SEGMENTED NEUTROPHILS % (AUTO) 84.8 % (42-78); TOTAL CELLS COUNTED % (AUTO) 100 %; WHITE BLOOD COUNT 4.6 10^3/uL (4.0-10.5)
--- NOTE | 2019-12-29 07:18 | RADIOLOGY REPORT (SQ) ---
ACUTE ABDOMINAL SERIES: 12/29/2019 6:16 AM CDT COMPARISON: None available TECHNIQUE: A PA view of the chest was obtained with upright and supine views of the abdomen. HISTORY: 69-year old with abdominal pain. FINDINGS: The cardiomediastinal silhouette is enlarged. No pneumothorax is seen. Also suggestion of some bibasilar airspace opacities, left greater than right. No discrete pleural effusion is apparent. There is a stent seen at the coronary arteries. Atherosclerotic calcifications are seen at the aortic arch. The visualized bowel gas pattern is nonspecific and nonobstructive. No free air is seen beneath the hemidiaphragms. No abnormal intraabdominal calcifications are seen. There are no findings to suggest organomegaly. There are surgical clips seen at the midline left upper abdomen. There is a right hip arthroplasty. Calcifications within the right lower pelvis may be from prior calcified leiomyomas. IMPRESSION: There is suggestion of bibasilar airspace opacities, left greater than right. The bowel gas pattern is nonobstructive and nonspecific.
[2019-12-29 07:50] LABS: APPEARANCE,URINE CLEAR; BILIRUBIN,URINE NEGATIVE (NEGATIVE); COLOR,URINE YELLOW; GLUCOSE, URINE NEGATIVE (NEGATIVE); KETONES,URINE NEGATIVE (NEGATIVE); LEUKOCYTE ESTERASE,URINE NEGATIVE (NEGATIVE); NITRITE,URINE NEGATIVE (NEGATIVE); PROTEIN,URINE NEGATIVE (NEGATIVE); URINE SPECIFIC GRAVITY 1.009; UROBILINOGEN,URINE NEGATIVE mg/dL (<2.0)
--- NOTE | 2019-12-29 08:50 | RADIOLOGY REPORT (SQ) ---
EXAM DESCRIPTION: CT ABD/PELVIS NO ORAL OR IV COMPLETED DATE/TIME: 12/29/2019 8:06 am REASON FOR STUDY: abd pain, n/v/d COMPARISON: 04/28/2018 TECHNIQUE: CT scan of the abdomen and pelvis performed without intravenous or oral contrast. Images reviewed with lung, soft tissue, and bone windows. Reconstructed coronal and sagittal MPR images revi ewed. All images stored on PACS. All CT scanners at this facility use dose modulation, iterative reconstruction, and/or weight based d osing when appropriate to reduce radiation dose to as low as reasonably achievable (ALARA). [facility]: Dose Right [facility]: CareDose [facility]: Dose Right [facility]: Teradose 4D [facility]: Smart Project Repat RADIATION DOSE: CT Rad equipment meets quality standard of care and radiation dose reduction techniq ues were employed. CTDIvol: 4.8 mGy. DLP: 211 mGy-cm.mGy. LIMITATIONS: Artifact from right hip arthroplasty. FINDINGS: LOWER CHEST: No significant findings. No nodules or infiltrates. NON-CONTRASTED LIVER, SPLEEN, ADRENALS: Evaluation limited by lack of IV contrast. No identified sign ificant masses. PANCREAS: No masses. No peripancreatic inflammatory changes. GALLBLADDER: Distended. No identified stones by CT criteria. No inflammatory changes to suggest chol ecystitis. RIGHT KIDNEY AND URETER: Atrophy. Multiple cysts. No suspicious masses. Assessment limited by lack of IV contrast. No significant calcifications. No hydronephrosis or hydroureter. LEFT KIDNEY AND URETER: Atrophy. Multiple cysts. No suspicious masses. Assessment limited by lack o f IV contrast. No significant calcifications. No hydronephrosis or hydroureter. AORTA AND RETROPERITONEUM: No aneurysm. No retroperitoneal masses or adenopathy. BOWEL AND PERITONEAL CAVITY: Diverticulosis descending and sigmoid colon. No obvious masses or infla mmatory changes. No free fluid. APPENDIX: Not visualized. PELVIS, BLADDER, AND ABDOMINAL WALL:Umbilical hernia containing nondilated small bowel. Calcified ut erine fibroids. BONES: Nothing acute. OTHER: No other significant finding. IMPRESSION: 1. Umbilical hernia containing nondilated small bowel. 2. Distended gallbladder, probably physiologic. Clinical correlation is needed. 3. Polycystic kidneys. Chronic renal insufficiency. COMMENT: Quality ID # [id number]: Final reports with documentation of one or more dose reduction techniques (e.g., Automated exposure control, adjustment of the mA and/or kV according to patient size, use of iterative reconstruction technique) TECHNICAL DOCUMENTATION: JOB ID: [id number] 2010 [employer]- All Rights Reserved Reading location - IP/workstation name: [email or web address]
[2019-12-29] MEDS ORDERED: ONDANSETRON HCL INJ/PF 4 MG/2 ML SDV IV ONE (09:20)
[2019-12-29] MEDS ORDERED: DICYCLOMINE HCL 20 MG TABLET PO ONE (09:27)
[2019-12-29 10:30] VITALS: BP 102/75
[2019-12-29 11:41] LABS: C DIFFICILE GDH NEGATIVE (NEGATIVE)
== END 2019-12-29 10:39 | disposition home or self-care (01) ==
LOC: ER 04:33
DX: A04.9 Bacterial intestinal infection, unspecified (principal); K42.9 Umbilical hernia without obstruction or gangrene; K57.30 Diverticulosis of large intestine without perforation or abscess without bleeding; J18.9 Pneumonia, unspecified organism; J43.9 Emphysema, unspecified; M54.5 Low back pain; G89.29 Other chronic pain; R05 Cough; I25.10 Atherosclerotic heart disease of native coronary artery without angina pectoris; I10 Essential (primary) hypertension; F17.200 Nicotine dependence, unspecified, uncomplicated; Z79.899 Other long term (current) drug therapy; Z94.0 Kidney transplant status; Z88.8 Allergy status to other drugs, medicaments and biological substances
CPT/HCPCS: 94640; 99284; 96374; 36415; 87045; 87205; 83690; 85025; 80053; 81001; 87324; 87449; 74022; 74176; J3490; J2405; J7620

== ENCOUNTER 2020-09-02 18:50 | Emergency (ER) | payer OTHER, MEDICARE ==
[2020-09-02 19:50] LABS: ABSOLUTE LYMPHOCYTES (AUTO) 0.6 10^3/uL (0.5-4.7); ABSOLUTE MONOCYTES (AUTO) 0.3 10^3/uL (0.1-1.4); ABSOLUTE NEUT (AUTO) 7.1 10^3/uL (1.7-8.2); BASOPHILS % (AUTO) 0.1 % (0-2); EOSINOPHILS % (AUTO) 0.1 % (0-6); HEMATOCRIT 42.1 % (36.0-47.0); HEMOGLOBIN 14.5 g/dL (12.0-15.5); LYMPHOCYTES % (AUTO) 7.1 % (13-45); MEAN CORPUSCULAR HEMOGLOBIN 32.5 pg (27.0-33.4); MEAN CORPUSCULAR HGB CONC 34.4 g/dL (32.0-36.0); MEAN CORPUSCULAR VOLUME 94 fl (80-97); MONOCYTES % (AUTO) 3.2 % (3-13); PLATELET COUNT 185 10^3/uL (150-450); RED BLOOD COUNT 4.46 10^6/uL (3.72-5.28); RED CELL DISTRIBUTION WIDTH 13.6 % (11.5-14.0); SEGMENTED NEUTROPHILS % (AUTO) 89.5 % (42-78); TOTAL CELLS COUNTED % (AUTO) 100 %
[2020-09-02 20:03] LABS: ALBUMIN 4.5 g/dL (3.5-5.0); ALKALINE PHOSPHATASE 114 U/L (38-126); ANION GAP 8 (5-19); ASPARTATE AMINO TRANSFERASE 36 U/L (14-36); BILIRUBIN,DIRECT 0.2 mg/dL (0.0-0.4); BILIRUBIN,TOTAL 0.9 mg/dL (0.2-1.3); BLOOD UREA NITROGEN 55 mg/dL (7-20); CARBON DIOXIDE 31 mmol/L (22-30); CHLORIDE 91 mmol/L (98-107); GLUCOSE 134 mg/dL (75-110); POTASSIUM 4.5 mmol/L (3.6-5.0)
[2020-09-02 20:59] LABS: APPEARANCE,URINE CLEAR; BILIRUBIN,URINE NEGATIVE (NEGATIVE); COLOR,URINE YELLOW; GLUCOSE, URINE NEGATIVE (NEGATIVE); KETONES,URINE NEGATIVE (NEGATIVE); PROTEIN,URINE NEGATIVE (NEGATIVE); UROBILINOGEN,URINE NEGATIVE mg/dL (<2.0)
--- NOTE | 2020-09-02 22:14 | ER Document Report ---
ED General - General Chief Complaint: Abdominal Pain >50 Stated Complaint: ABDOMINAL PAIN Time Seen by Provider: 09/02/20 22:13 Primary Care Provider: IFEANYI IQBAL DO [Primary Care Provider] - Follow up as needed TRAVEL OUTSIDE OF THE [place] IN LAST 30 DAYS: No - HPI Notes: 70-year-old female presents with abdominal pain. Patient states that she had onset of central abdominal pain around 1800 this evening, it has been constant and severe, it does not radiate. She states she is also been having some vomiting which started after the pain, she states she has had some blood streaks to her vomit but then states it potentially could be from coughing or both. She has not had any diarrhea. She has not taken any medications at home for pain. She has a known ventral hernia and is actually going to have a preop evaluation done tomorrow and [facility] for this. - Related Data Allergies/Adverse Reactions: lisinopril [Lisinopril] Allergy (Verified 04/28/18 01:31) ibuprofen [From Advil] Adverse Reaction (Verified 04/28/18 01:31) Past Medical History - General Information source: Patient - Social History Smoking Status: Current Every Day Smoker Family History: Hypertension Patient has homicidal ideation: No - Past Medical History Cardiac Medical History: Reports: Hx Atrial Fibrillation, Hx Congestive Heart Failure, Hx Coronary Artery Disease, Hx Heart Attack, Hx Hypercholesterolemia, Hx Hypertension Denies: Hx Heart Murmur Pulmonary Medical History: Reports: Hx COPD Denies: Hx Tuberculosis Neurological Medical History: Reports: Hx Cerebrovascular Accident. Denies: Hx Seizures, Hx Parkinson's Disease Renal/ Medical History: Reports: Hx End Stage Renal Disease, Hx Hemodialysis - Last dialysis was May 2015 just prior to her kidney transplant., Hx Renal Insufficiency. Denies: Hx Kidney Stones, Hx Peritoneal Dialysis Malignancy Medical History: GI Medical History: Reports: Hx Gastroesophageal Reflux Disease. Denies: Hx Hiatal Hernia Musculoskeletal Medical History: Psychiatric Medical History: Reports: Hx Anxiety Denies: Hx Bipolar Disorder, Hx Depression Infectious Medical History: Past Surgical History: Reports: Hx Cardiac Catheterization, Hx Cardiac Surgery, Hx Coronary Stent - 2003, Hx Kidney (Renal Surgery) - Kidney transplant 05/22/2015 placed in right lower quadrant, Hx Tubal Ligation, Other - Valvuloplasty [facility] February 2017 multiple upper extremi Ex lap. Denies: Hx Appendectomy, Hx Section, Hx Cholecystectomy, Hx Hysterectomy, Hx Mastectomy, Hx Tonsillectomy - Immunizations Hx Diphtheria, Pertussis, Tetanus Vaccination: Yes Hx Pneumococcal Vaccination: 10/12/10 Review of Systems - Review of Systems Constitutional: No symptoms reported EENT: No symptoms reported Cardiovascular: denies: Chest pain Respiratory: Cough - Chronic, Short of breath - Chronic, baseline Gastrointestinal: See HPI Genitourinary: No symptoms reported Female Genitourinary: No symptoms reported Musculoskeletal: No symptoms reported Skin: No symptoms reported Hematologic/Lymphatic: No symptoms reported Neurological/Psychological: No symptoms reported Physical Exam - Vital signs Vitals: Temp 98.8 F 09/02/20 18:51 - General General appearance: Appears well, Alert - HEENT Head: Normocephalic, Atraumatic Pupils: PERRL - Respiratory Breath sounds: Normal - Cardiovascular Rhythm: Regular Heart sounds: Normal auscultation - Abdominal Inspection: Healed incision Distension: No distension Bowel sounds: Normal Tenderness: Tender - Mild periumbilical, overall tolerates exam very well. No: Guarding, Rebound Notes: Palpable defect in the ventral aspect of abdomen about her surgical scar, freely reducible loops of bowel. - Extremities General lower extremity: No: Edema - Neurological Neuro grossly intact: Yes Cognition: Normal Orientation: AAOx4 - Psychological Associated symptoms: Normal affect - Skin Skin Temperature: Warm Course - Re-evaluation Re-evalutation: 70-year-old female presents with onset of periumbilical pain around 6 PM. She has a known ventral hernia and is due to see a surgeon for preoperative appointment tomorrow. She is hypertensive, suspect this to be due to pain. Her abdomen is soft and nondistended, she has normoactive bowel sounds and freely reducible hernia. Unsure what to make of this report of the blood-streaked sputum versus emesis, patient is not vomiting during exam. Will check labs and acute abdominal series. Low suspicion for obstruction at this time. Possible cramping sensation. No evidence for incarcerated hernia. 09/02/20 23:58 No leukocytosis. No acute anemia. Mild hyponatremia 130, similar to previous. Creatinine improved from previous. No elevation of LFTs or T bili. Slight elevation of lipase. Urine does not suggest UTI. 09/02/20 23:59 Abdominal x-ray read as nonspecific abdomen 09/03/20 00:46 Patient states that she is feeling better and her pain has been resolved. Discussed work-up with her. She has follow-up tomorrow with surgery. Return precautions given, stable at time of discharge. - Vital Signs Vital signs: Temp Pulse Resp BP Pulse Ox 98.8 F 25 H 125/69 100 09/02/20 18:51 09/03/20 01:42 09/03/20 01:42 09/03/20 01:42 - Laboratory Result Diagrams: 09/02/20 19:05 09/02/20 19:05 Laboratory results interpreted by me: 09/02/20 09/02/20 19:05 19:05 Lymph % (Auto) 7.1 L Seg Neutrophils % 89.5 H Sodium 130.3 L Chloride 91 L Carbon Dioxide 31 H BUN 55 H Creatinine 1.91 H Est GFR ( Amer) 31 L Est GFR (MDRD) Non-Af 26 L Glucose 134 H Calcium 11.0 H Lipase 324.3 H - Diagnostic Test Radiology reviewed: Image reviewed, Reports reviewed Discharge - Discharge Clinical Impression: Ventral incisional hernia Abdominal pain Qualifiers: Abdominal location: periumbilical Qualified Code(s): R10.33 - Periumbilical pain Disposition: HOME, SELF-CARE Additional Instructions: Please follow-up with surgery as planned. Return to the emergency department for any concerning worsening symptoms. Referrals: IFEANYI IQBAL DO [Primary Care Provider] - Follow up as needed
[2020-09-02] MEDS ORDERED: MORPHINE SULFATE 10 MG/ML INJ IV ONE (22:20)
[2020-09-02] MEDS ORDERED: NORMAL SALINE 500 ML IV ONE (22:20)
[2020-09-02] MEDS ORDERED: FAMOTIDINE INJ/PF 20 MG/2 ML SDV IV ONE (22:21)
--- NOTE | 2020-09-02 23:13 | RADIOLOGY REPORT (SQ) ---
Acute abdominal series x-ray three views on 09/02/2020 at 10:34 PM CLINICAL INDICATION: Periumbilical abdominal pain COMPARISON: X-ray and CT from 12/29/2019 FINDINGS: CHEST: Vascular calcification is noted in the aorta. The lungs appear clear. Cardiac, hilar and mediastinal contours are within normal limits. There is scoliosis of the spine. ABDOMEN: There is no free air. Calcified uterine fibroid is noted in the pelvis. The patient is status post right total hip arthroplasty. Degenerative changes and scoliosis is noted in the lumbar spine. Vascular calcifications are noted. Bowel gas pattern is nonspecific with a few prominent loops of bowel in the pelvis, unfortunately the upright film did not include the pelvis to evaluate adequately for air-fluid levels. If there is clinical concern for obstruction consider CT. A few calcified phleboliths are noted in the pelvis. IMPRESSION: 1. No acute cardiopulmonary disease. 2. Nonspecific abdomen, as above if there is concern for obstruction consider CT.
[2020-09-03 01:52] VITALS: BP 125/69
== END 2020-09-03 02:07 | disposition home or self-care (01) ==
LOC: ER 18:50
DX: K43.2 Incisional hernia without obstruction or gangrene (principal); R10.33 Periumbilical pain; R10.815 Periumbilic abdominal tenderness; R11.10 Vomiting, unspecified; J44.9 Chronic obstructive pulmonary disease, unspecified; R05 Cough; R06.02 Shortness of breath; F17.200 Nicotine dependence, unspecified, uncomplicated; I25.10 Atherosclerotic heart disease of native coronary artery without angina pectoris; I10 Essential (primary) hypertension; Z94.0 Kidney transplant status; Z87.19 Personal history of other diseases of the digestive system; Z95.5 Presence of coronary angioplasty implant and graft
CPT/HCPCS: 99284; 96361 ×2; 96374; 96375; 36415; 83690; 85025; 80053; 81001; 74022; J2270; J7040; S0028

== ENCOUNTER 2020-09-04 18:37 | Inpatient (IN) | payer OTHER, MEDICARE ==
--- NOTE | 2020-09-04 19:51 | ER Document Report ---
ED Medical Screen (RME) - General Mode of Arrival: Wheelchair Information source: Patient TRAVEL OUTSIDE OF THE [place] IN LAST 30 DAYS: No <CHRISTINE HAMMOND - Last Filed: 09/04/20 19:48> <IAN HUITRON JR - Last Filed: 09/04/20 23:44> - General Chief Complaint: Abdominal Pain Stated Complaint: ABDOMINAL PAIN Time Seen by Provider: 09/04/20 19:46 Primary Care Provider: IFEANYI IQBAL DO [Primary Care Provider] - Follow up as needed Notes: Patient is a 70-year-old female returns emergency room with a continued complaint of abdominal pain nausea and vomiting. Patient states she was seen here 2 days ago for similar presentation. States that she has a hernia that supposed to be repaired and was supposed to have preop is done tomorrow and surgery on the eighth but patient states the pain is gotten so bad she cannot eat or drink. She does state however she did have something to eat around 5 PM this evening. And the pain has gotten increasingly worse. Physical examination. Patient is a frail-appearing 70-year-old female who is in no apparent distress on examination. Cardiac: Regular rate and rhythm no murmurs. Lungs: Bilateral breath sounds increased clear auscultation. Abdomen: Bowel sounds are present in all 4 quads. With palpation in the sitting position is reducible. Patient has moderate to severe abdominal pain with light palpation. Further evaluation to be performed by provider in the back where they can do a good abdominal exam to see what type of a radiologic diagnostic test they would like. I have greeted and performed a rapid initial assessment of this patient. A c omprehensive ED assessment and evaluation of the patient, analysis of test results and completion of the medical decision making process will be conducted by additional ED providers. Dictation of this chart was performed using voice recognition software; therefore, there may be some unintended grammatical errors. (CHRISTINE HAMMOND) - Related Data Allergies/Adverse Reactions: lisinopril [Lisinopril] Allergy (Verified 09/04/20 19:41) ibuprofen [From Advil] Adverse Reaction (Verified 09/04/20 19:41) Past Medical History - Social History Frequency of alcohol use: None Drug Abuse: None - Past Medical History Cardiac Medical History: Reports: Hx Atrial Fibrillation, Hx Congestive Heart Failure, Hx Coronary Artery Disease, Hx Heart Attack, Hx Hypercholesterolemia, Hx Hypertension Denies: Hx Heart Murmur Pulmonary Medical History: Reports: Hx COPD Denies: Hx Tuberculosis Neurological Medical History: Reports: Hx Cerebrovascular Accident. Denies: Hx Seizures, Hx Parkinson's Disease Renal/ Medical History: Reports: Hx End Stage Renal Disease, Hx Hemodialysis - Last dialysis was May 2015 just prior to her kidney transplant., Hx Renal Insufficiency. Denies: Hx Kidney Stones, Hx Peritoneal Dialysis Malignancy Medical History: GI Medical History: Reports: Hx Gastroesophageal Reflux Disease. Denies: Hx Hiatal Hernia Musculoskeltal Medical History: Psychiatric Medical History: Reports: Hx Anxiety Denies: Hx Bipolar Disorder, Hx Depression Infectious Medical History: Past Surgical History: Reports: Hx Cardiac Catheterization, Hx Cardiac Surgery, Hx Coronary Stent - 2003, Hx Kidney (Renal Surgery) - Kidney transplant 015 placed in right lower quadrant, Hx Tubal Ligation, Other - Valvuloplasty [facility] February 2017 multiple upper extremi Ex lap. Denies: Hx Appendectomy, Hx Section, Hx Cholecystectomy, Hx Hysterectomy, Hx Mastectomy, Hx Tonsillectomy - Immunizations Hx Diphtheria, Pertussis, Tetanus Vaccination: Yes <CHRISTINE HAMMOND - Last Filed: 09/04/20 19:48> Physical Exam - Vital signs Vitals: Temp Pulse Resp BP Pulse Ox 98.8 F 72 22 H 156/71 H 100 09/04/20 18:56 09/04/20 18:56 09/04/20 18:56 09/04/20 18:56 09/04/20 18:56 Course - Laboratory Result Diagrams: 09/04/20 20:46 09/04/20 20:46 <IAN HUITRON JR - Last Filed: 09/04/20 23:44> - Vital Signs Vital signs: Temp Pulse Resp BP Pulse Ox 98.8 F 72 22 H 156/71 H 100 09/04/20 18:56 09/04/20 18:56 09/04/20 18:56 09/04/20 18:56 09/04/20 18:56 - Laboratory Laboratory results interpreted by me: 09/04/20 09/04/20 20:46 20:46 Sodium 132.2 L Chloride 94 L BUN 53 H Creatinine 2.03 H Est GFR ( Amer) 29 L Est GFR (MDRD) Non-Af 24 L Glucose 115 H Calcium 10.6 H Ur Leukocyte Esterase TRACE H Doctor's Discharge <CHRISTINE HAMMOND - Last Filed: 09/04/20 19:48> <IAN HUITRON JR - Last Filed: 09/04/20 23:44> - Discharge Clinical Impression: Nausea alone Abdominal pain Qualifiers: Abdominal location: right lower quadrant Qualified Code(s): R10.31 - Right lower quadrant pain Condition: Stable Referrals: IFEANYI IQBAL DO [Primary Care Provider] - Follow up as needed
[2020-09-04 21:03] LABS: ABSOLUTE MONOCYTES (AUTO) 0.3 10^3/uL (0.1-1.4); ABSOLUTE NEUT (AUTO) 4.3 10^3/uL (1.7-8.2); BASOPHILS % (AUTO) 0.6 % (0-2); EOSINOPHILS % (AUTO) 0.4 % (0-6); HEMATOCRIT 45.1 % (36.0-47.0); HEMOGLOBIN 15.4 g/dL (12.0-15.5); LYMPHOCYTES % (AUTO) 17.1 % (13-45); MEAN CORPUSCULAR HEMOGLOBIN 32.2 pg (27.0-33.4); MEAN CORPUSCULAR HGB CONC 34.1 g/dL (32.0-36.0); MEAN CORPUSCULAR VOLUME 95 fl (80-97); MONOCYTES % (AUTO) 5.5 % (3-13); PLATELET COUNT 179 10^3/uL (150-450); RED BLOOD COUNT 4.77 10^6/uL (3.72-5.28); RED CELL DISTRIBUTION WIDTH 13.6 % (11.5-14.0); SEGMENTED NEUTROPHILS % (AUTO) 76.4 % (42-78); TOTAL CELLS COUNTED % (AUTO) 100 %; WHITE BLOOD COUNT 5.7 10^3/uL (4.0-10.5)
[2020-09-04 21:20] LABS: ALBUMIN 4.7 g/dL (3.5-5.0); ALKALINE PHOSPHATASE 100 U/L (38-126); ANION GAP 11 (5-19); ASPARTATE AMINO TRANSFERASE 36 U/L (14-36); BILIRUBIN,DIRECT 0.1 mg/dL (0.0-0.4); BILIRUBIN,TOTAL 0.8 mg/dL (0.2-1.3); BLOOD UREA NITROGEN 53 mg/dL (7-20); CALCIUM 10.6 mg/dL (8.4-10.2); CARBON DIOXIDE 27 mmol/L (22-30); CHLORIDE 94 mmol/L (98-107); GLUCOSE 115 mg/dL (75-110); POTASSIUM 4.3 mmol/L (3.6-5.0); TOTAL PROTEIN 7.5 g/dL (6.3-8.2)
[2020-09-04 21:40] LABS: APPEARANCE,URINE SLIGHTLY-CLOUDY; BILIRUBIN,URINE NEGATIVE (NEGATIVE); COLOR,URINE YELLOW; GLUCOSE, URINE NEGATIVE (NEGATIVE); KETONES,URINE NEGATIVE (NEGATIVE); LEUKOCYTE ESTERASE,URINE TRACE (NEGATIVE); NITRITE,URINE NEGATIVE (NEGATIVE); PROTEIN,URINE NEGATIVE (NEGATIVE); UROBILINOGEN,URINE NEGATIVE mg/dL (<2.0)
--- NOTE | 2020-09-04 23:19 | ER Document Report ---
ED GI/ - General Chief Complaint: Abdominal Pain Stated Complaint: ABDOMINAL PAIN Time Seen by Provider: 09/04/20 19:46 Mode of Arrival: Wheelchair Information source: Patient Notes: LAST ED NOTES Emergency Provider: Angelica SCHAFFERmarce Number: [phone] on Date: 09/02/20 22:14 Initialization Date: 09/02/20 22:14 ED General - General Chief Complaint: Abdominal Pain >50 Stated Complaint: ABDOMINAL PAIN Time Seen by Provider: 09/02/20 22:13 Primary Care Provider: IFEANYI IQBAL DO [Primary Care Provider] - Follow up as needed TRAVEL OUTSIDE OF THE [place] IN LAST 30 DAYS: No - HPI Notes: 70-year-old female presents with abdominal pain. Patient states that she had onset of central abdominal pain around 1800 this evening, it has been constant and severe, it does not radiate. She states she is also been having some vomiting which started after the pain, she states she has had some blood streaks to her vomit but then states it potentially could be from coughing or both. She has not had any diarrhea. She has not taken any medications at home for pain. She has a known ventral hernia and is actually going to have a preop evaluation done tomorrow and [facility] for this. Inspection: Healed incision Distension: No distension Bowel sounds: Normal Tenderness: Tender - Mild periumbilical, overall tolerates exam very well. No: Guarding, Rebound Notes: Palpable defect in the ventral aspect of abdomen about her surgical scar, freely reducible loops of bowel. - Extremities General lower extremity: No: Edema - Neurological Neuro grossly intact: Yes Cognition: Normal Orientation: AAOx4 - Psychological Associated symptoms: Normal affect - Skin Skin Temperature: Warm Course - Re-evaluation Re-evalutation: 70-year-old female presents with onset of periumbilical pain around 6 PM. She has a known ventral hernia and is due to see a surgeon for preoperative appointment tomorrow. She is hypertensive, suspect this to be due to pain. Her abdomen is soft and nondistended, she has normoactive bowel sounds and freely reducible hernia. Unsure what to make of this report of the blood-streaked sputum versus emesis, patient is not vomiting during exam. Will check labs and acute abdominal series. Low suspicion for obstruction at this time. Possible cramping sensation. No evidence for incarcerated hernia. 11/22/20 23:58 No leukocytosis. No acute anemia. Mild hyponatremia 130, similar to previous. Creatinine improved from previous. No elevation of LFTs or T bili. Slight elevation of lipase. Urine does not suggest UTI. 09/02/20 23:59 Abdominal x-ray read as nonspecific abdomen 09/03/20 00:46 Patient states that she is feeling better and her pain has been resolved. Discussed work-up with her. She has follow-up tomorrow with surgery. Return precautions given, stable at time of discharge. 09/04/20 19:42 - ED Nursing Note by CHRISTINE REGAN Acct Num: [id number] : 1950 Patient Age: [age] Y/O FEMALE, WITH A HX OF UMBILICAL HERNIA, PRESENTS WITH ABD PAIN, N/V AND OVER -ALL WEAKNESS. PA, IN TO ASSESS. PT SEEN LAST THURSDAY FOR SAME. Initialized on 09/04/20 19:42 - END OF NOTE ED Medical Screen (Paul garcia) - General Chief Complaint: Abdominal Pain Stated Complaint: ABDOMINAL PAIN Time Seen by Provider: 09/04/20 19:46 Primary Care Provider: IFEANYI IQBAL DO [Primary Care Provider] - Follow up as needed Mode of Arrival: Wheelchair Information source: Patient Notes: Patient is a 70-year-old female returns emergency room with a continued complaint of abdominal pain nausea and vomiting. Patient states she was seen here 2 days ago for similar presentation. States that she has a hernia that supposed to be repaired and was supposed to have preop is done tomorrow and surgery on the eighth but patient states the pain is gotten so bad she cannot eat or drink. She does state however she did have something to eat around 5 PM this evening. And the pain has gotten increasingly worse. Physical examination. Patient is a frail-appearing 70-year-old female who is in no apparent distress on examination. Cardiac: Regular rate and rhythm no murmurs. Lungs: Bilateral breath sounds increased clear auscultation. Abdomen: Bowel sounds are present in all 4 quads. With palpation in the sitting position is reducible. Patient has moderate to severe abdominal pain with light palpation. Further evaluation to be performed by provider in the back where they can do a good abdominal exam to see what type of a radiologic diagnostic test they would like. MY NOTES 70-year-old female presents with abdominal pain nausea vomiting and weakness. Patient was seen on for similar symptoms. Abdominal series today was nonspecific and advises CT if any suspicion arises. Patient reports she has right inguinal abdominal pain. She also points to her periumbilical hernia which is painful as well. She advises she has not had anything to drink today and is quite dry. She had her kidney transplant 5 years ago and has been doing well since then. Patient denies any constipation or diarrhea. She does advise she has some nausea and dry heaving today. She reports she is to have her surgery on 19 September. Last bowel movement was on Thursday Patient is on Lipitor Prograf tacrolimus Coreg vitamin D2 nifedipine 30 mg and Bentyl TRAVEL OUTSIDE OF THE [place] IN LAST 30 DAYS: No - HPI Patient complains to provider of: Abdominal pain Onset: Other - 2 days ago Timing/Duration: Sudden, Persistent, Worse Quality of pain: Achy Severity at maximum: Moderate Pain Level: 2 Context: denies: Bad food, Lifting, Out of the country travel, , Recent trauma Location: Right flank - Related Data Allergies/Adverse Reactions: lisinopril [Lisinopril] Allergy (Verified 09/04/20 19:41) ibuprofen [From Advil] Adverse Reaction (Verified 09/04/20 19:41) Past Medical History - General Information source: Patient - Social History Smoking Status: Never Smoker Cigarette use (# per day): No Chew tobacco use (# tins/day): No Smoking Education Provided: No Frequency of alcohol use: None Drug Abuse: None Lives with: Family Family History: Hypertension Patient has suicidal ideation: No Patient has homicidal ideation: No - Past Medical History Cardiac Medical History: Reports: Hx Atrial Fibrillation, Hx Congestive Heart Failure, Hx Coronary Artery Disease, Hx Heart Attack, Hx Hypercholesterolemia, Hx Hypertension Denies: Hx Heart Murmur Pulmonary Medical History: Reports: Hx COPD Denies: Hx Tuberculosis Neurological Medical History: Reports: Hx Cerebrovascular Accident. Denies: Hx Seizures, Hx Parkinson's Disease Renal/ Medical History: Reports: Hx End Stage Renal Disease, Hx Hemodialysis - Last dialysis was May 2015 just prior to her kidney transplant., Hx Renal Insufficiency. Denies: Hx Kidney Stones, Hx Peritoneal Dialysis Malignancy Medical History: GI Medical History: Reports: Hx Gastroesophageal Reflux Disease. Denies: Hx Hiatal Hernia Musculoskeletal Medical History: Psychiatric Medical History: Reports: Hx Anxiety Denies: Hx Bipolar Disorder, Hx Depression Infectious Medical History: Past Surgical History: Reports: Hx Cardiac Catheterization, Hx Cardiac Surgery, Hx Coronary Stent - 2003, Hx Kidney (Renal Surgery) - Kidney transplant 05/22/2015 placed in right lower quadrant, Hx Tubal Ligation, Other - Valvuloplasty [facility] February 2017 multiple upper extremi Ex lap. Denies: Hx Appendectomy, Hx Section, Hx Cholecystectomy, Hx Hysterectomy, Hx Mastectomy, Hx Tonsillectomy - Immunizations Hx Diphtheria, Pertussis, Tetanus Vaccination: Yes Hx Pneumococcal Vaccination: 10/12/10 Review of Systems - Review of Systems Constitutional: See HPI, Weakness EENT: No symptoms reported Cardiovascular: No symptoms reported Respiratory: No symptoms reported Gastrointestinal: See HPI, Abdominal pain, Nausea, Poor appetite, Poor fluid i ntake Genitourinary: No symptoms reported Female Genitourinary: No symptoms reported Musculoskeletal: No symptoms reported Skin: No symptoms reported Hematologic/Lymphatic: No symptoms reported Neurological/Psychological: See HPI, Weakness -: Yes All other systems reviewed and negative Physical Exam - Vital signs Vitals: Temp Pulse Resp BP Pulse Ox 98.8 F 72 22 H 156/71 H 100 09/04/20 18:56 09/04/20 18:56 09/04/20 18:56 09/04/20 18:56 09/04/20 18:56 Interpretation: Hypertensive, Tachypneic - General General appearance: Appears well, Alert - HEENT Head: Normocephalic, Atraumatic Eyes: Normal Pupils: PERRL - Respiratory Respiratory status: No respiratory distress Chest status: Nontender Breath sounds: Normal Chest palpation: Normal - Cardiovascular Rhythm: Regular Heart sounds: Normal auscultation Murmur: No - Abdominal Inspection: Other - Very cachectic black female with abdomen with multiple well- healed scars and very thin with multiple skin folds Distension: No distension Bowel sounds: Normal Tenderness: Tender - Right lower quadrant pain on palpation with periumbilical hernia around 3 cm diameter mildly tender to palpation as well. Organomegaly: No organomegaly - Rectal Hemorrhoids: Other - Deferred - Genitourinary External exam: Normal - Back Back: Normal, Nontender - Extremities General upper extremity: Normal inspection, Nontender, Normal color, Normal ROM, Normal temperature General lower extremity: Normal inspection, Nontender, Normal color, Normal ROM, Normal temperature, Normal weight bearing. No: Bridget's sign - Neurological Neuro grossly intact: Yes Cognition: Normal Orientation: AAOx4 Oxford Coma Scale Eye Opening: Spontaneous Oxford Coma Scale Verbal: Oriented Dong Coma Scale Motor: Obeys Commands Oxford Coma Scale Total: 15 Speech: Normal Motor strength normal: LUE, RUE, LLE, RLE Sensory: Normal - Psychological Associated symptoms: Normal affect, Normal mood - Skin Skin Temperature: Warm Skin Moisture: Dry Skin Color: Normal Course - Vital Signs Vital signs: Temp Pulse Resp BP Pulse Ox 98.0 F 60 16 135/75 H 94 09/05/20 15:54 09/05/20 17:51 09/05/20 17:51 09/05/20 15:54 09/05/20 17:51 - Laboratory Result Diagrams: 09/04/20 20:46 09/04/20 20:46 Laboratory results interpreted by me: 09/04/20 09/04/20 20:46 20:46 Sodium 132.2 L Chloride 94 L BUN 53 H Creatinine 2.03 H Est GFR ( Amer) 29 L Est GFR (MDRD) Non-Af 24 L Glucose 115 H Calcium 10.6 H Ur Leukocyte Esterase TRACE H - Diagnostic Test Radiology reviewed: Reports reviewed Critical Care Note - Critical Care Note Comments: I discussed this case with Dr. Bran at 0305; I also discussed his case with Enzo her son who is sleeping on the floor in the room. I spoke with Dr. Trung Mason about this case at 0 [phone] and he advises he will see the patient. Also this case was turned over to Jodi at 0335 for potential admit after Rene evaluates pt. Discharge - Discharge Clinical Impression: Nausea alone, Early small bowel obstruction, Kidney transplant recipient Abdominal pain Qualifiers: Abdominal location: right lower quadrant Qualified Code(s): R10.31 - Right lowe r quadrant pain Condition: Stable Disposition: ADMITTED INPATIENT Admitting Provider: Shant (Hospitalist)
--- NOTE | 2020-09-04 23:19 | ER Document Report ---
ED GI/ - General Chief Complaint: Abdominal Pain Stated Complaint: ABDOMINAL PAIN Time Seen by Provider: 09/04/20 19:46 Primary Care Provider: IFEANYI IQBAL DO [Primary Care Provider] - Follow up as needed Mode of Arrival: Wheelchair TRAVEL OUTSIDE OF THE [place] IN LAST 30 DAYS: No - Related Data Allergies/Adverse Reactions: lisinopril [Lisinopril] Allergy (Verified 09/04/20 19:41) ibuprofen [From Advil] Adverse Reaction (Verified 09/04/20 19:41) Past Medical History - General Information source: Patient - Social History Smoking Status: Never Smoker Frequency of alcohol use: None Drug Abuse: None Family History: Hypertension - Past Medical History Cardiac Medical History: Reports: Hx Atrial Fibrillation, Hx Congestive Heart Failure, Hx Coronary Artery Disease, Hx Heart Attack, Hx Hypercholesterolemia, Hx Hypertension Denies: Hx Heart Murmur Pulmonary Medical History: Reports: Hx COPD Denies: Hx Tuberculosis Neurological Medical History: Reports: Hx Cerebrovascular Accident. Denies: Hx Seizures, Hx Parkinson's Disease Renal/ Medical History: Reports: Hx End Stage Renal Disease, Hx Hemodialysis - Last dialysis was May 2015 just prior to her kidney transplant., Hx Renal Insufficiency. Denies: Hx Kidney Stones, Hx Peritoneal Dialysis Malignancy Medical History: GI Medical History: Reports: Hx Gastroesophageal Reflux Disease. Denies: Hx Hiatal Hernia Musculoskeletal Medical History: Psychiatric Medical History: Reports: Hx Anxiety Denies: Hx Bipolar Disorder, Hx Depression Infectious Medical History: Past Surgical History: Reports: Hx Cardiac Catheterization, Hx Cardiac Surgery, Hx Coronary Stent - 2003, Hx Kidney (Renal Surgery) - Kidney transplant 05/22/2015 placed in right lower quadrant, Hx Tubal Ligation, Other - Valvuloplasty [facility] February 2017 multiple upper extremi Ex lap. Denies: Hx Appendectomy, Hx Section, Hx Cholecystectomy, Hx Hysterectomy, Hx Mastectomy, Hx Tonsillectomy - Immunizations Hx Diphtheria, Pertussis, Tetanus Vaccination: Yes Hx Pneumococcal Vaccination: 10/12/10 Physical Exam - Vital signs Vitals: Temp Pulse Resp BP Pulse Ox 98.8 F 72 22 H 156/71 H 100 09/04/20 18:56 09/04/20 18:56 09/04/20 18:56 09/04/20 18:56 09/04/20 18:56 Course - Vital Signs Vital signs: Temp Pulse Resp BP Pulse Ox 98.8 F 72 22 H 156/71 H 100 09/04/20 18:56 09/04/20 18:56 09/04/20 18:56 09/04/20 18:56 09/04/20 18:56 - Laboratory Result Diagrams: 09/04/20 20:46 09/04/20 20:46 Laboratory results interpreted by me: 09/04/20 09/04/20 20:46 20:46 Sodium 132.2 L Chloride 94 L BUN 53 H Creatinine 2.03 H Est GFR ( Amer) 29 L Est GFR (MDRD) Non-Af 24 L Glucose 115 H Calcium 10.6 H Ur Leukocyte Esterase TRACE H Discharge - Discharge Referrals: IFEANYI IQBAL DO [Primary Care Provider] - Follow up as needed
[2020-09-04] MEDS ORDERED: NORMAL SALINE 500 ML IV ONE (23:34)
[2020-09-04] MEDS ORDERED: PROMETHAZINE HCL INJ 25 MG/1 ML VIAL IV ONE (23:34)
[2020-09-04] MEDS ORDERED: HYDROMORPHONE HCL INJ/PF 2 MG/ML AMPULE IV ONE (23:35)
--- NOTE | 2020-09-05 02:40 | RADIOLOGY REPORT (SQ) ---
EXAM DESCRIPTION: CT ABDOMEN PELVIS WITHOUT IV CONTRAST COMPLETED DATE/TME: 09/05/2020 02:15 CLINICAL HISTORY: HX OF HERNIA C/O ABD PAIN, N/V AND OVERALL WEAKNESS. COMPARISON: 12/29/2019 TECHNIQUE: CT of the abdomen and pelvis without IV contrast. Evaluation of the solid organs and vasculature is suboptimal due to lack of IV contrast. FINDINGS: Lung Bases: Minimal bibasilar atelectasis. Coronary artery atherosclerosis. Small pericardial effusion. Bones: Severe multilevel degenerative disc height narrowing, endplate spondylosis, and facet arthropathy. Dextroconvex scoliosis of the lumbar spine. Right total hip arthroplasty. Abdomen: Liver: The liver has normal size and density. Multiple hypodensities throughout the liver again identified compatible with cysts. Gallbladder: Distention of the gallbladder lumen. No calcified gallstones. Spleen, Pancreas, and Adrenal Glands: The spleen, pancreas, and adrenal glands are unremarkable. Kidneys: Severe anvik renal atrophy with multiple cysts which are stable. Right pelvic transplant kidney. The nonobstructing nephrolithiasis in the transplant kidney. No definite hydronephrosis. Vasculature: Aortoiliac atherosclerosis. IVC is unremarkable. Stomach: The stomach and duodenum have normal course. Other: No free intraperitoneal air. No free fluid or lymphadenopathy. Small dilated small bowel containing ventral hernia however the transition point is not at this level. Pelvis: Bladder: Urinary bladder is unremarkable. Bowel: Dilated loops of proximal small bowel. Distal small bowel is decompressed. There appears to be oral contrast proximal and distal to the dilated loops of small bowel in the mid abdomen which may indicate partial obstruction. A well delineated transition point is not definitely identified on this study. Possible swirling of the mid abdominal mesentery. Moderate amount stool throughout the colon. Appendix: Normal appendix. Pelvis: Calcified uterine fibroids. IMPRESSION: 1. Dilated loops of small bowel in the mid abdomen with distally and proximally decompressed loops of bowel. There is swirling of the mid abdominal mesentery. Minimal oral contrast does appear to be within loops of bowel distal and proximal to the dilated loops of small bowel. This may indicate partial small bowel obstruction however given swirling appearance of the mid abdominal mesentery developing closed-loop obstruction remains a consideration. Close continued follow-up recommended. 2. Diverticulosis without evidence of acute diverticulitis. 3. Punctate nonobstructing nephrolithiasis in the right pelvic transplant kidney. 4. Persistent gallbladder distention without calcified gallstones. This exam was performed according to our departmental dose-optimization program, which includes automated exposure control, adjustment of the mA and/or kV according to patient size and/or use of iterative reconstruction technique.
[2020-09-05] MEDS ORDERED: CEFTRIAXONE 1 GM/D5W RTU 1 GM/50 ML RTUPB IV ONE (03:07)
[2020-09-05] MEDS ORDERED: METRONIDAZOLE 500 MG/NS RTU 500 MG/100 ML RTUPB IV SCH (03:30)
--- NOTE | 2020-09-05 04:01 | ER Document Report ---
Doctor's Note Notes: 09/05/20 04:00 I was unable to alter the patient's note by Dr. Mendoza. In short this patient presented with nausea and abdominal pain. She was found to have a partial small bowel obstruction as well as altered kidney function. We were awaiting disposition and admitting physician. Dr. Mason came down and evaluated the patient. He knows her well. He will follow in consultation, but does not believe there is a surgical issue at this time. He recommends admission to medicine. I spoke with Dr. Bran. He will admit the patient as a full admission to the medical floor.
--- NOTE | 2020-09-05 04:09 | PDOC CONSULTATION ---
Consultation Consult Date: 09/05/20 Attending physician:: IAN HUITRON JR Provider Consulted: KRISTEN HAYWOOD Consult reason:: Partial small bowel obstruction History of Present Illness Admission Date/PCP: IFEANYI IQBAL DO History of Present Illness: DEVANTE PIERSON is a 70 year old female Presents emergency department for the second time in 2 days complaining of abdominal pain nausea vomiting last bowel movement 1 week ago, decreased p.o. intake. 2 days ago she was evaluated and felt not to have an acute abdomen and was sent home. Patient returns to the emergency department approximately 8 hours ago complaining of abdominal pain periumbilical, anorexia, and weakness. She was evaluated and found to have unremarkable laboratory profile except for chronic renal insufficiency, stable. CT scan of the abdomen and pelvis with oral contrast demonstrated partial small bowel obstruction with several dilated small bowel loops in the pelvis. Surgery was consulted. Patient is status post cadaveric kidney transplant 2014, . She is status post exploratory laparotomy times 12/01/2016 in 2018 for small bowel obstruction, excision of cyst involving her transverse mesocolon. Patient has had multiple small bowel obstructions since then resolved nonoperatively. She has a chronic cough. Past Medical History Past Medical History: History of superior vena cava syndrome; history of coronary artery disease, history of carotid artery stent Cardiac Medical History: Reports: Atrial Fibrillation, Congestive Heart Failure, Coronary Artery Disease, Myocardial Infarction, Hyperlipidema, Hypertension Denies: Heart Murmur Pulmonary Medical History: Reports: Chronic Obstructive Pulmonary Disease (COPD) Denies: Tuberculosis Neurological Medical History: Denies: Seizures Renal/ Medical History: Reports: End Stage Renal Disease Malignancy Medical History: GI Medical History: Reports: Gastroesophageal Reflux Disease Denies: Hiatal Hernia Psychiatric Medical History: Denies: Bipolar Disorder, Depression Hematology: Reports: Anemia Denies: Hemophilia, Sickle Cell Disease Infectious Medical History: Past Surgical History Past Surgical History: Status post cadaveric kidney transplant, exploratory laparotomy times 12/01/2016 2018 with lysis of adhesions and pseudocyst excision, status post right hip replacement Past Surgical History: Reports: Cardiac Catheterization, Coronary Stent - 2003, Tubal Ligation, Other - Valvuloplasty [facility] February 2017 multiple upper extremi Ex lap Denies: Appendectomy, Section, Cholecystectomy, Hysterectomy, Mastectomy, Tonsillectomy Social History Information Source: Patient Lives with: Family Smoking Status: Never Smoker Frequency of Alcohol Use: Occasional Hx Recreational Drug Use: No Drugs: None Hx Prescription Drug Abuse: No Family History Family History: None, Hypertension Parental Family History Reviewed: No Children Family History Reviewed: No Sibling(s) Family History Reviewed.: No Medication/Allergy Home Medications: Aspirin [Aspirin 81 mg Chewable Tablet] 81 mg PO DAILY 10/09/17 Atorvastatin Calcium [Lipitor 20 mg Tablet] 20 mg PO QHS 10/09/17 Carvedilol [Coreg 12.5 mg Tablet] 25 mg PO Q12 10/09/17 Ergocalciferol (Vitamin D2) [Drisdol 50,000 unit (1.25MG) Capsule] 50,000 unit PO SCHAEFFER@1000 10/09/17 Nifedipine [Procardia XL 30 mg Tablet] 30 mg PO DAILY 10/09/17 Ranitidine HCl [Zantac 150 mg Tablet] 150 mg PO QHS 10/09/17 Tacrolimus Anhydrous [Prograf 1 mg Capsule] 2 mg PO Q12 10/09/17 Acetaminophen [Tylenol 325 mg Tablet] 650 mg PO Q6HP PRN 04/28/18 Albuterol Sulfate [Proair Hfa] 2 puff IH QID PRN 04/28/18 Furosemide [Lasix 40 mg Tablet] 40 mg PO BID 04/28/18 Dicyclomine HCl [Bentyl 20 mg Tablet] 20 mg PO QID PRN #20 tablet 12/29/19 Ondansetron [Zofran Odt 4 mg Tablet] 1 - 2 tab PO Q4H PRN #30 tab.rapdis 12/29/19 Allergies/Adverse Reactions: lisinopril [Lisinopril] Allergy (Verified 09/04/20 19:41) ibuprofen [From Advil] Adverse Reaction (Verified 09/04/20 19:41) Review of Systems Constitutional: PRESENT: as per HPI, other - Cough Eyes: ABSENT: visual disturbances Ears: ABSENT: hearing changes Respiratory: ABSENT: cough, hemoptysis Gastrointestinal: PRESENT: as per HPI Genitourinary: ABSENT: dysuria, hematuria Musculoskeletal: PRESENT: back pain, other - Severe scoliosis secondary to multilevel of vertebral degenerative disc disease Physical Exam Vital Signs: Temp Pulse Resp BP Pulse Ox 98.8 F 72 22 H 156/71 H 100 09/04/20 18:56 09/04/20 18:56 09/04/20 18:56 09/04/20 18:56 09/04/20 18:56 Intake & Output 09/03/20 09/04/20 09/05/20 06:59 06:59 06:59 Intake Total 500 Balance 500 Weight 40.4 kg General appearance: PRESENT: other - Sleeping, arouses Head exam: PRESENT: normocephalic Eye exam: PRESENT: EOMI Mouth exam: PRESENT: dry mucosa Neck exam: PRESENT: full ROM, other Respiratory exam: PRESENT: rhonchi Cardiovascular exam: PRESENT: RRR Pulses: PRESENT: normal carotid pulses, normal radial pulses, normal femoral pulses GI/Abdominal exam: PRESENT: other - Abdomen is soft; reducible umbilical hernia; diffuse tenderness but no rigidity. Rectal exam: PRESENT: deferred Extremities exam: PRESENT: full ROM Musculoskeletal exam: PRESENT: ambulatory Neurological exam: PRESENT: oriented to person, oriented to place, oriented to time Psychiatric exam: PRESENT: appropriate affect Skin exam: PRESENT: dry Results Laboratory Results: 09/04/20 20:46 09/04/20 20:46 09/04/20 09/04/20 09/04/20 20:46 20:46 20:46 WBC 5.7 RBC 4.77 Hgb 15.4 Hct 45.1 MCV 95 MCH 32.2 MCHC 34.1 RDW 13.6 Plt Count 179 Seg Neutrophils % 76.4 Sodium 132.2 L Potassium 4.3 Chloride 94 L Carbon Dioxide 27 Anion Gap 11 BUN 53 H Creatinine 2.03 H Est GFR ( Amer) 29 L Glucose 115 H Lactic Acid Calcium 10.6 H Total Bilirubin 0.8 AST 36 Alkaline Phosphatase 100 Total Protein 7.5 Albumin 4.7 Urine Color YELLOW Urine Appearance SLIGHTLY-CLOUDY Urine pH 7.0 Ur Specific [place] 1.010 Urine Protein NEGATIVE Urine Glucose (UA) NEGATIVE Urine Ketones NEGATIVE Urine Blood NEGATIVE Urine Nitrite NEGATIVE Ur Leukocyte Esterase TRACE H Urine WBC (Auto) 2 Urine RBC (Auto) 1 09/04/20 23:21 WBC RBC Hgb Hct MCV MCH MCHC RDW Plt Count Seg Neutrophils % Sodium Potassium Chloride Carbon Dioxide Anion Gap BUN Creatinine Est GFR ( Amer) Glucose Lactic Acid 0.9 Calcium Total Bilirubin AST Alkaline Phosphatase Total Protein Albumin Urine Color Urine Appearance Urine pH Ur Specific [place] Urine Protein Urine Glucose (UA) Urine Ketones Urine Blood Urine Nitrite Ur Leukocyte Esterase Urine WBC (Auto) Urine RBC (Auto) Impressions: Abdomen/Pelvis CT 09/04/20 23:26 IMPRESSION: 1. Dilated loops of small bowel in the mid abdomen with distally and proximally decompressed loops of bowel. There is swirling of the mid abdominal mesentery. Minimal oral contrast does appear to be within loops of bowel distal and proximal to the dilated loops of small bowel. This may indicate partial small bowel obstruction however given swirling appearance of the mid abdominal mesentery developing closed-loop obstruction remains a consideration. Close continued follow-up recommended. 2. Diverticulosis without evidence of acute diverticulitis. 3. Punctate nonobstructing nephrolithiasis in the right pelvic transplant kidney. 4. Persistent gallbladder distention without calcified gallstones. This exam was performed according to our departmental dose-optimization program, which includes automated exposure control, adjustment of the mA and/or kV according to patient size and/or use of iterative reconstruction technique. Assessment & Plan - Diagnosis (1) Abdominal pain Qualifiers: Abdominal location: right lower quadrant Qualified Code(s): R10.31 - Right lower quadrant pain Is this a current diagnosis for this admission?: Yes Plan: Impression: Probable partial small bowel obstruction, deconditioned, 70-year-old Afro-[place] female with viable cadaveric renal transplant; no immediate indication for operative intervention. History of previous exploratory laparotomy x2, lysis of adhesions and pseudocyst excision Recommendations: 1. Suggest admitting patient to medicine service for cautious hydration, antiemetics; Repeat lipase level; check rapid Covid test 2. Serial abdominal exams, repeat abdominal films later today 3. We will follow patient closely with you. (2) Scoliosis due to degenerative disease of spine in adult patient Is this a current diagnosis for this admission?: Yes (3) Kidney transplant recipient Is this a current diagnosis for this admission?: Yes (4) Aortic atherosclerosis Is this a current diagnosis for this admission?: Yes (5) COPD (chronic obstructive pulmonary disease) Qualifiers: COPD type: emphysema Emphysema type: unspecified Qualified Code(s): J43.9 - Emphysema, unspecified Is this a current diagnosis for this admission?: Yes (6) GERD (gastroesophageal reflux disease) Qualifiers: Esophagitis presence: esophagitis presence not specified Qualified Code(s): K21.9 - Gastro-esophageal reflux disease without esophagitis Is this a current diagnosis for this admission?: Yes (7) Coronary artery disease Qualifiers: Coronary Disease-Associated Artery/Lesion type: [place] artery [place] vs. transplanted heart: [place] heart Associated angina: without angina Qualified Code(s): I25.10 - Atherosclerotic heart disease of [place] coronary artery without angina pectoris Is this a current diagnosis for this admission?: Yes
[2020-09-05] MEDS ORDERED: DEXTROSE 40% GEL 15 GM TUBE PO PRN ×2 (04:29)
[2020-09-05] MEDS ORDERED: GLUCAGON,HUMAN RECOMB 1 MG INJ SUBCUT PRN (04:29)
[2020-09-05] MEDS ORDERED: DEXTROSE 5%-NORMAL SALINE 1,000 ML with POTASSIUM CHLORIDE 20 MEQ IV PRN ×2 (04:29)
[2020-09-05] MEDS ORDERED: DEXTROSE 50%-WATER 25 GM/50 ML DISP.SYRIN IV PRN ×2 (04:29)
[2020-09-05] MEDS ORDERED: ACETAMINOPHEN 325 MG TABLET PO PRN ×2 (04:35→12:30)
[2020-09-05] MEDS ORDERED: ONDANSETRON HCL INJ/PF 4 MG/2 ML SDV IV PRN (04:35)
[2020-09-05] MEDS ORDERED: MAG HYDROX/AL HYDROX/SIMETH SUSP 30 ML UDCUP PO PRN (04:35)
[2020-09-05] MEDS ORDERED: MORPHINE SULFATE 10 MG/ML INJ IV PRN (04:49)
[2020-09-05] MEDS ORDERED: ALBUTEROL SULFATE 0.042% NEB (1.25 MG/3 ML) AMPUL NEB PRN (04:57)
--- NOTE | 2020-09-05 05:07 | PDOC H&P ---
History of Present Illness Admission Date/PCP: 09/05/20 04:04 IFEANYI IQBAL DO Patient complains of: Abdominal pain History of Present Illness: DEVANTE PIERSON is a 70 year old female with history of renal transplants, prior abdominal surgery, bowel obstruction, HTN, CHF, who presents to the hospital with complaints of abdominal pain for the past few days. Patient localizes the pain to her right lower quadrant. However there is radiation toward the corners of her abdomen and to her right flank. She denies any fever or chills. Does admits to nausea and some episodes of nonbilious nonbloody vomitus. She has not eating an adequate meals since Thursday. Her last bowel movement was also noted bleeding on Thursday. She has passed some flatus. Admits to polyuria. Past Medical History Cardiac Medical History: Reports: Atrial Fibrillation, Congestive Heart Failure, Coronary Artery Disease, Myocardial Infarction, Hyperlipidema, Hypertension Denies: Heart Murmur Pulmonary Medical History: Reports: Chronic Obstructive Pulmonary Disease (COPD) Denies: Tuberculosis Neurological Medical History: Denies: Seizures Renal/ Medical History: Reports: Other - Renal transplant Malignancy Medical History: GI Medical History: Reports: Gastroesophageal Reflux Disease Denies: Hiatal Hernia Psychiatric Medical History: Denies: Bipolar Disorder, Depression Hematology: Reports: Anemia Denies: Hemophilia, Sickle Cell Disease Infectious Medical History: Past Surgical History Past Surgical History: Reports: Cardiac Catheterization, Coronary Stent - 2003, Tubal Ligation, Other - Valvuloplasty [facility] February 2017 multiple upper extremi Ex lap Denies: Appendectomy, Section, Cholecystectomy, Hysterectomy, Mastectomy, Tonsillectomy Social History Lives with: Family Smoking Status: Never Smoker Frequency of Alcohol Use: Occasional Hx Recreational Drug Use: No Drugs: None Hx Prescription Drug Abuse: No - Advance Directive Resuscitation Status: Full Code Family History Family History: Hypertension Parental Family History Reviewed: Yes Children Family History Reviewed: Yes Sibling(s) Family History Reviewed.: Yes Medication/Allergy Home Medications: Aspirin [Aspirin 81 mg Chewable Tablet] 81 mg PO DAILY 10/09/17 Atorvastatin Calcium [Lipitor 20 mg Tablet] 20 mg PO QHS 10/09/17 Carvedilol [Coreg 12.5 mg Tablet] 25 mg PO Q12 10/09/17 Ergocalciferol (Vitamin D2) [Drisdol 50,000 unit (1.25MG) Capsule] 50,000 unit PO SCHAEFFER@1000 10/09/17 Nifedipine [Procardia XL 30 mg Tablet] 30 mg PO DAILY 10/09/17 Ranitidine HCl [Zantac 150 mg Tablet] 150 mg PO QHS 10/09/17 Tacrolimus Anhydrous [Prograf 1 mg Capsule] 2 mg PO Q12 10/09/17 Acetaminophen [Tylenol 325 mg Tablet] 650 mg PO Q6HP PRN 04/28/18 Albuterol Sulfate [Proair Hfa] 2 puff IH QID PRN 04/28/18 Furosemide [Lasix 40 mg Tablet] 40 mg PO BID 04/28/18 Dicyclomine HCl [Bentyl 20 mg Tablet] 20 mg PO QID PRN #20 tablet 12/29/19 Ondansetron [Zofran Odt 4 mg Tablet] 1 - 2 tab PO Q4H PRN #30 tab.rapdis 12/29/19 Allergies/Adverse Reactions: lisinopril [Lisinopril] Allergy (Verified 09/04/20 19:41) ibuprofen [From Advil] Adverse Reaction (Verified 09/04/20 19:41) Review of Systems Constitutional: ABSENT: chills, fever(s) Eyes: ABSENT: visual disturbances Ears: ABSENT: hearing changes Cardiovascular: ABSENT: chest pain Respiratory: ABSENT: cough, dyspnea Gastrointestinal: PRESENT: abdominal pain, bloating, nausea, vomiting. ABSENT: diarrhea Genitourinary: ABSENT: dysuria Musculoskeletal: ABSENT: back pain Neurological: ABSENT: dizziness, syncope Endocrine: PRESENT: polyuria Allergic/Immunologic: PRESENT: other - Denies rhinorrhea Physical Exam Vital Signs: Temp Pulse Resp BP Pulse Ox 98.8 F 72 22 H 156/71 H 100 09/04/20 18:56 09/04/20 18:56 09/04/20 18:56 09/04/20 18:56 09/04/20 18:56 Intake & Output 09/03/20 09/04/20 09/05/20 06:59 06:59 06:59 Intake Total 650 Balance 650 Weight 40.4 kg General appearance: PRESENT: no acute distress, cooperative Neck exam: ABSENT: JVD Respiratory exam: PRESENT: clear to auscultation kat, unlabored. ABSENT: crackles, tachypnea, wheezes Cardiovascular exam: PRESENT: RRR, +S1, +S2. ABSENT: tachycardia GI/Abdominal exam: PRESENT: hernia, soft, tenderness - Mostly right lower quadrant. ABSENT: distended, rebound, rigid Extremities exam: ABSENT: pedal edema Neurological exam: PRESENT: alert, awake, oriented to person, oriented to place, oriented to time, oriented to situation Psychiatric exam: ABSENT: agitated, anxious Focused psych exam: ABSENT: pressured speech Skin exam: PRESENT: dry. ABSENT: jaundice Results Laboratory Results: 09/04/20 20:46 09/04/20 20:46 09/04/20 09/04/20 09/04/20 20:46 20:46 20:46 WBC 5.7 RBC 4.77 Hgb 15.4 Hct 45.1 MCV 95 MCH 32.2 MCHC 34.1 RDW 13.6 Plt Count 179 Seg Neutrophils % 76.4 Sodium 132.2 L Potassium 4.3 Chloride 94 L Carbon Dioxide 27 Anion Gap 11 BUN 53 H Creatinine 2.03 H Est GFR ( Amer) 29 L Glucose 115 H Lactic Acid Calcium 10.6 H Total Bilirubin 0.8 AST 36 Alkaline Phosphatase 100 Total Protein 7.5 Albumin 4.7 Lipase Urine Color YELLOW Urine Appearance SLIGHTLY-CLOUDY Urine pH 7.0 Ur Specific [place] 1.010 Urine Protein NEGATIVE Urine Glucose (UA) NEGATIVE Urine Ketones NEGATIVE Urine Blood NEGATIVE Urine Nitrite NEGATIVE Ur Leukocyte Esterase TRACE H Urine WBC (Auto) 2 Urine RBC (Auto) 1 09/04/20 09/04/20 20:46 23:21 WBC RBC Hgb Hct MCV MCH MCHC RDW Plt Count Seg Neutrophils % Sodium Potassium Chloride Carbon Dioxide Anion Gap BUN Creatinine Est GFR ( Amer) Glucose Lactic Acid 0.9 Calcium Total Bilirubin AST Alkaline Phosphatase Total Protein Albumin Lipase 280.5 Urine Color Urine Appearance Urine pH Ur Specific [place] Urine Protein Urine Glucose (UA) Urine Ketones Urine Blood Urine Nitrite Ur Leukocyte Esterase Urine WBC (Auto) Urine RBC (Auto) Impressions: Abdomen/Pelvis CT 09/04/20 23:26 IMPRESSION: 1. Dilated loops of small bowel in the mid abdomen with distally and proximally decompressed loops of bowel. There is swirling of the mid abdominal mesentery. Minimal oral contrast does appear to be within loops of bowel distal and proximal to the dilated loops of small bowel. This may indicate partial small bowel obstruction however given swirling appearance of the mid abdominal mesentery developing closed-loop obstruction remains a consideration. Close continued follow-up recommended. 2. Diverticulosis without evidence of acute diverticulitis. 3. Punctate nonobstructing nephrolithiasis in the right pelvic transplant kidney. 4. Persistent gallbladder distention without calcified gallstones. This exam was performed according to our departmental dose-optimization program, which includes automated exposure control, adjustment of the mA and/or kV according to patient size and/or use of iterative reconstruction technique. Assessment and Plan - Diagnosis (1) Partial small bowel obstruction Is this a current diagnosis for this admission?: Yes Plan: CT scan revealing evidence of partial small bowel obstruction. Lactic acid is normal. Lipase is negative. Mild hypercalcemia and hyponatremia noted likely from dehydration. Surgical consultation N.p.o. Gentle IV fluid administration with D5 NS with KCl Monitor electrolytes and renal function replace electrolytes as needed. (2) CKD (chronic kidney disease), stage III Qualifiers: Chronic kidney disease stage 3 subtype: stage 3b (GFR 30-44) Qualified Code(s): N18.32 - Chronic kidney disease, stage 3b Is this a current diagnosis for this admission?: Yes Plan: Monitor renal function. Seems to be around her most recently noted baseline. Avoid nephrotoxic medications. (3) Nephrolithiasis Is this a current diagnosis for this admission?: Yes Plan: Noted in her transplanted right kidney pelvis but no obstruction is noted. Urinalysis also negative for hematuria. May not be playing any role in her right lower quadrant pain but will monitor. (4) Kidney transplant recipient Is this a current diagnosis for this admission?: Yes Plan: Patient states she is on Prograf. I have instructed patients son to bring in patient's medication list so we can reinstate her meds at the correct dose. (5) COPD (chronic obstructive pulmonary disease) Qualifiers: COPD type: emphysema Emphysema type: unspecified Qualified Code(s): J43.9 - Emphysema, unspecified Is this a current diagnosis for this admission?: Yes Plan: Not in acute exacerbation. LABA/ICS. As needed DuoNebs. - Time Time Spent with patient: 35 or more minutes Anticipated Discharge Disposition: Home, Self Care Anticipated Discharge Timeframe: Unknown
[2020-09-05] MEDS: HEPARIN SOD (PORCINE) 5,000 UNIT/ML 1 ML VIAL SUBCUT SCH ×3 (06:54→22:16)
[2020-09-05] MEDS: POTASSI CL 20 MEQ/D5NS 1L 1000 ML IV PRN (10:02)
[2020-09-05] MEDS: PANTOPRAZOLE SODIUM 40 MG VIAL IV SCH (10:02)
[2020-09-05] MEDS: FLUTICASONE/VILANTEROL 100-25 MCG/DOSE IH SCH (10:15)
[2020-09-05] MEDS ORDERED: TRAMADOL HCL 50 MG TABLET PO PRN (12:30)
--- NOTE | 2020-09-05 14:19 | RADIOLOGY REPORT (SQ) ---
EXAM DESCRIPTION: ABDOMEN 2 VIEWS IMAGES COMPLETED DATE/TIME: 09/05/2020 2:04 pm REASON FOR STUDY: Interval change in bowel gas pattern COMPARISON: 09/02/2020 NUMBER OF VIEWS: Two views. TECHNIQUE: Supine and erect/decubitus radiographic images of the abdomen acquired. LIMITATIONS: None. FINDINGS: FREE AIR: None. No abnormal gas collections. LUNG BASES: No focal consolidation. Coronary stent. BOWEL GAS PATTERN: Nonspecific bowel gas pattern. No pathologically dilated loops of bowel. Residua l oral contrast throughout the descending and rectosigmoid colon. Moderate formed stool within the r ectal vault. CALCIFICATIONS: Scattered pelvic phleboliths. Extensive vascular calcifications. SOFT TISSUES: No gross mass or suggestion of organomegaly. HARDWARE: Surgical clips overlie midline abdomen and right hemipelvis. Partially visualized right hi p arthroplasty. BONES: No acute fracture dislocation. Serpiginous thoracolumbar curvature with multilevel spondylosi s. OTHER: No other significant finding. IMPRESSION: No definitive pathologically dilated loops of bowel. Contrast noted throughout the colo n. Moderate formed stool within the rectal vault. TECHNICAL DOCUMENTATION: JOB ID: [id number] 2010 [email or web address]- All Rights Reserved Reading location - IP/workstation name: [email or web address]
[2020-09-05] MEDS: FUROSEMIDE 40 MG TABLET PO SCH (18:03)
[2020-09-05] MEDS ORDERED: ATORVASTATIN CALCIUM 20 MG TABLET PO SCH (22:00)
[2020-09-05] MEDS: CARVEDILOL 12.5 MG TABLET PO SCH (22:16)
[2020-09-05] MEDS: TACROLIMUS ANHYDROUS 1 MG CAPSULE PO SCH (22:16)
[2020-09-06] MEDS: POTASSI CL 20 MEQ/D5NS 1L 1000 ML IV PRN (01:57)
[2020-09-06] MEDS: HEPARIN SOD (PORCINE) 5,000 UNIT/ML 1 ML VIAL SUBCUT SCH (05:34)
[2020-09-06 05:46] LABS: INTERNATIONAL RATION (INR) 1.07; PROTHROMBIN TIME 14.1 SEC (11.4-15.4)
[2020-09-06 05:48] LABS: PARTIAL THROMBOPLASTIN TIME 63.4 SEC (23.5-35.8)
[2020-09-06 06:00] LABS: ANION GAP 5 (5-19); BLOOD UREA NITROGEN 46 mg/dL (7-20); CALCIUM 9.6 mg/dL (8.4-10.2); CARBON DIOXIDE 23 mmol/L (22-30); CHLORIDE 107 mmol/L (98-107); GLUCOSE 72 mg/dL (75-110); POTASSIUM 4.2 mmol/L (3.6-5.0)
[2020-09-06] MEDS ORDERED: OMEPRAZOLE 20 MG PO SCH (06:00)
[2020-09-06 06:03] LABS: ABSOLUTE EOSINOPHILS # (AUTO) 0.1 10^3/uL (0.0-0.6); ABSOLUTE LYMPHOCYTES (AUTO) 0.8 10^3/uL (0.5-4.7); ABSOLUTE MONOCYTES (AUTO) 0.3 10^3/uL (0.1-1.4); ABSOLUTE NEUT (AUTO) 1.3 10^3/uL (1.7-8.2); BASOPHILS % (AUTO) 0.7 % (0-2); EOSINOPHILS % (AUTO) 3.7 % (0-6); HEMATOCRIT 38.4 % (36.0-47.0); LYMPHOCYTES % (AUTO) 32.9 % (13-45); MEAN CORPUSCULAR HEMOGLOBIN 31.8 pg (27.0-33.4); MEAN CORPUSCULAR HGB CONC 33.3 g/dL (32.0-36.0); MEAN CORPUSCULAR VOLUME 96 fl (80-97); MONOCYTES % (AUTO) 12.9 % (3-13); PLATELET COUNT 135 10^3/uL (150-450); RED BLOOD COUNT 4.03 10^6/uL (3.72-5.28); RED CELL DISTRIBUTION WIDTH 13.6 % (11.5-14.0); SEGMENTED NEUTROPHILS % (AUTO) 49.8 % (42-78); TOTAL CELLS COUNTED % (AUTO) 100 %
[2020-09-06 06:24] LABS: WHITE BLOOD COUNT 2.6 10^3/uL (4.0-10.5)
[2020-09-06 06:25] LABS: HEMOGLOBIN 12.8 g/dL (12.0-15.5)
--- NOTE | 2020-09-06 08:21 | RADIOLOGY REPORT (SQ) ---
EXAM DESCRIPTION: KUB/ABDOMEN (SINGLE VIEW) IMAGES COMPLETED DATE/TIME: 09/06/2020 8:04 am REASON FOR STUDY: sbo COMPARISON: CT abdomen pelvis 09/05/2020 Abdominal films 09/05/2020, 09/02/2020 NUMBER OF VIEWS: One view. TECHNIQUE: Supine radiographic image of the abdomen acquired. LIMITATIONS: None. FINDINGS: BOWEL GAS PATTERN: Oral contrast given for CT exam 08/05/2020 now descending colon. Small amount of residual oral contrast nondistended left upper quadrant small bowel loops. Overall, degree of small-bowel distention has decreased compared to 09/02/2020 CALCIFICATIONS: No suspicious calcifications. Diffuse arterial vascular calcifications SOFT TISSUES: No gross mass or suggestion of organomegaly. HARDWARE: None in the abdomen. BONES: Lumbar scoliosis. Right hip replacement OTHER: No other significant finding. IMPRESSION: Oral contrast given CT exam 09/05/2020 now in the descending colon TECHNICAL DOCUMENTATION: JOB ID: [id number] 2010 [email or web address]- All Rights Reserved Reading location - IP/workstation name: [email or web address]
--- NOTE | 2020-09-06 08:28 | PDOC PROGRESS REPORT ---
Subjective Date:: 09/06/20 Subjective:: Patient comfortable, passing stools, feels hungry Reason For Visit: PARTIAL SBO Physical Exam Vital Signs: Temp Pulse Resp BP Pulse Ox 98.0 F 57 L 20 162/65 H 94 09/05/20 22:00 09/05/20 19:53 09/06/20 00:49 09/06/20 00:49 09/05/20 19:53 Intake & Output 09/05/20 09/06/20 09/07/20 06:59 06:59 06:59 Intake Total 650 955 Balance 650 955 Weight 40.4 kg 40.4 kg General appearance: PRESENT: no acute distress, thin Respiratory exam: PRESENT: clear to auscultation kat Cardiovascular exam: PRESENT: RRR GI/Abdominal exam: PRESENT: hypoactive bowel sounds, soft Results Laboratory Results: 09/06/20 05:17 09/06/20 05:17 09/06/20 09/06/20 05:17 05:17 WBC 2.6 L D RBC 4.03 Hgb 12.8 D Hct 38.4 MCV 96 MCH 31.8 MCHC 33.3 RDW 13.6 Plt Count 135 L Seg Neutrophils % 49.8 Sodium 135.1 L Potassium 4.2 Chloride 107 Carbon Dioxide 23 Anion Gap 5 BUN 46 H Creatinine 1.72 H Est GFR ( Amer) 35 L Glucose 72 L Calcium 9.6 Magnesium 1.9 09/04/20 20:46 Clean Catch Midstream Urine Culture - Final Mixed Urogenital [place] Impressions: Abdomen/Pelvis CT 09/04/20 23:26 IMPRESSION: 1. Dilated loops of small bowel in the mid abdomen with distally and proximally decompressed loops of bowel. There is swirling of the mid abdominal mesentery. Minimal oral contrast does appear to be within loops of bowel distal and proximal to the dilated loops of small bowel. This may indicate partial small bowel obstruction however given swirling appearance of the mid abdominal mesentery developing closed-loop obstruction remains a consideration. Close continued follow-up recommended. 2. Diverticulosis without evidence of acute diverticulitis. 3. Punctate nonobstructing nephrolithiasis in the right pelvic transplant kidney. 4. Persistent gallbladder distention without calcified gallstones. This exam was performed according to our departmental dose-optimization program, which includes automated exposure control, adjustment of the mA and/or kV according to patient size and/or use of iterative reconstruction technique. Abdomen X-Ray 09/05/20 14:00 IMPRESSION: No definitive pathologically dilated loops of bowel. Contrast noted throughout the colon. Moderate formed stool within the rectal vault. KUB X-Ray 09/06/20 06:00 IMPRESSION: Oral contrast given CT exam 09/05/2020 now in the descending colon Assessment & Plan - Time Anticipated Discharge Disposition: Home, Self Care Anticipated Discharge Timeframe: within 24 hours Time Spent: 30 to 50 Minutes - Plan Summary Plan Summary: Assessment: Status post kidney transplant Resolved partial mechanical small bowel obstruction secondary to adhesions KUB done today shows contrast in the descending colon Patient presented with 2 bowel movements last night Abdomen soft Patient feels hungry Plan: Advance diet to full liquid diet Patient can be discharged to home today and she can advance her diet as to what she tolerates Follow-up with her personal care physician within 1 to 2 weeks
[2020-09-06] MEDS ORDERED: NIFEDIPINE 30 MG TAB.ER.24 PO SCH (10:00)
[2020-09-06] MEDS: FUROSEMIDE 40 MG TABLET PO SCH (11:10)
[2020-09-06] MEDS: CARVEDILOL 12.5 MG TABLET PO SCH (11:10)
[2020-09-06] MEDS: TACROLIMUS ANHYDROUS 1 MG CAPSULE PO SCH (11:11)
[2020-09-06] MEDS: PANTOPRAZOLE SODIUM 40 MG VIAL IV SCH (11:11)
[2020-09-06] MEDS: FLUTICASONE/VILANTEROL 100-25 MCG/DOSE IH SCH (11:12)
--- NOTE | 2020-09-06 11:42 | PDOC DISCHARGE SUMMARY ---
Impression - Admit/DC Date/PCP Admission Date/Primary Care Provider: 09/05/20 04:04 IFEANYI IQBAL DO Discharge Date: 09/06/20 - Additional Information Resuscitation Status: Full Code Referrals: IFEANYI IQBAL DO [Primary Care Provider] - Follow up as needed TYSHAWN SANTO MD [ACTIVE STAFF] - Home Medications: Atorvastatin Calcium [Lipitor 20 mg Tablet] 20 mg PO QHS 10/09/17 Carvedilol [Coreg 12.5 mg Tablet] 25 mg PO Q12 10/09/17 Nifedipine [Procardia XL 30 mg Tablet] 30 mg PO DAILY 10/09/17 Tacrolimus Anhydrous [Prograf 1 mg Capsule] 2 mg PO Q12 10/09/17 Acetaminophen [Tylenol 325 mg Tablet] 650 mg PO Q6HP PRN 04/28/18 Furosemide [Lasix 40 mg Tablet] 40 mg PO BID 04/28/18 Omeprazole 20 mg PO Q6AM 09/05/20 Tramadol HCl [Ultram 50 mg Tablet] 50 mg PO Q6HP PRN 09/05/20 History of Present Illiness History of Present Illness: DEVANTE PIERSON is a 70 year old female with history of renal transplants, prior abdominal surgery, bowel obstruction, HTN, CHF, who presents to the hospital with complaints of abdominal pain for the past few days. Patient localizes the pain to her right lower quadrant. However there is radiation toward the corners of her abdomen and to her right flank. She denies any fever or chills. Does admits to nausea and some episodes of nonbilious nonbloody vomitus. She has not eating an adequate meals since Thursday. Her last bowel movement was also noted bleeding on Thursday. She has passed some flatus. Admits to polyuria. Hospital Course Hospital Course: (1) Partial small bowel obstruction CT scan revealing evidence of partial small bowel obstruction. Lactic acid is normal. Lipase is negative. Mild hypercalcemia and hyponatremia noted likely from dehydration. Improved. Surgical consultation evaluated the patient. She was initially n.p.o. She received gentle IV fluid administration with D5 NS with KCl KUB shows resolution of bowel obstruction. Diet was advanced. Patient was cleared for discharge by surgery. (2) CKD (chronic kidney disease), stage III Improved. Monitor renal function. Seems to be around her most recently noted baseline. Avoid nephrotoxic medications. (3) Nephrolithiasis Noted in her transplanted right kidney pelvis but no obstruction is noted. Urinalysis also negative for hematuria. (4) Kidney transplant recipient Patient states she is on Prograf. (5) COPD (chronic obstructive pulmonary disease) Not in acute exacerbation. LABA/ICS. As needed DuoNebs. Physical Exam Vital Signs: Temp Pulse Resp BP Pulse Ox 98.2 F 56 L 15 170/73 H 100 09/06/20 08:53 09/06/20 08:53 09/06/20 08:53 09/06/20 08:53 09/06/20 08:53 Intake & Output 09/05/20 09/06/20 09/07/20 06:59 06:59 06:59 Intake Total 650 955 Balance 650 955 Weight 89 lb 1.068 oz 89 lb 1.068 oz Exam: General appearance: PRESENT: no acute distress, cooperative Neck exam: ABSENT: JVD Respiratory exam: PRESENT: clear to auscultation kat, unlabored. ABSENT: crackles, tachypnea, wheezes Cardiovascular exam: PRESENT: RRR, +S1, +S2. ABSENT: tachycardia GI/Abdominal exam: PRESENT: soft, mild tenderness ABSENT: distended, rebound, rigid Extremities exam: ABSENT: pedal edema Neurological exam: PRESENT: alert, awake, oriented to person, oriented to place, oriented to time, oriented to situation Psychiatric exam: ABSENT: agitated, anxious Focused psych exam: ABSENT: pressured speech Skin exam: PRESENT: dry. ABSENT: jaundice Results Laboratory Results: WBC 2.6 10^3/uL (4.0-10.5) L D 09/06/20 05:17 RBC 4.03 10^6/uL (3.72-5.28) 09/06/20 05:17 Hgb 12.8 g/dL (12.0-15.5) D 09/06/20 05:17 Hct 38.4 % (36.0-47.0) 09/06/20 05:17 MCV 96 fl (80-97) 09/06/20 05:17 MCH 31.8 pg (27.0-33.4) 09/06/20 05:17 MCHC 33.3 g/dL (32.0-36.0) 09/06/20 05:17 RDW 13.6 % (11.5-14.0) 09/06/20 05:17 Plt Count 135 10^3/uL (150-450) L 09/06/20 05:17 Lymph % (Auto) 32.9 % (13-45) 09/06/20 05:17 [place] % (Auto) 12.9 % (3-13) 09/06/20 05:17 Eos % (Auto) 3.7 % (0-6) 09/06/20 05:17 Baso % (Auto) 0.7 % (0-2) 09/06/20 05:17 Absolute Neuts (auto) 1.3 10^3/uL (1.7-8.2) L 09/06/20 05:17 Absolute Lymphs (auto) 0.8 10^3/uL (0.5-4.7) 09/06/20 05:17 Absolute Monos (auto) 0.3 10^3/uL (0.1-1.4) 09/06/20 05:17 Absolute Eos (auto) 0.1 10^3/uL (0.0-0.6) 09/06/20 05:17 Absolute Basos (auto) 0.0 10^3/uL (0.0-0.2) 09/06/20 05:17 Seg Neutrophils % 49.8 % (42-78) 09/06/20 05:17 PT 14.1 SEC (11.4-15.4) 09/06/20 05:17 INR 1.07 09/06/20 05:17 APTT 63.4 SEC (23.5-35.8) H 09/06/20 05:17 Sodium 135.1 mmol/L (137-145) L 09/06/20 05:17 Potassium 4.2 mmol/L (3.6-5.0) 09/06/20 05:17 Chloride 107 mmol/L (98-107) 09/06/20 05:17 Carbon Dioxide 23 mmol/L (22-30) 09/06/20 05:17 Anion Gap 5 (5-19) 09/06/20 05:17 BUN 46 mg/dL (7-20) H 09/06/20 05:17 Creatinine 1.72 mg/dL (0.52-1.25) H 09/06/20 05:17 Est GFR ( Amer) 35 (>60) L 09/06/20 05:17 Est GFR (MDRD) Non-Af 29 (>60) L 09/06/20 05:17 Glucose 72 mg/dL (75-110) L 09/06/20 05:17 POC Glucose 80 mg/dL (70-110) 09/06/20 05:38 Lactic Acid 0.9 mmol/L (0.7-2.1) 09/04/20 23:21 Calcium 9.6 mg/dL (8.4-10.2) 09/06/20 05:17 Magnesium 1.9 mg/dL (1.6-2.3) 09/06/20 05:17 Total Bilirubin 0.8 mg/dL (0.2-1.3) 09/04/20 20:46 Direct Bilirubin 0.1 mg/dL (0.0-0.4) 09/04/20 20:46 Neonat Total Bilirubin Not Reportable 09/04/20 20:46 Neonat Direct Bilirubin Not Reportable 09/04/20 20:46 Neonat Indirect Bili Not Reportable 09/04/20 20:46 AST 36 U/L (14-36) 09/04/20 20:46 ALT 26 U/L (<35) 09/04/20 20:46 Alkaline Phosphatase 100 U/L (38-126) 09/04/20 20:46 Total Protein 7.5 g/dL (6.3-8.2) 09/04/20 20:46 Albumin 4.7 g/dL (3.5-5.0) 09/04/20 20:46 Lipase 280.5 U/L (23-300) 09/04/20 20:46 Urine Color YELLOW 09/04/20 20:46 Urine Appearance SLIGHTLY-CLOUDY 09/04/20 20:46 Urine pH 7.0 (5.0-9.0) 09/04/20 20:46 Ur Specific [place] 1.010 09/04/20 20:46 Urine Protein NEGATIVE mg/dL (NEGATIVE) 09/04/20 20:46 Urine Glucose (UA) NEGATIVE mg/dL (NEGATIVE) 09/04/20 20:46 Urine Ketones NEGATIVE mg/dL (NEGATIVE) 09/04/20 20:46 Urine Blood NEGATIVE (NEGATIVE) 09/04/20 20:46 Urine Nitrite NEGATIVE (NEGATIVE) 09/04/20 20:46 Urine Bilirubin NEGATIVE (NEGATIVE) 09/04/20 20:46 Urine Urobilinogen NEGATIVE mg/dL (<2.0) 09/04/20 20:46 Ur Leukocyte Esterase TRACE (NEGATIVE) H 09/04/20 20:46 Urine WBC (Auto) 2 /HPF 09/04/20 20:46 Urine RBC (Auto) 1 /HPF 09/04/20 20:46 Squamous Epi Cells Auto 8 /HPF 09/04/20 20:46 Urine Ascorbic Acid NEGATIVE (NEGATIVE) 09/04/20 20:46 Influenza A (RT-PCR) NEGATIVE (NEGATIVE) 09/05/20 04:10 Influenza B (RT-PCR) NEGATIVE (NEGATIVE) 09/05/20 04:10 RSV (RT-PCR) NEGATIVE (NEGATIVE) 09/05/20 04:10 SARS-CoV-2 Rap RNA(RT-PCR) NEGATIVE (NEGATIVE) 09/05/20 04:10 Impressions: Abdomen/Pelvis CT 09/04/20 23:26 IMPRESSION: 1. Dilated loops of small bowel in the mid abdomen with distally and proximally decompressed loops of bowel. There is swirling of the mid abdominal mesentery. Minimal oral contrast does appear to be within loops of bowel distal and proximal to the dilated loops of small bowel. This may indicate partial small bowel obstruction however given swirling appearance of the mid abdominal mesentery developing closed-loop obstruction remains a consideration. Close continued follow-up recommended. 2. Diverticulosis without evidence of acute diverticulitis. 3. Punctate nonobstructing nephrolithiasis in the right pelvic transplant kidney. 4. Persistent gallbladder distention without calcified gallstones. This exam was performed according to our departmental dose-optimization program, which includes automated exposure control, adjustment of the mA and/or kV according to patient size and/or use of iterative reconstruction technique. Abdomen X-Ray 09/05/20 14:00 IMPRESSION: No definitive pathologically dilated loops of bowel. Contrast noted throughout the colon. Moderate formed stool within the rectal vault. KUB X-Ray 09/06/20 06:00 IMPRESSION: Oral contrast given CT exam 09/05/2020 now in the descending colon Stroke Is this a Stroke Patient?: No Acute Heart Failure Is this a Heart Failure Patient?: No
[2020-09-06 13:36] VITALS: BP 131/61
== END 2020-09-06 14:10 | disposition home or self-care (01) | DRG 389 ==
LOC: ER 18:37 → EH 09-05 04:04 → 5 09-05 08:40
PROVIDERS: ADMIT Internal Medicine; ATTEND Family Medicine
DX: K56.600 Partial intestinal obstruction, unspecified as to cause (principal); Z94.0 Kidney transplant status; E87.1 Hypo-osmolality and hyponatremia; Z20.828 Contact with and (suspected) exposure to other viral communicable diseases; N20.0 Calculus of kidney; I25.10 Atherosclerotic heart disease of native coronary artery without angina pectoris; E78.5 Hyperlipidemia, unspecified; K21.9 Gastro-esophageal reflux disease without esophagitis; M41.50 Other secondary scoliosis, site unspecified; I12.9 Hypertensive chronic kidney disease with stage 1 through stage 4 chronic kidney disease, or unspecified chronic kidney disease; I70.0 Atherosclerosis of aorta; J43.9 Emphysema, unspecified; E83.52 Hypercalcemia; E86.0 Dehydration; N18.32 Chronic kidney disease, stage 3b; K43.9 Ventral hernia without obstruction or gangrene; Z96.641 Presence of right artificial hip joint; Z95.5 Presence of coronary angioplasty implant and graft; Z79.899 Other long term (current) drug therapy; Z79.82 Long term (current) use of aspirin; Z88.8 Allergy status to other drugs, medicaments and biological substances; Z82.49 Family history of ischemic heart disease and other diseases of the circulatory system
CPT/HCPCS: 36415; 74018; 74019; 74176; 80048; 80053; 81001; 82962; 83605; 83690; 83735; 85025; 85610; 85730; 87040; 87086; 96361; 96374; 96375; 99285; 0241U; C9113; C9803; J0696; J1170; J1644; J2270; J2550; J3480; J3490; J7040; J7507